=== PATIENT | female | born 1985 | race Caucasian/White ===

== ENCOUNTER 2020-09-09 17:45 | Outpatient (REF) | payer OTHER, SELFPAY ==
[2020-09-09 18:23] LABS: COVID-19 Test Negative (Negative)
== END 2020-09-09 17:46 | disposition home or self-care (01) ==
LOC: HO.LAB 17:45
PROVIDERS: Visit Provider Internal Medicine
DX: Z20.828 Contact with and (suspected) exposure to other viral communicable diseases (principal)
CPT/HCPCS: 87635

== ENCOUNTER 2020-09-12 07:20 | Outpatient (REF) | payer OTHER, SELFPAY ==
[2020-09-12 08:05] LABS: COVID-19 Test Negative (Negative)
== END 2020-09-12 07:21 | disposition home or self-care (01) ==
LOC: HO.LAB 07:20
PROVIDERS: Visit Provider Internal Medicine
DX: Z20.828 Contact with and (suspected) exposure to other viral communicable diseases (principal)
CPT/HCPCS: 87635

== ENCOUNTER 2020-09-16 06:20 | Outpatient (REF) | payer OTHER, SELFPAY ==
[2020-09-16 06:48] LABS: COVID-19 Test Negative (Negative)
== END 2020-09-16 06:21 | disposition home or self-care (01) ==
LOC: HO.LAB 06:20
PROVIDERS: Visit Provider Internal Medicine
DX: Z20.828 Contact with and (suspected) exposure to other viral communicable diseases (principal)
CPT/HCPCS: 87635

== ENCOUNTER 2020-10-13 16:55 | Outpatient (REF) | payer OTHER, SELFPAY ==
[2020-10-13 18:01] LABS: COVID-19 Test Negative (Negative); IDNOW Serial# 55D5AD1C
== END 2020-10-13 16:56 | disposition home or self-care (01) ==
LOC: HO.EMPCOV 16:55
PROVIDERS: Visit Provider Internal Medicine
DX: Z20.828 Contact with and (suspected) exposure to other viral communicable diseases (principal)
CPT/HCPCS: 87635; C9803

== ENCOUNTER 2021-01-08 07:38 | Outpatient (REF) | payer OTHER, MEDICAID, SELFPAY ==
[2021-01-10 03:56] LABS: C. trachomatis RNA TMA NOT DETECTED (NOT DETECTED); N. gonorrhoeae RNA TMA NOT DETECTED (NOT DETECTED)
== END 2021-01-08 07:39 | disposition home or self-care (01) ==
LOC: HO.LAB 07:38
PROVIDERS: Visit Provider Advanced Practice Midwife
DX: Z01.419 Encounter for gynecological examination (general) (routine) without abnormal findings (principal); E66.9 Obesity, unspecified; J30.2 Other seasonal allergic rhinitis; Z11.3 Encounter for screening for infections with a predominantly sexual mode of transmission; Z11.8 Encounter for screening for other infectious and parasitic diseases
CPT/HCPCS: 36415; 87491; 87591

== ENCOUNTER 2021-01-28 10:57 | Outpatient (REF) | payer OTHER, MEDICAID, SELFPAY ==
[2021-01-28 11:45] LABS: MANUAL DIFF FLAG NO
[2021-01-28 11:53] LABS: Basophils Percent Auto 0.4 % (0-2); Hematocrit 40.3 % (37-47); Hemoglobin 12.9 g/dl (12.0-16.0); Imm Gran Abs Auto 0.01 X10*3/uL (0.00-0.03); Imm Gran Pct Auto 0.2 % (0.0-0.4); Lymphocytes Absolute Auto 0.9 X10*3/uL (1.2-4.9); Lymphocytes Percent Auto 20.4 % (20-40); Mean Corpuscular Hemoglobin 27.3 pg (27.0-33.0); Mean Corpuscular Volume 85.2 fL (80-98); Mean Platelet Volume 10.9 fL (9.4-12.3); Monocytes Absolute Auto 0.3 X10*3/uL (0.1-1.2); Monocytes Percent Auto 6.9 % (2-11); Neutrophils Absolute Auto 3.3 X10*3/uL (2.0-8.3); Neutrophils Percent Auto 72.1 % (45-73); Platelet Count 201 X10*3/uL (160-400); Red Blood Count 4.73 X10*6/uL (4.20-5.50); Red Cell Distribution Width 13.6 % (11.0-16.0); White Blood Count 4.6 X10*3/uL (4.8-10.8)
[2021-01-28 12:25] LABS: Thyroid Stimulating Hormone 0.98 uIU/mL (0.32-4.0)
[2021-01-28 12:27] LABS: Anion Gap 11 (12-20); Blood Urea Nitrogen 10 mg/dL (9-16); Calcium 8.4 mg/dL (8.4-10.2); Carbon Dioxide 27 mmol/L (22-29); Chloride 104 mmol/L (96-108); Estimated Glomerular Filt Rate > 60; Glucose Random 90 mg/dL (60-115); Potassium 3.7 mmol/L (3.3-5.1); Sodium 138 mmol/L (135-145)
== END 2021-01-28 10:58 | disposition home or self-care (01) ==
LOC: HO.LAB 10:57
PROVIDERS: PCP Physician Assistant; Visit Provider Internal Medicine
DX: Z00.00 Encounter for general adult medical examination without abnormal findings (principal); E03.9 Hypothyroidism, unspecified; R51.9 Headache, unspecified; R09.89 Other specified symptoms and signs involving the circulatory and respiratory systems
CPT/HCPCS: 36415; 80048; 84443; 85025

== ENCOUNTER 2021-01-28 11:24 | Outpatient (REF) | payer OTHER, MEDICAID, SELFPAY | END 2021-01-28 11:25 | disposition home or self-care (01) | LOC: HO.LAB 11:24 | PROVIDERS: PCP Internal Medicine; Visit Provider Internal Medicine | DX: Z20.822 Contact with and (suspected) exposure to COVID-19 (principal) | CPT/HCPCS: 36415; C9803; U0003; U0005 ==

== ENCOUNTER 2021-02-09 09:32 | Outpatient (REF) | payer OTHER, MEDICAID, SELFPAY ==
[2021-02-11 21:21] LABS: Follicle Stimulating Hormone 7.7 mIU/mL; Prolactin 6.9 ng/mL
[2021-02-14 18:27] LABS: Estrogen 388.4 pg/mL
[2021-02-17 22:18] LABS: Estradiol Free 2.79 pg/mL; Estradiol, Ultrasensitive 153 pg/mL
== END 2021-02-09 09:33 | disposition home or self-care (01) ==
LOC: HO.LAB 09:32
PROVIDERS: PCP Physician Assistant; Visit Provider Physician Assistant
DX: R23.2 Flushing (principal)
CPT/HCPCS: 36415; 82670; 82672; 82681; 83001; 84146

== ENCOUNTER 2021-04-18 06:53 | Emergency (ER) | payer OTHER, MEDICAID, SELFPAY ==
--- NOTE | 2021-04-18 | ECG_ITS ---
Test Reason : ABDOMNIAL PAIN Blood Pressure : / mmHG Vent. Rate : 069 BPM Atrial Rate : 069 BPM P-R Int : 152 ms QRS Dur : 076 ms QT Int : 406 ms P-R-T Axes : -13 017 021 degrees QTc Int : 435 ms Normal sinus rhythm Normal ECG No previous ECGs available Referred By: Stuart Randolph Electronically Signed By:Rubio Carlos
--- NOTE | ~2021-04-18 | XR_ITS ---
EXAMINATION: XR CHEST CLINICAL INFORMATION: Right upper abdominal pain. COMPARISON: None TECHNIQUE: Frontal view of the chest was obtained. FINDINGS: No significant abnormality is noted involving the heart, lungs, mediastinum, bony thorax or soft tissues. XR/XR chest 1V IMPRESSION: Unremarkable chest examination.
--- NOTE | ~2021-04-18 | US_ITS ---
EXAMINATION: US ABDOMEN LIMITED CLINICAL INFORMATION: Right upper quadrant pain. COMPARISON: CT abdomen and pelvis 04/18/2021 TECHNIQUE: Real-time imaging of the right upper quadrant abdominal viscera. FINDINGS: PANCREAS: The pancreas completely obscured by overlying gas. LIVER: The liver is normal in size. The liver contour is normal. Parenchymal echogenicity is increased. No focal hepatic lesion. There is no intrahepatic biliary duct dilatation seen. GALLBLADDER: There is mild tenderness in the gallbladder area The gallbladder is physiologically distended without evidence of stones, sludge, polyps, wall thickening or pericholecystic fluid. COMMON BILE DUCT: Normal in caliber measuring 0.2 cm in diameter. RIGHT KIDNEY: Normal. No hydronephrosis. No renal calculi or focal parenchymal lesions. The kidney measures 10.3 cm in maximum dimension. FREE FLUID: None. US/US abdomen limited IMPRESSION: Mild hepatic steatosis with no focal lesion seen. There is mild tenderness in the right upper quadrant but no gallstone or wall thickening.
--- NOTE | ~2021-04-18 | CT_ITS ---
EXAMINATION: CTA CHEST. CT ABDOMEN AND PELVIS WITH CONTRAST. CLINICAL INFORMATION: Right-sided abdominal pain. Chest pain question PE. COMPARISON: None TECHNIQUE: 5 mm thin axial and reformatted 3mm and 8 mm thin sagittal and axial images of chest were obtained following rapid IV 85 mL Omnipaque 350. Subsequently 3 mm thin axial and reformatted 3 mm thin sagittal and coronal images of abdomen and pelvis were obtained. DLP 1029 FINDINGS: Chest: There is good opacification of pulmonary artery and its branches without any intraluminal filling defect or narrowing. The thoracic aorta is of normal caliber without aneurysm or dissection. The central trachea and bronchi are widely patent. No abnormal size mediastinal mass or lymphadenopathy seen. No pericardial effusion. There is a small hiatal hernia. Both lungs are well-expanded with mild haziness in the superior and basal segments both lower lobes likely dependent compressive atelectasis or consolidation seen. There is no pleural effusion, thickening or calcification. The axilla and chest wall appears unremarkable. Abdomen and pelvis: The liver is homogeneous in density, normal size and contour. No focal lesion or intrahepatic ductal dilatation seen. The gallbladder is unremarkable. Visualized spleen is normal size and density. The pancreas is homogeneous in density without any focal lesions or enlargement. Bilateral adrenal glands are symmetrical and normal. Both kidneys are normal size, shape and position. No radiopaque renal calculi or hydronephrosis seen. The abdominal aorta is normal caliber. No retrograde lymph nodes or mass seen. There is scattered stool and gas seen throughout the colon without any significant distention. The small bowel loops are normal caliber. Appendix is normal caliber. The stomach is nondilated. A small hiatal hernia seen. A small umbilical hernia containing fat is noted. The abdominal aorta is normal caliber. No retroperitoneal lymph nodes or mass seen. Imaging through the pelvis reveals enlarged urinary bladder with a bulky retroverted uterus. There are Essure devices in the right and left adnexa. Likely small right ovarian cyst are noted. There is no free fluid. Bone windows reveal no lytic or sclerotic process. CT/CT angio chest PE protocol IMPRESSION: No evidence of PE. No evidence aortic dissection or aneurysm. Small hiatal hernia. Lungs are clear. Retroverted uterus with bilateral essure devices in the right and left adnexa. Small right ovarian cyst. Small umbilical hernia containing fat. No acute intra-abdominal process seen.
[2021-04-18 07:31] VITALS: BP 127/86; PULSE 74; RESP 18; TEMP 37.1; O2SAT 98; BMI 35.0
--- NOTE | 2021-04-18 08:16 | ED.ABDPAIN ---
HPI - Abdominal Pain General Chief Complaint: Abdominal Pain Stated Complaint: r side pain Time Seen by Provider: 04/18/21 08:11 Source: patient Mode of arrival: ambulatory Limitations: no limitations History of Present Illness HPI narrative: Patient presents to the ED right upper quadrant abdominal pain for 2 weeks. Patient states pain started as right upper quadrant now running up to right posterior ribs. PATIENT DESCRIBES PAIN SHARP/STABBING. Patient denies any fever, chills, dysuria, hematuria, flank pain, fever, or chills. Patient denies any chest pain on inspiration. Patient denies any history of blood clots,or ABDOMINAL OR any abdominal surgery. PATIENT DENIES ANY SWELLING OF LOWER EXTREMITY OR CALF PAIN. PATIENT DENIES ANY LOWER ABDOMINAL PAIN Related Data Previous Rx's Medication Instructions Recorded omeprazole 20 mg capsule,delayed 20 mg PO DAILY #30 cap 12/28/20 release amoxicillin 1,000 mg PO TID 5 Days #30 cap 04/18/21 azithromycin See Rx Instructions .ROUTE 04/18/21 .COMPLEX #6 tab naproxen 500 mg PO BID PRN #20 tab 04/18/21 Allergies Allergy/AdvReac Type Severity Reaction Status Date / Time Seasonal IC Allergy Unknown Unknown Uncoded 02/09/21 08:47 Review of Systems Review of Systems Yes all other systems are reviewed and are negative Constitutional: Reports as per HPI and Reports no additional constitutional complaints Eyes: Reports as per HPI and Reports no additional eye complaints Reports system reviewed and no additional complaints, except as documented and Reports as per HPI Cardiovascular: Reports as per HPI and Reports no additional cardiovascular complaints Respiratory: Reports as per HPI and Reports no additional respiratory complaints Gastrointestinal: Reports as per HPI, Reports no additional gastrointestinal complaints and Reports abdominal pain (Right upper quadrant) Genitourinary: Reports no additional female genitourinary complaints and Reports as per HPI Musculoskeletal: Reports no additional musculoskeletal complaints and Reports as per HPI Reports system reviewed and no additional complaints, except as documented and Reports as per HPI Psychiatric: Reports no additional psychiatric complaints and Reports as per HPI Physical Exam Vital Signs: Vital Signs: Last Vital Signs Temp 98.9 F 04/18/21 14:14 Pulse 56 04/18/21 14:14 Resp 16 04/18/21 14:14 BP 92/60 04/18/21 14:14 Pulse Ox 96 04/18/21 14:14 Body Mass Index 35.0 Const: General: cooperative, healthy appearing, comfortable, no acute distress, well developed, alert, awake and Physically active Orientation/consciousness: oriented to time and patient oriented x3 HENMT: Head: Yes normal to inspection, Yes No palpable skull fracture present, Yes normocephalic, Yes atraumatic and No abrasion Eyes: General: appearance normal, both eyes and all related structures Neck: Neck: Yes normal visual inspection, Yes full ROM, Yes no lymphadenopathy, Yes no meningeal signs, Yes trachea midline, Yes supple and No tender Chest: Chest palpation & inspection: normal inspection of the chest and normal palpation of entire chest wall Resp: Effort & Inspection: normal respiratory effort and able to speak in complete sentences Auscultation: clear to auscultation bilaterally Cardio: Jugular venous distension: no JVD Heart sounds: S1 normal heart sound present and S2 normal heart sound present GI: Inspection: Yes normal to inspection and No abdominal wall ecchymosis Palpation (GI): Soft to palpation, not firm, Tenderness to palpation present (GI) in the RUQ; not in the epigastrum, not in the LLQ, not in the RLQ, not in the LUQ, not at McBurney's point, not periumbilically, not suprapubicly, Rivera's sign negative, obturator sign negative, psoas sign negative, with no rebound tenderness and Rovsing's sign negative, no guarding and not rigid : General: No CVA tenderness and Yes no CVA tenderness Back/Spine/Pelvis: Back: no CVA tenderness, No CVA tenderness and No back tenderness Skin: General skin exam: no rashes or lesions noted and elasticity normal Neuro: General: oriented to time, patient oriented x3, no meningeal signs and CN's II-XI intact bilaterally Cranial nerves: Yes CN's II-XII intact bilaterally Extrem: General: Yes normal to inspection and Yes full ROM Psych: Appearance: grossly normal, well kempt and not disheveled Course Course Course Narrative: Patient will have lab work drawn, EKG, and PPI given. Reevaluation(s) Reevaluation #1: EKG negative for STEMI. Troponin negative. D-dimer negative. Patient states pain is right upper quadrant going into rib area. Will send patient for abdominal CT and chest CT to rule out any typical pneumonia, PE, or gallstones/lipase. Patient not having any lower abdominal pain. Patient given morphine for pain relief. Reevaluation #2: UA negative for UTI. Abdomen CT came back normal. Chest CT negative for PE, but shows possible pneumonia. Most sent for ultrasound to make sure there is no gallstones due to patient's complaint. Negative Rivera. Reevaluation #3: Ultrasound negative for gallstones. Patient is safe for discharge. Will treat as atypical pneumonia and discharged with pain meds also. COVID SWAB NEGATIVE MDM - Abdominal Pain MDM Narrative Medical decision making narrative: Atypical pneumonia. Abdominal pain Lab Data Result diagrams: 04/18/21 08:33 04/18/21 08:33 Labs: Lab Results 04/18/21 04/18/21 04/18/21 Range/Units 08:33 08:33 08:33 WBC 8.8 (4.8-10.8) X10*3/uL RBC 4.42 (4.20-5.50) X10*6/uL Hgb 12.2 (12.0-16.0) g/dl Hct 38.0 (37-47) % MCV 86.0 (80-98) fL MCH 27.6 (27.0-33.0) pg MCHC 32.1 (31.0-35.0) g/dl RDW 14.2 (11.0-16.0) % Plt Count 277 D (160-400) X10*3/uL MPV 10.7 (9.4-12.3) fL Immature Gran % (Auto) 0.3 (0.0-0.4) % Neut % (Auto) 67.3 (45-73) % Lymph % (Auto) 23.9 (20-40) % [place] % (Auto) 5.8 (2-11) % Eos % (Auto) 2.4 (0-4) % Baso % (Auto) 0.3 (0-2) % Lymph # (Auto) 2.1 (1.2-4.9) X10*3/uL [place] # (Auto) 0.5 (0.1-1.2) X10*3/uL Eos # (Auto) 0.2 (0.0-0.4) X10*3/uL Baso # (Auto) 0.0 (0.0-0.2) X10*3/uL Abs Immat Gran (auto) 0.03 (0.00-0.03) X10*3/uL Absolute Neuts (auto) 5.9 (2.0-8.3) X10*3/uL Absolute Nucleated RBC 0.000 (0.0-0.012) X10*3/uL Nucleated RBC % (auto) 0.0 (0.0-0.2) /100WBC PT 12.0 (10.8-13.0) SEC INR 1.0 (0.9-1.1) APTT 34.6 (24.1-38.0) SEC D-Dimer < 200 NG/ML Sodium 140 (135-145) mmol/L Potassium 3.9 (3.3-5.1) mmol/L Chloride 107 (96-108) mmol/L Carbon Dioxide 25 (22-29) mmol/L Anion Gap 12 (12-20) BUN 10 (9-16) mg/dL Creatinine 0.71 (0.5-1.4) mg/dL Estim Creat Clear Calc 119.9 Estimated GFR > 60 Random Glucose 98 (60-115) mg/dL Calcium 8.8 (8.4-10.2) mg/dL Total Bilirubin 0.3 (0.0-1.0) mg/dL Direct Bilirubin < 0.2 (0.0-0.5) mg/dL AST 12 (5-31) U/L ALT 9 (0-31) U/L Alkaline Phosphatase 99 (39-117) U/L Troponin I High Sens (<3.5-17.0) ng/L Total Protein 6.5 (6.5-8.0) g/dL Albumin 3.8 (3.5-5.0) g/dL Lipase 28 (8-78) U/L Beta HCG, Quant < 2 mIU/mL Urine Color Urine Appearance Urine pH (5.0-8.0) Ur Specific [place] (1.005-1.025) Urine Protein (NEG-TRACE) MG/DL Urine Glucose (UA) (NEG) MG/DL Urine Ketones (NEG) MG/DL Urine Blood (NEG) Urine Nitrite (NEG) Ur Leukocyte Esterase (NEG) Urine Test (NEGATIVE) COVID-19 ([facility]ADIE) (Negative) COVID-19 Clin Com 04/18/21 04/18/21 04/18/21 Range/Units 08:33 11:18 11:18 WBC (4.8-10.8) X10*3/uL RBC (4.20-5.50) X10*6/uL Hgb (12.0-16.0) g/dl Hct (37-47) % MCV (80-98) fL MCH (27.0-33.0) pg MCHC (31.0-35.0) g/dl RDW (11.0-16.0) % Plt Count (160-400) X10*3/uL MPV (9.4-12.3) fL Immature Gran % (Auto) (0.0-0.4) % Neut % (Auto) (45-73) % Lymph % (Auto) (20-40) % [place] % (Auto) (2-11) % Eos % (Auto) (0-4) % Baso % (Auto) (0-2) % Lymph # (Auto) (1.2-4.9) X10*3/uL [place] # (Auto) (0.1-1.2) X10*3/uL Eos # (Auto) (0.0-0.4) X10*3/uL Baso # (Auto) (0.0-0.2) X10*3/uL Abs Immat Gran (auto) (0.00-0.03) X10*3/uL Absolute Neuts (auto) (2.0-8.3) X10*3/uL Absolute Nucleated RBC (0.0-0.012) X10*3/uL Nucleated RBC % (auto) (0.0-0.2) /100WBC PT (10.8-13.0) SEC INR (0.9-1.1) APTT (24.1-38.0) SEC D-Dimer NG/ML Sodium (135-145) mmol/L Potassium (3.3-5.1) mmol/L Chloride (96-108) mmol/L Carbon Dioxide (22-29) mmol/L Anion Gap (12-20) BUN (9-16) mg/dL Creatinine (0.5-1.4) mg/dL Estim Creat Clear Calc Estimated GFR Random Glucose (60-115) mg/dL Calcium (8.4-10.2) mg/dL Total Bilirubin (0.0-1.0) mg/dL Direct Bilirubin (0.0-0.5) mg/dL AST (5-31) U/L ALT (0-31) U/L Alkaline Phosphatase (39-117) U/L Troponin I High Sens < 3.5 (<3.5-17.0) ng/L Total Protein (6.5-8.0) g/dL Albumin (3.5-5.0) g/dL Lipase (8-78) U/L Beta HCG, Quant mIU/mL Urine Color YELLOW Urine Appearance CLEAR Urine pH 6.0 (5.0-8.0) Ur Specific [place] 1.010 (1.005-1.025) Urine Protein NEG (NEG-TRACE) MG/DL Urine Glucose (UA) NEG (NEG) MG/DL Urine Ketones NEG (NEG) MG/DL Urine Blood NEG (NEG) Urine Nitrite NEG (NEG) Ur Leukocyte Esterase NEG (NEG) Urine Test NEGATIVE (NEGATIVE) COVID-19 ([facility]) (Negative) COVID-19 Clin Com 04/18/21 Range/Units 14:22 WBC (4.8-10.8) X10*3/uL RBC (4.20-5.50) X10*6/uL Hgb (12.0-16.0) g/dl Hct (37-47) % MCV (80-98) fL MCH (27.0-33.0) pg MCHC (31.0-35.0) g/dl RDW (11.0-16.0) % Plt Count (160-400) X10*3/uL MPV (9.4-12.3) fL Immature Gran % (Auto) (0.0-0.4) % Neut % (Auto) (45-73) % Lymph % (Auto) (20-40) % [place] % (Auto) (2-11) % Eos % (Auto) (0-4) % Baso % (Auto) (0-2) % Lymph # (Auto) (1.2-4.9) X10*3/uL [place] # (Auto) (0.1-1.2) X10*3/uL Eos # (Auto) (0.0-0.4) X10*3/uL Baso # (Auto) (0.0-0.2) X10*3/uL Abs Immat Gran (auto) (0.00-0.03) X10*3/uL Absolute Neuts (auto) (2.0-8.3) X10*3/uL Absolute Nucleated RBC (0.0-0.012) X10*3/uL Nucleated RBC % (auto) (0.0-0.2) /100WBC PT (10.8-13.0) SEC INR (0.9-1.1) APTT (24.1-38.0) SEC D-Dimer NG/ML Sodium (135-145) mmol/L Potassium (3.3-5.1) mmol/L Chloride (96-108) mmol/L Carbon Dioxide (22-29) mmol/L Anion Gap (12-20) BUN (9-16) mg/dL Creatinine (0.5-1.4) mg/dL Estim Creat Clear Calc Estimated GFR Random Glucose (60-115) mg/dL Calcium (8.4-10.2) mg/dL Total Bilirubin (0.0-1.0) mg/dL Direct Bilirubin (0.0-0.5) mg/dL AST (5-31) U/L ALT (0-31) U/L Alkaline Phosphatase (39-117) U/L Troponin I High Sens (<3.5-17.0) ng/L Total Protein (6.5-8.0) g/dL Albumin (3.5-5.0) g/dL Lipase (8-78) U/L Beta HCG, Quant mIU/mL Urine Color Urine Appearance Urine pH (5.0-8.0) Ur Specific [place] (1.005-1.025) Urine Protein (NEG-TRACE) MG/DL Urine Glucose (UA) (NEG) MG/DL Urine Ketones (NEG) MG/DL Urine Blood (NEG) Urine Nitrite (NEG) Ur Leukocyte Esterase (NEG) Urine Test (NEGATIVE) COVID-19 ([facility]IE) Negative (Negative) COVID-19 Clin Com See Note ECG Data Interpretation: Normal sinus rhythm. Ventricular rate 69. Pr interval 152. QRS duration 76. QTC 435. Negative STEMI Discharge Plan Discharge Clinical Impression: Pneumonia, Abdominal pain Patient Disposition: Home, Self-Care Instructions: Abdominal Pain (ED), Pneumonia (ED) Additional Instructions: Return to the ED for any chest pain, shortness of breath, abdominal pain, inability to tolerate solid food/liquid, nausea, vomiting, fever, chills, flank pain, blood in stool, diarrhea, dysuria, hematuria, or any other concerning symptoms. Prescriptions: New azithromycin 500 mg tablet See Rx Instructions .ROUTE .COMPLEX Qty: 6 RF: 0 amoxicillin 500 mg capsule 1,000 mg PO TID 5 Days Qty: 30 RF: 0 naproxen 500 mg tablet 500 mg PO BID PRN (Reason: pain) Qty: 20 RF: 0 No Action omeprazole 20 mg capsule,delayed release(DR/EC) 20 mg PO DAILY Qty: 30 RF: 0 Referrals: Shantanu Costello PA-C [Primary Care Provider] - 2 days ( atypical Pneumonia as per chest CT. Chest CT negative for PE. Abdominal CT negative for acute any intra abdominal processes.) Stand Alone Forms: Work/School Release Interventions: ED Discharge Assessment Last Done: 04/18/21 14:38 Discharge Date/Time: 04/18/21 14:39 Print Language: Dutch [facility] Past Medical History Medical History History of abnormal cervical Pap smear Obesity (BMI 30-39.9) Surgical History History of surgery Family History Family History Father Diabetes Mother Hypertension Sister Cervical cancer Paternal Grandmother Uterine cancer Daughter Lymphatic malformation Social History Social History Alcohol intake: never Advance Directives: No Advance Directives Information Provided: No Patient : No Gender identity: female
[2021-04-18 08:39] LABS: MANUAL DIFF FLAG NO
[2021-04-18 08:41] LABS: Basophils Percent Auto 0.3 % (0-2); Eosinophils Absolute Auto 0.2 X10*3/uL (0.0-0.4); Eosinophils Percent Auto 2.4 % (0-4); Hemoglobin 12.2 g/dl (12.0-16.0); Imm Gran Abs Auto 0.03 X10*3/uL (0.00-0.03); Imm Gran Pct Auto 0.3 % (0.0-0.4); Lymphocytes Absolute Auto 2.1 X10*3/uL (1.2-4.9); Lymphocytes Percent Auto 23.9 % (20-40); Mean Corpuscular HGB Conc 32.1 g/dl (31.0-35.0); Mean Corpuscular Hemoglobin 27.6 pg (27.0-33.0); Mean Platelet Volume 10.7 fL (9.4-12.3); Monocytes Absolute Auto 0.5 X10*3/uL (0.1-1.2); Monocytes Percent Auto 5.8 % (2-11); Neutrophils Absolute Auto 5.9 X10*3/uL (2.0-8.3); Neutrophils Percent Auto 67.3 % (45-73); Platelet Count 277 X10*3/uL (160-400); Red Blood Count 4.42 X10*6/uL (4.20-5.50); Red Cell Distribution Width 14.2 % (11.0-16.0); White Blood Count 8.8 X10*3/uL (4.8-10.8)
[2021-04-18] MEDS: 0.9 % Sodium Chloride 1,000 ML 999 ML IV (08:42)
[2021-04-18] MEDS: Famotidine/PF 20 MG/2 ML VIAL IVPUSH (08:44)
[2021-04-18] MEDS: Magnesium Hydrox/Alum Hydrox 30 ML ORAL.SUSP PO (08:46)
[2021-04-18] MEDS: Lidocaine HCl Viscous 2 % 15 ML SOLUTION MUCOUS MEM (08:46)
[2021-04-18] MEDS: PHENobarb/Hyoscy/Atropine/Scop 10 ML ELIXIR PO (08:46)
[2021-04-18 09:07] LABS: Partial Thromboplastin Time 34.6 SEC (24.1-38.0)
[2021-04-18 09:09] LABS: D Dimer < 200 NG/ML
[2021-04-18] MEDS: Morphine Sulfate 4 MG/ML CARTRIDGE IVPUSH (09:16)
[2021-04-18 09:39] LABS: Alanine Aminotransferase 9 U/L (0-31); Albumin Level 3.8 g/dL (3.5-5.0); Alkaline Phosphatase 99 U/L (39-117); Bilirubin Direct < 0.2 mg/dL (0.0-0.5); Bilirubin Total 0.3 mg/dL (0.0-1.0); Blood Urea Nitrogen 10 mg/dL (9-16); Calcium 8.8 mg/dL (8.4-10.2); Carbon Dioxide 25 mmol/L (22-29); Chloride 107 mmol/L (96-108); Estimated Glomerular Filt Rate > 60; Lipase 28 U/L (8-78); Potassium 3.9 mmol/L (3.3-5.1)
[2021-04-18 09:46] LABS: Troponin-I High Sensitivity < 3.5 ng/L (<3.5-17.0)
[2021-04-18 09:47] LABS: HCG Quantitative < 2 mIU/mL
[2021-04-18 09:51] LABS: Anion Gap 12 (12-20); Aspartate Amino Transferase 12 U/L (5-31); Creatinine Clr Calc Pharmacy 119.9; Glucose Random 98 mg/dL (60-115); Sodium 140 mmol/L (135-145); Total Protein 6.5 g/dL (6.5-8.0)
[2021-04-18 11:01] VITALS: BP 117/72; PULSE 81; RESP 14; TEMP 37.1; O2SAT 100
[2021-04-18] MEDS: iohexoL 350 MG/ML 100 ML INFUS..BTL IV (11:12)
[2021-04-18 11:28] LABS: Glucose Urine UA NEG (NEG); Leukocyte Esterase Urine NEG (NEG); Nitrite Urine NEG (NEG); Urine Blood NEG (NEG); Urine Ketones NEG (NEG); Urine Protein NEG (NEG-TRACE)
[2021-04-18 11:31] LABS: Appearance Urine CLEAR; Color Urine YELLOW; UPreg QC Valid YES; Urine Pregnancy NEGATIVE (NEGATIVE)
[2021-04-18 14:14] VITALS: BP 92/60; PULSE 56; RESP 16; TEMP 37.2; O2SAT 96
[2021-04-18 14:42] LABS: COVID-19 Test Negative (Negative)
== END 2021-04-18 14:39 | disposition home or self-care (01) ==
PROVIDERS: Physician Assistant; Emergency Provider Emergency Medicine Emergency Medical Services; PCP Physician Assistant
DX: J18.9 Pneumonia, unspecified organism (principal); R10.11 Right upper quadrant pain; Z20.822 Contact with and (suspected) exposure to COVID-19
CPT/HCPCS: 36415; 71045; 71275; 74177; 76705; 80053; 80076; 81003; 81025; 82248; 83690; 84484; 84702; 85025; 85379; 85610; 85730; 87635; 93005; 96361; 96374; 96375; 99285; J2270; Q9967

== ENCOUNTER 2021-10-11 09:24 | Outpatient (REF) | payer OTHER, MEDICAID, SELFPAY ==
--- NOTE | ~2021-10-11 | XR_ITS ---
EXAMINATION: XR CHEST CLINICAL INFORMATION: SOB. History of Covid disease. COMPARISON: None TECHNIQUE: 2 views of the chest were obtained. FINDINGS: No significant abnormality is noted involving the heart, lungs, mediastinum, bony thorax or soft tissues. XR/XR chest 2V IMPRESSION: Unremarkable chest examination.
--- NOTE | 2021-10-11 09:32 | ECG_ITS ---
Test Reason : hx covid19 Blood Pressure : / mmHG Vent. Rate : 065 BPM Atrial Rate : 065 BPM P-R Int : 150 ms QRS Dur : 076 ms QT Int : 404 ms P-R-T Axes : 038 025 016 degrees QTc Int : 420 ms Normal sinus rhythm Normal ECG When compared with ECG of 18-APR-2021 08:25, No significant change was found Referred By: Armando Lomas Electronically Signed By:OSCAR KEYES MD
== END 2021-10-11 09:25 | disposition home or self-care (01) ==
LOC: HO.XRAY 09:24
PROVIDERS: PCP Physician Assistant; Visit Provider Nurse Practitioner Family
DX: R00.2 Palpitations (principal); Z86.16 Personal history of COVID-19
CPT/HCPCS: 71046; 93005

== ENCOUNTER → 2022-01-11 08:44 | Outpatient (BNVA) | payer OTHER, MEDICAID, SELFPAY | PROVIDERS: Visit Provider Obstetrics & Gynecology ==

== ENCOUNTER 2022-01-14 08:14 | Emergency (ER) | payer OTHER, SELFPAY ==
--- NOTE | ~2022-01-14 | XR_ITS ---
EXAMINATION: LEFT SHOULDER AND LEFT WRIST X-RAYS CLINICAL INFORMATION: Fall COMPARISON: None TECHNIQUE: 3 views of the left shoulder and 4 views of the left wrist FINDINGS: Left wrist: Bone alignment is normal. No fracture or dislocation is seen. Joint spaces are normal. Soft tissues are normal. Left shoulder: Bone alignment is normal. No fracture or dislocation is seen. Joint spaces are normal. Soft tissues are normal. XR/XR wrist LT 2V IMPRESSION: Unremarkable exam.
--- NOTE | ~2022-01-14 | XR_ITS ---
EXAMINATION: LEFT SHOULDER AND LEFT WRIST X-RAYS CLINICAL INFORMATION: Fall COMPARISON: None TECHNIQUE: 3 views of the left shoulder and 4 views of the left wrist FINDINGS: Left wrist: Bone alignment is normal. No fracture or dislocation is seen. Joint spaces are normal. Soft tissues are normal. Left shoulder: Bone alignment is normal. No fracture or dislocation is seen. Joint spaces are normal. Soft tissues are normal. XR/XR shoulder LT min 2V IMPRESSION: Unremarkable exam.
[2022-01-14 08:17] VITALS: BP 141/93; PULSE 93; RESP 18; TEMP 36.8; O2SAT 99; BMI 38.5
--- NOTE | 2022-01-14 08:45 | ED_ITS ---
HPI - Fall General Chief Complaint: Fall Stated Complaint: fell in parking lot l wrist inj Time Seen by Provider: 01/14/22 08:40 Source: patient Mode of arrival: ambulatory Limitations: no limitations History of Present Illness HPI Narrative: Patient is a 36-year-old female who had a mechanical slip and fall in the employ a parking lot. She reports landing on her buttock and bearing her weight on the left arm. She is right-hand dominant. Pain is currently localized to the left shoulder that is made worse with abduction and shoulder raising. Pain to the left wrist, made worse with movement. denies numbness or tingling of the arm or hand. Denies any head strike or loss of consciousness. Denies back pain, buttock pain, hip pain, knee pain, or generalized leg pain. MD complaint: fall Onset (ago): hour(s) Fall from: standing Fall witnessed: no Place fall occurred: work Loss of consciousness: none Prolonged down time: no Symptoms prior to fall: none Context: tripped/slipped Related Data Previous Rx's Medication Instructions Recorded omeprazole 20 mg capsule,delayed 20 mg PO DAILY #30 cap 12/28/20 release acetaminophen 325 mg tablet 650 mg PO Q6H #30 tab 10/11/21 ibuprofen 600 mg tablet 600 mg PO Q6H #30 tab 10/11/21 Allergies Allergy/AdvReac Type Severity Reaction Status Date / Time Seasonal IC Allergy Unknown Unknown Uncoded 01/11/22 08:53 Review of Systems Review of Systems: Constitutional : No Fever, No Chills, No Fatigue ENT/Mouth : No sore throat, No Rhinorrhea Eyes: No Eye Pain, No Swelling, No Redness Cardiovascular : No Chest Pain, No SOB, No Dyspnea on Exertion Respiratory : No Cough, No Sputum Gastrointestinal : No Nausea, No Vomiting, No Diarrhea, No abdominal pain Genitourinary : No Dysuria, No Urinary Frequency, No Hematuria, Musculoskeletal : + left shoulder and left wrist pain Skin : No Skin Lesions, No rash Neuro : No Weakness, No Numbness, No Dizziness, No Headache Psych : No Anxiety/Panic, No Depression Heme/Lymph: No Bruising, No Bleeding,No Lymphadenopathy Endocrine : No Polyuria, No Polydipsia ? All other systems reviewed and are negative [facility] Past Medical History Attestation statement: The following information was validated with the patient. Source: old records reviewed Medical History History of abnormal cervical Pap smear Obesity (BMI 30-39.9) Surgical History History of surgery Family History Family History Father Diabetes Mother Hypertension Sister Cervical cancer Paternal Grandmother Uterine cancer Daughter Lymphatic malformation Social History Social History Housing: Apartment Alcohol intake: current Alcohol intake frequency: holidays/special occasions only Patient Tobacco Use Status: Never used Tobacco e-Cigarette/Vaping Use: Never Used Second Hand Smoke Exposure: Yes Advance Directives: No Advance Directives Information Provided: No Patient : No service: No Current occupational status: employed 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 Blood pressure normal.? Heart rate normal.? Respiration rate normal. Temperature normal.? Oxygen saturation normal. Appearance: Alert.?Oriented to person, place and time. No acute distress.?Normal affect. Head: Normocephalic, atraumatic Eyes: Pupils equal, round and reactive to light.? ENT: Pharynx normal.?? Neck: Normal inspection.? Neck supple.?? CVS: Heart sounds normal. Normal heart rate and rhythm.? Pulses normal, 2+ radial pulse bilaterally..?? Respiratory: No respiratory distress.? Lung sounds clear to auscultation bilaterally?? Abdomen: Soft and non-tender. Skin: Skin warm and dry.? Normal skin color.? Normal skin turgor.?? Extremities: + left shoulder with decreased range of motion with abduction and overhead raise no obvious deformity. Left wrist with decreased flexion and extension no obvious deformity, swelling, redness. Palpable tenderness to the dorsal aspect of the left wrist. CMS intact. No lower extremity edema.? Neuro: Moves all extremities spontaneously. Sensation intact bilaterally. CN II- XII intact. No focal neuro deficits. Ambulates with normal steady gait. Course Course Course Narrative: Patient is a 36-year-old female being evaluated after mechanical slip and fall. Currently with pain to the left shoulder and left wrist, no obvious deformities or swelling. Will obtain x-rays to exclude fracture dislocation. Patient offered a sling for comfort of the left shoulder, and will provide ibuprofen 600 mg p.o. Disposition will be pending results. Reevaluation(s) Reevaluation #1: Left shoulder and left wrist x-ray without any fracture or dislocation. Symptoms most consistent with a sprain. Discussed these results with the patient. Discussed rest, ice, compression, and elevation. Patient offered kat bandage for compression to wrist but declined at this time. Discussed use of Tylenol and ibuprofen as needed for pain or discomfort. Patient to follow up with work connection as necessary, may return to work today. All questions were answered and patient is agreeable with the plan of care for discharge. Time: 09:40 MDM - Fall Medical Records Attestation: I reviewed the patient's medical records. Imaging Data Left shoulder/ Left wrist XR: Radiologist's impression: FINDINGS: Left wrist: Bone alignment is normal. No fracture or dislocation is seen. Joint spaces are normal. Soft tissues are normal. Left shoulder: Bone alignment is normal. No fracture or dislocation is seen. Joint spaces are normal. Soft tissues are normal.? XR/XR shoulder LT min 2V IMPRESSION: Unremarkable exam.? Discharge Plan Discharge Clinical Impression: Left wrist sprain, Sprain of left shoulder Patient Disposition: Home, Self-Care Instructions: Wrist Injury (ED), Wrist Sprain (ED) Additional Instructions: The x-ray of your left shoulder and left wrist did not reveal any fracture dislocation. This most likely a sprain of the shoulder and wrist. Please be sure to rest, apply ice for 10-15 minutes every 3-4 hours, and elevate the arm when possible. As discussed to apply compression to the left wrist for comfort and continue to use the left sling to alleviate discomfort ear shoulder. Can use Tylenol 650mg every 6 hours as needed, not to exceed 3 g daily, and ibuprofen 400-600 mg every 8 hours as needed. Please return to the emergency department with any new or worsening symptoms or concerns. You may follow up with work connection. Prescriptions: No Action omeprazole 20 mg capsule,delayed release(DR/EC) 20 mg PO DAILY Qty: 30 0RF acetaminophen 325 mg tablet 650 mg PO Q6H Qty: 30 0RF ibuprofen 600 mg tablet 600 mg PO Q6H Qty: 30 0RF Stand Alone Forms: Work/School Release Interventions: ED Discharge Assessment Last Done: 01/14/22 09:42 Discharge Date/Time: 01/14/22 09:42
[2022-01-14] MEDS: Ibuprofen 600 MG TABLET PO (09:09)
[2022-01-14 09:41] VITALS: RESP 17
== END 2022-01-14 09:42 | disposition home or self-care (01) ==
PROVIDERS: Emergency Provider Emergency Medicine; PCP Physician Assistant
DX: S63.502A Unspecified sprain of left wrist, initial encounter (principal); S43.402A Unspecified sprain of left shoulder joint, initial encounter; M79.602 Pain in left arm; W01.0XXA Fall on same level from slipping, tripping and stumbling without subsequent striking against object, initial encounter; Y93.9 Activity, unspecified; Y92.481 Parking lot as the place of occurrence of the external cause; Y99.9 Unspecified external cause status; Z79.899 Other long term (current) drug therapy
CPT/HCPCS: 73030; 73100; 99283

== ENCOUNTER → 2022-01-18 08:03 | Outpatient (BNVA) | payer OTHER, SELFPAY | PROVIDERS: PCP Physician Assistant; Visit Provider Physician Assistant Medical | DX: Z13.89 Encounter for screening for other disorder (principal) | CPT/HCPCS: 99203 ==

== ENCOUNTER → 2022-01-21 07:56 | Outpatient (BNVA) | payer OTHER, SELFPAY | PROVIDERS: PCP Physician Assistant; Visit Provider Physician Assistant Medical | DX: Z13.89 Encounter for screening for other disorder (principal) | CPT/HCPCS: 99213 ==

== ENCOUNTER → 2022-01-25 08:05 | Outpatient (BNVA) | payer OTHER, SELFPAY | PROVIDERS: PCP Physician Assistant; Visit Provider Physician Assistant Medical | DX: Z13.89 Encounter for screening for other disorder (principal) | CPT/HCPCS: 72050; 73030; 99214 ==

== ENCOUNTER → 2022-02-01 08:01 | Outpatient (BNVA) | payer OTHER, SELFPAY | PROVIDERS: PCP Physician Assistant; Visit Provider Physician Assistant Medical | DX: Z13.89 Encounter for screening for other disorder (principal) | CPT/HCPCS: 99213 ==

== ENCOUNTER → 2022-02-07 08:39 | Outpatient (BNVA) | payer OTHER, SELFPAY | PROVIDERS: PCP Physician Assistant; Visit Provider Physician Assistant Medical | DX: Z13.89 Encounter for screening for other disorder (principal) | CPT/HCPCS: 99213 ==

== ENCOUNTER 2022-02-17 07:00 | Outpatient (RCR) | payer OTHER, SELFPAY ==
--- NOTE | 2022-02-01 13:15 | MHC.PT.EP ---
[facility] [place] Office [place] Office [place] Office [address] Becca Kumar [address] [phone] F: [phone] F: [phone] F: [phone] F: [phone] Physical Therapy Plan of Care Date of Evaluation: Date of Surgery: Diagnosis: SHOULDER PAIN Assessment: 36 YO FEMALE REF TO PT AFTER FALLING 01/14/22 OUTDOORS ONTO LEFT SIDE/ LEFT SH. 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 SHE IS RIGHT HAND DOMINANT- OBJECTIVELY, Pt HAS LIMITED AROM CERV AND MILDLY IN Lt SH ; DECR STRENGTH IN PARASCAP/ POST RC MM, (+) SOFT TISSUE IRRIT W TrPS Lt UT/ PARSCAP/ POST RC, INTERMITTENT RADICULAR SXS Lt UE AND PAIN IN HER CERVICAL AND Lt SH. FUNCTIONAL LIMITATIONS INCLUDE DIFFIC SLEEPING, LIMITED REACH/ CARRY/ LIFTING- SHE CURRENTLY HAS LIGHT DUTY RESTRICTIONS AT WORK, AND NOTES SHE CAN PERFORM ADLs AT A SLOWER/ MODIFIED PACE. Pt WOULD BENEFIT FROM PT TO ADDRESS THE ABOVE FINDINGS, EASE SOFT TISSUE TENSION, PAIN MGMT, DEV SELF- SX MGMT STRATEGIES, AND ASSIST Pt IN GRADUAL RETURN TO REGULAR ACTIVITY TOLERANCE. Frequency and Duration: The patient will be seen 2 x WK x 4 WKS Short Term Goals: *PT'S LEFT CERV/SH PAIN DECR TO 2-3/10 AND Lt UE RADIC SXS DECR BY 75% IN 2 WKS *Pt DEMON INDEP SELF CORRECT POSTURE IN 1 WK *Pt DEMON WFL AROM CERV AND END ROM LEFT SH IN 2 WKS Shelter Goals: *Pt INDEP HEP PROGR AND SELF-SX MGMT STRATEGIES FOR Lt SH/ CERV INJURY IN 4 WKS Pt RESUME REG ADLs TO JEANNINE EVIDENT IN IMPROVED SPADI BY 8-10 POINTS ( AT EVAL 53 /130 ) IN 4 WKS *Pt SIMUL 3:3 ADLs / WORK TASKS W PROPER MECHANICS (DECR SH AND CERV STRAIN) IN 4 WKS *Pt DEMON IMPROVED STRENGTH IN Lt SH/ SCAP BY 1/2-1 GRADE IN 4 WKS Treatment Plan: Modalities to reduce pain, spasms and effusion. Manual therapy to restore motion and function. Therapeutic exercise to improve strength and flexibility. Neuromuscular re-education for posture and balance. Therapeutic activities to return to functional activities of daily living. Electronically signed by: Ilene Muller PT Please sign and return to therapist. Thank you for your referral.
--- NOTE | 2022-03-01 08:36 | MHC.PT.DC ---
[facility] [place] Office [place] Office [place] Office [address] Becca Kumar 140 [facility] [phone] F: [phone] F: [phone] F: [phone] F: [phone] Physical Therapy Discharge Report Diagnosis: SHOULDER PAIN Date of Surgery: 01/14/22 Date of Evaluation: 02/01/22 Date of Discharge: 03/01/22 Treatments to Date: 5 Cancellations to Date: No Shows to Date: 3 Discharge Status: Improved Function Patient Elected to Stop Visit Non-compliance Discharge Summary: Pt HAS A HEP, SHE DEMON IMPROVED POSTURAL AWARENESS AND SELF CORRECT CARRYOVER- HER SHOULDER SXS WERE RESOLVING STRENGTH / MUSCULAR EFFICIENCY AND TISSUE TENSION WAS DECREASING. Pt D/C'D THIS DATE, SHE DID NOT MEET ALL OF HER PT GOALS AT THIS TIME. Electronically signed by: Ilene Muller,PT Please sign and return to therapist. Thank you for your referral.
== END 2022-03-01 08:37 | disposition home or self-care (01) ==
LOC: HO.PT 07:00
PROVIDERS: Visit Provider Physician Assistant Medical
DX: M25.551 Pain in right hip (principal); M54.12 Radiculopathy, cervical region
CPT/HCPCS: 97110; 97140; 97162

== ENCOUNTER → 2022-03-01 08:05 | Outpatient (BNVA) | payer OTHER, SELFPAY | PROVIDERS: PCP Physician Assistant; Visit Provider Physician Assistant Medical | DX: Z13.89 Encounter for screening for other disorder (principal) | CPT/HCPCS: 99213 ==

== ENCOUNTER → 2022-03-22 08:00 | Outpatient (BNVA) | payer OTHER, SELFPAY | PROVIDERS: PCP Physician Assistant; Visit Provider Physician Assistant Medical | DX: Z13.89 Encounter for screening for other disorder (principal) | CPT/HCPCS: 99213 ==

== ENCOUNTER 2022-03-22 13:59 | Outpatient (REF) | payer OTHER, MEDICAID, SELFPAY ==
[2022-03-22 14:58] LABS: Hematocrit 37.4 % (37.0-47.0); Hemoglobin 11.8 g/dl (12.0-16.0); Mean Corpuscular HGB Conc 31.6 g/dl (31.0-35.0); Mean Corpuscular Hemoglobin 26.6 pg (27.0-33.0); Mean Corpuscular Volume 84.4 fL (80.0-98.0); Mean Platelet Volume 10.7 fL (9.4-12.3); Platelet Count 293 X10*3/uL (160-400); Red Blood Count 4.43 X10*6/uL (4.20-5.50); Red Cell Distribution Width 14.9 % (11.0-16.0); White Blood Count 8.2 X10*3/uL (4.8-10.8)
[2022-03-22 15:15] LABS: Anion Gap 11 (12-20); Blood Urea Nitrogen 14 mg/dL (9-16); Calcium 8.9 mg/dL (8.4-10.2); Carbon Dioxide 25 mmol/L (22-29); Chloride 109 mmol/L (96-108); Cholesterol 156 mg/dL; Estimated Glomerular Filt Rate > 60; Glucose Random 83 mg/dL (60-115); HDL Cholesterol 57 mg/dL; LDL Cholesterol Calculated 84 mg/dl; Potassium 4.6 mmol/L (3.3-5.1); Sodium 140 mmol/L (135-145); Triglycerides 77 mg/dL
[2022-03-22 15:37] LABS: TSH reflex Free T4 1.36 uIU/mL (0.32-4.0)
[2022-03-27 13:06] LABS: Vitamin D 25-OH, D2 <4 ng/mL; Vitamin D 25-OH, D3 15 ng/mL; Vitamin D 25-OH, Total 15 ng/mL (30-100)
== END 2022-03-22 14:00 | disposition home or self-care (01) ==
LOC: HO.LAB 13:59
PROVIDERS: PCP Physician Assistant; Visit Provider Nurse Practitioner Family
DX: E78.00 Pure hypercholesterolemia, unspecified (principal); F32.A Depression, unspecified; F41.9 Anxiety disorder, unspecified
CPT/HCPCS: 36415; 80048; 80061; 82306; 84443; 85027

== ENCOUNTER 2022-03-25 15:58 | Emergency (ER) | payer OTHER, MEDICAID, SELFPAY ==
--- NOTE | ~2022-03-25 | XR_ITS ---
EXAMINATION: XR CHEST CLINICAL INFORMATION: Right posterior chest pain. COMPARISON: Chest done on 10/11/2021. TECHNIQUE: Frontal view of the chest was obtained. FINDINGS: Both lungs are symmetrically expanded and are clear. The cardiac mediastinal silhouette is within normal limit. No evidence of any pleural effusion or pneumothorax. No significant change. XR/XR chest 1V IMPRESSION: Unremarkable examination.
[2022-03-25 16:13] VITALS: BP 152/94; PULSE 68; RESP 18; TEMP 36.6; O2SAT 98; BMI 38.5
--- NOTE | 2022-03-25 16:21 | ED_ITS ---
HPI - Back Pain/Injury General Chief Complaint: Back Pain/Injury Stated Complaint: Upper right back pain Time Seen by Provider: 03/25/22 16:14 Source: patient Mode of arrival: ambulatory Limitations: no limitations History of Present Illness HPI Narrative: Patient comes to the emergency room complaining of upper back pain for approximately 1 week. Patient denies any injury. Patient states she has been taking Tylenol, last dose at 10:00 today. Patient has been coughing, states it is likely secondary to GERD. Patient is here chills, no UTI symptoms. Related Data Previous Rx's Medication Instructions Recorded acetaminophen 325 mg tablet 650 mg PO Q6H #30 tab 10/11/21 ibuprofen 600 mg tablet 600 mg PO Q6H #30 tab 10/11/21 omeprazole 20 mg capsule,delayed 20 mg PO DAILY #30 cap 01/29/22 release hydroxyzine HCl 25 mg tablet 25 mg PO Q6-8H PRN #30 tab 03/22/22 sertraline 50 mg tablet 50 mg PO DAILY #30 tab 03/22/22 cyclobenzaprine 10 mg tablet 10 mg PO TID PRN #10 tab 03/25/22 ketorolac 10 mg tablet 10 mg PO TID PRN #10 tab 03/25/22 ondansetron 4 mg disintegrating 4 mg PO Q6H PRN #10 tab 03/25/22 tablet Allergies Allergy/AdvReac Type Severity Reaction Status Date / Time Seasonal IC Allergy Unknown Unknown Uncoded 03/22/22 13:13 Review of Systems Review of Systems: Constitutional : No Weight loss, No Fever, No Chills, No Night Sweats, No Fatigue, No Malaise ENT/Mouth : No Hearing loss, No Ear Pain, No Nasal Congestion, No Sinus Pain, No Hoarseness, No sore throat, No Rhinorrhea, No Swallowing Difficulty Eyes: No Eye Pain, No Swelling, No Redness, No Foreign Body, No Discharge, No Vision Changes Cardiovascular : No Chest Pain, No SOB, No Dyspnea on Exertion, No Orthopnea, No Edema, No Palpitations Respiratory : No Cough, No Sputum, No Wheezing, No Smoke Exposure, No Dyspnea Gastrointestinal : No Nausea, No Vomiting, No Diarrhea, No Constipation, No abdominal Pain, No Hematochezia, No Melena Genitourinary : no irregular bleeding, No Dysuria, No Urinary Frequency, No Hematuria, No Urinary Incontinence, No Urgency, No Flank Pain, No Urinary Flow Changes, No Hesitancy Musculoskeletal : Complaining upper /middle back pain right-sided Skin : No Skin Lesions, No rash Neuro : No Weakness, No Numbness, No Paresthesias, No Loss of Consciousness, No Dizziness, No Headache Psych : No Anxiety/Panic, No Depression, No SI/HI/AH/VH, No Social Issues, Heme/Lymph: No Bruising, No Bleeding,No Lymphadenopathy Endocrine : No Polyuria, No Polydipsia, No Temperature Intolerance [facility] Past Medical History Medical History History of abnormal cervical Pap smear Obesity (BMI 30-39.9) Surgical History History of surgery Family History Family History Father Diabetes Mother Hypertension Sister Cervical cancer Paternal Grandmother Uterine cancer Daughter Lymphatic malformation Social History Social History Housing: Apartment Alcohol intake: current Alcohol intake frequency: holidays/special occasions only Patient Tobacco Use Status: Never used Tobacco e-Cigarette/Vaping Use: Never Used Second Hand Smoke Exposure: Yes Advance Directives: No Advance Directives Information Provided: No Patient : No service: No Current occupational status: employed 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 Oriented X3. No acute distress. Eyes: Pupils equal, round and reactive to light. ENT: Pharynx normal. Neck: Normal inspection. Neck supple. No lymph nodes noted. No crepitus CVS: Normal heart rate and rhythm. Pulses normal. Normal S1 and S2 Respiratory: No respiratory distress. Breath sounds normal. No Wheezing. No rales Abdomen: Soft and nontender. No rigidity. No distention. Back: Pain to palpation in the back right side, no thoracic spine tenderness Skin: Skin warm and dry. Normal skin color. Normal skin turgor. Extremities: No lower extremity edema. No Lacerations. No Rash Neuro: Oriented X 3. No motor deficit. No sensory deficit. Moving all extremities. No slurred speech. CN 2 through 12 grossly intact Psych: calm, cooperative, normal affect Course Course Course Narrative: Patient had pain on palpation, likely musculoskeletal. Chest x-ray and urinalysis pending. Urinalysis negative for UTI, chest x-ray shows no acute pathology. Patient will be given IM Toradol and p.o. Zofran in the ED MDM - Back Pain/Injury Lab Data Labs: Lab Results 03/25/22 Range/Units 16:38 Urine Color YELLOW Urine Appearance HAZY Urine pH 6.5 (5.0-8.0) Ur Specific [place] 1.025 (1.005-1.025) Urine Protein NEG (NEG-TRACE) MG/DL Urine Glucose (UA) NEG (NEG) MG/DL Urine Ketones NEG (NEG) MG/DL Urine Blood NEG (NEG) Urine Nitrite NEG (NEG) Ur Leukocyte Esterase NEG (NEG) Discharge Plan Discharge Clinical Impression: Back pain Patient Disposition: Home, Self-Care Instructions: Back Pain (ED) Additional Instructions: Please follow-up with your primary care physician tomorrow. If you have any worsening or new symptoms, please return to the emergency room or call 911 Prescriptions: New ketorolac 10 mg tablet 10 mg PO TID PRN (Reason: pain) Qty: 10 0RF ondansetron 4 mg tablet,disintegrating 4 mg PO Q6H PRN (Reason: nausea and vomiting) Qty: 10 0RF cyclobenzaprine 10 mg tablet 10 mg PO TID PRN (Reason: muscle spasm) Qty: 10 0RF No Action omeprazole 20 mg capsule,delayed release(DR/EC) 20 mg PO DAILY Qty: 30 3RF hydroxyzine HCl 25 mg tablet 25 mg PO Q6-8H PRN (Reason: itching) Qty: 30 0RF sertraline 50 mg tablet 50 mg PO DAILY Qty: 30 0RF acetaminophen 325 mg tablet 650 mg PO Q6H Qty: 30 0RF ibuprofen 600 mg tablet 600 mg PO Q6H Qty: 30 0RF
[2022-03-25 16:47] LABS: Appearance Urine HAZY; Color Urine YELLOW; Glucose Urine UA NEG (NEG); Leukocyte Esterase Urine NEG (NEG); Nitrite Urine NEG (NEG); PH 6.5 (5.0-8.0); Specific Gravity - Urine 1.025 (1.005-1.025); Urine Blood NEG (NEG); Urine Ketones NEG (NEG); Urine Protein NEG (NEG-TRACE)
[2022-03-25 17:30] LABS: UPreg QC Valid YES; Urine Pregnancy NEGATIVE (NEGATIVE)
[2022-03-25] MEDS: Ondansetron ODT 4 MG TAB.RAPDIS TRANSLINGU (17:43)
[2022-03-25] MEDS: Ketorolac Tromethamine 60 MG/2 ML VIAL IM (17:44)
== END 2022-03-25 17:58 | disposition home or self-care (01) ==
PROVIDERS: Emergency Provider Emergency Medicine; PCP Physician Assistant
DX: M54.6 Pain in thoracic spine (principal)
CPT/HCPCS: 71045; 81003; 81025; 96372; 99284; J1885

== ENCOUNTER 2022-03-31 08:23 | Outpatient (REF) | payer OTHER, MEDICAID, SELFPAY ==
--- NOTE | ~2022-03-31 | US_ITS ---
EXAMINATION: US ABDOMEN COMPLETE CLINICAL INFORMATION: Upper abdominal pain. ?gallstones. COMPARISON: Ultrasound abdomen limited and CT abdomen and pelvis 04/18/2021. TECHNIQUE: Real-time imaging of the abdominal viscera. Technically limited study secondary to bowel gas. FINDINGS: PANCREAS: Most of the pancreas is obscured by overlying gas. ABDOMINAL AORTA: The proximal, mid, and distal segments are normal in caliber. INFERIOR VENA CAVA: Visualized portions are normal. LIVER: Normal. The liver is normal in size. The liver contour is normal. Parenchymal echogenicity is normal. No focal hepatic lesion. There is no intrahepatic biliary duct dilatation seen. GALLBLADDER: The gallbladder wall thickness is 0.23 cm. The gallbladder is physiologically distended without evidence of stones, sludge, polyps, wall thickening or pericholecystic fluid. COMMON BILE DUCT: Normal in caliber measuring 0.26 cm in diameter. RIGHT KIDNEY: Normal. No hydronephrosis. No renal calculi or focal parenchymal lesions. The kidney measures 11.0 cm in maximum dimension. LEFT KIDNEY: Normal. No hydronephrosis. No renal calculi or focal parenchymal lesions. The kidney measures 11.1 cm in maximum dimension. SPLEEN: Normal. The spleen measures 11.8 cm in maximum dimension. FREE FLUID: None. US/US abdomen complete IMPRESSION: Unremarkable complete abdomen ultrasound.
== END 2022-03-31 08:24 | disposition home or self-care (01) ==
LOC: HO.US 08:23
PROVIDERS: Visit Provider Physician Assistant Medical
DX: R10.10 Upper abdominal pain, unspecified (principal)
CPT/HCPCS: 76700

== ENCOUNTER → 2022-05-10 07:29 | Outpatient (REF) | payer OTHER, MEDICAID, SELFPAY ==
--- NOTE | 2022-05-10 07:32 | HM_ITS ---
Conclusion: 1. Patient was monitored for total period of 5 days and 23 hours 2. Baseline was normal sinus rhythm with average heart rate of 83 beats per minute 3. No significant pauses or bradycardia noted 4. Very rare PVCs noted 5. Patient reported 1 event that correlated with sinus rhythm MTDD
== END ==
LOC: HO.CARD 07:29
PROVIDERS: Visit Provider Nurse Practitioner Family
DX: R00.2 Palpitations (principal)
CPT/HCPCS: 93242

== ENCOUNTER → 2022-11-16 08:18 | Outpatient (BNVA) | payer OTHER, MEDICAID, SELFPAY | PROVIDERS: PCP Physician Assistant; Visit Provider Internal Medicine | DX: R10.9 Unspecified abdominal pain (principal) ==

== ENCOUNTER 2022-11-23 08:01 | Outpatient (REF) | payer OTHER, MEDICAID, SELFPAY ==
[2022-11-23 09:08] LABS: Alanine Aminotransferase 11 U/L (0-31); Albumin Level 3.8 g/dL (3.5-5.0); Alkaline Phosphatase 103 U/L (39-117); Anion Gap 11 (12-20); Aspartate Amino Transferase 12 U/L (5-31); Bilirubin Total 0.3 mg/dL (0.0-1.0); Blood Urea Nitrogen 12 mg/dL (9-16); C Reactive Protein 1.86 mg/dL (< or = 0.50); Calcium 8.7 mg/dL (8.4-10.2); Carbon Dioxide 24 mmol/L (22-29); Chloride 109 mmol/L (96-108); Estimated Glomerular Filt Rate > 60; Glucose Random 131 mg/dL (60-115); Iron 56 mcg/dL (30-160); Percent Iron Saturation 16 % (15-50); Potassium 3.8 mmol/L (3.3-5.1); Sodium 140 mmol/L (135-145); Total Iron Binding Capacity 347 mcg/dL (228-428); Total Protein 6.6 g/dL (6.5-8.0); Unsaturated Iron Binding 291 ug/dL
[2022-11-23 09:19] LABS: Ferritin 20 ng/mL (10-122); TSH reflex Free T4 0.88 uIU/mL (0.32-4.0); Vitamin D 25-OH Total 16.9 ng/mL (>30)
[2022-11-23 09:32] LABS: Folate 5.6 ng/mL (> or = 4.0); Vitamin B12 575 pg/mL (200-900)
[2022-11-24 11:43] LABS: Immunoglobulin A 374 mg/dL (47-310)
[2022-11-28 13:19] LABS: Transglutaminase IgA <1.0 U/mL
== END 2022-11-23 08:02 | disposition home or self-care (01) ==
LOC: HO.LAB 08:01
PROVIDERS: PCP Physician Assistant; Visit Provider Internal Medicine
DX: R19.7 Diarrhea, unspecified (principal); R19.8 Other specified symptoms and signs involving the digestive system and abdomen
CPT/HCPCS: 36415; 80053; 82306; 82607; 82728; 82746; 82784; 83540; 84443; 86140; 86364

== ENCOUNTER 2022-11-24 08:07 | Outpatient (REF) | payer OTHER, MEDICAID, SELFPAY ==
[2022-11-28 18:48] LABS: Calprotectin, Fecal 257 mcg/g
== END 2022-11-24 08:08 | disposition home or self-care (01) ==
LOC: HO.LNP 08:07
PROVIDERS: Visit Provider Internal Medicine
DX: R19.8 Other specified symptoms and signs involving the digestive system and abdomen (principal)
CPT/HCPCS: 83993

== ENCOUNTER 2023-01-02 08:24 | Day surgery (SDC) | payer OTHER, MEDICAID, SELFPAY ==
[2022-12-27 14:37] VITALS: BMI 38.3
[2023-01-02] MEDS: Lactated Ringers 1,000 ML 50 ML IVCONT (08:48)
[2023-01-02 09:16] VITALS: BP 120/81; PULSE 85; RESP 18; TEMP 36.6; O2SAT 97
--- NOTE | 2023-01-02 09:25 | MHC.SHP ---
Pre-Procedural Eval Section A Date of Service: 01/02/23 Section B Chief Complaint: Abd pain, changes in bowel habits Details of Present Illness: 37y.o F with PMH of anxiety and depression, who is here for EGD/colonoscopy for persistent abd pain and alternating diarrhea and constip. Fecal calpro elevated as well. Relevant Family History (Specify if Yes): No Present Medications: see Short Stay Collaborative assessment Medical History: Significant History (as above ) History of Previous Operations: No relevant previous surgery Allergies: Allergies Allergy/AdvReac Type Severity Reaction Status Date / Time Seasonal Allergies Allergy Intermediate Itchy Eyes Verified 12/27/22 14:37 Review of Systems Review of Systems Comment: 10 point ROS negative except as above Exam Exam Comment: Gen appear: No acute distress, well nourished HEENT: no icterus Chest: No overt resp distress Abd: soft, nontender, nondistended Psych: Stable affect, answering questions appropriately Neuro: A/Ox3 noted to move all extremities spontaneously Ext: no peripheral edema Plan Diagnosis/Plan: Unchanged I have reviewed the history and physical and performed a pertinent physical examination on my patient. No changes have occurred unless specified. Time Spent With Patient Time: Total time managing care of this patient today ____ minutes.
--- NOTE | 2023-01-02 09:27 | P.OP_ITS ---
Operative Note Operative Note Date of Service: 01/02/23 Narrative: Procedure:?Esophagogastroduodenoscopy and Colonoscopy Indication:?Abd pain, diarrhea Endoscopist:?Doretha Jackson MD Anesthesia Provider:?Dr Suzan Villaseñor Anesthesia type:?MAC Instrument:?Olympus GIF-H190, PCF-H190L EGD Procedure:?? The procedure, indications, preparation and potential complications were reviewed with the patient, who indicated understanding and gave written informed consent to proceed. A physical exam was performed. The endoscope was introduced through the mouth, and advanced to the second portion of the duodenum. The mucosa was carefully examined on slow withdrawal of the endoscope. The patient tolerated the procedure well. There were no immediate complications.? ? EGD Findings:? * Esophagus: Ulcer with clean base but contact oozing was noted at the GEJ at 27 cm. The Z line was at 26 cm. A l;arge hiatal hernia was noted with diaphragmatic pinch at 32 cm. * Stomach:?Normal mucosa was noted in the stomach. Random gastric biopsies were taken to rule out H Pylori infection. Retroflexion in the fundus confirmed the size and morphology of the hernia. * Duodenum: Normal mucosa was noted to the extent visualised. Random cold forceps biopsies were obtained to rule out Celiac sprue. Colonoscopy Procedure:? The patient was then turned for the colonoscopy. A digital rectal exam was performed which was normal. A distal attachment cap was affixed to the tip of the scope and the colonoscope was then inserted through the anus and advanced through the colon to the cecum at 85 cm. The appendiceal orifice and ileocecal valve was identified.? Mucosa was carefully examined under high definition white light as the instrument was slowly withdrawn in a retrograde panoramic fashion. Retroflexion was performed in rectum. The procedure was not difficult. There were no immediate obvious complications. The quality of the prep was BBPS: 3+2+2 = adequate Withdrawal time 12 minutes. Limitations: No limitations. Colonoscopy Findings: Mucosa: Normal mucosa in whole colon. Cold forceps biospies were taken from right and left side of the colon to rule out microscopic colitis. Protruding lesions: * Medium internal hemorrhoids without stigmata of recent bleeding Impression:? * Esophagitis with GEJ ulcer * Normal stomach (biopsy) * Normal duodenum (biopsy) * Normal colon mucosa (biopsy) * Internal hemorrhoids Recommendations:?? * Follow path results. * Increase PPI therapy to BID x 8 weeks. * A barium esophagogram is being ordered to further evaluate the hiatal hernia * Repeat EGD to be set up in 8 weeks. If cont to have severe esophagitis despite high dose PPI will consider surgical referral for hiatal hernia. * Resume CRC screening at 47y.o Above has been reviewed with the patient.
--- NOTE | 2023-01-02 09:52 | P.CONAN_ITS ---
HPI - Anesthesia Eval Consult details Narrative: egd colon for valuation of diahrea PMFSH Active Problems Active Problems: All Active Problems (Updated 12/27/22 @ 14:22 by Cleo Castillo RN) Headache (Acute) Hot flashes (Acute) Corneal abrasion of right eye due to contact lens (Acute) History of COVID-19 (Acute) Palpitations (Acute) Fatigue (Acute) Dry cough (Acute) Well woman exam (Acute) Anxiety and depression (Acute) Alternating constipation and diarrhea (Acute) Obesity (BMI 30-39.9) (Acute) Past Medical History Medical History (Updated 12/27/22 @ 14:22 by Cleo Castillo RN) Anxiety and depression GERD (gastroesophageal reflux disease) History of abnormal cervical Pap smear History of COVID-19 Obesity (BMI 30-39.9) Family History Family History Father Diabetes Mother Hypertension Sister Cervical cancer Paternal Grandmother Uterine cancer Daughter Lymphatic malformation Family history of problems with anesthesia: No Surgical History Surgical History History of surgery History of Problems with Anesthesia: No Social History Social History Housing: Apartment Are you a primary career center director to a significant other at home: Yes Do you presently have visiting nurse or other home services: No Alcohol intake: current Alcohol intake frequency: holidays/special occasions only Patient Tobacco Use Status: Never used Tobacco e-Cigarette/Vaping Use: Never Used Second Hand Smoke Exposure: Yes Use of substances other than those prescribed or required for medical reasons: No Have you been hit, kicked, punched, or otherwise hurt by someone within the past year? 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: No Gender identity: Female Cognitive needs: No Hearing needs: No Vision needs: Yes (Glasses) Meds Allergies Allergy/AdvReac Type Severity Reaction Status Date / Time Seasonal Allergies Allergy Intermediate Itchy Eyes Verified 12/27/22 14:37 Active Medications: Current Medications Lactated Ringer's (Lr) 1,000 mls @ 50 mls/hr IVCONT .Q20H PARK Last Admin: 01/02/23 08:48 Dose: 50 mls/hr Exam Exam Date and Time: January 02, 2023 0952 Height,Weight and Vital Signs: Height 5 ft 2.5 in Weight 96.615 kg Last Vital Signs Temp 97.8 F 01/02/23 09:16 Pulse 85 01/02/23 09:16 Resp 18 01/02/23 09:16 BP 120/81 01/02/23 09:16 Pulse Ox 97 01/02/23 09:16 O2 Del Method 01/02/23 09:16 Airway Mallampati Class: II TM Dist: >3cm Neck ROM: Full Heart: rr Lungs: cta Assessment and Plan Final Anesthetic Review Family History of Problems with Anesthesia: No History of Problems with Anesthesia: No NPO: Yes ASA Class: II Final Preanesthetic Review: No Changes in Pt Med Stat, Meds/Allgs Chart Reviewed, Consent Obtained/Reviewed and Anes Risks/Benef Reviewed Patient Risk: Low Procedure Risk: Low Anesthetic Plan Anesthetic Plan: MAC: Disposition: Standard PACU
[2023-01-02 10:08] VITALS: BP 107/73; PULSE 76; RESP 18; TEMP 36.3; O2SAT 97
[2023-01-02 10:23] VITALS: BP 116/71; PULSE 74; RESP 18; TEMP 36.3; O2SAT 100
== END 2023-01-02 10:35 | disposition home or self-care (01) ==
PROVIDERS: PCP Physician Assistant; Visit Provider Internal Medicine
PROC: (CPT 45380; principal; 2023-01-02 09:30)
DX: R19.4 Change in bowel habit (principal); K64.8 Other hemorrhoids; R10.9 Unspecified abdominal pain; K29.40 Chronic atrophic gastritis without bleeding; B96.81 Helicobacter pylori [H. pylori] as the cause of diseases classified elsewhere; K20.80 Other esophagitis without bleeding; K44.9 Diaphragmatic hernia without obstruction or gangrene; K21.9 Gastro-esophageal reflux disease without esophagitis; E66.9 Obesity, unspecified; Z68.38 Body mass index [BMI] 38.0-38.9, adult; J30.2 Other seasonal allergic rhinitis; F41.8 Other specified anxiety disorders; Z79.899 Other long term (current) drug therapy
CPT/HCPCS: 45380; 43239; 88305; 88342

== ENCOUNTER → 2023-01-17 11:13 | Outpatient (BNVA) | payer OTHER, MEDICAID, SELFPAY | PROVIDERS: PCP Physician Assistant; Visit Provider Internal Medicine | DX: Z13.89 Encounter for screening for other disorder (principal) ==

== ENCOUNTER 2023-02-02 10:19 | Outpatient (REF) | payer OTHER, MEDICAID, SELFPAY ==
--- NOTE | ~2023-02-02 | FL_ITS ---
EXAMINATION: FL BARIUM SWALLOW CLINICAL INFORMATION: Diaphragmatic hernia without obstruction. COMPARISON: None available. TECHNIQUE: Barium swallow examination was performed using fluoroscopic evaluation in addition to multiple fluoroscopic spot views. The patient was imaged both upright and prone and using both thick and thin sulfate along with effervescent granules. Fluoroscopy Time: 1.5 minutes DAP: 14.694 Gycm2 Images: 50 FINDINGS: Following oral administration of thick barium and barium-coated turkey in the upright view, there is normal propagation of the bolus from the oral cavity through the pharynx, esophagus and into the stomach without any evidence of obstruction, narrowing or stricture. No laryngeal penetration or aspiration was seen. On oral administration of thin barium in the prone lying position, there is good distention of esophagus without any narrowing. There is a moderate-sized sliding hiatal hernia with mild reflux. The mucosal pattern of the esophagus appears unremarkable. FL/FL barium swallow IMPRESSION: Moderate-sized sliding hiatal hernia with mild gastroesophageal reflux in the lying position.
== END 2023-02-02 10:20 | disposition home or self-care (01) ==
LOC: HO.XRAY 10:19
PROVIDERS: PCP Physician Assistant; Visit Provider Internal Medicine
DX: K44.9 Diaphragmatic hernia without obstruction or gangrene (principal)
CPT/HCPCS: 74220

== ENCOUNTER 2023-02-07 13:54 | Outpatient (REF) | payer OTHER, MEDICAID, SELFPAY ==
[2023-02-07 14:38] LABS: Influenza A PCR NEGATIVE (Negative); Influenza B PCR NEGATIVE (Negative); Resp Syncy Virus RNA Qual PCR NEGATIVE (Negative); SARS COV2 PCR INHOUSE NEGATIVE (Negative)
== END 2023-02-07 13:55 | disposition home or self-care (01) ==
LOC: HO.LNP 13:54
PROVIDERS: Visit Provider Physician Assistant
DX: Z20.822 Contact with and (suspected) exposure to COVID-19 (principal)
CPT/HCPCS: 0241U

== ENCOUNTER → 2023-02-21 13:15 | Outpatient (BNVA) | payer OTHER, MEDICAID, SELFPAY | PROVIDERS: PCP Physician Assistant; Visit Provider Surgery | DX: K20.90 Esophagitis, unspecified without bleeding (principal); K21.9 Gastro-esophageal reflux disease without esophagitis ==

== ENCOUNTER 2023-03-01 15:38 | Outpatient (REF) | payer OTHER, MEDICAID, SELFPAY ==
[2023-03-01 16:00] LABS: MANUAL DIFF FLAG NO
[2023-03-01 16:58] LABS: Basophils Percent Auto 0.3 % (0-2); Eosinophils Absolute Auto 0.2 X10*3/uL (0.0-0.4); Eosinophils Percent Auto 1.9 % (0-4); Hematocrit 35.9 % (37.0-47.0); Hemoglobin 11.1 g/dl (12.0-16.0); Imm Gran Abs Auto 0.03 X10*3/uL (0.00-0.03); Imm Gran Pct Auto 0.3 % (0.0-0.4); Lymphocytes Absolute Auto 2.2 X10*3/uL (1.2-4.9); Lymphocytes Percent Auto 23.1 % (20-40); Mean Corpuscular HGB Conc 30.9 g/dl (31.0-35.0); Mean Corpuscular Hemoglobin 25.1 pg (27.0-33.0); Monocytes Absolute Auto 0.6 X10*3/uL (0.1-1.2); Monocytes Percent Auto 5.7 % (2-11); Neutrophils Absolute Auto 6.7 x10*3/uL (2.0-8.3); Neutrophils Percent Auto 68.7 % (45-73); Platelet Count 353 X10*3/uL (160-400); Red Blood Count 4.43 X10*6/uL (4.20-5.50); Red Cell Distribution Width 15.8 % (11.0-16.0); White Blood Count 9.7 X10*3/uL (4.8-10.8)
[2023-03-01 17:10] LABS: Estimated Average Glucose 114 mg/dL; Hemoglobin A1c % 5.6 %
[2023-03-01 17:31] LABS: Alanine Aminotransferase 11 U/L (0-31); Albumin Level 3.8 g/dL (3.5-5.0); Alkaline Phosphatase 116 U/L (39-117); Anion Gap 13 (12-20); Aspartate Amino Transferase 12 U/L (5-31); Bilirubin Direct < 0.2 mg/dL (0.0-0.5); Bilirubin Total 0.2 mg/dL (0.0-1.0); Blood Urea Nitrogen 17 mg/dL (9-16); Calcium 8.8 mg/dL (8.4-10.2); Carbon Dioxide 24 mmol/L (22-29); Chloride 107 mmol/L (96-108); Estimated Glomerular Filt Rate > 60; Glucose Random 82 mg/dL (60-115); Potassium 4.8 mmol/L (3.3-5.1); Sodium 139 mmol/L (135-145); Total Protein 6.8 g/dL (6.5-8.0)
== END 2023-03-01 15:39 | disposition home or self-care (01) ==
LOC: HO.LAB 15:38
PROVIDERS: PCP Physician Assistant; Visit Provider Surgery
DX: R10.13 Epigastric pain (principal); K21.9 Gastro-esophageal reflux disease without esophagitis; K29.70 Gastritis, unspecified, without bleeding; B96.81 Helicobacter pylori [H. pylori] as the cause of diseases classified elsewhere; K20.90 Esophagitis, unspecified without bleeding; K44.9 Diaphragmatic hernia without obstruction or gangrene; R10.9 Unspecified abdominal pain; Z83.3 Family history of diabetes mellitus; Z83.49 Family history of other endocrine, nutritional and metabolic diseases
CPT/HCPCS: 36415; 80053; 82248; 83036; 85025

== ENCOUNTER 2023-03-08 08:20 | Outpatient (REF) | payer OTHER, MEDICAID, SELFPAY ==
--- NOTE | ~2023-03-08 | US_ITS ---
EXAMINATION: US ABDOMEN LIMITED CLINICAL INFORMATION: Right upper quadrant pain. COMPARISON: Ultrasound abdomen complete 03/31/2022. Limited abdominal ultrasound 04/18/2021. CT abdomen and pelvis 04/18/2021. TECHNIQUE: Real-time imaging of the right upper quadrant abdominal viscera. FINDINGS: PANCREAS: Partially visualized body of the pancreas is homogeneous in echotexture. The head and the tail pancreas not seen. Gas LIVER: The liver is normal in size. The liver contour is normal. There is mild increased hepatic echogenicity. No focal hepatic lesion. There is no intrahepatic biliary duct dilatation seen. GALLBLADDER: Gallbladder wall thickness measures 0.16 cm The gallbladder is physiologically distended without evidence of stones, sludge, polyps, wall thickening or pericholecystic fluid. COMMON BILE DUCT: Normal in caliber measuring 0.3 cm in diameter. RIGHT KIDNEY: Normal. No hydronephrosis. No renal calculi or focal parenchymal lesions. The kidney measures 12.3 cm in maximum dimension. FREE FLUID: None. US/US abdomen limited IMPRESSION: 1. Mild increased hepatic echogenicity. No focal lesion seen. 2. Visualized pancreas, gallbladder, CBD and right kidney is unremarkable.
== END 2023-03-08 08:21 | disposition home or self-care (01) ==
LOC: HO.HMGCX 08:20
PROVIDERS: PCP Physician Assistant; Visit Provider Surgery
DX: R10.11 Right upper quadrant pain (principal); R10.13 Epigastric pain; K21.9 Gastro-esophageal reflux disease without esophagitis; K29.70 Gastritis, unspecified, without bleeding; K20.90 Esophagitis, unspecified without bleeding; K44.9 Diaphragmatic hernia without obstruction or gangrene; B96.81 Helicobacter pylori [H. pylori] as the cause of diseases classified elsewhere
CPT/HCPCS: 76705

== ENCOUNTER 2023-03-08 16:25 | Emergency (ER) | payer OTHER, SELFPAY ==
--- NOTE | ~2023-03-08 | XR_ITS ---
EXAMINATION: XR SHOULDER, LEFT CLINICAL INFORMATION: Pain. No injury. COMPARISON: 01/25/2022 TECHNIQUE: Four views of the left shoulder. FINDINGS: No fracture or dislocation. The glenohumeral joint is well aligned. The joint space is maintained. The acromioclavicular joint is intact. Os acromiale. The visualized lung is clear. The visualized ribs are intact. XR/XR shoulder LT min 2V IMPRESSION: Os acromiale. Otherwise unremarkable appearance of the left shoulder.
[2023-03-08 16:36] VITALS: BP 149/89; PULSE 82; RESP 18; TEMP 36.7; O2SAT 95; BMI 38.5
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
== END 2023-03-08 18:20 | disposition home or self-care (01) ==
PROVIDERS: Emergency Provider Internal Medicine; PCP Physician Assistant
DX: S46.912A Strain of unspecified muscle, fascia and tendon at shoulder and upper arm level, left arm, initial encounter (principal); S13.4XXA Sprain of ligaments of cervical spine, initial encounter; M54.50 Low back pain, unspecified; V43.52XA Car driver injured in collision with other type car in traffic accident, initial encounter; Y93.9 Activity, unspecified; Y92.410 Unspecified street and highway as the place of occurrence of the external cause; Y99.9 Unspecified external cause status
CPT/HCPCS: 73030; 99283

== ENCOUNTER 2023-03-17 | Outpatient (REF) | payer OTHER, MEDICAID, SELFPAY ==
[2023-03-21 15:28] LABS: H Pylori Breath Test Negative (Negative)
== END 2023-03-17 00:01 | disposition home or self-care (01) ==
LOC: HO.LNP
PROVIDERS: Visit Provider Internal Medicine
DX: K21.9 Gastro-esophageal reflux disease without esophagitis (principal); K29.70 Gastritis, unspecified, without bleeding; B96.81 Helicobacter pylori [H. pylori] as the cause of diseases classified elsewhere
CPT/HCPCS: 83013

== ENCOUNTER → 2023-03-17 14:41 | Outpatient (BNVA) | payer OTHER, MEDICAID, SELFPAY | PROVIDERS: PCP Physician Assistant; Visit Provider Internal Medicine | DX: Z13.89 Encounter for screening for other disorder (principal) ==

== ENCOUNTER → 2023-03-27 08:00 | Outpatient (REF) | payer OTHER, MEDICAID, SELFPAY ==
--- NOTE | ~2023-03-27 | NM_ITS ---
EXAMINATION: BILIARY TRACT IMAGING STUDY WITH CCK CLINICAL INFORMATION: Epigastric pain. COMPARISON: Right upper quadrant abdominal ultrasound done on 03/08/2023. TECHNIQUE: Serial gamma scintillation camera images were obtained over the abdomen for a total observation period of 60 minutes following the intravenous administration of 5.0 mCi Tc-99m mebrofenin. The radiotracer was injected through right hand superficial vein without complications. FINDINGS: There is good concentration of activity in the liver by 5 minutes post injection. Biliary activity is visualized by 10 minutes. The gallbladder is well visualized by 30 minutes. Small bowel is well visualized by 20 minutes. At 60 minutes post radiopharmaceutical injection, a 30-minute infusion of 2.0 micrograms Sincalide was then begun and an additional 40 minutes of images were obtained. The patient did not experience any pain immediately following CCK injection. There is good emptying of the gallbladder. By the end of the study there is good clearance of activity from the liver and visualization of diffuse small bowel activity. The calculated gallbladder ejection fraction is 75% (normal gallbladder ejection fraction is greater than 35%). NM/NM hepatobiliary w pharm IMPRESSION: Visualization of the gallbladder is evidence of a patent cystic duct and strong evidence against the diagnosis of acute cholecystitis. The common bile duct is patent. Gallbladder emptying and ejection fraction are normal. Liver function appears normal. The patient did not experience any pain immediately following CCK injection.
== END ==
LOC: HO.NUCMED 08:00
PROVIDERS: PCP Physician Assistant; Visit Provider Surgery
DX: R10.13 Epigastric pain (principal); K21.9 Gastro-esophageal reflux disease without esophagitis; K29.70 Gastritis, unspecified, without bleeding; K20.90 Esophagitis, unspecified without bleeding; K44.9 Diaphragmatic hernia without obstruction or gangrene; B96.81 Helicobacter pylori [H. pylori] as the cause of diseases classified elsewhere
CPT/HCPCS: 78227; A9537; J2805

== ENCOUNTER 2023-04-03 13:06 | Emergency (ER) | payer OTHER, MEDICAID, SELFPAY ==
[2023-04-03 13:40] VITALS: BP 166/88; PULSE 77; RESP 18; TEMP 36.3; O2SAT 98; BMI 38.7
--- NOTE | 2023-04-03 13:42 | ED_ITS ---
HPI - Abdominal Pain General Chief Complaint: General Medical <Marine Lau NP - Last Filed: 04/03/23 13:43> Stated Complaint: UTI? Eye issues <Marine Lau NP - Last Filed: 04/03/23 13:43> Time Seen by Provider: 04/03/23 13:55 <Marine Lau NP - Last Filed: 04/03/23 13:43> Source: patient <ELVIA Nguyen - Last Filed: 04/03/23 16:25> Mode of arrival: ambulatory <ELVIA Nguyen - Last Filed: 04/03/23 16:25> Limitations: no limitations <ELVIA Nguyen - Last Filed: 04/03/23 16:25> History of Present Illness HPI narrative: Patient is a 37 year old assigned female at with a history of MDD and GERD presenting to the emergency department today with pain with urination and left eye redness. Patient states that she recently noticed pain with urination and increased urinary frequency. Patient states that she also noticed her left eye is more red than usual. Patient denies any dizziness, lightheadedness, abdominal pain, nausea, vomiting, fever, chills, blurry vision, double vision, loss of vision, chest pain, difficulty breathing, shortness of breath, back pain, night sweats, increased urinary urgency, blood in her stool, syncope or a near syncopal episode, recent trauma or falls, bowel incontinence, bladder incontinence, bowel retention, bladder retention, or any other complaints at this time. <ELVIA Nguyen - Last Filed: 04/03/23 16:25> Related Data Home Medications: Previous Rx's Medication Instructions Recorded hydroxyzine HCl 25 mg tablet 25 mg PO Q6-8H PRN for itch #30 09/05/22 tabs esomeprazole magnesium 20 mg 20 mg PO BID 90 days #180 caps 01/25/23 capsule,delayed release sertraline 50 mg tablet (Zoloft) 50 mg PO DAILY 90 days #90 tabs 03/22/23 cephalexin 500 mg capsule 500 mg PO Q6H 7 days #28 caps 04/03/23 erythromycin 5 mg/gram (0.5 %) eye 0.5 inch ophthalmic (eye) Q4H #3.5 04/03/23 ointment grams <Marine Lau WEEKEND ANCHOR - Last Filed: 04/03/23 13:43> Allergies/Adverse Reactions: Allergies Allergy/AdvReac Type Severity Reaction Status Date / Time Seasonal Allergies Allergy Intermediate Itchy Eyes Verified 04/03/23 13:39 <Marine Lau WEEKEND ANCHOR - Last Filed: 04/03/23 13:43> Review of Systems Constitutional: Reports no additional constitutional complaints, Denies chills, Denies fever(s) and Denies night sweats <ELVIA Nguyen - Last Filed: 04/03/23 16:25> Eyes: Reports no additional eye complaints, Denies blurry vision, Denies change in vision, Denies diplopia, Denies eye discharge, Denies loss of vision and Denies eye pain <ELVIA Nguyen - Last Filed: 04/03/23 16:25> Comments: left eye redness <ELVIA Nguyen - Last Filed: 04/03/23 16:25> Denies dizziness <ELVIA Nguyen - Last Filed: 04/03/23 16:25> Cardiovascular: Reports no additional cardiovascular complaints, Denies chest pain, Denies lightheadedness, Denies Loss of Consciousness and Denies dyspnea <ELVIA Nguyen - Last Filed: 04/03/23 16:25> Respiratory: Reports no additional respiratory complaints and Denies dyspnea <ELVIA Nguyen - Last Filed: 04/03/23 16:25> Gastrointestinal: Reports no additional gastrointestinal complaints, Denies abdominal pain, Denies melena, Denies hematochezia, Denies change in bowel habits and Denies change in stool character <ELVIA Nguyen - Last Filed: 04/03/23 16:25> Genitourinary: Denies hematuria, Denies urinary frequency, Reports dysuria, Denies urinary incontinence, Denies urinary hesitancy and Denies urinary urgency <ELVIA Nguyen - Last Filed: 04/03/23 16:25> Comments: increased urinary frequency <ELVIA Nguyen - Last Filed: 04/03/23 16:25> Musculoskeletal: Reports no additional musculoskeletal complaints, Denies numbness and Denies tingling <ELVIA Nguyen - Last Filed: 04/03/23 16:25> Denies dizziness, Denies loss of vision, Denies numbness and Denies tingling <ELVIA Nguyen - Last Filed: 04/03/23 16:25> Psychiatric: Reports no additional psychiatric complaints <ELVIA Nguyen - Last Filed: 04/03/23 16:25> Endocrine: Reports no additional endocrine complaints <ELVIA Nguyen - Last Filed: 04/03/23 16:25> Hematologic/Lymphatic: Reports no additional hematologic/lymphatic complaints <ELVIA Nguyen - Last Filed: 04/03/23 16:25> Allergic/Immunologic: Reports no additional allergic/immunologic complaints <ELVIA Nguyen - Last Filed: 04/03/23 16:25> PMFSH Past Medical History Attestation statement: The following information was validated with the patient. <ELVIA Nguyen - Last Filed: 04/03/23 16:25> Source: old records reviewed and nursing notes reviewed <ELVIA Nguyen - Last Filed: 04/03/23 16:25> Medical History: Medical History Anxiety and depression GERD (gastroesophageal reflux disease) History of abnormal cervical Pap smear History of COVID-19 Obesity (BMI 30-39.9) <Marine Lau NP - Last Filed: 04/03/23 13:43> Surgical History: Surgical History History of esophagogastroduodenoscopy (EGD) History of surgery Hx of colonoscopy <Marine Lau NP - Last Filed: 04/03/23 13:43> Family History Family History: Family History Father Diabetes Mother Hypertension Sister Cervical cancer Paternal Grandmother Uterine cancer Daughter Lymphatic malformation <Marine Lau NP - Last Filed: 04/03/23 13:43> Social History Social History: Social History Housing: Apartment Are you a primary laboratory animal care veterinarian to a significant other at home: Yes Do you presently have visiting nurse or other home services: No Alcohol intake: current Alcohol intake frequency: holidays/special occasions only Patient Tobacco Use Status: Never used Tobacco e-Cigarette/Vaping Use: Never Used Second Hand Smoke Exposure: Yes Advance Directives: No Advance Directives Information Provided: Yes service: No Current occupational status: employed 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: No Gender identity: Female Cognitive needs: No Hearing needs: No Vision needs: Yes (Glasses) <Marine Lau NP - Last Filed: 04/03/23 13:43> Physical Exam ED Vital Signs: Vital Signs - 24 hr 04/03/23 13:40 Temperature 97.3 F Pulse Rate 77 Respiratory Rate 18 Blood Pressure 166/88 H Pulse Oximetry 98 Oxygen Delivery Method Room Air BMI result Body Mass Index 38.7 <Marine Lau NP - Last Filed: 04/03/23 13:43> Vital Signs - 24 hr 04/03/23 13:40 Temperature 97.3 F Pulse Rate 77 Respiratory Rate 18 Blood Pressure 166/88 H Pulse Oximetry 98 Oxygen Delivery Method Room Air BMI result Body Mass Index 38.7 <ELVIA Nguyen - Last Filed: 04/03/23 16:25> Const General: cooperative, no acute distress, alert and awake <ELVIA Nguyen - Last Filed: 04/03/23 16:25> Nutritional Appearance: well nourished <ELVIA Nguyen - Last Filed: 04/03/23 16:25> Orientation/consciousness: patient oriented x3 <ELVIA Nguyen - Last Filed: 04/03/23 16:25> Limitations: no limitations <ELVIA Nguyen - Last Filed: 04/03/23 16:25> HENMT Head: Yes normal to inspection and Yes atraumatic <ELVIA Nguyen Last Filed: 04/03/23 16:25> Ears: hearing grossly normal bilaterally and external ears normal <ELVIA Nguyen - Last Filed: 04/03/23 16:25> General nose exam: Normal external nose present, no nasal discharge noted and no epistaxis <ELVIA Nguyen Last Filed: 04/03/23 16:25> Face and sinus: Yes normal facial exam, No abrasion and No laceration <Pilar Arangonichelle NE - Last Filed: 04/03/23 16:25> Mouth: Normal oral and palatal mucosa present, no drooling and no muffled voice <Pilar Arangonichelle [facility] Last Filed: 04/03/23 16:25> Eyes Periorbital: periorbital findings normal <Pilar Arangonichelle NE - Last Filed: 04/03/23 16:25> Eyelids: Yes eyelids normal <Pilar Arangonichelle NE - Last Filed: 04/03/23 16:25> Conjunctivae: other (left eye irritation) <Pilar Arangonichelle NE - Last Filed: 04/03/23 16:25> Pupils: Equal, round and reactive pupils present <Pilar Arangonichelle NE - Last Filed: 04/03/23 16:25> EOM: EOMs intact bilaterally <Pilar Arangonichelle NE - Last Filed: 04/03/23 16:25> Neck Neck: Yes normal visual inspection, Yes full ROM and Yes no lymphadenopathy <Pilar Arangonichelle NE - Last Filed: 04/03/23 16:25> Chest Chest palpation & inspection: normal inspection of the chest <Pilarjason Arangonichelle NE - Last Filed: 04/03/23 16:25> Resp Effort & Inspection: normal respiratory effort and able to speak in complete sentences <Pilar Arangonichelle NE - Last Filed: 04/03/23 16:25> Auscultation: clear to auscultation bilaterally <Pilarjason Arangonichelle NE - Last Filed: 04/03/23 16:25> Cardio Rate: regular rate <Pilar Arangonichelle NE - Last Filed: 04/03/23 16:25> Rhythm: regular rhythm <Pilar Arangonichelle [facility] Last Filed: 04/03/23 16:25> GI Inspection: Yes normal to inspection <Pilar ELVIA Arambula - Last Filed: 04/03/23 16:25> Palpation (GI): Soft to palpation, not firm, nontender and no guarding <Pilar ArangoELVIA steward - Last Filed: 04/03/23 16:25> Neuro General: patient oriented x3 and moves all extremities <ELVIA Nguyen - Last Filed: 04/03/23 16:25> Cranial nerves: Yes Equal, round and reactive pupils present <ELVIA Nguyen - Last Filed: 04/03/23 16:25> Cognition (Neuro): normal cognition <ELVIA Nguyen - Last Filed: 04/03/23 16:25> Motor exam (neuro): 5/5 motor strength present throughout <ELVIA Nguyen - Last Filed: 04/03/23 16:25> Sensory Exam: Normal double simultaneous stimulation for sensation <ELVIA Nguyen - Last Filed: 04/03/23 16:25> Coordination: [id number] test normal <ELVIA Nguyen - Last Filed: 04/03/23 16:25> Extrem General: Yes normal to inspection, Yes full ROM and Yes capillary refill normal <ELVIA Nguyen - Last Filed: 04/03/23 16:25> Psych Appearance: grossly normal <ELVIA Nguyen - Last Filed: 04/03/23 16:25> Mental Status: mental status grossly normal <ELVIA Nguyen - Last Filed: 04/03/23 16:25> Affect: normal affect <ELVIA Nguyen - Last Filed: 04/03/23 16:25> Attitude: cooperative <ELVIA Nguyen - Last Filed: 04/03/23 16:25> Thought process: Normal thought process present <ELVIA Nguyen - Last Filed: 04/03/23 16:25> Thought content: Normal thought content present <ELVIA Nguyen - Last Filed: 04/03/23 16:25> Insight: Good insight present (Psych) <ELVIA Nguyen - Last Filed: 04/03/23 16:25> Course Course Course Narrative: This is rapid medical exam. Deferred additional HPI, ROS, PE to primary provider here with complaints of urinary frequency, dysuria, suprapubic pressure, ?vag bleeding or hematuria (patient unsure), left eye redness/irritation. Will check UA, ur preg, CT NG, BV panel. VSS <Marine Lau NP - Last Filed: 04/03/23 13:43> Medical Decision Making Medical Decision Making MDM Narrative: Patient is a 37 year old assigned female at with a history of GERD and MDD presenting to the emergency department today with left eye irritation and painful urination. Patient's physical exam showed minimal left eye redness but was otherwise unremarkable. Patient's urine showed evidence of a UTI. I explained my physical exam findings as well as all test results to the patient. I answered all questions asked by the patient. I stressed the importance of the patient taking her medication as prescribed. I stressed the importance of the p atient following up with her primary care provider. I stressed the importance of the patient returning to the emergency department immediately if her symptoms were to worsen or if she were to develop any dizziness, shortness of breath, difficulty breathing, chest pain, blurry vision, loss of vision, nausea, vomiting, abdominal pain, fever, chills, back pain, or any other complaints. Patient verbalized agreement and understanding with this treatment plan and discharge <ELVIA Nguyen - Last Filed: 04/03/23 16:25> Differential Diagnosis Differential Diagnoses: The differential diagnosis associated with the presentation includes <ELVIA Nguyen - Last Filed: 04/03/23 16:25> UTI, conjunctivitis <ELVIA Nguyen - Last Filed: 04/03/23 16:25> Lab Data MDM Lab Attestation statement: I reviewed the patient's lab results. <ELVIA Nguyen - Last Filed: 04/03/23 16:25> Labs: Lab Results 04/03/23 04/03/23 04/03/23 Range/Units 14:01 14:01 14:01 Urine Color Yellow Urine Appearance Cloudy Urine pH 5.5 (5.0-9.0) Ur Specific [place] >= 1.030 H (1.005-1.025) Urine Protein 30 (1+) H (Neg-Trace) mg/dL Urine Glucose (UA) Negative (Negative) mg/dL Urine Ketones Trace (Negative) mg/dL Urine Blood Moderate (2+) H (Negative) Urine Nitrite Negative (Negative) Ur Leukocyte Esterase Moderate (2+) H (Negative) Urine RBC >20 H (0-2) /HPF Urine WBC >50 H (0-5) /HPF Ur Squamous Epith Cells 0-2 (0-2) /HPF Urine Bacteria Trace (None Seen) Hyaline Casts 0-2 (0-2) /LPF Urine Test NEGATIVE (NEGATIVE) Chlam trachomat DNA PCR NOT DETECTED (Not Detect.) N.gonorrhoeae DNA (PCR) NOT DETECTED (Not Detect.) <Marine Lau NP - Last Filed: 04/03/23 13:43> Lab Results 04/03/23 04/03/23 04/03/23 Range/Units 14:01 14:01 14:01 Urine Color Yellow Urine Appearance Cloudy Urine pH 5.5 (5.0-9.0) Ur Specific [place] >= 1.030 H (1.005-1.025) Urine Protein 30 (1+) H (Neg-Trace) mg/dL Urine Glucose (UA) Negative (Negative) mg/dL Urine Ketones Trace (Negative) mg/dL Urine Blood Moderate (2+) H (Negative) Urine Nitrite Negative (Negative) Ur Leukocyte Esterase Moderate (2+) H (Negative) Urine RBC >20 H (0-2) /HPF Urine WBC >50 H (0-5) /HPF Ur Squamous Epith Cells 0-2 (0-2) /HPF Urine Bacteria Trace (None Seen) Hyaline Casts 0-2 (0-2) /LPF Urine Test NEGATIVE (NEGATIVE) Chlam trachomat DNA PCR NOT DETECTED (Not Detect.) N.gonorrhoeae DNA (PCR) NOT DETECTED (Not Detect.) <ELVIA Nguyen - Last Filed: 04/03/23 16:25> Discharge Plan Discharge Clinical Impression: UTI (urinary tract infection), Conjunctivitis <Marine Lau NP - Last Filed: 04/03/23 13:43> Patient Disposition: Home, Self-Care <Marine Lau NP - Last Filed: 04/03/23 13:43> Instructions: Urinary Tract Infection in Women (DC), Conjunctivitis (ED) <Marine Lau NP - Last Filed: 04/03/23 13:43> Additional Instructions: Follow up with your primary care provider. Return to the emergency department immediately if your symptoms worsen or if you develop any dizziness, shortness of breath, difficulty breathing, chest pain, blurry vision, loss of vision, nausea, vomiting, abdominal pain, fever, chills, back pain, or any other complaints. <Marine Lau NP - Last Filed: 04/03/23 13:43> Prescriptions: New cephalexin 500 mg capsule 500 mg PO Q6H 7 Days Qty: 28 0RF erythromycin 5 mg/gram (0.5 %) ointment 0.5 inch ophthalmic (eye) Q4H Qty: 3.5 0RF No Action hydroxyzine HCl 25 mg tablet 25 mg PO Q6-8H PRN (Reason: for itch) Qty: 30 3RF esomeprazole magnesium 20 mg capsule,delayed release(DR/EC) 20 mg PO BID 90 Days Qty: 180 2RF sertraline [Zoloft] 50 mg tablet 50 mg PO DAILY 90 Days Qty: 90 1RF <Marine Lau NP - Last Filed: 04/03/23 13:43> Referrals: Shantanu Costello PA-C [Primary Care Provider] - <Marine Lau NP - Last Filed: 04/03/23 13:43> Stand Alone Forms: Work/School Release <Marine Lau NP - Last Filed: 04/03/23 13:43> Interventions: ED Discharge Assessment Last Done: 04/03/23 15:15 <Marine Lau NP - Last Filed: 04/03/23 13:43> Discharge Date/Time: 04/03/23 15:16 <Marine Lau NP - Last Filed: 04/03/23 13:43> Print Language: Nepali <Marine Lau NP - Last Filed: 04/03/23 13:43>
[2023-04-03 14:22] LABS: Appearance Urine Cloudy; Color Urine Yellow; Glucose Urine UA Negative (Negative); Leukocyte Esterase Urine Moderate (2+) (Negative); Nitrite Urine Negative (Negative); PH 5.5 (5.0-9.0); Specific Gravity - Urine >= 1.030 (1.005-1.025); UMIC TRIGGER UACC YES; Urine Blood Moderate (2+) (Negative); Urine Ketones Trace mg/dL (Negative); Urine Protein 30 (1+) mg/dL (Neg-Trace)
[2023-04-03 14:24] LABS: Bacteria Urine Trace (None Seen); Hyaline Casts Urine 0-2 /LPF (0-2); RBC Urine >20 /HPF (0-2); Squamous Epithelial Cell Urine 0-2 /HPF (0-2); UACC Culture Trigger YES; WBC Urine >50 /HPF (0-5)
[2023-04-03 14:25] LABS: UPreg QC Valid YES; Urine Pregnancy NEGATIVE (NEGATIVE)
[2023-04-03 15:44] LABS: CT PCR NOT DETECTED (Not Detect.); NG PCR NOT DETECTED (Not Detect.)
[2023-04-04 10:44] LABS: BV Int Neg Control Negative (Negative); BV Int Pos Control Positive (Positive)
== END 2023-04-03 15:16 | disposition home or self-care (01) ==
PROVIDERS: Nurse Practitioner Family; Emergency Provider Student in an Organized Health Care Education/Training Program; PCP Physician Assistant
DX: N39.0 Urinary tract infection, site not specified (principal); H10.32 Unspecified acute conjunctivitis, left eye; Z79.899 Other long term (current) drug therapy
CPT/HCPCS: 0353U; 81001; 81025; 87086; 87480; 87510; 87660; 99282; 99283

== ENCOUNTER 2023-04-13 09:26 | Day surgery (SDC) | payer OTHER, MEDICAID, SELFPAY ==
--- NOTE | 2023-04-12 10:58 | HO.ANESPROP2 ---
HPI - Anesthesia Eval Consult details Narrative: 37yo F for Upper Endoscopy s/p EGD, [place] 12/2022 with MAC PMFSH Active Problems Active Problems: All Active Problems (Updated 04/11/23 @ 14:13 by Hoda Castro RN) Headache (Acute) Hot flashes (Acute) Corneal abrasion of right eye due to contact lens (Acute) History of COVID-19 (Acute) Palpitations (Acute) Fatigue (Acute) Dry cough (Acute) Well woman exam (Acute) Anxiety and depression (Acute) Alternating constipation and diarrhea (Acute) Hiatal hernia (Acute) Esophagitis determined by endoscopy (Acute) Helicobacter pylori gastritis (Acute) Epigastric abdominal pain (Acute) Melasma (Acute) DANIELA (generalized anxiety disorder) (Acute) Obese (Acute) MDD (major depressive disorder), recurrent episode, moderate (Acute) GERD (gastroesophageal reflux disease) (Acute) Obesity (BMI 30-39.9) (Acute) Past Medical History Medical History Anxiety and depression GERD (gastroesophageal reflux disease) Hiatal hernia History of abnormal cervical Pap smear History of COVID-19 Obesity (BMI 30-39.9) Family History Family History Father Diabetes Mother Hypertension Sister Cervical cancer Paternal Grandmother Uterine cancer Daughter Lymphatic malformation Family history of problems with anesthesia: No Surgical History Surgical History H/O endoscopy History of esophagogastroduodenoscopy (EGD) History of surgery Hx of colonoscopy History of Problems with Anesthesia: No Social History Social History Housing: Apartment Are you a primary health care attorney to a significant other at home: Yes Do you presently have visiting nurse or other home services: No Alcohol intake: current Alcohol intake frequency: holidays/special occasions only Patient Tobacco Use Status: Never used Tobacco e-Cigarette/Vaping Use: Never Used Second Hand Smoke Exposure: Yes service: No Current occupational status: employed 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: No Gender identity: Female Cognitive needs: No Hearing needs: No Vision needs: Yes (Glasses) Meds Allergies Allergy/AdvReac Type Severity Reaction Status Date / Time Seasonal Allergies Allergy Intermediate Itchy Eyes Verified 04/19/23 12:57 Exam Exam Date and Time: April 12, 2023 1058 Pertinent Lab Results Pertinent Lab Results: Laboratory Tests 03/01/23 03/01/23 15:59 15:59 WBC 9.7 Hgb 11.1 L Hct 35.9 L Plt Count 353 Sodium 139 Potassium 4.8 D Chloride 107 Carbon Dioxide 24 BUN 17 H Creatinine 0.79 Assessment and Plan Assessment Anesthesia Assessment: Chart Reviewed Final Anesthetic Review Family History of Problems with Anesthesia: No History of Problems with Anesthesia: No
[2023-04-13 09:41] VITALS: BMI 37.1
--- NOTE | 2023-04-13 09:47 | MHC.SHP ---
Pre-Procedural Eval Section A Date of Service: 04/13/23 Section B Chief Complaint: Esophagitis, unspecified without bleeding Details of Present Illness: PMH: Anxiety and depression GERD (gastroesophageal reflux disease) History of abnormal cervical Pap smear History of COVID-19 Obesity (BMI 30-39.9) Surgical History History of esophagogastroduodenoscopy (EGD) History of surgery Hx of colonoscopy Family History Father Diabetes Mother Hypertension Sister Cervical cancer Paternal Grandmother Uterine cancer Daughter Lymphatic malformation Present Medications: see Short Stay Collaborative assessment Allergies: Allergies Allergy/AdvReac Type Severity Reaction Status Date / Time Seasonal Allergies Allergy Intermediate Itchy Eyes Verified 04/03/23 13:39 Review of Systems Review of Systems Comment: Ten point ROS negative Exam Exam Comment: Gen appear: No acute distress HEENT: no icterus Chest: No overt resp distress Abd: soft, nontender, nondistended Psych: Stable affect, answering questions appropriately Neuro: A/Ox3 noted to move all extremities spontaneously Ext: no peripheral edema Plan Diagnosis/Plan: Unchanged I have reviewed the history and physical and performed a pertinent physical examination on my patient. No changes have occurred unless specified. Time Spent With Patient Time: Total time managing care of this patient today ____ minutes.
[2023-04-13 09:50] VITALS: BP 123/81; PULSE 79; RESP 15; TEMP 36.4; O2SAT 97
[2023-04-13 09:57] LABS: UPreg QC Valid YES
[2023-04-13 09:58] LABS: Urine Pregnancy NEGATIVE (NEGATIVE)
[2023-04-13] MEDS: Lactated Ringers 1,000 ML 100 ML IVCONT (10:05)
--- NOTE | 2023-04-13 10:56 | P.OP_ITS ---
Operative Note Operative Note Date of Service: 04/13/23 Narrative: Procedure: Esophagogastroduodenoscopy Endoscopist: Doretha Jackson MD Indication: Anesthesia Provider: Anesthesia Type: MAC ?? EGD Procedure:?? The procedure, indications, preparation and potential complications were reviewed with the patient, who indicated understanding and gave written informed consent to proceed. A physical exam was performed. []The patient was electively intubated for airway protection the anesthesiologist. The endoscope was introduced through the mouth, and advanced to the second part of duodenum. The mucosa was carefully examined on slow withdrawal of the endoscope. The patient tolerated the procedure well. There were no immediate complications.? ? EGD Findings:? * Esophagus:? GEJ ulceration with friability and contact bleeding. The Z line was at 29 cm. A large hiatal hernia was again seen. * Stomach:? Normal mucosa was noted in the stomach. Retroflexion confirmed the size and morphology of the hiatal hernia as Hill Grade IV. * Duodenum:? Normal mucosa was noted in the whole of the examined duodenum. ? EGD Impressions:? * Esophagitis with GEJ ulcer * Large hiatal hernia * Normal stomach mucosa * Normal duodenum ?? Recommendations:?? * Persistent reflux esophagitis in the setting of large hiatal hernia despite esomeprazole 20 BID * Patient is already established with surgery colleagues for evaluation and consideration of hernia repair * Add famotidine 20mg at night to help optimize antisecretory therapy Above has been reviewed with the patient. ?
[2023-04-13 11:02] VITALS: BP 113/77; PULSE 110; RESP 16; TEMP 36.8; O2SAT 96
--- NOTE | 2023-04-13 11:03 | P.CONAN_ITS ---
[facility]LY [facility] Active Problems Active Problems: All Active Problems (Updated 04/11/23 @ 14:13 by Hoda Castro RN) Headache (Acute) Hot flashes (Acute) Corneal abrasion of right eye due to contact lens (Acute) History of COVID-19 (Acute) Palpitations (Acute) Fatigue (Acute) Dry cough (Acute) Well woman exam (Acute) Anxiety and depression (Acute) Alternating constipation and diarrhea (Acute) Hiatal hernia (Acute) Esophagitis determined by endoscopy (Acute) Helicobacter pylori gastritis (Acute) Epigastric abdominal pain (Acute) Melasma (Acute) DANIELA (generalized anxiety disorder) (Acute) Obese (Acute) MDD (major depressive disorder), recurrent episode, moderate (Acute) GERD (gastroesophageal reflux disease) (Acute) Obesity (BMI 30-39.9) (Acute) Past Medical History Medical History Anxiety and depression GERD (gastroesophageal reflux disease) Hiatal hernia History of abnormal cervical Pap smear History of COVID-19 Obesity (BMI 30-39.9) Family History Family History Father Diabetes Mother Hypertension Sister Cervical cancer Paternal Grandmother Uterine cancer Daughter Lymphatic malformation Family history of problems with anesthesia: No Surgical History Surgical History History of esophagogastroduodenoscopy (EGD) History of surgery Hx of colonoscopy History of Problems with Anesthesia: No Social History Social History Housing: Apartment Are you a primary medical care administrator to a significant other at home: Yes Do you presently have visiting nurse or other home services: No Alcohol intake: current Alcohol intake frequency: holidays/special occasions only Patient Tobacco Use Status: Never used Tobacco e-Cigarette/Vaping Use: Never Used Second Hand Smoke Exposure: Yes Use of substances other than those prescribed or required for medical reasons: No Are you DNR?: No Advance Directives: No Advance Directives Information Provided: Yes service: No Current occupational status: employed 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: No Gender identity: Female Cognitive needs: No Hearing needs: No Vision needs: Yes (Glasses) Meds Allergies Allergy/AdvReac Type Severity Reaction Status Date / Time Seasonal Allergies Allergy Intermediate Itchy Eyes Verified 04/03/23 13:39 Active Medications: Current Medications Lactated Ringer's (Lr) 1,000 mls @ 100 mls/hr IVCONT .Q10H PARK Last Admin: 04/13/23 10:05 Dose: 100 mls/hr Exam Exam Date and Time: April 13, 2023 1103 Height,Weight and Vital Signs: Height 5 ft 2.5 in Weight 93.44 kg Last Vital Signs Temp 97.5 F 04/13/23 09:50 Pulse 79 04/13/23 09:50 Resp 15 04/13/23 09:50 BP 123/81 04/13/23 09:50 Pulse Ox 97 04/13/23 09:50 O2 Del Method Room Air 04/13/23 09:50 Pertinent Lab Results Pertinent Lab Results: Laboratory Tests 04/13/23 09:35 Urine Test NEGATIVE Airway Mallampati Class: III TM Dist: >3cm Neck ROM: Full Heart: RRR Lungs: CTA Assessment and Plan Final Anesthetic Review Family History of Problems with Anesthesia: No History of Problems with Anesthesia: No ASA Class: II Final Preanesthetic Review: Meds/Allgs Chart Reviewed, Consent Obtained/Reviewed and Anes Risks/Benef Reviewed Patient Risk: Intermediate Procedure Risk: Low Anesthetic Plan Anesthetic Plan: MAC: Disposition: Standard PACU
--- NOTE | 2023-04-13 11:05 | HO.POSTANES ---
Post Anesthesia Evaluation Post Anesthesia Evaluation Date of Service: 04/13/23 Vital Signs: Vital Signs Temp Pulse Resp BP Pulse Ox O2 Del Method 04/13/23 09:50 97.5 F 79 15 123/81 97 Room Air Anesthesia: Monitored Mental Status: Awake Pain Control: Satisfactory Nausea/Vomiting: None Hydration: Adequate Anesthesia-Related Issues: No Anes. Related Issues
[2023-04-13 11:17] VITALS: BP 115/85; PULSE 78; RESP 18; TEMP 36.7; O2SAT 98
== END 2023-04-13 11:38 | disposition home or self-care (01) ==
PROVIDERS: Nurse Practitioner; PCP Physician Assistant; Visit Provider Internal Medicine
PROC: 0DJ08ZZ Inspection of Upper Intestinal Tract, Via Natural or Artificial Opening Endoscopic (ICD-10-PCS; CPT 43235; principal; 2023-04-13 12:00)
DX: K21.00 Gastro-esophageal reflux disease with esophagitis, without bleeding (principal); K22.11 Ulcer of esophagus with bleeding; K44.9 Diaphragmatic hernia without obstruction or gangrene; F41.8 Other specified anxiety disorders; J30.2 Other seasonal allergic rhinitis; E66.9 Obesity, unspecified; Z68.38 Body mass index [BMI] 38.0-38.9, adult; Z79.899 Other long term (current) drug therapy; Z86.16 Personal history of COVID-19
CPT/HCPCS: 43235; 81025

== ENCOUNTER 2023-04-18 14:48 | Outpatient (REF) | payer OTHER, MEDICAID, SELFPAY ==
[2023-04-18 18:49] LABS: CT PCR NOT DETECTED (Not Detect.); NG PCR NOT DETECTED (Not Detect.)
[2023-04-19 12:39] LABS: BV Int Neg Control Negative (Negative); BV Int Pos Control Positive (Positive)
[2023-04-20 22:54] LABS: HPV mRNA E6/E7 rflx Not Detected (Not Detected)
== END 2023-04-18 14:49 | disposition home or self-care (01) ==
LOC: HO.LNP 14:48
PROVIDERS: PCP Physician Assistant; Visit Provider Advanced Practice Midwife
DX: Z01.419 Encounter for gynecological examination (general) (routine) without abnormal findings (principal); Z11.51 Encounter for screening for human papillomavirus (HPV); Z20.2 Contact with and (suspected) exposure to infections with a predominantly sexual mode of transmission; Z87.42 Personal history of other diseases of the female genital tract
CPT/HCPCS: 0353U; 87480; 87510; 87624; 87660; 88142

== ENCOUNTER → 2023-04-19 12:54 | Outpatient (BNVA) | payer OTHER, MEDICAID, SELFPAY | PROVIDERS: PCP Physician Assistant; Visit Provider Surgery ==

== ENCOUNTER → 2023-05-16 14:07 | Outpatient (REF) | payer OTHER, MEDICAID, SELFPAY | LOC: HO.SL 14:07 | PROVIDERS: PCP Physician Assistant; Visit Provider Surgery | DX: G47.8 Other sleep disorders (principal); R10.13 Epigastric pain; E66.9 Obesity, unspecified; K21.9 Gastro-esophageal reflux disease without esophagitis; K20.90 Esophagitis, unspecified without bleeding; K44.9 Diaphragmatic hernia without obstruction or gangrene; R06.83 Snoring; R40.0 Somnolence; R09.02 Hypoxemia | CPT/HCPCS: 95806 ==

== ENCOUNTER 2023-07-18 08:27 | Outpatient (AMB) | payer OTHER, MEDICAID, SELFPAY ==
--- NOTE | 2023-07-18 08:38 | A.OFFVIS_ITS ---
Intake Vital Signs 07/18/23 08:39 Height 5 ft 2.5 in Weight 205 lb BMI 36.9 Pulse 78 Pulse Source Pulse Oximeter Pulse Oximetry (%) 98 Oxygen Delivery Method Room Air Intake Visit Reasons: S/p sleep study Block Cuber Required: No Allergies Seasonal Allergies Allergy (Intermediate, Verified 07/18/23 08:40) Itchy Eyes HPI HPI Comments History of Present Illness Details The patient is here for pulmonary evaluation. The patient is a 38-year-old woman with the known history of daytime drowsiness. She also has documented snoring and also apneic episodes. Sometimes she does wake up with shortness of breath and coughing episodes. The patient has an elevated [place] score of 11/24. She did undergo home sleep study. She had a hard time tolerating the study. However it appeared that she had significant hypoxia which she desaturated down to 88% or below for more than 20.9 minutes. In addition to that the patient did have increased heart rate up to 109 beats per minute suggesting some physiological stress. She did not have any significant apneic episodes noted on the study although a very limited study. The patient continues to be symptomatic so therefore at this point she will need an in-lab study to better address her symptoms and address the question of sleep apnea. The patient does have a hiatal hernia. She does have reflux issues. The patient does have episodes of coughing at nighttime. She does try to follow reflux diet. We talked about using risers for the head of the bed to minimize on the pharyngeal laryngeal penetration. She did have a CT scan of the chest that we personally reviewed demonstrating some atelectasis at the bases. Also a mild to moderate size hiatal hernia. [facility] Medical History (Updated 07/18/23 @ 09:00 by Antonio Herr MD) Anxiety and depression GERD (gastroesophageal reflux disease) Hiatal hernia History of abnormal cervical Pap smear History of COVID-19 Nocturnal hypoxia Obesity (BMI 30-39.9) Surgical History H/O endoscopy History of esophagogastroduodenoscopy (EGD) History of surgery Hx of colonoscopy Family History Father Diabetes Mother Hypertension Sister Cervical cancer Paternal Grandmother Uterine cancer Daughter Lymphatic malformation Social History Housing: Apartment Are you a primary client care specialist to a significant other at home: Yes Do you presently have visiting nurse or other home services: No Alcohol intake: current Alcohol intake frequency: holidays/special occasions only Patient Tobacco Use Status: Never used Tobacco e-Cigarette/Vaping Use: Never Used Second Hand Smoke Exposure: Yes service: No Current occupational status: employed 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: No Gender identity: Female Cognitive needs: No Hearing needs: No Vision needs: Yes (Glasses) Female Reproductive History Menstrual Age of Menarche: 11 Review of Systems Const Denies body aches, Denies chills, Reports daytime sleepiness, Denies excessive sweating, Reports fatigue, Denies fever(s), Reports headache(s) and Reports snoring Eyes Denies blurry vision ENT Denies dysphagia, Denies vertigo, Denies dizziness, Reports headache(s), Denies hearing loss and Denies tinnitus Card Denies chest pain, Denies chest pain with activity, Denies syncope, Denies irregular heart rhythm and Denies dyspnea Resp Denies chest congestion, Reports cough, Denies hemoptysis, Denies dyspnea, Reports snoring and Denies wheezing GI Denies melena, Denies coffee ground emesis, Denies dysphagia, Reports dyspepsia, Reports heartburn, Denies diarrhea, Denies nausea and Denies vomiting Denies urinary frequency, Denies dysuria, Denies urinary hesitancy and Denies urinary urgency Musc Denies arthralgias, Denies limited range of motion, Denies muscle cramps and Denies muscle weakness Skin/Breast Denies rash and Denies skin ulcer Neuro Denies Abnormal speech present, Denies vertigo, Denies dizziness, Denies syncope, Reports headache(s) and Denies seizure-like activity Endo Denies excessive sweating, Reports fatigue, Denies flushing, Denies polydipsia and Denies polyuria Leandro/Lymph Denies easy bruising Aller/Immun Denies wheezing Physical Exam Const General: comfortable HEENT Head: Yes normocephalic Neck Neck: Yes supple Chest Chest palpation & inspection: normal inspection of the chest Resp Effort & Inspection: normal respiratory effort Auscultation: clear to auscultation bilaterally Cardio Rate: regular rate Rhythm: regular rhythm Heart sounds: S1 normal heart sound present and S2 normal heart sound present GI Palpation (GI): Soft to palpation Skin General skin exam: no rashes or lesions noted Neuro Speech: No Abnormal speech present Extrem General: No clubbing, No cyanosis and Yes edema Assessment & Plan Assessment & Plan (1) Nocturnal hypoxia: Code(s): G47.34 - Idiopathic sleep related nonobstructive alveolar hypoventilation (2) Hiatal hernia: Code(s): K44.9 - Diaphragmatic hernia without obstruction or gangrene (3) Fatigue: Code(s): R53.83 - Other fatigue (4) ALISE (obstructive sleep apnea): Code(s): G47.33 - Obstructive sleep apnea (adult) (pediatric) Plan Requesting in lab sleep study to better address her symptoms and nocturnal hypoxia reflux diet HOB elevated with wedge or bed risers F/U 6 weeks Orders: Orders RT PSG in-lab sleep study Today G47.33 - Obstructive sleep apnea (adult) (pediatric), G47.34 - Idiopathic sleep related nonobstructive alveolar hypoventilation, R53.83 - Other fatigue Coding Level of Care Code New Pt Level 4 (89503) Diagnoses Nocturnal hypoxia G47.34 Hiatal hernia K44.9 Fatigue R53.83 ALISE (obstructive sleep apnea) G47.33 Time Spent (min) 35
[2023-07-18 08:39] VITALS: PULSE 78; O2SAT 98; BMI 36.9
== END 2023-07-18 08:59 | disposition home or self-care (01) ==
PROVIDERS: PCP Physician Assistant; Referring Provider Surgery; Visit Provider Hospitalist
DX: G47.34 Idiopathic sleep related nonobstructive alveolar hypoventilation (principal); K44.9 Diaphragmatic hernia without obstruction or gangrene; R53.83 Other fatigue; G47.33 Obstructive sleep apnea (adult) (pediatric)
CPT/HCPCS: 99204

== ENCOUNTER → 2023-07-18 08:27 | Outpatient (BNVA) | payer OTHER, MEDICAID, SELFPAY | PROVIDERS: PCP Physician Assistant; Visit Provider Hospitalist ==

== ENCOUNTER → 2023-07-28 19:30 | Outpatient (BNV) | payer OTHER, MEDICAID, SELFPAY | PROVIDERS: PCP Physician Assistant; Visit Provider Internal Medicine | DX: G47.33 Obstructive sleep apnea (adult) (pediatric) (principal) | CPT/HCPCS: 95810 ==

== ENCOUNTER → 2023-07-28 19:30 | Outpatient (REF) | payer OTHER, MEDICAID, SELFPAY | LOC: HO.SL 19:30 | PROVIDERS: PCP Physician Assistant; Visit Provider Hospitalist | DX: G47.33 Obstructive sleep apnea (adult) (pediatric) (principal); R53.83 Other fatigue; G47.34 Idiopathic sleep related nonobstructive alveolar hypoventilation | CPT/HCPCS: 95810 ==

== ENCOUNTER 2023-09-05 09:00 | Outpatient (AMB) | payer OTHER, MEDICAID, SELFPAY ==
[2023-09-05 09:00] VITALS: BMI 18.0
--- NOTE | 2023-09-05 09:00 | MHC.OFFVIS ---
Intake Vital Signs 09/05/23 09:00 Height 5 ft 2.5 in Weight 100 lb BMI 18.0 Intake Visit Reasons: 6 week f/u Allergies Seasonal Allergies Allergy (Intermediate, Verified 09/05/23 09:01) Itchy Eyes HPI HPI Comments History of Present Illness Details The patient is a 38-year-old woman with the known history of daytime drowsiness. She also has documented snoring and also apneic episodes. Sometimes she does wake up with shortness of breath and coughing episodes. The patient has an elevated [place] score of 11/24. She did undergo home sleep study. She had a hard time tolerating the stud based on the patient's y. However it appeared that she had significant hypoxia which she desaturated down to 88% or below for more than 20.9 minutes. In addition to that the patient did have increased heart rate up to 109 beats per minute suggesting some physiological stress. She did not have any significant apneic episodes noted on the study although a very limited study. The patient continues to be symptomatic so therefore at this point she will need an in-lab study to better address her symptoms and address the question of sleep apnea. The patient does have a hiatal hernia. She does have reflux issues. The patient does have episodes of coughing at nighttime. She does try to follow reflux diet. We talked about using risers for the head of the bed to minimize on the pharyngeal laryngeal penetration. She did have a CT scan of the chest that we personally reviewed demonstrating some atelectasis at the bases. Also a mild to moderate size hiatal hernia. 09/05/2023 the patient has a telehealth visit today. She continues to have significant daytime drowsiness. Her [place] score continues to be elevated 11/24. She falls asleep during the daytime and family and friends tell her she goes right to sleep. The patient did have a name lab sleep study which we did review. The patient's hipnogram demonstrated that she had significant deep sleep. She actually went into REM sleep during the early parts of sleep which is unusual. She also had 6 episodes of REM sleep throughout the night which is also unusual. Even with a good quality deep sleep the patient still does wake up tired, unrefreshed. Explained to the patient that this suggests a component of hypersomnia. She denies symptoms that go along with cataplexy, sleep paralysis, nor hypnogogic hallucinations. Based on the patient's symptoms I did recommend she undergo a multi latency sleep study. However, the patient did have a hard time sleeping in the laboratory would like to hold off. Therefore, will be reasonable for her to be referred to Neurology for further evaluation for idiopathic hypersomnia. [facility] Medical History (Updated 09/05/23 @ 12:28 by Antonio Herr MD) Hypersomnia Nocturnal hypoxia Hiatal hernia GERD (gastroesophageal reflux disease) History of COVID-19 Anxiety and depression History of abnormal cervical Pap smear Obesity (BMI 30-39.9) Surgical History H/O endoscopy Hx of colonoscopy History of esophagogastroduodenoscopy (EGD) History of surgery Family History Father Diabetes Mother Hypertension Sister Cervical cancer Paternal Grandmother Uterine cancer Daughter Lymphatic malformation Social History Housing: Apartment Are you a primary acute care nurse practitioner to a significant other at home: Yes Do you presently have visiting nurse or other home services: No Alcohol intake: current Alcohol intake frequency: holidays/special occasions only Patient Tobacco Use Status: Never used Tobacco e-Cigarette/Vaping Use: Never Used Second Hand Smoke Exposure: Yes service: No Current occupational status: employed 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: No Gender identity: Female Cognitive needs: No Hearing needs: No Vision needs: Yes (Glasses) Female Reproductive History Menstrual Age of Menarche: 11 Review of Systems Const Denies body aches, Denies chills, Reports daytime sleepiness, Denies excessive sweating, Reports fatigue, Denies fever(s), Reports headache(s) and Reports snoring Eyes Denies blurry vision ENT Denies dysphagia, Denies vertigo, Denies dizziness, Reports headache(s), Denies hearing loss and Denies tinnitus Card Denies chest pain, Denies chest pain with activity, Denies syncope, Denies irregular heart rhythm and Denies dyspnea Resp Denies chest congestion, Reports cough, Denies hemoptysis, Denies dyspnea, Reports snoring and Denies wheezing GI Denies melena, Denies coffee ground emesis, Denies dysphagia, Reports dyspepsia, Reports heartburn, Denies diarrhea, Denies nausea and Denies vomiting Denies urinary frequency, Denies dysuria, Denies urinary hesitancy and Denies urinary urgency Musc Denies arthralgias, Denies limited range of motion, Denies muscle cramps and Denies muscle weakness Skin/Breast Denies rash and Denies skin ulcer Neuro Denies Abnormal speech present, Denies vertigo, Denies dizziness, Denies syncope, Reports headache(s) and Denies seizure-like activity Endo Denies excessive sweating, Reports fatigue, Denies flushing, Denies polydipsia and Denies polyuria Leandro/Lymph Denies easy bruising Aller/Immun Denies wheezing Physical Exam Vital Signs: BMI result Body Mass Index 18.0 Const General: comfortable Orientation/consciousness: patient oriented x3 Resp Effort & Inspection: normal respiratory effort and able to speak in complete sentences Neuro General: patient oriented x3 Speech: No Abnormal speech present Assessment & Plan Assessment & Plan (1) Hypersomnia: Code(s): G47.10 - Hypersomnia, unspecified (2) Hiatal hernia: Code(s): K44.9 - Diaphragmatic hernia without obstruction or gangrene (3) Fatigue: Code(s): R53.83 - Other fatigue Qualifiers: Fatigue type: chronic, unspecified Qualified Code(s): R53.82 - Chronic fatigue, unspecified Plan referral to neurology/sleep center consider MSLT reflux diet HOB elevated with wedge or bed risers F/U as needed Orders: Referrals Neurology Referral G47.10 - Hypersomnia, unspecified Telehealth Telehealth Location of provider rendering services: practice address Location of patient: address on file Patient Identification confirmed using: Name, : Yes Telehealth method: voice only Patient verbally consented to treatment: Yes Patient verbally consented to billing insurance company: Yes Patient informed of any privacy concerns related to visit: Yes Coding Level of Care Code Tele Est Pt Level 4 (34266) Diagnoses Hypersomnia G47.10 Hiatal hernia K44.9 Chronic fatigue R53.82 Fatigue type: chronic, unspecified Time Spent (min) 14
== END 2023-09-05 09:27 | disposition home or self-care (01) ==
LOC: HO.HPS 09:00
PROVIDERS: PCP Physician Assistant; Referring Provider Surgery; Visit Provider Hospitalist
DX: G47.10 Hypersomnia, unspecified (principal); K44.9 Diaphragmatic hernia without obstruction or gangrene; R53.82 Chronic fatigue, unspecified
CPT/HCPCS: 99214

== ENCOUNTER → 2023-09-05 09:00 | Outpatient (BNVA) | payer OTHER, MEDICAID, SELFPAY | PROVIDERS: PCP Physician Assistant; Visit Provider Hospitalist ==

== ENCOUNTER 2023-09-19 08:01 | Outpatient (AMB) | payer OTHER, MEDICAID, SELFPAY ==
--- NOTE | 2023-09-19 08:05 | A.OFFVIS_ITS ---
Intake Vital Signs 09/19/23 08:08 Height 5 ft 2.5 in Weight 210 lb 2 oz BMI 37.8 BP 140/82 H Blood Pressure Location Lt brachial Position Sitting Pulse 68 Pulse Source Pulse Oximeter Pulse Oximetry (%) 98 Oxygen Delivery Method Room Air Intake Visit Reasons: I-LEAF BLENDER: Hypersomnia, unspecified - Confirmed Intake Note: NPV for Hypersomnia Finisher Cold Rolling Required: No Allergies Seasonal Allergies Allergy (Intermediate, Verified 09/19/23 08:05) Itchy Eyes HPI HPI Comments History of Present Illness Details 38 y/o female patient presents for new i n-person visit for sleep consultation. Pt reports hypersomnia, she can fall asleep easily and sleep all day Pt had a home sleep study done, and the result was negative for sleep apnea. Total AHI was 0.7/hr with mild nocturnal hypoxemia. The average O2 sat 95% with lowest O2 sat 85%, and O2 sat below 88% for 21 min. Pt underwent to PSG sleep study to assess hypoxemia. The PSG sleep test result was normal sleep, no evidence of sleep apnea, minimal snoring and also sleep architecture is normal. She can fall asleep easily, wakes up always tired. Pt reports snoring, gasping arousals, non refreshing sleep with daytime sleepiness. She had sleep study but it was normal. Sleep questionnaire: Have you ever been diagnosed with a sleep disorder? No. Have you ever had a sleep study in the past? Yes. Have you ever been treated for a sleep disorder? No. Do you take medications for a sleep disorder? No. Do you snore? Yes. Do you wake up gasping at night? Yes. Do you have episodes of apneas? Yes. If yes, are they witnessed? Yes. Do you have episodes of nocturnal chest pain or dyspnea? Yes, sometimes. Do you have difficulty initiating sleep? No. Do you have difficulty maintaining sleep? No. Do you wake up tired? Yes. Do you have headaches upon awakening? Yes, sometimes. Do you wake up with dry mouth or throat? Yes. Do you have GERD? Yes. Do you have nocturia? No. Do you have nocturnal leg cramps? Yes, sometimes. Do you have symptoms of restless legs? No. Do you act out your dreams? No. Sleep hygiene questionnaire: What is your usual sleep routine? Usual bedtime is at 9:30 ; Usual wake up time is at 6 :30 am. Do you take naps? Yes, sometimes. Is your sleep environment cool, dark, and quiet? Yes Do you exercise? Yes, treadmill, three times a week. Do you take caffeine or other stimulants? Coffee in the morning. Do you use electronics in bed? No. What is your work schedule? 8 to 4:30 pm Hypersomnolence questionnaire: Do you have daytime tiredness or fatigue? Yes Do you easily fall asleep when inactive? Yes. Have you ever had episodes of sudden weakness? No. Have you ever had episodes of sudden weakness associated with strong emotions? No. PFSH Medical History (Updated 09/19/23 @ 08:54 by Tammi Croft CNP) Hypersomnia Nocturnal hypoxia Hiatal hernia GERD (gastroesophageal reflux disease) History of COVID-19 Anxiety and depression History of abnormal cervical Pap smear Obesity (BMI 30-39.9) Surgical History (Reviewed 04/19/23 @ 12:59 by Mainor Camarena MD, FACS, [facility]) H/O endoscopy Hx of colonoscopy History of esophagogastroduodenoscopy (EGD) History of surgery Family History Father Diabetes Mother Hypertension Sister Cervical cancer Paternal Grandmother Uterine cancer Daughter Lymphatic malformation Social History (Updated 09/19/23 @ 08:08 by Adilia Mata [facility]) Housing: Apartment Are you a primary health care consultant to a significant other at home: Yes Do you presently have visiting nurse or other home services: No Alcohol intake: current Alcohol intake frequency: holidays/special occasions only Patient Tobacco Use Status: Never used Tobacco e-Cigarette/Vaping Use: Never Used Second Hand Smoke Exposure: Yes service: No Current occupational status: employed 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: No Gender identity: Female Cognitive needs: No Hearing needs: No Vision needs: Yes (Glasses) Female Reproductive History Menstrual Age of Menarche: 11 Questionnaire [place] Sleepiness Scale Questions Sitting and reading: slight chance of dozing Watching TV: moderate chance of dozing Sitting inactive in a theater, movie etc.: slight chance of dozing As a passenger in a car for an hour without break: slight chance of dozing Lying down in the afternoon when circumstances permit: moderate chance of dozing Sitting and talking to someone: would never doze Sitting quietly after lunch without alcohol: slight chance of dozing In a car, while stopped for a few minutes in the traffic: would never doze ESS < 10: normal, ESS > 12: pathologic: 8 Physical Exam Vital Signs: Last Vital Signs Pulse 68 09/19/23 08:08 BP 140/82 H 09/19/23 08:08 Pulse Ox 98 09/19/23 08:08 Oxygen Delivery Method Room Air 09/19/23 08:08 BMI result Body Mass Index 37.8 Assessment & Plan Assessment & Plan (1) Hypersomnia: Code(s): G47.10 - Hypersomnia, unspecified Plan Will check labs to see reversible causes for hypersomnia. Will consider to do MSLT. Advised patient to continue to do daily exercise, and takes zoloft to manage depression and anxiety. Orders: Orders Vitamin B12 and Folate Today E55.9 - Vitamin D deficiency, unspecified, G47.10 - Hypersomnia, unspecified, K58.9 - Irritable bowel syndrome without diarrhea, R53.83 - Other fatigue Vitamin D 25-OH (D2 and D3) Today E55.9 - Vitamin D deficiency, unspecified, G47.10 - Hypersomnia, unspecified, K58.9 - Irritable bowel syndrome without diarrhea, R53.83 - Other fatigue TSH reflex Free T4 Today E55.9 - Vitamin D deficiency, unspecified, G47.10 - Hypersomnia, unspecified, K58.9 - Irritable bowel syndrome without diarrhea, R53.83 - Other fatigue Coding Level of Care Code New Pt Level 3 (92106) Diagnoses Hypersomnia G47.10
[2023-09-19 08:08] VITALS: BP 140/82; PULSE 68; O2SAT 98; BMI 37.8
== END 2023-09-19 08:55 | disposition home or self-care (01) ==
PROVIDERS: PCP Physician Assistant; Visit Provider Nurse Practitioner Family
DX: G47.10 Hypersomnia, unspecified (principal)
CPT/HCPCS: 99203

== ENCOUNTER → 2023-09-19 08:01 | Outpatient (BNVA) | payer OTHER, MEDICAID, SELFPAY | PROVIDERS: PCP Physician Assistant; Visit Provider Nurse Practitioner Family ==

== ENCOUNTER 2023-09-25 08:38 | Outpatient (AMB) | payer OTHER, MEDICAID, SELFPAY ==
--- NOTE | 2023-09-25 08:42 | MHC.PC.OV ---
Vital Signs 09/25/23 08:43 Height 5 ft 2.5 in Weight 208 lb 8 oz BMI 37.5 BP 130/62 Blood Pressure Location Lt brachial Position Sitting Pulse 78 Pulse Source Pulse Oximeter Pulse Oximetry (%) 96 Oxygen Delivery Method Room Air Intake Visit Reasons: 6mth f/u Intake Note: Patient is here to follow up on IBS, DANIELA. Radio Engineer Required: No Fireworks Inspector: Not Required per policy Accompanied by: Self / Same As Patient Allergies Seasonal Allergies Allergy (Intermediate, Verified 09/25/23 09:13) Itchy Eyes Medication List - Last Reconciled 09/25/23 by Shantanu Costello PA-C esomeprazole magnesium 20 mg PO BID sertraline (Zoloft) 50 mg PO DAILY 90 days Tobacco use date assessed: 09/25/23 Dental Screening Dental Screen Date: 09/25/23 Did you have a dental visit in the last 12 months?: Yes Did you have a dental problem in the last 6 months where you did not have access to dental care?: No Was dental information given to patient?: Patient has dentist HPI 6mth f/u HPI Details Patient is a 38-year-old female here today for a follow-up visit.. Patient has a past medical history significant for obesity, GERD, generalized anxiety disorder. .. GERD: Has a large hiatal hernia gastric ulcers. Been placed on PPI therapy due to her gastric reflux and esophagitis. .. Hypersomnia: Has seen a courtroom clerk and was evaluated. Sleep study was negative. There were concerns here for hypersomnia was refer to Neurology was seen recently and getting workup with blood levels. .. Generalized anxiety disorder: was on Sertraline 50 mg though has not been able to get refills from pharmacy.. Does use hydroxyzine on a p.r.n. basis for anxiety which she reports works well. . [facility] Medical History (Updated 09/26/23 @ 08:03 by Shantanu Costello PA-C) Hypersomnia Nocturnal hypoxia Hiatal hernia GERD (gastroesophageal reflux disease) History of COVID-19 Anxiety and depression History of abnormal cervical Pap smear Obesity (BMI 30-39.9) Surgical History H/O endoscopy Hx of colonoscopy History of esophagogastroduodenoscopy (EGD) History of surgery Family History Father Diabetes Mother Hypertension Sister Cervical cancer Paternal Grandmother Uterine cancer Daughter Lymphatic malformation Social History Housing: Apartment Are you a primary child care nurse to a significant other at home: Yes Do you presently have visiting nurse or other home services: No Alcohol intake: current Alcohol intake frequency: holidays/special occasions only Patient Tobacco Use Status: Never used Tobacco e-Cigarette/Vaping Use: Never Used Second Hand Smoke Exposure: Yes service: No Current occupational status: employed 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 1. Little interest or pleasure in doing things: several days 2. Feeling down, depressed, or hopeless: several days 3. Trouble falling or staying asleep, or sleeping too much: several days 4. Feeling tired or having little energy: nearly every day 5. Poor appetite or overeating: several days 6. Feeling bad about yourself - or that you are a failure or have let yourself or your family down: not at all 7. Trouble concentrating on things, such as reading the newspaper or watching television: nearly every day 8. Moving or speaking so slowly that other people could have noticed. Or the opposite - being so fidgety or restless that you have been moving around a lot more than usual: not at all 9. Thoughts that you would be better off or of hurting yourself in some way: not at all Total score: 10 Depression Screening Interpretation: Positive Depression Screening Follow-up: Existing condition and In treatment Depression Screening Done: Yes 96906 - PHQ-9 Billing: Yes Source: Developed by Drs. Murtaza Krueger, Ana Cameron, Matthew Rivas and colleagues, with an educational vaishali from [employer]. Thrive Questionnaire Date Thrive assessed: 03/22/23 DANIELA-7 AMB Questionnaire DANIELA-7 Date DANIELA - 7 assessed: 11/06/23 Feeling nervous, anxious, or on edge: 1 = Several days Not being able to stop or control worryin = Several days Worrying too much about different things: 1 = Several days Trouble relaxin = Several days Being so restless that it is hard to sit still: 1 = Several days Becoming easily annoyed or irritable: 1 = Several days Feeling afraid as if something awful might happen: 0 = Not at all Total DANIELA-7 score (0-4 normal; 5-9 mild; 10-14 moderate; 15-21 severe): 6 Source: Developed by Drs. Murtaza Krueger, Ana Cameron, Matthew Rivas and colleagues, with an educational vaishali from [employer]. DANIELA-7 Assessment Billing DANIELA-7 Assessment Tool: DANIELA-7 Assessment 80811 Review of Systems Const Denies headache(s) Eyes Denies loss of vision ENT Denies vertigo, Denies dizziness, Denies headache(s) and Denies sore throat Card Denies chest pain, Denies leg edema and Denies lightheadedness Resp Denies cough, Denies hemoptysis and Denies wheezing GI Denies abdominal pain, Denies melena, Denies constipation, Denies diarrhea and Denies vomiting Denies urinary frequency, Denies dysuria and Denies urinary urgency Musc Denies arthralgias, Denies joint swelling, Denies numbness and Denies tingling Neuro Denies Abnormal speech present, Denies behavioral changes, Denies vertigo, Denies dizziness, Denies headache(s), Denies loss of vision, Denies memory loss, Denies numbness and Denies tingling Psych Denies anxiety, Denies behavioral changes, Denies depression, Denies memory loss and Denies panic attacks Leandro/Lymph Denies easy bleeding and Denies easy bruising Aller/Immun Denies wheezing Physical exam (Primary Care) Vital Signs: Last Vital Signs Pulse 78 09/25/23 08:43 BP 130/62 09/25/23 08:43 Pulse Ox 96 09/25/23 08:43 Oxygen Delivery Method Room Air 09/25/23 08:43 BMI result Body Mass Index 37.5 Tobacco/Smoking Status: Tobacco use Status Tobacco use date assessed 09/25/23 09/25/23 08:49 Patient Tobacco Use Status Never used Tobacco 09/25/23 08:49 e-Cigarette/Vaping Use Never Used 09/25/23 08:49 PHQ-9: PHQ-9 Score PHQ-9: Total score 10 09/25/23 09:19 Depression Screening Interpretation: Positive Depression Screening Follow-up: Existing condition and In treatment Thrive Assessment: Date of Thrive Assessment Date Thrive assessed 03/22/23 09/25/23 08:49 Const General: healthy appearing, no acute distress, alert and awake Nutritional Appearance: well nourished Orientation/consciousness: oriented to person, oriented to place and oriented to time HENMT Ears: TM's normal bilaterally General nose exam: Normal nasal mucous membranes and turbinates present Eyes Conjunctivae: conjunctivae normal Sclerae: sclerae normal Pupils: Equal, round and reactive pupils present Neck Neck: Yes no lymphadenopathy and Yes no JVD Thyroid: Thyroid normal Carotids: no bruits Resp Effort & Inspection: normal respiratory effort and not tachypneic Auscultation: no crackles, no rales, no rhonchi and no wheezes Cardio Rate: regular rate Rhythm: regular rhythm Heart sounds: no murmurs and normal S1 and S2 GI Palpation (GI): Soft to palpation, nontender, no hepatomegaly and no splenomegaly Auscultation: normal bowel sounds Skin General skin exam: no rashes or lesions noted and dry skin Neuro General: oriented to person, oriented to place and oriented to time Cranial nerves: Yes Equal, round and reactive pupils present Speech: No Abnormal speech present Gait exam (Neuro): Normal gait present Motor exam (neuro): no tremor noted Extrem Right upper extremity: full ROM Left upper extremity: full ROM Right lower extremity: full ROM; no edema Left lower extremity: full ROM; no edema Psych Mental Status: mental status grossly normal Speech and movement: Normal speech and movement present Affect: normal affect Attitude: cooperative Thought process: Normal thought process present Office Procedures Flu Questionnaire Does the patient have a severe egg allergy?: No Does the patient have severe life threatening allergies?: No Does the patient have a fever or illness today?: No Has the patient ever had Guillain-[place] Syndrome?: No Has the patient ever had any past reaction to a flu shot?: No Immunizations flu vacc [id number] 6mos up(PF) 60 mcg(15 mcgx4)/0.5 mL IM syringe Performing Provider: Shantanu Costello PA-C Performing Location: [facility] Administered by: JAZ Mitchell on 09/25/23 08:54 Dose Route Admin Location Dispensed Lot Number Expiration Date [employer] [facility] 0.5 mL IM Left Deltoid 0.5 mL [id number] 05/19/24 [id number] [employer] VIS Given Date VIS Provided VIS Publication Date 09/25/23 Single Vaccine 21 Eligibility Eligibility Date Funding Source Not [facility] Eligible 09/25/23 Private Assessment and Plan Assessment & Plan (1) DANIELA (generalized anxiety disorder): Code(s): F41.1 - Generalized anxiety disorder Plan: Patient reports her anxiety and depression was better controlled when she was on Zoloft 50 mg though has not been able to get refills from pharmacy and has been now for the last several months. (2) GERD (gastroesophageal reflux disease): Code(s): K21.9 - Gastro-esophageal reflux disease without esophagitis Qualifiers: Esophagitis bleeding: without hemorrhage Esophagitis presence: with esophagitis Qualified Code(s): K21.00 - Gastro-esophageal reflux disease with esophagitis, without bleeding Plan: Patient's most recent endoscopy showing gastric ulcers and a large hiatal hernia. Was positive for H pylori and has been started on ease omeprazole 20 mg b.i.d.. Feeling better. Will be following up with GI in near future. (3) Hiatal hernia: Code(s): K44.9 - Diaphragmatic hernia without obstruction or gangrene Plan: Continues to speak with a surgeon about possibly having her hiatal hernia repaired. (4) Obese: Code(s): E66.9 - Obesity, unspecified Qualifiers: Body mass index: BMI 38.0-38.9 Obesity classification: adult class 2 (BMI 35 - 39.9) Obesity type: due to excess calories Serious obesity comorbidity presence: without serious comorbidity Qualified Code(s): E66.09 - Other obesity due to excess calories; Z68.38 - Body mass index [BMI] 38.0-38.9, adult Plan: Patient does understand BMI is over 30 will work on being more physically active and adapting to better eating habits to reduce her weight (5) MDD (major depressive disorder), recurrent episode, moderate: Code(s): F33.1 - Major depressive disorder, recurrent, moderate Plan: Patient's PHQ-9 score positive for moderate to severe depression. She continues on SSRI therapy which is helpful for her. (6) Screening for diabetes mellitus (DM): Code(s): Z13.1 - Encounter for screening for diabetes mellitus (7) Hypersomnia: Code(s): G47.10 - Hypersomnia, unspecified Plan: She is now seeing a neural sleep specialist for possible diagnosis of hypersomnia. Is due for labs as part of workup. They are considering starting medication for ? narcolepsy. Orders: Orders Influenza [id number] Immunization 09/25/23 Z23 - Encounter for immunization Comprehensive [place]. Panel Fast 6 Months Z13.1 - Encounter for screening for diabetes mellitus Complete Blood Count no Diff 6 Months G47.33 - Obstructive sleep apnea (adult) (pediatric) Medications: New hydroxyzine HCl 25 mg PO BEDTIME 15 days 15 tabs 3RF F41.1 - Generalized anxiety disorder Coding Level of Care Code Est Pt Level 4 (41519) Diagnoses DANIELA (generalized anxiety disorder) F41.1 Gastroesophageal reflux disease with esophagitis without hemorrhage K21.00 Esophagitis bleeding: without hemorrhage Esophagitis presence: with esophagitis Hiatal hernia K44.9 Class 2 obesity due to excess calories without serious comorbidity with body mass index (BMI) of 38.0 to 38.9 in adult E66.09; Z68.38 Body mass index: BMI 38.0-38.9 Obesity classification: adult class 2 (BMI 35 - 39.9) Obesity type: due to excess calories Serious obesity comorbidity presence: without serious comorbidity MDD (major depressive disorder), recurrent episode, moderate F33.1 Screening for diabetes mellitus (DM) Z13.1 Hypersomnia G47.10 Additional Codes DANIELA-7 Assessment Billing - DANIELA-7 Assessment Tool: DANIELA-7 Assessment [id number] ([id number])
[2023-09-25 08:43] VITALS: BP 130/62; PULSE 78; O2SAT 96; BMI 37.5
== END 2023-09-25 09:26 | disposition home or self-care (01) ==
PROVIDERS: Visit Provider Physician Assistant
DX: Z23 Encounter for immunization (principal)
CPT/HCPCS: 90471; 90686; 96127; 99214

== ENCOUNTER 2023-10-17 08:40 | Outpatient (REF) | payer OTHER, MEDICAID, SELFPAY ==
[2023-10-17 10:25] LABS: TSH reflex Free T4 0.58 uIU/mL (0.32-4.0)
[2023-10-17 10:50] LABS: Folate 6.5 ng/mL (> or = 4.0); Vitamin B12 629 pg/mL (200-900)
[2023-10-21 13:33] LABS: Vitamin D 25-OH, D2 <4 ng/mL; Vitamin D 25-OH, D3 16 ng/mL; Vitamin D 25-OH, Total 16 ng/mL (30-100)
== END 2023-10-17 08:41 | disposition home or self-care (01) ==
LOC: HO.LAB 08:40
PROVIDERS: PCP Physician Assistant; Referring Provider Psychiatry & Neurology Neurology; Visit Provider Nurse Practitioner Family
DX: G47.10 Hypersomnia, unspecified (principal); K58.9 Irritable bowel syndrome, unspecified; R53.83 Other fatigue; E55.9 Vitamin D deficiency, unspecified
CPT/HCPCS: 36415; 82306; 82607; 82746; 84443

== ENCOUNTER 2023-10-27 04:35 | Emergency (ER) | payer OTHER, MEDICAID, SELFPAY ==
[2023-10-27 04:45] VITALS: BP 145/90; PULSE 80; RESP 18; TEMP 36.6; O2SAT 97; BMI 37.4
[2023-10-27 05:07] LABS: IDNOW Serial# 6674DD1D; Strep A Nucleic Acid Negative (Negative)
--- NOTE | 2023-10-27 05:16 | ED.URI ---
HPI - URI/Sore Throat General Chief Complaint: Upper Respiratory Symptoms Stated Complaint: sore throat Time Seen by Provider: 10/27/23 05:09 Source: patient Mode of arrival: ambulatory Limitations: no limitations History of Present Illness HPI Narrative: Patient comes to the emergency room complaining of sore throat and chills for the last 2 days. Patient states she has pain with swallowing. No difficulty breathing. Some cough. No fever. No vomiting or diarrhea. Related Data Previous Rx's Medication Instructions Recorded sertraline 50 mg tablet (Zoloft) 50 mg PO DAILY 90 days #90 tabs 03/22/23 esomeprazole magnesium 20 mg 20 mg PO BID #180 caps 06/28/23 capsule,delayed release hydroxyzine HCl 25 mg tablet 25 mg PO BEDTIME 15 days #15 tabs 09/25/23 cholecalciferol (vitamin D3) 25 25 mcg PO DAILY 30 days #30 caps 10/23/23 mcg (1,000 unit) capsule benzonatate 100 mg capsule 100 mg PO TID PRN cough #15 caps 10/27/23 Allergies Allergy/AdvReac Type Severity Reaction Status Date / Time Seasonal Allergies Allergy Intermediate Itchy Eyes Verified 10/27/23 04:45 Review of Systems Review of Systems: Constitutional : No Weight loss, No Fever, No Chills, No Night Sweats, No Fatigue, No Malaise ENT/Mouth : No Hearing loss, mild bilateral Ear Pain, complaining of Nasal Congestion, No Sinus Pain, No Hoarseness, complaining of sore throat, No Rhinorrhea, No Swallowing Difficulty Eyes: No Eye Pain, No Swelling, No Redness, No Foreign Body, No Discharge, No Vision Changes Cardiovascular : No Chest Pain, No SOB, No Dyspnea on Exertion, No Orthopnea, No Edema, No Palpitations Respiratory : No Cough, No Sputum, No Wheezing, No Smoke Exposure, No Dyspnea Gastrointestinal : No Nausea, No Vomiting, No Diarrhea, No Constipation, No abdominal Pain, No Hematochezia, No Melena Genitourinary : no irregular bleeding, No Dysuria, No Urinary Frequency, No Hematuria, No Urinary Incontinence, No Urgency, No Flank Pain, No Urinary Flow Changes, No Hesitancy Musculoskeletal : No joint pain, No Myalgias, No Joint Swelling Skin : No Skin Lesions, No rash Neuro : No Weakness, No Numbness, No Paresthesias, No Loss of Consciousness, No Dizziness, No Headache Psych : No Anxiety/Panic, No Depression, No SI/HI/AH/VH, No Social Issues, Heme/Lymph: No Bruising, No Bleeding,No Lymphadenopathy Endocrine : No Polyuria, No Polydipsia, No Temperature Intolerance [facility] Past Medical History Medical History Hypersomnia Nocturnal hypoxia Hiatal hernia GERD (gastroesophageal reflux disease) History of COVID-19 Anxiety and depression History of abnormal cervical Pap smear Obesity (BMI 30-39.9) Surgical History H/O endoscopy Hx of colonoscopy History of esophagogastroduodenoscopy (EGD) History of surgery Family History Family History Father Diabetes Mother Hypertension Sister Cervical cancer Paternal Grandmother Uterine cancer Daughter Lymphatic malformation Social History Social History Housing: Apartment Are you a primary patient care coordinator to a significant other at home: Yes Do you presently have visiting nurse or other home services: No Alcohol intake: current Alcohol intake frequency: holidays/special occasions only Patient Tobacco Use Status: Never used Tobacco e-Cigarette/Vaping Use: Never Used Second Hand Smoke Exposure: Yes Advance Directives: No Advance Directives Information Provided: No service: No Current occupational status: employed 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 Oriented X3. No acute distress. Eyes: Pupils equal, round and reactive to light. ENT: Erythematous oropharynx, no exudates, no vesicles, patient has obvious nasal congestion, bilateral tympanic membranes within normal limits Neck: Normal inspection. Neck supple. No lymph nodes noted. No crepitus CVS: Normal heart rate and rhythm. Pulses normal. Normal S1 and S2 Respiratory: No respiratory distress. Breath sounds normal. No Wheezing. No rales Abdomen: Soft and nontender. No rigidity. No distention. Skin: Skin warm and dry. Normal skin color. Normal skin turgor. Extremities: No lower extremity edema. No Lacerations. No Rash Neuro: Oriented X 3. No motor deficit. No sensory deficit. Moving all extremities. No slurred speech. CN 2 through 12 grossly intact Psych: calm, cooperative, normal affect Medications Administered Discontinued Medications Generic Name Dose Route Start Last Admin Trade Name Freq PRN Reason Stop Dose Admin Dexamethasone Sodium Phosphate 6 mg 10/27/23 05:18 10/27/23 05:25 Dexamethasone Sod Phosphate 4 Mg/Ml Vial IVPUSH 10/27/23 05:19 6 mg ONCE ONE Administration Lidocaine HCl 15 ml 10/27/23 05:18 10/27/23 05:25 Lidocaine Hcl Viscous 2 % 15 Ml Solution MUCOUS MEM 10/27/23 05:19 15 ml ONCE ONE Administration Medical Decision Making Medical Decision Making [facility] Narrative: -patient is negative for strep. Discussed with the patient that the simple gets sent to the lab and if positive in couple of days, she will receive a phone call and antibiotics will be sent to her pharmacy. -patient tested positive for RSV -discussed the results with the patient -patient was given for symptomatic relief p.o. viscous lidocaine and Decadron Differential Diagnosis Differential Diagnoses: The differential diagnosis associated with the presentation includes (RSV, influenza, COVID, viral URI) Lab Data [facility] Lab Attestation statement: I reviewed the patient's lab results. Labs: Lab Results 10/27/23 Range/Units 04:51 Influenza Type A (PCR) NEGATIVE (Negative) Influenza Type B (PCR) NEGATIVE (Negative) RSV RNA Qual (PCR) POSITIVE A (Negative) SARS-CoV-2 RNA (RT-PCR) NEGATIVE (Negative) S. pyogenes GrpA EMILEE Negative (Negative) Discharge Plan Discharge Clinical Impression: RSV bronchitis Patient Disposition: Home, Self-Care Instructions: Respiratory Syncytial Virus (ED) Additional Instructions: Please follow-up with your primary care physician tomorrow. If you have any worsening or new symptoms, please return to the emergency room or call 911 Prescriptions: New benzonatate 100 mg capsule 100 mg PO TID PRN (Reason: cough) Qty: 15 0RF No Action esomeprazole magnesium 20 mg capsule,delayed release(DR/EC) 20 mg PO BID Qty: 180 3RF cholecalciferol (vitamin D3) 25 mcg (1,000 unit) capsule 25 mcg PO DAILY 30 Days Qty: 30 6RF hydroxyzine HCl 25 mg tablet 25 mg PO BEDTIME 15 Days Qty: 15 3RF sertraline [Zoloft] 50 mg tablet 50 mg PO DAILY 90 Days Qty: 90 1RF
[2023-10-27] MEDS: Lidocaine HCl Viscous 2 % 15 ML SOLUTION MUCOUS MEM (05:25)
[2023-10-27] MEDS: dexAMETHasone sod phosphate 4 MG/ML VIAL 6 MG IVPUSH (05:25)
[2023-10-27 05:34] LABS: Influenza A PCR NEGATIVE (Negative); Influenza B PCR NEGATIVE (Negative); Resp Syncy Virus RNA Qual PCR POSITIVE (Negative); SARS COV2 PCR INHOUSE NEGATIVE (Negative)
== END 2023-10-27 05:57 | disposition home or self-care (01) ==
PROVIDERS: Emergency Provider Emergency Medicine
DX: J20.5 Acute bronchitis due to respiratory syncytial virus (principal); J02.9 Acute pharyngitis, unspecified; Z79.899 Other long term (current) drug therapy; Z20.822 Contact with and (suspected) exposure to COVID-19; Z20.828 Contact with and (suspected) exposure to other viral communicable diseases
CPT/HCPCS: 0241U; 87651; 99282; 99283; J1100

== ENCOUNTER 2024-01-17 07:59 | Outpatient (AMB) | payer OTHER, MEDICAID, SELFPAY ==
--- NOTE | 2024-01-17 08:03 | A.OFFVIS_ITS ---
Intake Vital Signs 01/17/24 08:09 Height 5 ft 2.5 in Weight 207 lb 8 oz BMI 37.3 BP 142/80 H Blood Pressure Location Lt brachial Position Sitting Pulse 84 Pulse Source Pulse Oximeter Pulse Oximetry (%) 97 Oxygen Delivery Method Room Air Intake Visit Reasons: 4 mnts f/u for Hypersomnia-CONF Intake Note: Patient presents for 4 months f/u. Allergies Seasonal Allergies Allergy (Intermediate, Verified 01/17/24 08:07) Itchy Eyes HPI HPI Comments History of Present Illness Details 38 y/o female patient presents for follo w up of for hypersomnia. Pt reports she can fall asleep easily, wakes up always tired. Pt's sleep schedule is 9 pm to 6 am. She wakes up several times at night, having non refreshing sleep. Pt had a home sleep study done, and the result was negative for sleep apnea. Total AHI was 0.7/hr with mild nocturnal hypoxemia. The average O2 sat 95% with lowest O2 sat 85%, and O2 sat below 88% for 21 min. Pt underwent to PSG sleep study to assess hypoxemia. The PSG sleep test result was normal sleep, no evidence of sleep apnea, minimal snoring and also sleep architecture is normal. Pt's vitamin D level was 16 and is on Vitamin D3 supplement. Pt reports anxiety but it is manageable with setraline 50 mg daily and hydroxyzine PRN. She does not take sertraline daily. Denies cataplexy, sleep paralysis or hypnogogic, hypnopompic hallucination. Sleep hygiene questionnaire: What is your usual sleep routine? Usual bedtime is at 9:30 ; Usual wake up time is at 6 :30 am. Do you take naps? Yes, sometimes. Is your sleep environment cool, dark, and quiet? Yes Do you exercise? Yes, treadmill, three times a week. Do you take caffeine or other stimulants? Coffee in the morning. Do you use electronics in bed? No. What is your work schedule? 8 to 4:30 pm Hypersomnolence questionnaire: Do you have daytime tiredness or fatigue? Yes Do you easily fall asleep when inactive? Yes. Have you ever had episodes of sudden weakness? No. Have you ever had episodes of sudden weakness associated with strong emotions? No. PFSH Medical History Hypersomnia Nocturnal hypoxia Hiatal hernia GERD (gastroesophageal reflux disease) History of COVID-19 Anxiety and depression History of abnormal cervical Pap smear Obesity (BMI 30-39.9) Surgical History H/O endoscopy Hx of colonoscopy History of esophagogastroduodenoscopy (EGD) History of surgery Family History Father Diabetes Mother Hypertension Sister Cervical cancer Paternal Grandmother Uterine cancer Daughter Lymphatic malformation Social History Housing: Apartment Are you a primary health care coordinator to a significant other at home: Yes Do you presently have visiting nurse or other home services: No Alcohol intake: current Alcohol intake frequency: holidays/special occasions only Patient Tobacco Use Status: Never used Tobacco e-Cigarette/Vaping Use: Never Used Second Hand Smoke Exposure: Yes service: No Current occupational status: employed 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: No Gender identity: Female Cognitive needs: No Hearing needs: No Vision needs: Yes (Glasses) Female Reproductive History Menstrual Age of Menarche: 11 Review of Systems Const All systems reviewed & are unremarkable except as noted in HPI and below Physical Exam Vital Signs: Last Vital Signs Pulse 84 01/17/24 08:09 BP 142/80 H 01/17/24 08:09 Pulse Ox 97 01/17/24 08:09 Oxygen Delivery Method Room Air 01/17/24 08:09 BMI result Body Mass Index 37.3 Const General: cooperative and tired appearing Nutritional Appearance: obese Orientation/consciousness: patient oriented x3 Neck Neck: Yes full ROM and Yes supple Resp Effort & Inspection: normal respiratory effort and able to speak in complete sentences Neuro General: patient oriented x3, gait normal and moves all extremities Cranial nerves: Yes CN's II-XII intact bilaterally Cognition (Neuro): normal cognition Gait exam (Neuro): Normal gait present Motor exam (neuro): 5/5 motor strength present throughout Psych Appearance: grossly normal Mental Status: mental status grossly normal Speech and movement: Normal speech and movement present Affect: normal affect Attitude: cooperative Assessment & Plan Assessment & Plan (1) Hypersomnia: Code(s): G47.10 - Hypersomnia, unspecified Plan Advised patient to undergo MSLT to assess hypersomnia and narcolepsy. Advised patient to hold setraline and hydroxyzine 3 weeks before the MSLT test. Continue to practice good sleep hygiene. Continue to take vitamin D supplement. Coding Level of Care Code Est Pt Level 3 (87199) Diagnoses Hypersomnia G47.10
[2024-01-17 08:09] VITALS: BP 142/80; PULSE 84; O2SAT 97; BMI 37.3
== END 2024-01-17 08:25 | disposition home or self-care (01) ==
PROVIDERS: PCP Physician Assistant; Visit Provider Nurse Practitioner Family
DX: G47.10 Hypersomnia, unspecified (principal)
CPT/HCPCS: 99213

== ENCOUNTER → 2024-01-17 07:59 | Outpatient (BNVA) | payer OTHER, MEDICAID, SELFPAY | PROVIDERS: PCP Physician Assistant; Visit Provider Nurse Practitioner Family ==

== ENCOUNTER 2024-01-18 13:59 | Outpatient (AMB) | payer OTHER, MEDICAID, SELFPAY ==
--- NOTE | 2024-01-18 14:20 | MHC.PC.OV ---
Vital Signs 01/18/24 14:33 Height 5 ft 2.5 in Weight 208 lb BMI 37.4 BP 126/76 Blood Pressure Location Lt brachial Position Sitting Respiration 17 Pulse 92 Pulse Source Pulse Oximeter Pulse Oximetry (%) 100 Oxygen Delivery Method Room Air Intake Visit Reasons: Elevated BP's for the past few weeks. Intake Note: Pt is here for elevated blood pressure for the past few weeks. [employer] Technician Required: No Accompanied by: Self / Same As Patient Allergies Seasonal Allergies Allergy (Intermediate, Verified 01/18/24 14:50) Itchy Eyes Medication List - Last Reconciled 01/18/24 by Shantanu Costello PA-C cholecalciferol (vitamin D3) 25 mcg PO DAILY 30 days esomeprazole magnesium 20 mg PO BID hydroxyzine HCl 25 mg PO BEDTIME 15 days sertraline (Zoloft) 50 mg PO DAILY 90 days Tobacco use date assessed: 01/18/24 Dental Screening Dental Screen Date: 01/18/24 Did you have a dental visit in the last 12 months?: Yes Did you have a dental problem in the last 6 months where you did not have access to dental care?: No Was dental information given to patient?: Patient has dentist HPI Elevated BP's for the past few weeks. HPI Details Patient is a 38-year-old female here today for a follow-up visit.. Patient has a past medical history significant for obesity, GERD, generalized anxiety disorder. Patient reports over the last 2 weeks noting elevated blood pressure readings. She does report feeling hot flushed, dizzy and taking her blood pressure at these times and noting 160s systolic blood pressures. She denies any changes in her diet or any new medication recently. REPLACED BY [facility] Medical History Hypersomnia Nocturnal hypoxia Hiatal hernia GERD (gastroesophageal reflux disease) History of COVID-19 Anxiety and depression History of abnormal cervical Pap smear Obesity (BMI 30-39.9) Surgical History H/O endoscopy Hx of colonoscopy History of esophagogastroduodenoscopy (EGD) History of surgery Family History Father Diabetes Mother Hypertension Sister Cervical cancer Paternal Grandmother Uterine cancer Daughter Lymphatic malformation Social History Housing: Apartment Are you a primary hearing care professional to a significant other at home: Yes Do you presently have visiting nurse or other home services: No Alcohol intake: current Alcohol intake frequency: holidays/special occasions only Patient Tobacco Use Status: Never used Tobacco e-Cigarette/Vaping Use: Never Used Second Hand Smoke Exposure: Yes service: No Current occupational status: employed 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 1. Little interest or pleasure in doing things: not at all 2. Feeling down, depressed, or hopeless: not at all 3. Trouble falling or staying asleep, or sleeping too much: not at all 4. Feeling tired or having little energy: not at all 5. Poor appetite or overeating: not at all 6. Feeling bad about yourself - or that you are a failure or have let yourself or your family down: not at all 7. Trouble concentrating on things, such as reading the newspaper or watching television: not at all 8. Moving or speaking so slowly that other people could have noticed. Or the opposite - being so fidgety or restless that you have been moving around a lot more than usual: not at all 9. Thoughts that you would be better off or of hurting yourself in some way: not at all Total score: 0 Depression Screening Interpretation: Negative Depression Screening Done: Yes 09683 - PHQ-9 Billing: Yes Source: Developed by Drs. Murtaza Krueger, Ana Cameron, Matthew Rivas and colleagues, with an educational vaishali from [email or web address] Thrive Questionnaire Date Thrive assessed: 01/18/24 I am a: Patient What is your living situation today?: I have a steady place to live Within the past 12 months, did the food you bought not last and you didn't have the money to get more?: Never true Within the past 12 months, did you worry whether your food would run out before you got money to buy more?: Never true Do you have trouble paying for medicines?: No Do you have trouble getting transportation to medical appointments?: No Do you have trouble paying your heating and electricity bill?: No Do you have trouble taking care of your child, family member or friend?: No Do you have trouble with day-to-day activities such as bathing, preparing meals, shopping, managing finances, etc.?: No Are you currently unemployed and looking for a job?: No Are you interested in more education?: No Please select the resources that you would like help with: None Currently or been in a relationship where the following occur: no concerns reported THRIVE Score: 0 AUDIT C Alcohol Use Questionnaire (AUDIT-C) 1. How often do you have a drink containing alcohol?: Monthly or less 2. How many drinks containing alcohol do you have on a typical day when you are drinking?: 1 or 2 3. How often do you have six or more drinks on one occasion?: Never Total Score: 1 DANIELA-7 AMB Questionnaire DANIELA-7 Date DANIELA - 7 assessed: 01/18/24 Feeling nervous, anxious, or on edge: 0 = Not at all Not being able to stop or control worryin = Not at all Worrying too much about different things: 0 = Not at all Trouble relaxin = Not at all Being so restless that it is hard to sit still: 0 = Not at all Becoming easily annoyed or irritable: 0 = Not at all Feeling afraid as if something awful might happen: 0 = Not at all Total DANIELA-7 score (0-4 normal; 5-9 mild; 10-14 moderate; 15-21 severe): 0 Source: Developed by Drs. Murtaza Krueger, Ana Cameron, Matthew Rivas and colleagues, with an educational vaishali from [email or web address] DANIELA-7 Assessment Billing DANIELA-7 Assessment Tool: DANIELA-7 Assessment 55911 Review of Systems Const Denies headache(s) Eyes Denies loss of vision ENT Denies vertigo, Denies dizziness, Denies headache(s) and Denies sore throat Card Denies chest pain, Denies leg edema and Denies lightheadedness Resp Denies cough, Denies hemoptysis and Denies wheezing GI Denies abdominal pain, Denies melena, Denies constipation, Denies diarrhea and Denies vomiting Denies urinary frequency, Denies dysuria and Denies urinary urgency Musc Denies arthralgias, Denies joint swelling, Denies numbness and Denies tingling Neuro Denies Abnormal speech present, Denies behavioral changes, Denies vertigo, Denies dizziness, Denies headache(s), Denies loss of vision, Denies memory loss, Denies numbness and Denies tingling Psych Denies anxiety, Denies behavioral changes, Denies depression, Denies memory loss and Denies panic attacks Leandro/Lymph Denies easy bleeding and Denies easy bruising Aller/Immun Denies wheezing Physical exam (Primary Care) Vital Signs: Last Vital Signs Pulse 92 01/18/24 14:33 Resp 17 01/18/24 14:33 BP 126/76 01/18/24 14:33 Pulse Ox 100 01/18/24 14:33 Oxygen Delivery Method Room Air 01/18/24 14:33 BMI result Body Mass Index 37.4 Tobacco/Smoking Status: Tobacco use Status Tobacco use date assessed 01/18/24 01/18/24 14:47 Patient Tobacco Use Status Never used Tobacco 01/18/24 14:21 e-Cigarette/Vaping Use Never Used 01/18/24 14:21 PHQ-9: PHQ-9 Score PHQ-9: Total score 0 01/18/24 14:54 Depression Screening Interpretation: Negative Thrive Assessment: Date of Thrive Assessment Date Thrive assessed 01/18/24 01/18/24 14:38 Currently or been in a relationship where the following occur: no concerns reported Const General: healthy appearing, no acute distress, alert and awake Nutritional Appearance: well nourished Orientation/consciousness: oriented to person, oriented to place and oriented to time [facility] Ears: TM's normal bilaterally General nose exam: Normal nasal mucous membranes and turbinates present Eyes Conjunctivae: conjunctivae normal Sclerae: sclerae normal Pupils: Equal, round and reactive pupils present Neck Neck: Yes no lymphadenopathy and Yes no JVD Thyroid: Thyroid normal Carotids: no bruits Resp Effort & Inspection: normal respiratory effort and not tachypneic Auscultation: no crackles, no rales, no rhonchi and no wheezes Cardio Rate: regular rate Rhythm: regular rhythm Heart sounds: no murmurs and normal S1 and S2 GI Palpation (GI): Soft to palpation, nontender, no hepatomegaly and no splenomegaly Auscultation: normal bowel sounds Skin General skin exam: no rashes or lesions noted and dry skin Neuro General: oriented to person, oriented to place and oriented to time Cranial nerves: Yes Equal, round and reactive pupils present Speech: No Abnormal speech present Gait exam (Neuro): Normal gait present Motor exam (neuro): no tremor noted Extrem Right upper extremity: full ROM Left upper extremity: full ROM Right lower extremity: full ROM; no edema Left lower extremity: full ROM; no edema Psych Mental Status: mental status grossly normal Speech and movement: Normal speech and movement present Affect: normal affect Attitude: cooperative Thought process: Normal thought process present Assessment and Plan Assessment & Plan (1) HTN (hypertension): Code(s): I10 - Essential (primary) hypertension Qualifiers: Hypertension type: primary hypertension Qualified Code(s): I10 - Essential (primary) hypertension Plan: Patient noted to have normal blood pressure today in office. At home and not other MD visits noted to have slightly elevated blood pressures. Over the last 2 weeks she has had episodes of dizziness, flushing and disorientation in association with her high blood pressures. Will start hydrochlorothiazide on a daily basis to try to stabilize blood pressure. Concerns for a secondary cause of hypertension due to acute onset. Will send for renal ultrasound evaluate for a adrenal mass. (2) Labile blood pressure: Code(s): R09.89 - Other specified symptoms and signs involving the circulatory and respiratory systems Plan: As above Orders: Orders US renal BI 01/18/24 R09.89 - Other specified symptoms and signs involving the circulatory and respiratory systems Complete Blood Count no Diff 01/18/24 I10 - Essential (primary) hypertension Basic Metabolic Panel 01/18/24 I10 - Essential (primary) hypertension Liver Panel 01/18/24 I10 - Essential (primary) hypertension Catecholamines, Frac., Plasma 01/18/24 R09.89 - Other specified symptoms and signs involving the circulatory and respiratory systems Medications: New hydrochlorothiazide 12.5 mg PO DAILY 30 days 30 tabs 0RF I10 - Essential (primary) hypertension Coding Level of Care Code Est Pt Level 4 (19014) Diagnoses Primary hypertension I10 Hypertension type: primary hypertension Labile blood pressure R09.89 Additional Codes DANIELA-7 Assessment Billing - DANIELA-7 Assessment Tool: DANIELA-7 Assessment [id number] ([id number])
[2024-01-18 14:33] VITALS: BP 126/76; PULSE 92; RESP 17; O2SAT 100; BMI 37.4
== END 2024-01-18 14:59 | disposition home or self-care (01) ==
PROVIDERS: PCP Physician Assistant; Visit Provider Physician Assistant
DX: I10 Essential (primary) hypertension (principal); R09.89 Other specified symptoms and signs involving the circulatory and respiratory systems
CPT/HCPCS: 99214

== ENCOUNTER 2024-01-24 12:47 | Outpatient (REF) | payer OTHER, MEDICAID, SELFPAY ==
--- NOTE | ~2024-01-24 | US_ITS ---
EXAMINATION: US RETROPERITONEAL LIMITED (RENAL ONLY) CLINICAL INFORMATION: Labile blood pressure. Evaluate adrenal gland. COMPARISON: Limited abdominal ultrasound 03/08/2023. Ultrasound abdomen complete 03/31/2022. CT abdomen and pelvis 04/18/2021. TECHNIQUE: Real-time imaging of the kidneys. FINDINGS: RIGHT KIDNEY: 11.4 x 4.4 x 4.6 cm (SAG x AP x TRV). The kidney is normal in size, contour, and echogenicity. Renal cortical thickness is normal. No calculi or focal parenchymal lesions. No hydronephrosis. No adrenal mass is seen. LEFT KIDNEY: 12.1 x 4.7 x 4.4 cm (SAG x AP x TRV). The kidney is normal in size, contour, and echogenicity. Renal cortical thickness is normal. No calculi or focal parenchymal lesions. No hydronephrosis. No adrenal mass is seen. US/US renal BI IMPRESSION: Normal renal ultrasound. No adrenal mass is seen, however, ultrasound is not the optimal study to evaluate for this. CT scan should be considered for further evaluation.
== END 2024-01-24 12:48 | disposition home or self-care (01) ==
LOC: HO.US 12:47
PROVIDERS: PCP Physician Assistant; Visit Provider Physician Assistant
DX: R09.89 Other specified symptoms and signs involving the circulatory and respiratory systems (principal)
CPT/HCPCS: 76775

== ENCOUNTER → 2024-02-22 19:00 | Outpatient (BNV) | payer OTHER, MEDICAID, SELFPAY | PROVIDERS: PCP Physician Assistant; Visit Provider Psychiatry & Neurology Neurology | DX: G47.33 Obstructive sleep apnea (adult) (pediatric) (principal) | CPT/HCPCS: 95810 ==

== ENCOUNTER → 2024-02-22 20:30 | Outpatient (REF) | payer OTHER, MEDICAID, SELFPAY | LOC: HO.SL 20:30 | PROVIDERS: PCP Physician Assistant; Visit Provider Hospitalist | DX: G47.33 Obstructive sleep apnea (adult) (pediatric) (principal); G47.10 Hypersomnia, unspecified | CPT/HCPCS: 95810 ==

== ENCOUNTER 2024-03-21 10:49 | Outpatient (AMB) | payer OTHER, MEDICAID, SELFPAY ==
[2024-03-21 10:56] VITALS: BP 146/88; BMI 38.2
--- NOTE | 2024-03-21 10:56 | A.OFFVIS_ITS ---
Vital Signs 03/21/24 10:56 Height 5 ft 2.5 in Weight 212 lb 8 oz BMI 38.2 BP 146/88 H Blood Pressure Location Rt brachial Position Sitting Intake Visit Reasons: follow up Hypersomnia - LVM w/add Intake Note: Patient presents for follow up hypersomnia. patient still having same issues no changes since last visit. Allergies Seasonal Allergies Allergy (Intermediate, Verified 03/21/24 10:59) Itchy Eyes hydrochlorothiazide Adverse Reaction (Intermediate, Verified 03/21/24 10:59) Dizziness HPI Comments Details: 38-yr-old female presents for f/u visit. Pt denies any significant interval medical changes. Pt continues to have excessive daytime sleepiness. Pt underwent in-lab PSG, however baseline PSG showed mild sleep apnea, so MSLT portion was not completed. Pt's previous sleep studies did not show sleep apnea. She wonders if acid reflux and coughing may have contributed to her increased sleep apnea- as prior to the study, she had eaten a bit later than usual and the food was heavier than she would normally have eaten. She is hesitant to repeat MSLT as it was difficult being off her anti-depressant tx. [facility] Medical History Hypersomnia Nocturnal hypoxia Hiatal hernia GERD (gastroesophageal reflux disease) History of COVID-19 Anxiety and depression History of abnormal cervical Pap smear Obesity (BMI 30-39.9) Surgical History H/O endoscopy Hx of colonoscopy History of esophagogastroduodenoscopy (EGD) History of surgery Family History Father Diabetes Mother Hypertension Sister Cervical cancer Paternal Grandmother Uterine cancer Daughter Lymphatic malformation Social History Housing: Apartment Are you a primary before and after school daycare worker to a significant other at home: Yes Do you presently have visiting nurse or other home services: No Alcohol intake: current Alcohol intake frequency: holidays/special occasions only Patient Tobacco Use Status: Never used Tobacco e-Cigarette/Vaping Use: Never Used Second Hand Smoke Exposure: Yes service: No Current occupational status: employed 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: No Gender identity: Female Cognitive needs: No Hearing needs: No Vision needs: Yes (Glasses) Female Reproductive History Menstrual Age of Menarche: 11 Review of Systems Const All systems reviewed & are unremarkable except as noted in HPI and below Physical Exam Vital Signs: Last Vital Signs BP 146/88 H 03/21/24 10:56 BMI result Body Mass Index 38.2 Const General: cooperative and no acute distress Orientation/consciousness: patient oriented x3 HEENT Head: Yes normocephalic Resp Effort & Inspection: normal respiratory effort and able to speak in complete sentences Neuro General: patient oriented x3, gait normal and CN's II-XI intact bilaterally Cognition (Neuro): normal cognition Motor exam (neuro): 5/5 motor strength present throughout Psych Appearance: grossly normal Mental Status: mental status grossly normal Speech and movement: Normal speech and movement present Affect: normal affect Attitude: cooperative Assessment & Plan Assessment & Plan (1) Mild obstructive sleep apnea: Code(s): G47.33 - Obstructive sleep apnea (adult) (pediatric) Category: Medical (2) Hypersomnia: Code(s): G47.10 - Hypersomnia, unspecified Category: Medical Plan Reviewed in-lab PSG- showed mild sleep apnea- predominantly hypopneas. Start APAP 5-20 cmH2O nightly > 4 hrs. If pt continues to have excessive daytime sleepiness after using APAP x's several weeks, consider trial of wkae-promoting or stimulant medication tx. Will f/u w/ pt in 6 wks to assess status, f/u in clinic in 6 months or sooner prn. Coding Level of Care Code Est Pt Level 3 (28632) Diagnoses Mild obstructive sleep apnea G47.33 Hypersomnia G47.10
== END 2024-03-21 11:54 | disposition home or self-care (01) ==
PROVIDERS: PCP Physician Assistant; Visit Provider Nurse Practitioner Family
DX: G47.33 Obstructive sleep apnea (adult) (pediatric) (principal); G47.10 Hypersomnia, unspecified
CPT/HCPCS: 99213

== ENCOUNTER → 2024-03-21 10:49 | Outpatient (BNVA) | payer OTHER, MEDICAID, SELFPAY | PROVIDERS: PCP Physician Assistant; Visit Provider Nurse Practitioner Family ==

== ENCOUNTER 2024-03-27 08:19 | Outpatient (AMB) | payer OTHER, MEDICAID, SELFPAY ==
[2024-03-27 08:35] VITALS: BP 132/86; BMI 37.8
--- NOTE | 2024-03-27 08:35 | MHC.PC.OV ---
Vital Signs 03/27/24 08:35 Height 5 ft 2.5 in Weight 210 lb BMI 37.8 BP 132/86 Blood Pressure Location Lt brachial Position Sitting Intake Visit Reasons: Annual Exam Intake Note: Patient here for a physical exam Community Recreation Coordinator Required: No Accompanied by: Self / Same As Patient Allergies Seasonal Allergies Allergy (Intermediate, Verified 03/27/24 08:49) Itchy Eyes hydrochlorothiazide Adverse Reaction (Intermediate, Verified 03/27/24 08:49) Dizziness Medication List - Last Reconciled 03/27/24 by Shantanu Costello PA-C amlodipine 2.5 mg PO DAILY 30 days cholecalciferol (vitamin D3) 25 mcg PO DAILY 30 days esomeprazole magnesium 20 mg PO BID hydroxyzine HCl 25 mg PO BEDTIME 15 days sertraline (Zoloft) 50 mg PO DAILY 90 days Tobacco use date assessed: 01/18/24 Dental Screening Dental Screen Date: 01/18/24 HPI Annual Exam HPI Details Patient is a 38-year-old female here today for a routine annual physical Patient has a past medical history significant for obesity, GERD, generalized anxiety disorder. 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 .. GERD: Has a large hiatal hernia gastric ulcers. Continues on PPI therapy with decent affect on gastric reflux symptoms. .. :Hypertension: Patient's blood pressure acceptable today in office. Patient continues on amlodipine 2.5 mg with good effect on blood pressure. She does report she did have a couple of episodes of hypertension that came with headaches. Otherwise blood pressures have been pretty stable home. .. Hypersomnia: Has seen a finish rolls operator and was evaluated. Sleep study was negative. Has followed up with Neurology and underwent some testing.. .. Generalized anxiety disorder: was on Sertraline 50 mg though has not been able to get refills from pharmacy.. Does use hydroxyzine on a p.r.n. basis for anxiety which she reports works well. 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- Up to date PAP Vaccines: Up-to-date with COVID vaccine, tetanus vaccine [facility] Medical History Hypersomnia Nocturnal hypoxia Hiatal hernia GERD (gastroesophageal reflux disease) History of COVID-19 Anxiety and depression History of abnormal cervical Pap smear Obesity (BMI 30-39.9) Surgical History H/O endoscopy Hx of colonoscopy History of esophagogastroduodenoscopy (EGD) History of surgery Family History Father Diabetes Mother Hypertension Sister Cervical cancer Paternal Grandmother Uterine cancer Daughter Lymphatic malformation Social History Housing: Apartment Are you a primary senior care manager to a significant other at home: Yes Do you presently have visiting nurse or other home services: No Alcohol intake: current Alcohol intake frequency: holidays/special occasions only Patient Tobacco Use Status: Never used Tobacco e-Cigarette/Vaping Use: Never Used Second Hand Smoke Exposure: Yes service: No Current occupational status: employed 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 Murtaza Krueger, Ana Cameron, Matthew Rivas and colleagues, with an educational vaishali from [employer]. Review of Systems Const Denies body aches, Denies chills, Denies excessive sweating, Denies fatigue, Denies fever(s) and Denies headache(s) Eyes Denies blurry vision ENT Denies dysphagia, Denies vertigo, Denies dizziness, Denies headache(s), Denies hearing loss and Denies tinnitus Card Denies chest pain, Denies chest pain with activity, Denies syncope, Denies irregular heart rhythm and Denies dyspnea Resp Denies chest congestion, Denies cough, Denies hemoptysis, Denies dyspnea and Denies wheezing GI Denies abdominal pain, Denies melena, Denies hematochezia, Denies coffee ground emesis, Denies dysphagia, Denies diarrhea, Denies nausea and Denies vomiting Denies urinary frequency, Denies dysuria, Denies urinary hesitancy and Denies urinary urgency Musc Denies arthralgias, Denies limited range of motion, Denies muscle cramps and Denies muscle weakness Skin/Breast Denies rash and Denies skin ulcer Neuro Denies Abnormal speech present, Denies confusion, Denies vertigo, Denies dizziness, Denies syncope, Denies headache(s), Denies memory loss and Denies seizure-like activity Psych Denies anxiety, Denies confusion, Denies depression, Denies memory loss, Denies panic attacks and Denies paranoia Endo Denies excessive sweating, Denies fatigue, Denies flushing, Denies polydipsia and Denies polyuria Aller/Immun Denies wheezing Physical exam (Primary Care) Vital Signs: Last Vital Signs BP 132/86 03/27/24 08:35 BMI result Body Mass Index 37.8 Tobacco/Smoking Status: Tobacco use Status Tobacco use date assessed 01/18/24 03/27/24 08:40 Patient Tobacco Use Status Never used Tobacco 03/27/24 08:40 e-Cigarette/Vaping Use Never Used 03/27/24 08:40 Thrive Assessment: Date of Thrive Assessment Date Thrive assessed 01/18/24 03/27/24 08:40 Const General: cooperative, comfortable, no acute distress, alert and awake; No confusion Orientation/consciousness: oriented to person, oriented to place, patient oriented x3 and No confusion HENMT Head: Yes normocephalic Ears: external ears normal and TM's normal bilaterally Face and sinus: No sinus tenderness Mouth: Normal oral and palatal mucosa present and tongue normal Teeth and gingiva: dentition normal and gingiva normal Throat: Yes posterior oropharynx normal, Yes tonsils normal and Yes uvula midline Eyes Conjunctivae: conjunctivae normal Sclerae: sclerae normal Pupils: Equal, round and reactive pupils present EOM: EOMs intact bilaterally Direct Ophthalmoscopy: No no photophobia Neck Neck: Yes no lymphadenopathy, No tender and Yes no JVD Thyroid: Thyroid normal Carotids: no bruits Chest Chest palpation & inspection: no tenderness Resp Effort & Inspection: normal respiratory effort, no audible wheezes, not labored and no stridor Auscultation: no crackles, no rales, no rhonchi and no wheezes Cardio Jugular venous distension: no JVD Rate: regular rate, not bradycardic and not tachycardic Rhythm: regular rhythm Bruits: no carotid bruits Peripheral pulses: Peripheral pulses 2+ throughout GI Inspection: Yes normal to inspection, No abdominal wall ecchymosis and No visible herniation Palpation (GI): Soft to palpation, nontender, no guarding, not rigid and No hepatosplenomegaly present Auscultation: normoactive bowel sounds General: Yes no CVA tenderness Back/Spine/Pelvis Back: no CVA tenderness and No back tenderness Cervical Spine: cervical ROM normal Thoracic/Lumbar Spine: thoracic and lumbar spine normal to inspection, straight leg raise negative bilaterally, No thoraco-lumbar ROM limited and No lumbar spinal tenderness Skin Lesions: no lesions Rashes: no rashes Wounds: no wounds Neuro General: oriented to person, oriented to place, patient oriented x3, CN's II-XI intact bilaterally and No confusion Cranial nerves: Yes Equal, round and reactive pupils present and Yes Normal accommodation reflex present Cognition (Neuro): normal cognition Speech: No Abnormal speech present Gait exam (Neuro): Normal gait present Motor exam (neuro): 5/5 motor strength present throughout Extrem Right upper extremity: full ROM; no cyanosis Left upper extremity: full ROM; no cyanosis Right lower extremity: no edema Left lower extremity: no edema Psych Appearance: grossly normal Mental Status: mental status grossly normal Affect: normal affect Attitude: cooperative Thought process: Normal thought process present Assessment and Plan Assessment & Plan (1) Annual physical exam: Code(s): Z00.00 - Encounter for general adult medical examination without abnormal findings (2) HTN (hypertension): Code(s): I10 - Essential (primary) hypertension Qualifiers: Hypertension type: primary hypertension Qualified Code(s): I10 - Essential (primary) hypertension Plan: Blood pressure acceptable today in office. Will continue her on current dose of amlodipine, Goal blood pressure he was to remain below 140/90 (3) MDD (major depressive disorder), recurrent episode, moderate: Code(s): F33.1 - Major depressive disorder, recurrent, moderate Plan: Patient has a history of depression which has been well controlled with SSRI therapy. (4) DANIELA (generalized anxiety disorder): Code(s): F41.1 - Generalized anxiety disorder Plan: Patient has a history of anxiety which has been well controlled with SSRI therapy. Patient Instructions: Goal: Blood pressure to remain below 140/90 :Barriers: Adherence to physical activity and healthy eating habits Coding Level of Care Code Est Pt Prev Care 18-39y(08434) Diagnoses Annual physical exam Z00.00 Primary hypertension I10 Hypertension type: primary hypertension MDD (major depressive disorder), recurrent episode, moderate F33.1 DANIELA (generalized anxiety disorder) F41.1
== END 2024-03-27 09:08 | disposition home or self-care (01) ==
PROVIDERS: Visit Provider Physician Assistant
DX: Z00.00 Encounter for general adult medical examination without abnormal findings (principal); I10 Essential (primary) hypertension; F33.1 Major depressive disorder, recurrent, moderate; F41.1 Generalized anxiety disorder
CPT/HCPCS: 99395

== ENCOUNTER 2024-04-17 08:17 | Outpatient (REF) | payer OTHER, MEDICAID, SELFPAY ==
[2024-04-17 08:55] LABS: Hemoglobin 10.4 g/dl (12.0-16.0); Mean Corpuscular HGB Conc 31.5 g/dl (31.0-35.0); Mean Corpuscular Volume 76.2 fL (80.0-98.0); Mean Platelet Volume 10.9 fL (9.4-12.3); Platelet Count 291 X10*3/uL (160-400); Red Blood Count 4.33 X10*6/uL (4.20-5.50); Red Cell Distribution Width 16.2 % (11.0-16.0); White Blood Count 7.8 X10*3/uL (4.8-10.8)
[2024-04-17 09:47] LABS: Alanine Aminotransferase 10 U/L (0-31); Albumin Level 3.9 g/dL (3.5-5.0); Alkaline Phosphatase 107 U/L (39-117); Anion Gap 12 (12-20); Aspartate Amino Transferase 12 U/L (5-31); Bilirubin Total 0.4 mg/dL (0.0-1.0); Blood Urea Nitrogen 13 mg/dL (9-16); Calcium 8.7 mg/dL (8.4-10.2); Carbon Dioxide 21 mmol/L (22-29); Chloride 110 mmol/L (96-108); Estimated Glomerular Filt Rate > 60; Glucose Fasting 95 mg/dL (60-99); Potassium 3.6 mmol/L (3.3-5.1); Sodium 139 mmol/L (135-145); Total Protein 6.9 g/dL (6.5-8.0)
== END 2024-04-17 08:18 | disposition home or self-care (01) ==
LOC: HO.LAB 08:17
PROVIDERS: PCP Physician Assistant; Visit Provider Physician Assistant
DX: Z13.1 Encounter for screening for diabetes mellitus (principal); I10 Essential (primary) hypertension
CPT/HCPCS: 36415; 80053; 85027

== ENCOUNTER 2024-08-07 20:03 | Emergency (ER) | payer OTHER, MEDICAID, SELFPAY ==
[2024-08-07 20:31] VITALS: BP 145/108; PULSE 88; RESP 16; TEMP 36.8; O2SAT 98; BMI 37.1
--- NOTE | 2024-08-07 20:34 | ED.GENADULT ---
HPI - General Adult General Chief complaint: Allergic Reaction Stated complaint: rash all over Time Seen by Provider: 08/07/24 20:34 Source: patient Mode of arrival: ambulatory Limitations: no limitations History of Present Illness ED Provider: madina MOE narrative: Patient is a 39-year-old female with history of HTN presenting to the ED with complaint of pruritic rash to face, back since Monday. Denies any swelling to lips, tongue. Denies any difficulty breathing or shortness of breath. Has been using Benadryl. Symptoms began after eating a banana muffin which she has had in the past without issue. MD complaint: rash Onset (ago): day(s) Treatments prior to arrival: other Related Data Previous Rx's ?Medication ?Instructions ?Recorded cholecalciferol (vitamin D3) 25 25 mcg PO DAILY 30 days #30 caps 10/23/23 mcg (1,000 unit) capsule hydroxyzine HCl 25 mg tablet 25 mg PO BEDTIME 15 days #15 tabs 01/15/24 sertraline 50 mg tablet (Zoloft) 50 mg PO DAILY 90 days #90 tabs 03/18/24 docusate sodium 100 mg capsule 100 mg PO DAILY PRN constipation 04/17/24 (Colace) 30 days #30 caps esomeprazole magnesium 20 mg 20 mg PO BID #180 caps 05/20/24 capsule,delayed release amlodipine 2.5 mg tablet 2.5 mg PO DAILY 30 days #30 tabs 07/08/24 ferrous sulfate 325 mg (65 mg 325 mg PO BID 30 days #60 tabs 07/31/24 iron) tablet prednisone 10 mg tablet See Rx Instructions .Route 08/07/24 .COMPLEX #15 tabs Allergies Allergy/AdvReac Type Severity Reaction Status Date / Time Seasonal Allergies Allergy Intermediate Itchy Eyes Verified 08/07/24 20:36 hydrochlorothiazide AdvReac Intermediate Dizziness Verified 08/07/24 20:36 Review of Systems Review of Systems: As per HPI. Yes all other systems are reviewed and are negative Constitutional: Constitutional: Reports as per HPI [facility] Past Medical History Medical History Hypersomnia Nocturnal hypoxia Hiatal hernia GERD (gastroesophageal reflux disease) History of COVID-19 Anxiety and depression History of abnormal cervical Pap smear Obesity (BMI 30-39.9) Surgical History H/O endoscopy Hx of colonoscopy History of esophagogastroduodenoscopy (EGD) History of surgery Family History Family History Father Diabetes Mother Hypertension Sister Cervical cancer Paternal Grandmother Uterine cancer Daughter Lymphatic malformation Social History Social History Housing: Apartment Are you a primary career services officer to a significant other at home: Yes Do you presently have visiting nurse or other home services: No Alcohol intake: current Alcohol intake frequency: holidays/special occasions only Patient Tobacco Use Status: Never used Tobacco e-Cigarette/Vaping Use: Never Used Second Hand Smoke Exposure: Yes service: No Current occupational status: employed 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 Blood pressure elevated, did not take BP medication today. Heart rate normal. Respiratory rate normal. Temperature normal. Oxygen saturation normal. Const General: cooperative, healthy appearing and no acute distress Orientation/consciousness: oriented to person, oriented to place, oriented to time and patient oriented x3 Limitations: no limitations HENMT Head: Yes normocephalic and Yes atraumatic Ears: external ears normal General nose exam: Normal external nose present Face and sinus: Yes face symmetric Mouth: Normal oral and palatal mucosa present, lip normal, tongue normal, oropharynx normal and moist mucous membranes Throat: Yes uvula midline and No uvular edema Eyes Pupils: Equal, round and reactive pupils present Neck Neck: Yes normal visual inspection and Yes supple Resp Effort & Inspection: normal respiratory effort and able to speak in complete sentences Auscultation: clear to auscultation bilaterally Cardio Rate: regular rate Rhythm: regular rhythm Heart sounds: S1 normal heart sound present and S2 normal heart sound present GI Palpation (GI): Soft to palpation and nontender Auscultation: normoactive bowel sounds General: Yes no CVA tenderness Back/Spine/Pelvis Back: no CVA tenderness Skin General skin exam: elasticity normal and turgor normal Rashes: rashes noted (hives noted to left lower back, bilat upper eyelids, cheeks, chin) Neuro General: oriented to person, oriented to place, oriented to time, patient oriented x3, moves all extremities, no focal motor deficits and CN's II-XI intact bilaterally Cranial nerves: Yes Equal, round and reactive pupils present Cognition (Neuro): normal cognition Extrem General: Yes full ROM, Yes no pedal edema and Yes no calf tenderness Psych Mental Status: mental status grossly normal Affect: normal affect Thought process: Normal thought process present Medical Decision Making Medical Decision Making MDM Narrative: Patient is a 39-year-old female with history of HTN presenting to the ED with complaint of pruritic rash to face, back since Monday. On exam patient is awake, A+Ox3, BP elevated but did not take BP medication today, VS otherwise WNL, afebrile, normal neurological exam without focal deficits, physical exam findings as above. Given reported symptoms and physical exam findings, initial differential includes contact dermatitis, atopic dermatitis. Do not suspect TEN/SJS, DRESS, TTP/DIC, necrotizing fasciitis, meningococcemia, SSSS, TSS, anaphylaxis. Advised patient to switch from benadryl to a second generation antihistamine such as cetirizine or loratadine, as well as add famotidine. Will send taper course of prednisone. Follow up with PCP or dermatology. Return precautions discussed. Patient verbalized understanding of and agreement with plan. Differential Diagnosis Differential Diagnoses: The differential diagnosis associated with the presentation includes As per MDM. External Record Review External record reviewed: Inpatient record, Office record and Outpatient record Prescription Management I considered prescription management with: Other Discharge Plan Discharge Clinical Impression: Rash and nonspecific skin eruption Patient Disposition: Home, Self-Care Instructions: Contact Dermatitis (DC), Acute Rash (ED) Additional Instructions: You were evaluated in the emergency department today for a rash. Your evaluation did not reveal evidence of conditions requiring emergent medical treatment. You are being prescribed a tapering dose of a steroid called prednisone to decrease inflammation. We also recommend that you take a daily antihistamine such as loratadine (Claritin) or cetirizine (Zyrtec). You can also add over the counter famotidine (Pepcid) which is a different type of antihistamine. You can apply a thick unscented lotion to the affected areas such as Eucerine or Vanicream several times daily. Follow up with your primary care provider this week. If your symptoms do not improve, follow up with a cereal maker. Return to the emergency department if you develop difficulty breathing or shortness of breath, swelling to lips, tongue, fever, rash inside your mouth or to your palms/soles or any other concerning symptoms. Prescriptions: New prednisone 10 mg tablet See Rx Instructions .ROUTE .COMPLEX Qty: 15 0RF Rx Instructions: 50mg (5 tabs) x1 day, then 40mg (4 tabs) x 1 day, then 30mg (3 tabs) x 1 day, then 20mg (2 tabs) x 1 day, then 10mg (1 tab) x 1 day No Action cholecalciferol (vitamin D3) 25 mcg (1,000 unit) capsule 25 mcg PO DAILY 30 Days Qty: 30 6RF hydroxyzine HCl 25 mg tablet 25 mg PO BEDTIME 15 Days Qty: 15 3RF sertraline [Zoloft] 50 mg tablet 50 mg PO DAILY 90 Days Qty: 90 1RF docusate sodium [Colace] 100 mg capsule 100 mg PO DAILY PRN (Reason: constipation) 30 Days Qty: 30 0RF esomeprazole magnesium 20 mg capsule,delayed release(DR/EC) 20 mg PO BID Qty: 180 3RF amlodipine 2.5 mg tablet 2.5 mg PO DAILY 30 Days Qty: 30 1RF ferrous sulfate 325 mg (65 mg iron) tablet 325 mg PO BID 30 Days Qty: 60 3RF Referrals: [facility] [Provider Group] [facility] [Provider Group] [facility] [Provider Group] Print Language: Ukrainian
[2024-08-07 20:59] VITALS: BP 145/108; PULSE 88; RESP 16; TEMP 36.8; O2SAT 98
== END 2024-08-07 21:08 | disposition home or self-care (01) ==
PROVIDERS: Emergency Provider Emergency Medicine; PCP Physician Assistant
DX: L50.0 Allergic urticaria (principal)
CPT/HCPCS: 99282; 99283

== ENCOUNTER 2024-08-19 07:21 | Outpatient (AMB) | payer OTHER, MEDICAID, SELFPAY ==
--- NOTE | 2024-08-19 07:28 | A.OFFVIS_ITS ---
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 No complaints. Last Pap/HPV was negative in 04/11 [facility] Medical History Hypersomnia Nocturnal hypoxia Hiatal hernia GERD (gastroesophageal reflux disease) History of COVID-19 Anxiety and depression History of abnormal cervical Pap smear Obesity (BMI 30-39.9) Surgical History H/O endoscopy Hx of colonoscopy History of esophagogastroduodenoscopy (EGD) History of surgery Family History Father Diabetes Mother Hypertension Sister Cervical cancer Paternal Grandmother Uterine cancer Daughter Lymphatic malformation Social History Housing: Apartment Are you a primary care coordination manager to a significant other at home: Yes Do you presently have visiting nurse or other home services: No Alcohol intake: current Alcohol intake frequency: holidays/special occasions only Patient Tobacco Use Status: Never used Tobacco e-Cigarette/Vaping Use: Never Used Second Hand Smoke Exposure: Yes service: No Current occupational status: employed 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: No Gender identity: Female Cognitive needs: No Hearing needs: No Vision needs: Yes (Glasses) Female Reproductive History Menstrual Age of Menarche: 11 Date of last menstrual period: 07/19/24 Total pregnancies: 5 Full term: 4 Number of Living Children: 4 Date of last pap smear: 04/09/23 Review of Systems Const All systems reviewed & are unremarkable except as noted in HPI and below Card Reports as per HPI Resp Reports as per HPI GI Reports as per HPI and Reports no additional complaints Reports as per HPI Physical Exam Vital Signs: Last Vital Signs BP 114/72 08/19/24 07:34 BMI result Body Mass Index 37.1 Const General: cooperative, healthy appearing and comfortable Chest Chest palpation & inspection: normal inspection of the chest and normal palpation of entire chest wall Breast/axilla inspection: normal inspection of the breasts and normal inspection of the axillae Breast/axilla palpation: normal palpation of the breasts, normal palpation of the axillae and no axillary lymphadenopathy Resp Effort & Inspection: normal respiratory effort Auscultation: clear to auscultation bilaterally Percussion: percussion normal Cardio Palpation: normal PMI Rate: regular rate Rhythm: regular rhythm Heart sounds: no murmurs and no rubs Peripheral pulses: Peripheral pulses 2+ throughout GI Inspection: Yes normal to inspection Palpation (GI): Soft to palpation, nontender, no guarding, not rigid and No hepatosplenomegaly present Percussion: Yes normal to percussion Auscultation: normal bowel sounds Rectal Exam - Female: deferred General: Yes bladder normal to palpation External Female Exam: No lesion Speculum Exam - Vagina: normal appearance of the vagina, normal palpation, normal vaginal discharge and not erythematous Speculum Exam - Cervix: normal appearance of the cervix and normal palpation Bimanual exam- vagina & uterus: normal bimanual exam, normal palpation, uterine size normal, bladder normal to palpation, consistency normal and normal palpation Bimanual Exam- Adnexa, other: normal adnexae, no masses and no tenderness Assessment & Plan Assessment & Plan (1) Well woman exam: Code(s): Z01.419 - Encounter for gynecological examination (general) (routine) without abnormal findings Category: Medical Plan: Cotesting not indicated this year. Counseled the patient about the recommended dietary allowance of 1000 mg of Calcium & 600 IU of vitamin D. The patient was instructed to perform monthly self-breast exams and to schedule an annual exam in a year; All questions answered and the patient verbalized understanding. Instructed the patient to schedule annual exam in a year Coding Level of Care Code Est Pt Prev Care 18-39y(02071) Diagnoses Well woman exam Z01.419
[2024-08-19 07:34] VITALS: BP 114/72; BMI 37.1
== END 2024-08-19 08:14 | disposition home or self-care (01) ==
PROVIDERS: PCP Physician Assistant; Visit Provider Obstetrics & Gynecology
DX: Z01.419 Encounter for gynecological examination (general) (routine) without abnormal findings (principal)
CPT/HCPCS: 99395

== ENCOUNTER → 2024-08-19 07:21 | Outpatient (BNVA) | payer OTHER, MEDICAID, SELFPAY | PROVIDERS: PCP Physician Assistant; Visit Provider Obstetrics & Gynecology ==

== ENCOUNTER 2024-08-19 09:54 | Outpatient (AMB) | payer OTHER, MEDICAID, SELFPAY ==
[2024-08-19 10:01] VITALS: BP 138/86; PULSE 78; O2SAT 97; BMI 37.5
--- NOTE | 2024-08-19 10:01 | MHC.PC.OV ---
Vital Signs 08/19/24 10:01 Height 5 ft 2 in Weight 205 lb BMI 37.5 BP 138/86 Blood Pressure Location Lt brachial Position Sitting Pulse 78 Pulse Source Pulse Oximeter Pulse Oximetry (%) 97 Oxygen Delivery Method Room Air Intake Visit Reasons: Rash all over body Public Safety Telecommunicator Required: No Allergies Seasonal Allergies Allergy (Intermediate, Verified 08/19/24 10:10) Itchy Eyes hydrochlorothiazide Adverse Reaction (Intermediate, Verified 08/19/24 10:10) Dizziness Medication List - Last Reconciled 08/19/24 by Shantanu Costello PA-C amlodipine 2.5 mg PO DAILY 30 days cholecalciferol (vitamin D3) 25 mcg PO DAILY 30 days docusate sodium (Colace) 100 mg PO DAILY PRN 30 days esomeprazole magnesium 20 mg PO BID ferrous sulfate 325 mg PO BID 30 days hydroxyzine HCl 25 mg PO BEDTIME 15 days sertraline (Zoloft) 50 mg PO DAILY 90 days Tobacco use date assessed: 01/18/24 Dental Screening Dental Screen Date: 01/18/24 HPI Rash all over body HPI Details Patient is a 39-year-old female here today for ER follow-up visit. She presented to the ER last week for rash all over body after eating a banana muffin. She does admit to doing yard work prior to the presentation of her rash.. Patient was advised on trying Benadryl was prescribed a prednisone taper. She reports her rash did get better on prednisone though seems to have came back after prednisone dose ended. She reports her skin is very itchy which is causing her a lot of distress. She has been using loratadine, H2 noa and doing oatmeal baths and calamine lotion with only minimal relief. [facility] Medical History Hypersomnia Nocturnal hypoxia Hiatal hernia GERD (gastroesophageal reflux disease) History of COVID-19 Anxiety and depression History of abnormal cervical Pap smear Obesity (BMI 30-39.9) Surgical History H/O endoscopy Hx of colonoscopy History of esophagogastroduodenoscopy (EGD) History of surgery Family History Father Diabetes Mother Hypertension Sister Cervical cancer Paternal Grandmother Uterine cancer Daughter Lymphatic malformation Social History Housing: Apartment Are you a primary children's zoo caretaker to a significant other at home: Yes Do you presently have visiting nurse or other home services: No Alcohol intake: current Alcohol intake frequency: holidays/special occasions only Patient Tobacco Use Status: Never used Tobacco e-Cigarette/Vaping Use: Never Used Second Hand Smoke Exposure: Yes service: No Current occupational status: employed 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 How often do you have a drink containing alcohol?: Monthly or less 2. How many drinks containing alcohol do you have on a typical day when you are drinking?: 1 or 2 3. How often do you have six or more drinks on one occasion?: Never Total Score: 1 DANIELA-7 AMB Questionnaire DANIELA-7 Date DANIELA - 7 assessed: 01/18/24 Source: Developed by Drs. Murtaza Krueger, Ana Cameron, Matthew Rivas and colleagues, with an educational vaishali from [employer]. Review of Systems Const Denies headache(s) Eyes Denies loss of vision ENT Denies vertigo, Denies dizziness, Denies headache(s) and Denies sore throat Card Denies chest pain, Denies leg edema and Denies lightheadedness Resp Denies cough, Denies hemoptysis and Denies wheezing GI Denies abdominal pain, Denies melena, Denies constipation, Denies diarrhea and Denies vomiting Denies urinary frequency, Denies dysuria and Denies urinary urgency Musc Denies arthralgias, Denies joint swelling, Denies numbness and Denies tingling Skin/Breast Details: + RASH Neuro Denies Abnormal speech present, Denies behavioral changes, Denies vertigo, Denies dizziness, Denies headache(s), Denies loss of vision, Denies memory loss, Denies numbness and Denies tingling Psych Denies anxiety, Denies behavioral changes, Denies depression, Denies memory loss and Denies panic attacks Leandro/Lymph Denies easy bleeding and Denies easy bruising Aller/Immun Denies wheezing Physical exam (Primary Care) Vital Signs: Last Vital Signs Pulse 78 08/19/24 10:01 BP 138/86 08/19/24 10:01 Pulse Ox 97 08/19/24 10:01 Oxygen Delivery Method Room Air 08/19/24 10:01 BMI result Body Mass Index 37.5 Tobacco/Smoking Status: Tobacco use Status Tobacco use date assessed 01/18/24 08/19/24 10:05 Patient Tobacco Use Status Never used Tobacco 08/19/24 10:05 e-Cigarette/Vaping Use Never Used 08/19/24 10:05 Thrive Assessment: Date of Thrive Assessment Date Thrive assessed 01/18/24 08/19/24 10:05 Const General: healthy appearing, no acute distress, alert and awake Nutritional Appearance: well nourished Orientation/consciousness: oriented to person, oriented to place and oriented to time HENMT Ears: TM's normal bilaterally General nose exam: Normal nasal mucous membranes and turbinates present Eyes Conjunctivae: conjunctivae normal Sclerae: sclerae normal Pupils: Equal, round and reactive pupils present Neck Neck: Yes no lymphadenopathy and Yes no JVD Thyroid: Thyroid normal Carotids: no bruits Resp Effort & Inspection: normal respiratory effort and not tachypneic Auscultation: no crackles, no rales, no rhonchi and no wheezes Cardio Rate: regular rate Rhythm: regular rhythm Heart sounds: no murmurs and normal S1 and S2 GI Palpation (GI): Soft to palpation, nontender, no hepatomegaly and no splenomegaly Auscultation: normal bowel sounds Skin Other: + rash noted over inner aspect of arms, torso, neck and lower back. Neuro General: oriented to person, oriented to place and oriented to time Cranial nerves: Yes Equal, round and reactive pupils present Speech: No Abnormal speech present Gait exam (Neuro): Normal gait present Motor exam (neuro): no tremor noted Extrem Right upper extremity: full ROM Left upper extremity: full ROM Right lower extremity: full ROM; no edema Left lower extremity: full ROM; no edema Psych Mental Status: mental status grossly normal Speech and movement: Normal speech and movement present Affect: normal affect Attitude: cooperative Thought process: Normal thought process present Assessment and Plan Assessment & Plan (1) Acute allergic reaction: Code(s): T78.40XA - Allergy, unspecified, initial encounter Qualifiers: Encounter type: subsequent encounter Qualified Code(s): T78.40XD - Allergy, unspecified, subsequent encounter Plan: Patient signs and symptoms most consistent with allergic reaction. Unknown etiology at this time. She reports prednisone was helpful though once prednisone dose ended her rash seems to have spread. Will supply patient with a few more days of prednisone and supply patient with topical corticosteroid to place on most problematic skin areas. She will use Benadryl or hydroxyzine at night and continue on H2 noa as well. Will send patient for allergy testing Orders: Orders Resp Allergy Profile Region I Today R05.9 - Cough, unspecified, T78.40XD - Allergy, unspecified, subsequent encounter Medications: New triamcinolone acetonide 0.1% 1 appl topical DAILY 15 days 80 grams 0RF T78.40XD - Allergy, unspecified, subsequent encounter prednisone take 2 tabs x3 days, 1 tab times 4 days 20 mg PO DAILY 7 days 10 tabs 0RF T78.40XD - Allergy, unspecified, subsequent encounter Coding Level of Care Code Est Pt Level 3 (45384) Diagnoses Acute allergic reaction, subsequent encounter T78.40XD Encounter type: subsequent encounter
== END 2024-08-19 10:24 | disposition home or self-care (01) ==
PROVIDERS: PCP Physician Assistant; Visit Provider Physician Assistant
DX: T78.40XD Allergy, unspecified, subsequent encounter (principal)

== ENCOUNTER 2024-08-20 14:27 | Outpatient (REF) | payer OTHER, MEDICAID, SELFPAY ==
[2024-08-22 03:28] LABS: Class Alternaria alternata 0; Class Aspergillus fumigatus 0; Class Bermuda Grass 0; Class Birch 0; Class Cat Dander 0; Class Cladosporium herbarum 0; Class Cockroach 0; Class Common Ragweed 0; Class Cottonwood 0; Class Derm. pterony 0; Class Dermatophagoides farinae 0; Class Dog Dander 0; Class Elm 0; Class Maple Box Elder 0; Class Mountain Cedar 0; Class Mouse Urine Protein 0; Class Mugwort 0; Class Oak 0; Class Penicillium crysogenum 0; Class Rough Pigweed 0; Class Sheep Sorrel 0; Class Sycamore 0; Class Timothy Grass 0; Class Walnut Tree 0; Class White Ash 0; Class White Mulberry 0; D001 IgE D pteronyssinus <0.10 kU/L; D002 - IgE D farinae <0.10 kU/L; E001 - IgE Cat Dander <0.10 kU/L; E005 - IgE Dog Dander <0.10 kU/L; E072-IgE Mouse Urine <0.10 kU/L; G002 IgE Bermuda Grass <0.10 kU/L; G006 - IgE Timothy Grass <0.10 kU/L; I006-IgE Cockroach, German <0.10 kU/L; Immunoglobulin E 14 kU/L (<OR=114); M001 IgE Penicillium chrysogen <0.10 kU/L; M002 - IgE Cladosporium herbar <0.10 kU/L; M003 - IgE Aspergillus fumigat <0.10 kU/L; M006 - IgE Alternaria alternat <0.10 kU/L; T001 IgE Maple/Box Elder <0.10 kU/L; T003 IgE Common Silver Birch <0.10 kU/L; T006 - IgE Cedar, Mountain <0.10 kU/L; T007 - IgE Oak, White <0.10 kU/L; T008 IgE Elm, American <0.10 kU/L; T010 - IgE Walnut <0.10 kU/L; T011 - IgE Maple Leaf Sycamore <0.10 kU/L; T014 - IgE Cottonwood <0.10 kU/L; T015 - IgE Ash, White <0.10 kU/L; T070 - IgE White Mulberry <0.10 kU/L; W001 - IgE Ragweed, Short <0.10 kU/L; W006 - IgE Mugwort <0.10 kU/L; W014 IgE Pigweed, Common <0.10 kU/L; W018 IgE Sheep Sorrel <0.10 kU/L
== END 2024-08-20 14:28 | disposition home or self-care (01) ==
LOC: HO.LAB 14:27
PROVIDERS: PCP Physician Assistant; Visit Provider Physician Assistant
DX: R05.9 Cough, unspecified (principal); T78.40XD Allergy, unspecified, subsequent encounter
CPT/HCPCS: 36415; 82785; 86003

== ENCOUNTER 2024-09-30 08:26 | Outpatient (AMB) | payer OTHER, MEDICAID, SELFPAY ==
--- NOTE | 2024-09-30 08:36 | MHC.PC.OV ---
Vital Signs 09/30/24 08:37 Height 5 ft 2 in Weight 208 lb 2 oz BMI 38.1 BP 122/78 Blood Pressure Location Lt brachial Position Sitting Pulse 78 Pulse Source Pulse Oximeter Pulse Oximetry (%) 97 Oxygen Delivery Method Room Air Intake Visit Reasons: f/u HTN Intake Note: Patient is here to follow up on HTN. Cutter Brake Lining Required: No Jewelry Mold Maker: Not Required per policy Accompanied by: Self / Same As Patient Allergies Seasonal Allergies Allergy (Intermediate, Verified 09/30/24 08:41) Itchy Eyes hydrochlorothiazide Adverse Reaction (Intermediate, Verified 09/30/24 08:41) Dizziness Medication List - Last Reconciled 09/30/24 by Shantanu Costello PA-C amlodipine 2.5 mg PO DAILY 30 days cholecalciferol (vitamin D3) 25 mcg PO DAILY 30 days docusate sodium (Colace) 100 mg PO DAILY PRN 30 days esomeprazole magnesium 20 mg PO BID ferrous sulfate 325 mg PO BID 30 days hydroxyzine HCl 25 mg PO BEDTIME 15 days sertraline (Zoloft) 50 mg PO DAILY 90 days triamcinolone acetonide 0.1% 1 appl topical DAILY 15 days Tobacco use date assessed: 09/30/24 Dental Screening Dental Screen Date: 01/18/24 HPI f/u HTN HPI Details Patient is a 39-year-old female here today for follow-up visit Patient has a past medical history significant for obesity, GERD, generalized anxiety disorder. Concern--> Merocel reports she continues to all-over body pain every day. She does use ibuprofen that helps out a bit. She continues to be fatigued as well. She does admit that her sister and her mom both have significant pain and joint pain issues. PLAN: Will test for rheumatoid arthritis and lupus. Will supply patient with meloxicam to use on a daily basis to help reduce her muscle and joint pains. .. :Hypertension: Patient's blood pressure acceptable today in office. Patient continues on amlodipine 2.5 mg with good effect on blood pressure. She does report she did have a couple of episodes of hypertension that came with headaches. Otherwise blood pressures have been pretty stable home. [facility] Medical History Hypersomnia Nocturnal hypoxia Hiatal hernia GERD (gastroesophageal reflux disease) History of COVID-19 Anxiety and depression History of abnormal cervical Pap smear Obesity (BMI 30-39.9) Surgical History H/O endoscopy Hx of colonoscopy History of esophagogastroduodenoscopy (EGD) History of surgery Family History Father Diabetes Mother Hypertension Sister Cervical cancer Paternal Grandmother Uterine cancer Daughter Lymphatic malformation Social History Housing: Apartment Are you a primary career information specialist to a significant other at home: Yes Do you presently have visiting nurse or other home services: No Alcohol intake: current Alcohol intake frequency: holidays/special occasions only Patient Tobacco Use Status: Never used Tobacco e-Cigarette/Vaping Use: Never Used Second Hand Smoke Exposure: Yes service: No Current occupational status: employed 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 Murtaza Krueger, Ana Cameron, Matthew Rivas and colleagues, with an educational vaishali from [employer]. Review of Systems Const Denies headache(s) Eyes Denies loss of vision ENT Denies vertigo, Denies dizziness, Denies headache(s) and Denies sore throat Card Denies chest pain, Denies leg edema and Denies lightheadedness Resp Denies cough, Denies hemoptysis and Denies wheezing GI Denies abdominal pain, Denies melena, Denies constipation, Denies diarrhea and Denies vomiting Denies urinary frequency, Denies dysuria and Denies urinary urgency Musc Reports back pain, Denies arthralgias, Reports joint swelling, Reports limited range of motion, Reports muscle cramps, Denies numbness and Denies tingling Neuro Denies Abnormal speech present, Denies behavioral changes, Denies vertigo, Denies dizziness, Denies headache(s), Denies loss of vision, Denies memory loss, Denies numbness and Denies tingling Psych Denies anxiety, Denies behavioral changes, Denies depression, Denies memory loss and Denies panic attacks Leandro/Lymph Denies easy bleeding and Denies easy bruising Aller/Immun Denies wheezing Physical exam (Primary Care) Vital Signs: Last Vital Signs Pulse 78 09/30/24 08:37 BP 122/78 09/30/24 08:37 Pulse Ox 97 09/30/24 08:37 Oxygen Delivery Method Room Air 09/30/24 08:37 BMI result Body Mass Index 38.1 Tobacco/Smoking Status: Tobacco use Status Tobacco use date assessed 09/30/24 09/30/24 08:40 Patient Tobacco Use Status Never used Tobacco 09/30/24 08:40 e-Cigarette/Vaping Use Never Used 09/30/24 08:40 Thrive Assessment: Date of Thrive Assessment Date Thrive assessed 01/18/24 09/30/24 08:40 Const General: healthy appearing, no acute distress, alert and awake Nutritional Appearance: well nourished Orientation/consciousness: oriented to person, oriented to place and oriented to time HENMT Ears: TM's normal bilaterally General nose exam: Normal nasal mucous membranes and turbinates present Eyes Conjunctivae: conjunctivae normal Sclerae: sclerae normal Pupils: Equal, round and reactive pupils present Neck Neck: Yes no lymphadenopathy and Yes no JVD Thyroid: Thyroid normal Carotids: no bruits Resp Effort & Inspection: normal respiratory effort and not tachypneic Auscultation: no crackles, no rales, no rhonchi and no wheezes Cardio Rate: regular rate Rhythm: regular rhythm Heart sounds: no murmurs and normal S1 and S2 GI Palpation (GI): Soft to palpation, nontender, no hepatomegaly and no splenomegaly Auscultation: normal bowel sounds Skin General skin exam: no rashes or lesions noted and dry skin Neuro General: oriented to person, oriented to place and oriented to time Cranial nerves: Yes Equal, round and reactive pupils present Speech: No Abnormal speech present Gait exam (Neuro): Normal gait present Motor exam (neuro): no tremor noted Extrem Right upper extremity: full ROM Left upper extremity: full ROM Right lower extremity: full ROM; no edema Left lower extremity: full ROM; no edema Psych Mental Status: mental status grossly normal Speech and movement: Normal speech and movement present Affect: normal affect Attitude: cooperative Thought process: Normal thought process present Coding Level of Care Code Est Pt Level 4 (47262) Diagnoses Polyarthralgia M25.50 Primary hypertension I10 Hypertension type: primary hypertension Assessment & Plan Assessment & Plan (1) Polyarthralgia: Code(s): M25.50 - Pain in unspecified joint Category: Medical Plan: As per HPI patient continues to have a widespread type body pain. Will supply patient with meloxicam to use for muscle and joint pain. Will test for rheumatoid and lupus. (2) HTN (hypertension): Code(s): I10 - Essential (primary) hypertension Category: Medical Qualifiers: Hypertension type: primary hypertension Qualified Code(s): I10 - Essential (primary) hypertension Plan: Patient's blood pressure slightly elevated today. Will continue her current dose of amlodipine 2.5 mg at work extensively on lifestyle and dietary modifications to reduce her blood pressure. Goal blood pressures to be below 140/90 Orders: Orders Microalbumin, Random (w Creat) 3 Months I10 - Essential (primary) hypertension Cyclic Citrullinated Peptide Today M25.50 - Pain in unspecified joint BRETT Reflex Titer and Pattern Today M25.50 - Pain in unspecified joint Anti DNA DS Antibody Today M25.50 - Pain in unspecified joint Comprehensive [place]. Panel Fast 3 Months I10 - Essential (primary) hypertension Complete Blood Count no Diff 3 Months K21.00 - Gastro-esophageal reflux disease with esophagitis, without bleeding XR hand wrist RT Today M25.50 - Pain in unspecified joint XR hand wrist LT Today M25.50 - Pain in unspecified joint, M79.641 - Pain in right hand, M79.642 - Pain in left hand Medications: New meloxicam 15 mg PO DAILY 30 tabs 3RF 30 days M25.50 - Pain in unspecified joint
[2024-09-30 08:37] VITALS: BP 122/78; PULSE 78; O2SAT 97; BMI 38.1
== END 2024-09-30 08:56 | disposition home or self-care (01) ==
PROVIDERS: PCP Physician Assistant; Visit Provider Physician Assistant
DX: M25.50 Pain in unspecified joint (principal); I10 Essential (primary) hypertension

== ENCOUNTER → 2024-09-30 08:26 | Outpatient (BNVA) | payer OTHER, MEDICAID, SELFPAY | PROVIDERS: PCP Physician Assistant; Visit Provider Physician Assistant ==

== ENCOUNTER 2024-10-09 07:21 | Outpatient (REF) | payer OTHER, MEDICAID, SELFPAY ==
[2024-10-09 07:42] LABS: Hematocrit 38.2 % (37.0-47.0); Hemoglobin 12.3 g/dl (12.0-16.0); Mean Corpuscular HGB Conc 32.2 g/dl (31.0-35.0); Mean Corpuscular Hemoglobin 26.1 pg (27.0-33.0); Mean Corpuscular Volume 80.9 fL (80.0-98.0); Mean Platelet Volume 10.4 fL (9.4-12.3); Platelet Count 292 X10*3/uL (160-400); Red Blood Count 4.72 X10*6/uL (4.20-5.50); Red Cell Distribution Width 15.7 % (11.0-16.0); White Blood Count 6.9 X10*3/uL (4.8-10.8)
[2024-10-11 17:18] LABS: Anti DNA DS Antibody 1 IU/mL
[2024-10-12 00:12] LABS: Cyclic Citrullinated Peptide <16 UNITS
[2024-10-14 13:43] LABS: Anti Nuclear Antibody Screen NEGATIVE (NEGATIVE)
[2024-10-14 19:08] LABS: Catecholamine Frac, Total <289 pg/mL
== END 2024-10-09 07:22 | disposition home or self-care (01) ==
LOC: HO.LAB 07:21
PROVIDERS: PCP Physician Assistant; Visit Provider Physician Assistant
DX: R09.89 Other specified symptoms and signs involving the circulatory and respiratory systems (principal); M25.50 Pain in unspecified joint; G47.33 Obstructive sleep apnea (adult) (pediatric)
CPT/HCPCS: 36415; 82384; 85027; 86038; 86200; 86225

== ENCOUNTER 2024-11-08 15:12 | Outpatient (REF) | payer OTHER, MEDICAID, SELFPAY ==
--- NOTE | ~2024-11-08 | XR_ITS ---
EXAMINATION: XR HAND/WRIST, LEFT CLINICAL INFORMATION: M25.50 - Pain in unspecified joint COMPARISON: None available. TECHNIQUE: PA, lateral, and oblique views of the left hand and wrist. FINDINGS: The bones and soft tissues are normal. No fracture. Alignment is anatomic. Joint spaces are maintained. No erosions or soft tissue calcifications. XR/XR hand wrist LT IMPRESSION: Normal radiographs of the hand and wrist. Electronically signed by: Yonas Gonzalez MD 11/10/2024 11:14 AM DARA DORSEY
--- NOTE | ~2024-11-08 | XR_ITS ---
EXAMINATION: XR HAND/WRIST, RIGHT CLINICAL INFORMATION: M25.50 - Pain in unspecified joint COMPARISON: None available. TECHNIQUE: PA, lateral, and oblique views of the right hand and wrist. FINDINGS: The bones and soft tissues are normal. No fracture. Alignment is anatomic. Joint spaces are maintained. No erosions or soft tissue calcifications. XR/XR hand wrist RT IMPRESSION: Normal radiographs of the hand and wrist. Electronically signed by: Yonas Gonzalez MD 11/10/2024 11:15 AM DARA DORSEY
== END 2024-11-08 15:13 | disposition home or self-care (01) ==
LOC: HO.XRAY 15:12
PROVIDERS: PCP Physician Assistant; Visit Provider Physician Assistant
DX: M25.50 Pain in unspecified joint (principal); M79.641 Pain in right hand; M79.642 Pain in left hand
CPT/HCPCS: 73110; 73130

== ENCOUNTER 2024-12-03 10:44 | Outpatient (AMB) | payer OTHER, MEDICAID, SELFPAY ==
[2024-12-03 11:09] VITALS: BP 124/84; PULSE 78; O2SAT 95; BMI 40.5
--- NOTE | 2024-12-03 11:09 | A.OFFVIS_ITS ---
Vital Signs 12/03/24 11:09 Height 5 ft 2 in Weight 221 lb 6 oz BMI 40.5 BP 124/84 Blood Pressure Location Lt brachial Position Sitting Pulse 78 Pulse Source Pulse Oximeter Pulse Oximetry (%) 95 Intake Visit Reasons: 7 Month F/U Accompanied by: Self / Same As Patient Allergies Seasonal Allergies Allergy (Intermediate, Verified 09/30/24 08:41) Itchy Eyes hydrochlorothiazide Adverse Reaction (Intermediate, Verified 09/30/24 08:41) Dizziness HPI Comments Details: 38-yr-old female presents for f/u visit of sleep apnea. Pt denies any significant interval medical changes. 02/22/2024 in-lab PSG w/ MSLT, however baseline PSG showed mild sleep apnea, so MSLT portion was not completed. She has not started APAP tx- as she missed their call and had dififuclty getting back in touch w/ them. She would like us to resend order, but to [facility]. Pt continues to have excessive daytime sleepiness, nocturnal acid reflux. She treats her reflux s/s w/ PPI, prn OTC gaviscon (US version), and sleeping on 7 pillows . Note, she is hesitant to repeat MSLT as it was difficult being off her anti- depressant tx. [facility] Medical History Hypersomnia Nocturnal hypoxia Hiatal hernia GERD (gastroesophageal reflux disease) History of COVID-19 Anxiety and depression History of abnormal cervical Pap smear Obesity (BMI 30-39.9) Surgical History H/O endoscopy Hx of colonoscopy History of esophagogastroduodenoscopy (EGD) History of surgery Family History Father Diabetes Mother Hypertension Sister Cervical cancer Paternal Grandmother Uterine cancer Daughter Lymphatic malformation Social History Housing: Apartment Are you a primary patient care associate to a significant other at home: Yes Do you presently have visiting nurse or other home services: No Alcohol intake: current Alcohol intake frequency: holidays/special occasions only Patient Tobacco Use Status: Never used Tobacco e-Cigarette/Vaping Use: Never Used Second Hand Smoke Exposure: Yes service: No Current occupational status: employed 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: No Gender identity: Female Cognitive needs: No Hearing needs: No Vision needs: Yes (Glasses) Female Reproductive History Menstrual Age of Menarche: 11 Physical Exam Vital Signs: Last Vital Signs Pulse 78 12/03/24 11:09 BP 124/84 12/03/24 11:09 Pulse Ox 95 12/03/24 11:09 BMI result Body Mass Index 40.5 Const General: cooperative, healthy appearing and comfortable Orientation/consciousness: patient oriented x3 HEENT Head: Yes normocephalic Chest Chest palpation & inspection: normal inspection of the chest and normal palpation of entire chest wall Breast/axilla inspection: normal inspection of the breasts and normal inspection of the axillae Breast/axilla palpation: normal palpation of the breasts, normal palpation of the axillae and no axillary lymphadenopathy Resp Effort & Inspection: normal respiratory effort Auscultation: clear to auscultation bilaterally Percussion: percussion normal Cardio Palpation: normal PMI Rate: regular rate Rhythm: regular rhythm Heart sounds: no murmurs and no rubs Peripheral pulses: Peripheral pulses 2+ throughout GI Inspection: Yes normal to inspection Palpation (GI): Soft to palpation, nontender, no guarding, not rigid and No hepatosplenomegaly present Percussion: Yes normal to percussion Auscultation: normal bowel sounds Rectal Exam - Female: deferred General: Yes bladder normal to palpation External Female Exam: No lesion Speculum Exam - Vagina: normal appearance of the vagina, normal palpation, normal vaginal discharge and not erythematous Speculum Exam - Cervix: normal appearance of the cervix and normal palpation Bimanual exam- vagina & uterus: normal bimanual exam, normal palpation, uterine size normal, bladder normal to palpation, consistency normal and normal palpation Bimanual Exam- Adnexa, other: normal adnexae, no masses and no tenderness Neuro General: patient oriented x3, gait normal and CN's II-XI intact bilaterally Cognition (Neuro): normal cognition Motor exam (neuro): 5/5 motor strength present throughout Psych Appearance: grossly normal Mental Status: mental status grossly normal Speech and movement: Normal speech and movement present Affect: normal affect Attitude: cooperative Assessment & Plan Assessment & Plan (1) Mild obstructive sleep apnea: Code(s): G47.33 - Obstructive sleep apnea (adult) (pediatric) Category: Medical (2) Hypersomnia: Code(s): G47.10 - Hypersomnia, unspecified Category: Medical (3) GERD (gastroesophageal reflux disease): Code(s): K21.9 - Gastro-esophageal reflux disease without esophagitis Category: Medical Qualifiers: Esophagitis presence: with esophagitis Esophagitis bleeding: without hemorrhage Qualified Code(s): K21.00 - Gastro-esophageal reflux disease with esophagitis, without bleeding Plan Pt is again advised to start APAP 5-20 cmH2O nightly > 4 hrs- will send order to [facility] [place] per pt request. Reviewed it is important to: * Clean CPAP machine and supplies routinely. * Change CPAP supplies routinely. * Use distilled water in CPAP water reservoir. * Contact us or respiratory company with any questions or concerns r/t sleep and PAP tx usage. Continue GERD tx's- esomeprazole, prn Gaviscon, sleeping w/ head elevated. Pt may benefit from adding OTC reflux gourmet/calcium alginate tx after meals and QHS. If pt continues to have excessive daytime sleepiness after using APAP x's several weeks, consider trial of wake-promoting or stimulant medication tx. Pt to follow-up in 6 months or sooner prn. Coding Level of Care Code Est Pt Level 4 (06810) Diagnoses Mild obstructive sleep apnea G47.33 Hypersomnia G47.10 Gastroesophageal reflux disease with esophagitis without hemorrhage K21.00 Esophagitis presence: with esophagitis Esophagitis bleeding: without hemorrhage
== END 2024-12-03 12:05 | disposition home or self-care (01) ==
PROVIDERS: PCP Physician Assistant; Visit Provider Nurse Practitioner Family
DX: G47.33 Obstructive sleep apnea (adult) (pediatric) (principal); G47.10 Hypersomnia, unspecified; K21.00 Gastro-esophageal reflux disease with esophagitis, without bleeding
CPT/HCPCS: 99214

== ENCOUNTER → 2024-12-03 10:44 | Outpatient (BNVA) | payer OTHER, MEDICAID, SELFPAY | PROVIDERS: PCP Physician Assistant; Visit Provider Nurse Practitioner Family ==

== ENCOUNTER 2024-12-04 11:28 | Outpatient (AMB) | payer OTHER, MEDICAID, SELFPAY ==
[2024-12-04 11:26] VITALS: BP 128/66; PULSE 76; TEMP 37; BMI 39.0
--- NOTE | 2024-12-04 11:26 | MHC.OFFVISWM ---
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 Allergies Seasonal Allergies Allergy (Intermediate, Verified 12/04/24 12:06) Itchy Eyes hydrochlorothiazide Adverse Reaction (Intermediate, Verified 12/04/24 12:06) Dizziness Medication List - Last Reconciled 12/04/24 by Rogelio Fernandez MD amlodipine 2.5 mg PO DAILY 30 days cholecalciferol (vitamin D3) 25 mcg PO DAILY 30 days docusate sodium (Colace) 100 mg PO DAILY PRN 30 days esomeprazole magnesium 20 mg PO BID ferrous sulfate 325 mg PO BID 30 days hydroxyzine HCl 25 mg PO BEDTIME 15 days sertraline (Zoloft) 50 mg PO DAILY 90 days HPI Comments Details: Previous weight loss efforts: Keto diet, exercise Wakes up: 6am, Sleeps: 10pm Breakfast: 7.30am (Muffin) Lunch: 12pm (salad or soup) Dinner: 6-7pm (rice, beans and chicken) Snacks: 3-4pm occ (chips, cookies) Exercise: has home treadmill Fluids: Coffee (1 cup day with half creamer), tea: none, soda: Regular coke (1-2/day), juice: none, ETOH: none PFSH Medical History Hypersomnia Nocturnal hypoxia Hiatal hernia GERD (gastroesophageal reflux disease) History of COVID-19 Anxiety and depression History of abnormal cervical Pap smear Obesity (BMI 30-39.9) Surgical History H/O endoscopy Hx of colonoscopy History of esophagogastroduodenoscopy (EGD) History of surgery Family History Father Diabetes Mother Hypertension Sister Cervical cancer Paternal Grandmother Uterine cancer Daughter Lymphatic malformation Social History Housing: Apartment Are you a primary early breastfeeding care specialist to a significant other at home: Yes Do you presently have visiting nurse or other home services: No Alcohol intake: current Alcohol intake frequency: holidays/special occasions only Patient Tobacco Use Status: Never used Tobacco e-Cigarette/Vaping Use: Never Used Second Hand Smoke Exposure: Yes service: No Current occupational status: employed 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: No Gender identity: Female Cognitive needs: No Hearing needs: No Vision needs: Yes (Glasses) Female Reproductive History Menstrual Age of Menarche: 11 Physical Exam Vital Signs: Last Vital Signs Temp 98.6 F 12/04/24 11:26 Pulse 76 12/04/24 11:26 BP 128/66 12/04/24 11:26 BMI result Body Mass Index 39.0 GI Inspection: Yes normal to inspection and Yes obesity Palpation (GI): Soft to palpation Extrem Right lower extremity: normal to inspection Left lower extremity: normal to inspection Assessment & Plan Assessment & Plan (1) Obesity (BMI 30-39.9): Code(s): E66.9 - Obesity, unspecified Category: Medical Plan: 1.? Plan for lap sleeve gastrectomy. If diaphragmatic or ventral hernias are present at time of surgery, these will be repaired laparoscopically as well. I emphasized the importance of close follow-up, adherence to instructions and good communication. The surgery does not replace the need to change your lifestlyle which is the cause of the obesity problem. The surgery provides the motivation to try again to change your lifestyle, it reduces the appetite and make the transition to a better lifestyle easier and doubles the amount of weight you would lose compared to doing the lifestyle change without the surgery. You will need to be on a liquid diet with protein shakes for 2 weeks before surgery to maximize weight loss and boost your nutritional status to recover better from surgery and also for the first two weeks after surgery to let the stomach heal before we introduce other foods. After the first 2 weeks we will introduce protein bars and soft foods like scrambled eggs, cottage cheese and yogurt and after the 6th week will introduce meat, fish and cooked vegetables in small amounts. Over time you should be able to eat everything in small amounts. Side effects like nausea, vomiting, heartburn or abdominal pain are not common in the practice unless you are not following in the practice. This operation requires lifetime commitment to following in our practice and communication with me. You will much less weight and experience side effects if you don?t communicate or not following in the practice. Complications are rare and in our practice is about 1/10 of the national average. However, you can develop bleeding that may require transfusion (hasn?t happened for year in the practice), you may from complications (we did not have any deaths in the practice) and infections. Infections are usually a result of breakdown in communication or not understanding or following directions correctly. They are difficult to treat, they can happen during the first 6 weeks, they may require to be in the hospital for weeks or even months, not being able to eat by mouth and you may have drains and surgeries to try and correct the issue. Other risks and complications include possible conversion to an open procedure, leaks, small bowel obstruction, blood clots, cardiac, or pulmonary complications, as machine adjuster leader case trim complications such as ulcers, insufficient weight loss and vitamin deficiencies. 2. You will receive a link of our software nancy to generate an individualized nutritional and exercise plan specific for you. Please send me a screenshot of the plans you will generate Meal to include lean meat (beef, fish, pork, turkey, chicken), or sami yogurt, or egg whites, or beans with a salad with olive oil and fruits (berries, pears, apples, kiwi). Avoid salt, breads, potatoes, rice, pasta, desserts. ?3. If you choose shakes, each shake would be drunk slowly, like coffee in a period of 2 hours. ?4. If you choose bars, cut each bar in 4 pieces and eat each piece in 30min ?to make each bar last 2 hours. ?5. I emphasized the importance of measuring accurately the food portion and measure it when serving the food in plate ?6. The meal portions include a specific number of forks of meat and salad. You always eat the meat portion but you can replace up to half of salad/vegetables portion with rice, potatoes or pasta, or a fruit ?if you like. The less you do it the better weight loss will be. ?7. One full-size fork is what it can be scooped on the fork without falling aside and not what can be bit with the fork. Use regular forks like those you find in a typical restaurant. ?8.? Please buy the body composition scale we discussed and send me weight measurements as soon as possible and then once a week. Always include your diet and exercise plan. 9. The best choice would be to purchase a stationary bike, elliptical or treadmill at home that can track calories. Let me know if you do so I can give you an exercise plan. ?10.?It is important of avoiding and for at least 18 months postoperatively and has been discussed at the infosession. Despite the procedure you had it may still occur. ?11. Goal is to lose at least 1.5-2lbs per week ?12. Goal to lose 10% of your weight before surgery, which is about 22lbs. Ultimate weight goal: 196lbs before surgery 13. Please follow the diet plan exactly without any change. If you don't like something about the plan or you feel hungry you need to communicate with me so I can help you revise the plan. You should not change the plan yourself. 14. To be scheduled for EGD due to the history of sleeve gastrectomy and anemia. The possibility of biopsies was discussed. Patient needs to avoid use of NSAIDs and aspirin for 1 week prior to EGD. You must be on liquids only the day before your endoscopy. Risks of perforation and bleeding was discussed with the patient. This will be an outpatient procedure with IV sedation. Orders: Orders Insulin Today I10 - Essential (primary) hypertension, K21.00 - Gastro-esophageal reflux disease with esophagitis, without bleeding, K76.0 - Fatty (change of) liver, not elsewhere classified Complete Blood Count Auto Diff Today I10 - Essential (primary) hypertension, K21.00 - Gastro-esophageal reflux disease with esophagitis, without bleeding, K76.0 - Fatty (change of) liver, not elsewhere classified IRON PROFILE Today I10 - Essential (primary) hypertension, K21.00 - Gastro-esophageal reflux disease with esophagitis, without bleeding, K76.0 - Fatty (change of) liver, not elsewhere classified Comprehensive Met. Panel Today I10 - Essential (primary) hypertension, K21.00 - Gastro-esophageal reflux disease with esophagitis, without bleeding, K76.0 - Fatty (change of) liver, not elsewhere classified Zinc Today I10 - Essential (primary) hypertension, K21.00 - Gastro-esophageal reflux disease with esophagitis, without bleeding, K76.0 - Fatty (change of) liver, not elsewhere classified Vitamin B1 Today I10 - Essential (primary) hypertension, K21.00 - Gastro-esophageal reflux disease with esophagitis, without bleeding, K76.0 - Fatty (change of) liver, not elsewhere classified Vitamin A Today I10 - Essential (primary) hypertension, K21.00 - Gastro-esophageal reflux disease with esophagitis, without bleeding, K76.0 - Fatty (change of) liver, not elsewhere classified TSH reflex Free T4 Today I10 - Essential (primary) hypertension, K21.00 - Gastro-esophageal reflux disease with esophagitis, without bleeding, K76.0 - Fatty (change of) liver, not elsewhere classified Ferritin Today I10 - Essential (primary) hypertension, K21.00 - Gastro-esophageal reflux disease with esophagitis, without bleeding, K76.0 - Fatty (change of) liver, not elsewhere classified Vitamin D 25-OH Total Today I10 - Essential (primary) hypertension, K21.00 - Gastro-esophageal reflux disease with esophagitis, without bleeding, K76.0 - Fatty (change of) liver, not elsewhere classified XR chest 2V Today I10 - Essential (primary) hypertension, K21.00 - Gastro-esophageal reflux disease with esophagitis, without bleeding, K76.0 - Fatty (change of) liver, not elsewhere classified Hemoglobin A1c Today I10 - Essential (primary) hypertension, K21.00 - Gastro-esophageal reflux disease with esophagitis, without bleeding, K76.0 - Fatty (change of) liver, not elsewhere classified H Pylori Breath Test Today I10 - Essential (primary) hypertension, K21.00 - Gastro-esophageal reflux disease with esophagitis, without bleeding, K76.0 - Fatty (change of) liver, not elsewhere classified Lipid Panel Today I10 - Essential (primary) hypertension, K21.00 - Gastro-esophageal reflux disease with esophagitis, without bleeding, K76.0 - Fatty (change of) liver, not elsewhere classified Vitamin B12 and Folate Today I10 - Essential (primary) hypertension, K21.00 - Gastro-esophageal reflux disease with esophagitis, without bleeding, K76.0 - Fatty (change of) liver, not elsewhere classified C Reactive Protein Today I10 - Essential (primary) hypertension, K21.00 - Gastro-esophageal reflux disease with esophagitis, without bleeding, K76.0 - Fatty (change of) liver, not elsewhere classified US abdomen comp w elastography Today I10 - Essential (primary) hypertension, K21.00 - Gastro-esophageal reflux disease with esophagitis, without bleeding, K76.0 - Fatty (change of) liver, not elsewhere classified ECG 12 lead EKG Today I10 - Essential (primary) hypertension, K21.00 - Gastro-esophageal reflux disease with esophagitis, without bleeding, K76.0 - Fatty (change of) liver, not elsewhere classified FL upper GI w air Today I10 - Essential (primary) hypertension, K21.00 - Gastro-esophageal reflux disease with esophagitis, without bleeding, K76.0 - Fatty (change of) liver, not elsewhere classified Referrals Behavioral Health Referral I10 - Essential (primary) hypertension, K21.00 - Gastro-esophageal reflux disease with esophagitis, without bleeding, K76.0 - Fatty (change of) liver, not elsewhere classified Nutrition/Dietitian Referral I10 - Essential (primary) hypertension, K21.00 - Gastro-esophageal reflux disease with esophagitis, without bleeding, K76.0 - Fatty (change of) liver, not elsewhere classified
== END 2024-12-04 12:47 | disposition home or self-care (01) ==
LOC: HO.HBS 11:28
PROVIDERS: PCP Physician Assistant; Visit Provider Surgery
DX: E66.9 Obesity, unspecified (principal)
CPT/HCPCS: 99204

== ENCOUNTER 2024-12-10 07:34 | Outpatient (REF) | payer OTHER, MEDICAID, SELFPAY ==
--- NOTE | ~2024-12-10 | XR_ITS ---
EXAMINATION: XR CHEST 2 VIEWS HISTORY: K21.00 - Gastro-esophageal reflux disease with esophagitis, without bleed... COMPARISON: Comparison is made with the prior examination dated 03/25/2022. FINDINGS: PA and lateral views of the chest are submitted. The lungs are expanded and clear. There is no pleural effusion, pneumothorax, or pulmonary vascular congestion. The heart is normal in size. The bones are intact. XR/XR chest 2V IMPRESSION: No acute cardiopulmonary abnormality. Electronically signed by: Murtaza Ryan MD 12/10/2024 09:10 AM [facility] [place]
[2024-12-10 07:54] LABS: MANUAL DIFF FLAG NO
--- NOTE | 2024-12-10 07:54 | ECG_ITS ---
Test Reason : gerd Blood Pressure : */* mmHG Vent. Rate : 66 BPM Atrial Rate : 66 BPM P-R Int : 140 ms QRS Dur : 80 ms QT Int : 408 ms P-R-T Axes : 25 21 32 degrees QTcB Int : 427 ms Normal sinus rhythm Normal ECG When compared with ECG of 11-Oct-2021 09:36, No significant change was found Referred By: Rogelio Fernandez Electronically Signed By: PATRIA AKINS MD
[2024-12-10 08:33] LABS: Basophils Percent Auto 0.4 % (0-2); Eosinophils Absolute Auto 0.1 X10*3/uL (0.0-0.4); Eosinophils Percent Auto 1.8 % (0-4); Hemoglobin 11.7 g/dl (12.0-16.0); Imm Gran Abs Auto 0.02 X10*3/uL (0.00-0.03); Imm Gran Pct Auto 0.3 % (0.0-0.4); Lymphocytes Absolute Auto 1.7 X10*3/uL (1.2-4.9); Lymphocytes Percent Auto 25.3 % (20-40); Mean Corpuscular HGB Conc 32.5 g/dl (31.0-35.0); Mean Corpuscular Hemoglobin 26.3 pg (27.0-33.0); Mean Corpuscular Volume 80.9 fL (80.0-98.0); Mean Platelet Volume 10.5 fL (9.4-12.3); Monocytes Absolute Auto 0.5 X10*3/uL (0.1-1.2); Neutrophils Absolute Auto 4.4 x10*3/uL (2.0-8.3); Neutrophils Percent Auto 65.2 % (45-73); Platelet Count 357 X10*3/uL (160-400); Red Blood Count 4.45 X10*6/uL (4.20-5.50); Red Cell Distribution Width 15.7 % (11.0-16.0); White Blood Count 6.7 X10*3/uL (4.8-10.8)
[2024-12-10 08:46] LABS: Estimated Average Glucose 114 mg/dL; Hemoglobin A1C 109.2987 umol/L; Hemoglobin A1c % 5.6 % (<6.0); Total Hemoglobin (HGBA1C) 2918.0952 umol/L
[2024-12-10 09:16] LABS: Alanine Aminotransferase 11 U/L (0-31); Albumin Level 3.9 g/dL (3.5-5.0); Alkaline Phosphatase 90 U/L (39-117); Anion Gap 13 (12-20); Aspartate Amino Transferase 18 U/L (5-31); Bilirubin Total 0.3 mg/dL (0.0-1.0); Blood Urea Nitrogen 17 mg/dL (9-16); C Reactive Protein 2.03 mg/dL (< or = 0.50); Calcium 8.6 mg/dL (8.4-10.2); Carbon Dioxide 21 mmol/L (22-29); Chloride 109 mmol/L (96-108); Cholesterol 154 mg/dL (<200); Estimated Glomerular Filt Rate > 60; Glucose Random 93 mg/dL (60-115); HDL Cholesterol 55 mg/dL (>40); Iron 23 mcg/dL (30-160); LDL Cholesterol Calculated 88 mg/dL (<100); Percent Iron Saturation 6 % (15-50); Potassium 3.6 mmol/L (3.3-5.1); Sodium 139 mmol/L (135-145); Total Iron Binding Capacity 380 mcg/dL (228-428); Total Protein 7.4 g/dL (6.5-8.0); Triglycerides 55 mg/dL (<150); Unsaturated Iron Binding 357 ug/dL
[2024-12-10 09:28] LABS: Vitamin B12 811 pg/mL (200-900)
[2024-12-10 09:34] LABS: Ferritin 17 ng/mL (10-122); Insulin 13 uU/mL (2-29); TSH reflex Free T4 0.74 uIU/mL (0.32-4.0); Vitamin D 25-OH Total 27.7 ng/mL (>30)
[2024-12-10 09:59] LABS: Folate 14.6 ng/mL (> or = 4.0)
[2024-12-12 18:48] LABS: Zinc 72 mcg/dL (60-130)
[2024-12-13 01:48] LABS: Vitamin A 31 mcg/dL (38-98)
[2024-12-15 11:38] LABS: Vitamin B1 6 nmol/L (8-30)
== END 2024-12-10 07:35 | disposition home or self-care (01) ==
LOC: HO.XRAY 07:34
PROVIDERS: PCP Physician Assistant; Visit Provider Surgery
DX: K21.00 Gastro-esophageal reflux disease with esophagitis, without bleeding (principal); I10 Essential (primary) hypertension; K76.0 Fatty (change of) liver, not elsewhere classified; Z13.1 Encounter for screening for diabetes mellitus
CPT/HCPCS: 36415; 71046; 80053; 80061; 82306; 82607; 82728; 82746; 83036; 83525; 83540; 84425; 84443; 84590; 84630; 85025; 86140; 93005

== ENCOUNTER → 2024-12-10 07:54 | Outpatient (BNV) | payer OTHER, MEDICAID, SELFPAY | PROVIDERS: PCP Physician Assistant; Visit Provider Internal Medicine Cardiovascular Disease | DX: I10 Essential (primary) hypertension (principal); K21.00 Gastro-esophageal reflux disease with esophagitis, without bleeding; K76.0 Fatty (change of) liver, not elsewhere classified | CPT/HCPCS: 93010 ==

== ENCOUNTER → 2024-12-10 08:04 | Outpatient (BNV) | payer OTHER, MEDICAID, SELFPAY | PROVIDERS: PCP Physician Assistant; Visit Provider Radiology Diagnostic Radiology | DX: K21.00 Gastro-esophageal reflux disease with esophagitis, without bleeding (principal) | CPT/HCPCS: 71046 ==

== ENCOUNTER 2024-12-17 11:49 | Day surgery (SDC) | payer OTHER, MEDICAID, SELFPAY ==
--- NOTE | 2024-12-13 14:12 | HO.ANESPROP2 ---
Documented by User: Florencia Singh NP 12/13/24 14:12 HPI - Anesthesia Eval Consult details Narrative: 39yo F for Upper Endoscopy PMFSH Active Problems Active Problems: All Active Problems BMI 39.0-39.9,adult (Acute) Hand pain, left (Acute) Right hand pain (Acute) Polyarthralgia (Acute) Acute allergic reaction (Acute) Annual physical exam (Acute) Mild obstructive sleep apnea (Acute) Labile blood pressure (Acute) HTN (hypertension) (Acute) Screening for diabetes mellitus (DM) (Acute) Vitamin D deficiency (Acute) Hypersomnia (Acute) Nocturnal hypoxia (Acute) Irritable bowel syndrome (Acute) NAFLD (nonalcoholic fatty liver disease) (Acute) Non-restorative sleep (Acute) History of abnormal cervical Pap smear (Acute) History of surgery (Acute) Headache (Acute) Hot flashes (Acute) Corneal abrasion of right eye due to contact lens (Acute) History of COVID-19 (Acute) Palpitations (Acute) Fatigue (Acute) Dry cough (Acute) Well woman exam (Acute) Anxiety and depression (Acute) Alternating constipation and diarrhea (Acute) Hiatal hernia (Acute) Esophagitis determined by endoscopy (Acute) Helicobacter pylori gastritis (Acute) Epigastric abdominal pain (Acute) Melasma (Acute) DANIELA (generalized anxiety disorder) (Acute) Obese (Acute) MDD (major depressive disorder), recurrent episode, moderate (Acute) GERD (gastroesophageal reflux disease) (Acute) Obesity (BMI 30-39.9) (Acute) Past Medical History Medical History History of vitamin D deficiency NAFLD (nonalcoholic fatty liver disease) IBS (irritable bowel syndrome) Sleep apnea HTN (hypertension) Hypersomnia Nocturnal hypoxia Hiatal hernia GERD (gastroesophageal reflux disease) History of COVID-19 Anxiety and depression History of abnormal cervical Pap smear Obesity (BMI 30-39.9) Family History Family History Father Diabetes Mother Hypertension Sister Cervical cancer Paternal Grandmother Uterine cancer Daughter Lymphatic malformation Family history of problems with anesthesia: No Surgical History Surgical History H/O endoscopy Hx of colonoscopy History of esophagogastroduodenoscopy (EGD) History of surgery History of Problems with Anesthesia: No Social History Social History Housing: Apartment Are you a primary client care manager to a significant other at home: No Do you presently have visiting nurse or other home services: No Alcohol intake: current Alcohol intake frequency: does not drink Patient Tobacco Use Status: Never used Tobacco e-Cigarette/Vaping Use: Never Used Second Hand Smoke Exposure: Yes Use of substances other than those prescribed or required for medical reasons: No Have you been hit, kicked, punched, or otherwise hurt by someone within the past year? 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: No Gender identity: Female Cognitive needs: No Hearing needs: No Vision needs: Yes (Glasses) Meds Allergies Allergy/AdvReac Type Severity Reaction Status Date / Time Seasonal Allergies Allergy Intermediate Itchy Eyes Verified 12/17/24 12:50 hydrochlorothiazide AdvReac Intermediate Dizziness Verified 12/17/24 12:50 Assessment and Plan Assessment Anesthesia Assessment: Chart Reviewed Final Anesthetic Review Family History of Problems with Anesthesia: No History of Problems with Anesthesia: No Documented by User: Suzanne Arias MD 12/17/24 13:[facility] Problems Active Problems: Cox Active Problems BMI 39.0-39.9,adult (Acute) Hand pain, left (Acute) Right hand pain (Acute) Polyarthralgia (Acute) Acute allergic reaction (Acute) Annual physical exam (Acute) Mild obstructive sleep apnea (Acute) Labile blood pressure (Acute) HTN (hypertension) (Acute) Screening for diabetes mellitus (DM) (Acute) Vitamin D deficiency (Acute) Hypersomnia (Acute) Nocturnal hypoxia (Acute) Irritable bowel syndrome (Acute) NAFLD (nonalcoholic fatty liver disease) (Acute) Non-restorative sleep (Acute) History of abnormal cervical Pap smear (Acute) History of surgery (Acute) Headache (Acute) Hot flashes (Acute) Corneal abrasion of right eye due to contact lens (Acute) History of COVID-19 (Acute) Palpitations (Acute) Fatigue (Acute) Dry cough (Acute) Well woman exam (Acute) Anxiety and depression (Acute) Alternating constipation and diarrhea (Acute) Hiatal hernia (Acute) Esophagitis determined by endoscopy (Acute) Helicobacter pylori gastritis (Acute) Epigastric abdominal pain (Acute) Melasma (Acute) DANIELA (generalized anxiety disorder) (Acute) Obese (Acute) MDD (major depressive disorder), recurrent episode, moderate (Acute) GERD (gastroesophageal reflux disease) (Acute) Obesity (BMI 30-39.9) (Acute) Past Medical History Medical History History of vitamin D deficiency NAFLD (nonalcoholic fatty liver disease) IBS (irritable bowel syndrome) Sleep apnea HTN (hypertension) Hypersomnia Nocturnal hypoxia Hiatal hernia GERD (gastroesophageal reflux disease) History of COVID-19 Anxiety and depression History of abnormal cervical Pap smear Obesity (BMI 30-39.9) Family History Family History Father Diabetes Mother Hypertension Sister Cervical cancer Paternal Grandmother Uterine cancer Daughter Lymphatic malformation Surgical History Surgical History H/O endoscopy Hx of colonoscopy History of esophagogastroduodenoscopy (EGD) History of surgery Social History Social History Housing: Apartment Are you a primary client care manager to a significant other at home: No Do you presently have visiting nurse or other home services: No Alcohol intake: current Alcohol intake frequency: does not drink Patient Tobacco Use Status: Never used Tobacco e-Cigarette/Vaping Use: Never Used Second Hand Smoke Exposure: Yes Use of substances other than those prescribed or required for medical reasons: No Have you been hit, kicked, punched, or otherwise hurt by someone within the past year? 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: No Gender identity: Female Cognitive needs: No Hearing needs: No Vision needs: Yes (Glasses) Meds Allergies Allergy/AdvReac Type Severity Reaction Status Date / Time Seasonal Allergies Allergy Intermediate Itchy Eyes Verified 12/17/24 12:50 hydrochlorothiazide AdvReac Intermediate Dizziness Verified 12/17/24 12:50 Exam Airway Mallampati Class: II TM Dist: >3cm Neck ROM: Full Loose/Missing/Broken Teeth: No Heart: RRR Lungs: CTA Assessment and Plan Assessment Anesthesia Assessment: Anesthesia Plan Discussed Final Anesthetic Review NPO: Yes ASA Class: II Final Preanesthetic Review: Meds/Allgs Chart Reviewed, Consent Obtained/Reviewed and Anes Risks/Benef Reviewed Patient Risk: Low Procedure Risk: Intermediate Anesthetic Plan Anesthetic Plan: MAC: Disposition: Standard PACU
[2024-12-17 12:51] VITALS: BP 141/78; PULSE 65; RESP 14; TEMP 36.8; O2SAT 97; BMI 37.4
[2024-12-17] MEDS: Lactated Ringers 1,000 ML 80 ML IVCONT (12:55)
[2024-12-17 13:06] LABS: Urine Pregnancy NEGATIVE (NEGATIVE)
[2024-12-17 13:07] LABS: UPreg QC Valid YES
--- NOTE | 2024-12-17 13:41 | MHC.SHP ---
Pre-Procedural Eval Section A - 24 Hr Update-Section A only Date of Service: 12/17/24 The patient is an INPATIENT: No The patient has been examined within 24 hours of the surgical procedure. The History & Physical has been completed within 30 days and I have reviewed it.: Yes Section B - Complete if H&P > 30 days Chief Complaint: Morbid (severe) obesity due to excess calories Details of Present Illness: GERD Relevant Family History (Specify if Yes): No Relevant Social History: None Present Medications: None Medical History: No relevant PMH History of Previous Operations: No relevant previous surgery Allergies: Allergies Allergy/AdvReac Type Severity Reaction Status Date / Time Seasonal Allergies Allergy Intermediate Itchy Eyes Verified 12/17/24 12:50 hydrochlorothiazide AdvReac Intermediate Dizziness Verified 12/17/24 12:50 Review of Systems Sugical H&P ROS: Negative: Constitution, Cardiovascular, Respiratory, Neurological, Psychiatric, Hem-Onc, Allergic/Immunologic, Gastrointestinal, Genitourinary, Musculoskeletal, Integumentary, Endocrine and Eyes/Ears/Nose/Throat Exam Surgical H&P Exam: Normal: HEENT, Normal: Heart, Normal: Lungs, Normal: Extremities, Normal: Abdomen, Normal: Skin and Normal: Neurological Plan Diagnosis/Plan: Unchanged (EGD to assess etiology of GERD. Risks of bleeding and perforation were discussed with the patient and she is in agreement with the plan.) I have reviewed the history and physical and performed a pertinent physical examination on my patient. No changes have occurred unless specified. Time Spent With Patient Time: Total time managing care of this patient today ____ minutes.
--- NOTE | 2024-12-17 13:41 | PM.OP ---
Brief Operative Note Date of Service: 12/17/24 Pre-op diagnosis: GERD Post-op diagnosis: same (& moderate fixed diaphragmatic hernia) Procedure: PROCEDURE DATE: 12/17/24 PREOPERATIVE DIAGNOSIS: GERD POSTOPERATIVE DIAGNOSIS: ?Same as above. 1) moderate fixed hiatal hernia PROCEDURE: [id number] with biopsies Surgeon: ?Lito Fernandez M.D.. Ph.D. Dog Handler: None ? Anesthesia: IV sedation Estimated blood loss: ?Minimal FINDINGS AND PROCEDURE: ? OPERATIVE INDICATIONS: ?The patient is a 39 year old female known to me who is interested in bariatric surgery. The patient has severe GERD. Based on this information I recommended an upper endoscopy to evaluate the patient's symptoms. Risks and complications of the surgery were discussed with the patient in advance particularly the possibility of perforation or bleeding that may require surgical intervention. The patient understood the risks and was in agreement with the plan. ? PROCEDURE: After informed consent was obtained by the patient, the patient was ?transferred to the Operating Room and was placed in the supine position.? After successful induction of IV sedation, a mouth block was inserted and the patient was placed in the left lateral decubitus position. An upper endoscopy was performed next, the oropharynx and esophagus appeared within the normal limits. There was a 4-5cm fixed hiatal hernia. The z-line was smooth. Two biopsies were obtained from the distal esophagus 2-3 cm proximal to the GE junction and two additional biopsies from the GE junction. The stomach was entered and it appeared to be of normal size. There was no gastritis. There was no stricture or ulcer. A biopsy was obtained from the gastric fundus and antrum. No significant bleeding was noted from any of the biopsy sites. Retroflexion of the scope confirmed the presence of moderate size diaphragmatic hernia. The scope was then advanced into the duodenum which appeared to be normal as well. At that point the duodenum ?and the stomach were decompressed and the scope was withdrawn from the patient's mouth. The patient extubated and was transferred in stable condition to the Recovery Room for further care. I was present and performed all steps of the procedure. There were no residents to assist with this case. Lito Fernandez M.D., Ph.D. Surgeon: Rogelio Fernandez MD Anesthesia: MAC Was an Dog Handler used for this Procedure?: No Estimated blood loss (mL): 0 IV fluids (mL): 400 Urine output (mL): 0 (No Lozano to record output) Pathology: other (1) antrum x1, 2) fundus x1, 3) GE junction x2, 4) distal esophagus x2) Condition: stable Disposition: PACU
[2024-12-17 14:14] VITALS: BP 106/65; PULSE 87; RESP 16; TEMP 36.6; O2SAT 97
[2024-12-17 14:29] VITALS: BP 109/80; PULSE 100; RESP 20; TEMP 36.6; O2SAT 96
== END 2024-12-17 14:55 | disposition home or self-care (01) ==
PROVIDERS: Nurse Practitioner; PCP Physician Assistant; Visit Provider Surgery
PROC: 0DJ08ZZ Inspection of Upper Intestinal Tract, Via Natural or Artificial Opening Endoscopic (ICD-10-PCS; CPT 43235; principal; 2024-12-17 13:40)
DX: E66.01 Morbid (severe) obesity due to excess calories (principal); Z68.39 Body mass index [BMI] 39.0-39.9, adult; K29.50 Unspecified chronic gastritis without bleeding; B96.81 Helicobacter pylori [H. pylori] as the cause of diseases classified elsewhere; K44.9 Diaphragmatic hernia without obstruction or gangrene; K21.9 Gastro-esophageal reflux disease without esophagitis; K21.00 Gastro-esophageal reflux disease with esophagitis, without bleeding; K76.0 Fatty (change of) liver, not elsewhere classified; I10 Essential (primary) hypertension; G47.36 Sleep related hypoventilation in conditions classified elsewhere; G47.10 Hypersomnia, unspecified; J30.2 Other seasonal allergic rhinitis; F41.8 Other specified anxiety disorders; Z79.899 Other long term (current) drug therapy; Z88.8 Allergy status to other drugs, medicaments and biological substances; Z98.890 Other specified postprocedural states
CPT/HCPCS: 43239; 81025; 88305; 88312; 88313; 88342; J2003; J2250; J2704

== ENCOUNTER → 2024-12-17 11:49 | Outpatient (BNV) | payer OTHER, MEDICAID, SELFPAY | PROVIDERS: PCP Physician Assistant; Visit Provider Surgery | DX: K44.0 Diaphragmatic hernia with obstruction, without gangrene (principal) | CPT/HCPCS: 43239 ==

== ENCOUNTER 2025-01-01 07:59 | Outpatient (AMB) | payer OTHER, MEDICAID, SELFPAY ==
[2025-01-01 08:10] VITALS: BP 122/68; PULSE 76; O2SAT 97; BMI 37.3
--- NOTE | 2025-01-01 08:10 | MHC.PC.OV ---
Vital Signs 01/01/25 08:10 Height 5 ft 2.5 in Weight 207 lb BMI 37.3 BP 122/68 Blood Pressure Location Lt brachial Position Sitting Pulse 76 Pulse Source Pulse Oximeter Pulse Oximetry (%) 97 Oxygen Delivery Method Room Air Intake Visit Reasons: f/u HTN Allergies Seasonal Allergies Allergy (Intermediate, Verified 01/01/25 08:20) Itchy Eyes hydrochlorothiazide Adverse Reaction (Intermediate, Verified 01/01/25 08:20) Dizziness Medication List - Last Reconciled 01/01/25 by Shantanu Costello PA-C amlodipine 2.5 mg PO DAILY 30 days amoxicillin 500 mg PO Q12H cholecalciferol (vitamin D3) 25 mcg PO DAILY 30 days cholecalciferol (vitamin D3) 125 mcg PO DAILY clarithromycin 500 mg PO Q12H docusate sodium (Colace) 100 mg PO DAILY PRN 30 days esomeprazole magnesium 20 mg PO BID ferrous sulfate 325 mg PO BID 30 days hydroxyzine HCl 25 mg PO BEDTIME 15 days omeprazole 40 mg PO DAILY sertraline (Zoloft) 50 mg PO DAILY 90 days thiamine HCl (vitamin B1) 100 mg PO DAILY vitamin A palmitate 10,000 units PO DAILY Tobacco use date assessed: 01/01/25 Dental Screening Dental Screen Date: 01/01/25 Did you have a dental visit in the last 12 months?: Yes Did you have a dental problem in the last 6 months where you did not have access to dental care?: No Was dental information given to patient?: Patient has dentist HPI f/u HTN HPI Details Patient is a 39-year-old female here today for follow-up visit Patient has a past medical history significant for obesity, GERD, generalized anxiety disorder. Concern--> currently followed by the [place] [facility] and has undergone labs. She did have vitamin a, B1 and vitamin-D deficiency which has been replenished with supplementation. Underwent an EGD last month which did note a moderate hiatal hernia. She is due for upper GI series as well. She is anticipating bariatric surgery. She does report being more physically active and has been able to lose a little weight over the last few months. She has been experiencing constipation which she has been using some fiber supplement and stool softeners with only better relief. She is considering MiraLax with her bariatric surgeon .. Hypertension: Patient's blood pressure acceptable today in office. Patient continues on amlodipine 2.5 mg with good effect on blood pressure. She does report she did have a couple of episodes of hypertension that came with headaches. Otherwise blood pressures have been pretty stable home. [facility] Medical History History of vitamin D deficiency NAFLD (nonalcoholic fatty liver disease) IBS (irritable bowel syndrome) Sleep apnea HTN (hypertension) Hypersomnia Nocturnal hypoxia Hiatal hernia GERD (gastroesophageal reflux disease) History of COVID-19 Anxiety and depression History of abnormal cervical Pap smear Obesity (BMI 30-39.9) Surgical History H/O endoscopy Hx of colonoscopy History of esophagogastroduodenoscopy (EGD) History of surgery Family History Father Diabetes Mother Hypertension Sister Cervical cancer Paternal Grandmother Uterine cancer Daughter Lymphatic malformation Social History Housing: Apartment Are you a primary lead caregiver to a significant other at home: No Do you presently have visiting nurse or other home services: No Alcohol intake: current Alcohol intake frequency: does not drink Patient Tobacco Use Status: Never used Tobacco Tobacco use type: Cigarette e-Cigarette/Vaping Use: Never Used Second Hand Smoke Exposure: Yes service: No Current occupational status: employed 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 1. Little interest or pleasure in doing things: not at all 2. Feeling down, depressed, or hopeless: not at all 3. Trouble falling or staying asleep, or sleeping too much: not at all 4. Feeling tired or having little energy: not at all 5. Poor appetite or overeating: not at all 6. Feeling bad about yourself - or that you are a failure or have let yourself or your family down: not at all 7. Trouble concentrating on things, such as reading the newspaper or watching television: not at all 8. Moving or speaking so slowly that other people could have noticed. Or the opposite - being so fidgety or restless that you have been moving around a lot more than usual: not at all 9. Thoughts that you would be better off or of hurting yourself in some way: not at all Total score: 0 Depression Screening Interpretation: Negative Depression Screening Done: Yes 11458 - PHQ-9 Billing: Yes Source: Developed by Drs. Murtaza Krueger, Ana Cameron, Matthew Rivas and colleagues, with an educational vaishali from [employer]. Thrive Questionnaire Date Thrive assessed: 01/01/25 I am a: Patient What is your living situation today?: I have a steady place to live Within the past 12 months, did the food you bought not last and you didn't have the money to get more?: Never true Within the past 12 months, did you worry whether your food would run out before you got money to buy more?: Never true Do you have trouble paying for medicines?: No Do you have trouble getting transportation to medical appointments?: No Do you have trouble paying your heating and electricity bill?: No Do you have trouble taking care of your child, family member or friend?: No Do you have trouble with day-to-day activities such as bathing, preparing meals, shopping, managing finances, etc.?: No Are you currently unemployed and looking for a job?: Yes Are you interested in more education?: No Currently or been in a relationship where the following occur: No concerns reported THRIVE Score: 0 AUDIT C Alcohol Use Questionnaire (AUDIT-C) 1. How often do you have a drink containing alcohol?: Monthly or less 2. How many drinks containing alcohol do you have on a typical day when you are drinking?: 1 or 2 3. How often do you have six or more drinks on one occasion?: Never Total Score: 1 DANIELA-7 AMB Questionnaire DANIELA-7 Date DANIELA - 7 assessed: 01/01/25 Feeling nervous, anxious, or on edge: 0 = Not at all Not being able to stop or control worryin = Not at all Worrying too much about different things: 0 = Not at all Trouble relaxin = Not at all Being so restless that it is hard to sit still: 0 = Not at all Becoming easily annoyed or irritable: 0 = Not at all Feeling afraid as if something awful might happen: 0 = Not at all Total DANIELA-7 score (0-4 normal; 5-9 mild; 10-14 moderate; 15-21 severe): 0 Source: Developed by Drs. Murtaza Krueger, Ana Cameron, Matthew Rivas and colleagues, with an educational vaishali from [employer]. Review of Systems Const Denies headache(s) Eyes Denies loss of vision ENT Denies vertigo, Denies dizziness, Denies headache(s) and Denies sore throat Card Denies chest pain, Denies leg edema and Denies lightheadedness Resp Denies cough, Denies hemoptysis and Denies wheezing GI Denies abdominal pain, Denies melena, Denies constipation, Denies diarrhea and Denies vomiting Denies urinary frequency, Denies dysuria and Denies urinary urgency Musc Denies arthralgias, Denies joint swelling, Denies numbness and Denies tingling Neuro Denies Abnormal speech present, Denies behavioral changes, Denies vertigo, Denies dizziness, Denies headache(s), Denies loss of vision, Denies memory loss, Denies numbness and Denies tingling Psych Denies anxiety, Denies behavioral changes, Denies depression, Denies memory loss and Denies panic attacks Leandro/Lymph Denies easy bleeding and Denies easy bruising Aller/Immun Denies wheezing Physical exam (Primary Care) Vital Signs: Last Vital Signs Pulse 76 01/01/25 08:10 BP 122/68 01/01/25 08:10 Pulse Ox 97 01/01/25 08:10 Oxygen Delivery Method Room Air 01/01/25 08:10 BMI result Body Mass Index 37.3 BMI Assessment/Plan discussion: High BMI High, discussed plan: lifestyle, weight reduction, dietary and physical activity Tobacco/Smoking Status: Tobacco use Status Tobacco use date assessed 01/01/25 01/01/25 08:16 Patient Tobacco Use Status Never used Tobacco 01/01/25 08:16 Tobacco use type Cigarette 01/01/25 08:16 e-Cigarette/Vaping Use Never Used 01/01/25 08:16 PHQ-9: PHQ-9 Score PHQ-9: Total score 0 01/01/25 08:22 Depression Screening Interpretation: Negative Thrive Assessment: Date of Thrive Assessment Date Thrive assessed 01/01/25 01/01/25 08:16 Currently or been in a relationship where the following occur: No concerns reported Const General: healthy appearing, no acute distress, alert and awake Nutritional Appearance: well nourished Orientation/consciousness: oriented to person, oriented to place and oriented to time HENMT Ears: TM's normal bilaterally General nose exam: Normal nasal mucous membranes and turbinates present Eyes Conjunctivae: conjunctivae normal Sclerae: sclerae normal Pupils: Equal, round and reactive pupils present Neck Neck: Yes no lymphadenopathy and Yes no JVD Thyroid: Thyroid normal Carotids: no bruits Resp Effort & Inspection: normal respiratory effort and not tachypneic Auscultation: no crackles, no rales, no rhonchi and no wheezes Cardio Rate: regular rate Rhythm: regular rhythm Heart sounds: no murmurs and normal S1 and S2 GI Palpation (GI): Soft to palpation, nontender, no hepatomegaly and no splenomegaly Auscultation: normal bowel sounds Skin General skin exam: no rashes or lesions noted and dry skin Neuro General: oriented to person, oriented to place and oriented to time Cranial nerves: Yes Equal, round and reactive pupils present Speech: No Abnormal speech present Gait exam (Neuro): Normal gait present Motor exam (neuro): no tremor noted Extrem Right upper extremity: full ROM Left upper extremity: full ROM Right lower extremity: full ROM; no edema Left lower extremity: full ROM; no edema Psych Mental Status: mental status grossly normal Speech and movement: Normal speech and movement present Affect: normal affect Attitude: cooperative Thought process: Normal thought process present Coding Level of Care Code Est Pt Level 4 (95963) Diagnoses Primary hypertension I10 Hypertension type: primary hypertension Class 2 obesity E66.812 MDD (major depressive disorder), recurrent episode, moderate F33.1 Additional Codes PHQ-9 - 42986 - PHQ-9 Billing: Yes ([id number]) Assessment & Plan Assessment & Plan (1) HTN (hypertension): Code(s): I10 - Essential (primary) hypertension Category: Medical Qualifiers: Hypertension type: primary hypertension Qualified Code(s): I10 - Essential (primary) hypertension Plan: Patient's blood pressure acceptable today in office. Continues on amlodipine 2.5 mg with good effect. Goal blood pressures to remain below 140/90 (2) Class 2 obesity: Code(s): E66.812 - Obesity, class 2 Category: Medical Plan: Patient continues to follow [place] [facility] and continues under evaluation for upcoming bariatric surgery. She does have a moderate size hiatal hernia that may be dealt with during surgery. (3) MDD (major depressive disorder), recurrent episode, moderate: Code(s): F33.1 - Major depressive disorder, recurrent, moderate Category: Medical Plan: Patient's PHQ-9 score 0. She feels fairly stable for mental health point of view. She continues on sertraline 50 mg with decent affect. Patient Instructions: Goal: Blood pressure to remain below 140/90 Barriers: Adherence to physical activity and healthy eating habits
== END 2025-01-01 08:29 | disposition home or self-care (01) ==
PROVIDERS: PCP Physician Assistant; Visit Provider Physician Assistant
DX: I10 Essential (primary) hypertension (principal); E66.812 Obesity, class 2; F33.1 Major depressive disorder, recurrent, moderate; Z68.37 Body mass index [BMI] 37.0-37.9, adult

== ENCOUNTER → 2025-01-01 07:59 | Outpatient (BNVA) | payer OTHER, MEDICAID, SELFPAY | PROVIDERS: PCP Physician Assistant; Visit Provider Physician Assistant | DX: I10 Essential (primary) hypertension (principal); E66.812 Obesity, class 2; Z68.37 Body mass index [BMI] 37.0-37.9, adult; F33.1 Major depressive disorder, recurrent, moderate; Z79.899 Other long term (current) drug therapy | CPT/HCPCS: 96127 ==

== ENCOUNTER 2025-01-03 12:51 | Outpatient (AMB) | payer OTHER, MEDICAID, SELFPAY ==
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
== END 2025-01-03 14:21 | disposition home or self-care (01) ==
PROVIDERS: PCP Physician Assistant; Visit Provider Counselor Mental Health
DX: F33.9 Major depressive disorder, recurrent, unspecified (principal); F41.8 Other specified anxiety disorders
CPT/HCPCS: 90791

== ENCOUNTER → 2025-01-03 12:51 | Outpatient (BNVA) | payer OTHER, MEDICAID, SELFPAY | PROVIDERS: PCP Physician Assistant; Visit Provider Counselor Mental Health ==

== ENCOUNTER 2025-01-13 11:23 | Inpatient (IN) | payer OTHER, MEDICAID, SELFPAY ==
[2025-01-13] VITALS (22 sets, daily range): BP systolic 104–146; BP diastolic 61–83; PULSE 57–94; RESP 13–18; TEMP 36.2–37.3; O2SAT 96–100; BMI 36.9; BMI 35.8; BMI 38.1; BMI 37.5
--- NOTE | ~2025-01-13 | CT_ITS ---
EXAMINATION: CT ABDOMEN AND PELVIS WITHOUT CONTRAST CLINICAL INFORMATION: Left flank pain, rule out stone. COMPARISON: 04/18/2021. TECHNIQUE: Multidetector volumetric imaging was performed from the superior aspect of the liver through the pubic symphysis. Sagittal and coronal reformatted images were obtained on the technologist's workstation. This CT examination was performed using dose optimization techniques as appropriate, variously including the following: *Automated exposure control *Adjustment of mA and/or kV according to patient size (this includes techniques or standardized protocols for targeted exams where dose is matched to indication/reason for exam; i.e. extremities or head) *Use of iterative reconstruction technique FINDINGS: LUNG BASES: Clear bilaterally. Moderate paraesophageal hiatus hernia. Normal heart size. No effusions. LIVER, GALLBLADDER, AND BILIARY TREE: The unenhanced liver is normal in size, shape, and attenuation. No focal hepatic lesion or biliary ductal dilatation is present. The gallbladder is unremarkable with no evidence of radiopaque gallstones, gallbladder wall thickening, or obvious pericholecystic inflammatory changes. PANCREAS: Unremarkable. SPLEEN: Unremarkable. Small splenule in the hilum. ADRENAL GLANDS: Unremarkable. KIDNEYS AND URETERS: The kidneys are normal in size, shape, and attenuation. No hydronephrosis, hydroureter, or calculi seen. No perinephric stranding. BLADDER: Suboptimally distended but grossly normal. Distal ureters appear normal. GASTROINTESTINAL TRACT: The appendix is inflamed, enlarged, with diameter measuring up to 11 mm. Findings are consistent with acute appendicitis. There are small reactive lymph nodes in the appendiceal mesentery. Moderate type III hiatus hernia. No additional abnormal bowel findings. ABDOMINAL WALL: No significant hernia is appreciated. LYMPH NODES: None enlarged by size criteria. VASCULAR: Unremarkable. PELVIC VISCERA: The uterus and adnexa are unremarkable. There are Essure implants present bilaterally. OSSEOUS STRUCTURES: Unremarkable. CT/CT abdomen pelvis wo IV con IMPRESSION: 1. Acute appendicitis without complication. 2. No renal calculi or obstruction. 3. Moderate-sized type III hiatus hernia. Findings were relayed via secure text to Morelia Granger PA-C, of the [facility], at 2:56 PM, 01/13/2025. Electronically signed by: Rajseh Ibarra MD 01/13/2025 02:58 PM [facility]
--- NOTE | 2025-01-13 12:22 | ED.ABDPAIN ---
HPI - Abdominal Pain General Chief Complaint: Abdominal Pain Stated Complaint: abd pain Time Seen by Provider: 01/13/25 12:30 Source: patient and other (patient's boyfriend) Mode of arrival: ambulatory Limitations: no limitations History of Present Illness ED Provider: Pilar Arambula PA-C HPI narrative: Patient is a 39 year old assigned female at with a history of GERD, anxiety, depression, H.pylori, IBS, and HTN presenting to the emergency department today with left sided blank pain and nausea. Patient states that starting this morning she began to have left sided flank pain that radiates across her back and nausea. Patient denies any dizziness, lightheadedness, vomiting, fever, chills, blurry vision, double vision, loss of vision, chest pain, difficulty breathing, shortness of breath, night sweats, pain with urination, increased urinary frequency, increased urinary urgency, blood in her urine or stool, syncope or a near syncopal episode, recent trauma or falls, bowel incontinence, bladder incontinence, or any other complaints at this time. MD elicited complaint: flank pain Related Data Previous Rx's ?Medication ?Instructions ?Recorded hydroxyzine HCl 25 mg tablet 25 mg PO BEDTIME 15 days #15 tabs 01/15/24 esomeprazole magnesium 20 mg 20 mg PO BID #180 caps 05/20/24 capsule,delayed release amlodipine 2.5 mg tablet 2.5 mg PO DAILY 30 days #30 tabs 07/08/24 ferrous sulfate 325 mg (65 mg 325 mg PO BID 30 days #60 tabs 07/31/24 iron) tablet sertraline 50 mg tablet (Zoloft) 50 mg PO DAILY 90 days #90 tabs 08/19/24 docusate sodium 100 mg capsule 100 mg PO DAILY PRN constipation 10/06/24 (Colace) 30 days #30 caps cholecalciferol (vitamin D3) 125 125 mcg PO DAILY #90 caps 12/18/24 mcg (5,000 unit) capsule thiamine HCl (vitamin B1) 100 mg 100 mg PO DAILY #90 tabs 12/18/24 tablet vitamin A palmitate 3,000 mcg 10,000 unit PO DAILY #90 caps 12/18/24 (10,000 unit) capsule Allergies Allergy/AdvReac Type Severity Reaction Status Date / Time Seasonal Allergies Allergy Intermediate Itchy Eyes Verified 01/13/25 15:52 hydrochlorothiazide AdvReac Intermediate Dizziness Verified 01/13/25 15:52 Review of Systems Constitutional: Reports no additional constitutional complaints, Denies chills, Denies fever(s) and Denies night sweats Eyes: Reports no additional eye complaints, Denies blurry vision, Denies change in vision, Denies diplopia, Denies eye discharge, Denies loss of vision and Denies eye pain Denies dizziness Cardiovascular: Reports no additional cardiovascular complaints, Denies chest pain, Denies lightheadedness, Denies Loss of Consciousness and Denies dyspnea Respiratory: Reports no additional respiratory complaints and Denies dyspnea Gastrointestinal: Reports no additional gastrointestinal complaints, Denies abdominal pain, Denies melena, Denies hematochezia, Denies change in bowel habits, Denies change in stool character and Reports nausea Genitourinary: Denies hematuria, Denies urinary frequency, Denies dysuria, Reports flank pain, Denies urinary incontinence, Denies urinary hesitancy and Denies urinary urgency Musculoskeletal: Reports no additional musculoskeletal complaints, Reports back pain, Denies numbness and Denies tingling Denies dizziness, Denies loss of vision, Denies numbness and Denies tingling Psychiatric: Reports no additional psychiatric complaints Endocrine: Reports no additional endocrine complaints Hematologic/Lymphatic: Reports no additional hematologic/lymphatic complaints Allergic/Immunologic: Reports no additional allergic/immunologic complaints PMFSH Past Medical History Attestation statement: The following information was validated with the patient. Source: old records reviewed and nursing notes reviewed Medical History History of vitamin D deficiency NAFLD (nonalcoholic fatty liver disease) IBS (irritable bowel syndrome) Sleep apnea HTN (hypertension) Hypersomnia Nocturnal hypoxia Hiatal hernia GERD (gastroesophageal reflux disease) History of COVID-19 Anxiety and depression History of abnormal cervical Pap smear Obesity (BMI 30-39.9) Surgical History H/O endoscopy Hx of colonoscopy History of esophagogastroduodenoscopy (EGD) History of surgery Family History Family History Father Diabetes Mother Hypertension Sister Cervical cancer Paternal Grandmother Uterine cancer Daughter Lymphatic malformation Social History Social History (Reviewed 01/13/25 @ 14:39 by TAMMY Nguyen Housing: Apartment Are you a primary housekeeper child care to a significant other at home: No Do you presently have visiting nurse or other home services: No Alcohol intake: current Alcohol intake frequency: does not drink Patient Tobacco Use Status: Never used Tobacco Tobacco use type: Cigarette Smoked in Last 30 Days: No e-Cigarette/Vaping Use: Never Used Second Hand Smoke Exposure: Yes Use of substances other than those prescribed or required for medical reasons: No Have you been hit, kicked, punched, or otherwise hurt by someone within the past year? 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: No Gender identity: Female Cognitive needs: No Hearing needs: No Vision needs: Yes (Glasses) Physical Exam ED Vital Signs: Vital Signs - 24 hr 01/13/25 12:22 01/13/25 14:08 01/13/25 15:29 Temperature 98.2 F 98 F Pulse Rate 94 76 Respiratory Rate 16 16 18 Blood Pressure 136/83 112/77 Pulse Oximetry 100 100 Oxygen Delivery Method Room Air Room Air BMI result Body Mass Index 36.9 Const General: cooperative, no acute distress, alert and awake Nutritional Appearance: well nourished Orientation/consciousness: patient oriented x3 Limitations: no limitations [facility] Head: Yes normal to inspection and Yes atraumatic Ears: hearing grossly normal bilaterally and external ears normal General nose exam: Normal external nose present, no nasal discharge noted and no epistaxis Face and sinus: Yes normal facial exam, No abrasion and No laceration Mouth: Normal oral and palatal mucosa present, no drooling and no muffled voice Eyes General: appearance normal, both eyes and all related structures Periorbital: periorbital findings normal Eyelids: Yes eyelids normal Conjunctivae: conjunctivae normal Pupils: Equal, round and reactive pupils present EOM: EOMs intact bilaterally Neck Neck: Yes normal visual inspection, Yes full ROM and Yes no lymphadenopathy Chest Chest palpation & inspection: normal inspection of the chest Resp Effort & Inspection: normal respiratory effort and able to speak in complete sentences GI Inspection: Yes normal to inspection Palpation (GI): Soft to palpation, not firm, Tenderness to palpation present (GI) in the LLQ and in the RLQ; not in the LUQ and not in the RUQ, no guarding and not rigid Neuro General: patient oriented x3, moves all extremities and CN's II-XI intact bilaterally Cranial nerves: Yes Equal, round and reactive pupils present Cognition (Neuro): normal cognition Extrem General: Yes normal to inspection, Yes full ROM and Yes capillary refill normal Psych Appearance: grossly normal Mental Status: mental status grossly normal Affect: normal affect Attitude: cooperative Thought process: Normal thought process present Thought content: Normal thought content present Insight: Good insight present (Psych) Course Course Course Narrative: This is a Rapid Medical Examination (RME) performed by Brayan Granger PA-C in triage. Full HPI, ROS, assessment and treatment plan per primary provider in the Main ED. 39 yo female hx IBS here for eval of left flank pain w/ radiation to left groin area since this morning. +assoc nausea without vomiting. no fever/chills. called her GI doc who advised to come to ED. admits to constipation, small BM this morning. Plan: labs, UA, imaging deferred to primary provider Medical Decision Making Medical Decision Making MDM Narrative: Patient is a 39 year old assigned female at with a history of GERD, anxiety, depression, H.pylori, IBS, and HTN presenting to the emergency department today with left sided blank pain and nausea. Patient's physical exam was as noted in the physical exam portion of this note. Patient's blood work showed a WBC count of 11.4. Patient's CT abd/pelvis showed appendicitis. I spoke to Dr. Delarosa the general surgeon travel trailer components assembler, who stated he would be taking her to the OR for appendectomy. I explained my physical exam findings as well as all test results to the patient. I answered all questions asked by the patient. Patient received IV morphine and fluids which, upon re-evaluation, she stated it helped her symptoms minimally. Patient verbalized agreement and understanding with this treatment plan and admission to the operating room. Differential Diagnosis Differential Diagnoses: The differential diagnosis associated with the presentation includes Appendicitis Abdominal pain Kidney stone Admission/Observation Consideration of admission/observation: Escalation of care including admission/observation considered Patient admitted as noted in the MDM Rationale portion of this note. Consult Healthcare Provider Management of the patient was discussed with: Banana Expert (spoke to the surgical team as noted in the MDM Rationale portion of this note.) Lab Data [facility] Lab Attestation statement: I reviewed the patient's lab results. My interpretation of these results are in the MDM Rationale portion of this note. 01/13/25 13:05 01/13/25 13:05 Labs: Lab Results 01/13/25 Range/Units 13:05 WBC 11.4 H (4.8-10.8) X10*3/uL RBC 4.86 (4.20-5.50) X10*6/uL Hgb 12.2 (12.0-16.0) g/dl Hct 38.9 (37.0-47.0) % MCV 80.0 (80.0-98.0) fL MCH 25.1 L (27.0-33.0) pg MCHC 31.4 (31.0-35.0) g/dl RDW 16.3 H (11.0-16.0) % Plt Count 285 (160-400) X10*3/uL MPV 11.0 (9.4-12.3) fL Immature Gran % (Auto) 0.4 (0.0-0.4) % Neut % (Auto) 80.7 H (45-73) % Lymph % (Auto) 13.0 L (20-40) % [place] % (Auto) 5.1 (2-11) % Eos % (Auto) 0.4 (0-4) % Baso % (Auto) 0.4 (0-2) % Lymph # (Auto) 1.5 (1.2-4.9) X10*3/uL [place] # (Auto) 0.6 (0.1-1.2) X10*3/uL Eos # (Auto) 0.1 (0.0-0.4) X10*3/uL Baso # (Auto) 0.0 (0.0-0.2) X10*3/uL Abs Immat Gran (auto) 0.05 H (0.00-0.03) X10*3/uL Absolute Neuts (auto) 9.2 H (2.0-8.3) x10*3/uL Absolute Nucleated RBC 0.000 (0.0-0.012) X10*3/uL Nucleated RBC % (auto) 0.0 (0.0-0.2) /100WBC Sodium 142 (135-145) mmol/L Potassium 3.6 (3.3-5.1) mmol/L Chloride 110 H (96-108) mmol/L Carbon Dioxide 24 (22-29) mmol/L Anion Gap 12 (12-20) BUN 11 (9-16) mg/dL Creatinine 0.71 (0.5-1.4) mg/dL Estim Creat Clear Calc 115.3 Estimated GFR > 60 Random Glucose 84 (60-115) mg/dL Calcium 9.4 D (8.4-10.2) mg/dL Magnesium 2.1 (1.6-2.6) mg/dL Total Bilirubin 0.4 (0.0-1.0) mg/dL AST 15 (5-31) U/L ALT 8 (0-31) U/L Alkaline Phosphatase 103 (39-117) U/L Total Protein 7.9 (6.5-8.0) g/dL Albumin 4.2 (3.5-5.0) g/dL Lipase 12 (8-78) U/L Beta HCG, Quant < 2 mIU/mL Independent Interpretation I performed an independent interpretation of an: CT Scan Interpretation: My interpretation is in agreement with the radiologist's impression of this imaging study. Report Number: [id number]: Total DLP = 809.00 mGy-cm EXAMINATION: CT ABDOMEN AND PELVIS WITHOUT CONTRAST CLINICAL INFORMATION: Left flank pain, rule out stone. COMPARISON: 04/18/2021. TECHNIQUE: Multidetector volumetric imaging was performed from the superior aspect of the liver through the pubic symphysis. Sagittal and coronal reformatted images were obtained on the technologist's workstation. This CT examination was performed using dose optimization techniques as appropriate, variously including the following: *Automated exposure control *Adjustment of mA and/or kV according to patient size (this includes techniques or standardized protocols for targeted exams where dose is matched to indication/reason for exam; i.e. extremities or head) *Use of iterative reconstruction technique FINDINGS: LUNG BASES: Clear bilaterally. Moderate paraesophageal hiatus hernia. Normal heart size. No effusions. LIVER, GALLBLADDER, AND BILIARY TREE: The unenhanced liver is normal in size, shape, and attenuation. No focal hepatic lesion or biliary ductal dilatation is present. The gallbladder is unremarkable with no evidence of radiopaque gallstones, gallbladder wall thickening, or obvious pericholecystic inflammatory changes. PANCREAS: Unremarkable. SPLEEN: Unremarkable. Small splenule in the hilum. ADRENAL GLANDS: Unremarkable. KIDNEYS AND URETERS: The kidneys are normal in size, shape, and attenuation. No hydronephrosis, hydroureter, or calculi seen. No perinephric stranding. BLADDER: Suboptimally distended but grossly normal. Distal ureters appear normal. GASTROINTESTINAL TRACT: The appendix is inflamed, enlarged, with diameter measuring up to 11 mm. Findings are consistent with acute appendicitis. There are small reactive lymph nodes in the appendiceal mesentery. Moderate type III hiatus hernia. No additional abnormal bowel findings. ABDOMINAL WALL: No significant hernia is appreciated. LYMPH NODES: None enlarged by size criteria. VASCULAR: Unremarkable. PELVIC VISCERA: The uterus and adnexa are unremarkable. There are Essure implants present bilaterally. OSSEOUS STRUCTURES: Unremarkable. CT/CT abdomen pelvis wo IV con IMPRESSION: 1. Acute appendicitis without complication. 2. No renal calculi or obstruction. 3. Moderate-sized type III hiatus hernia. Findings were relayed via secure text to Morelia Granger PA-C, of the [facility], at 2:56 PM, 01/13/2025. Electronically signed by: Rajesh Ibarra MD 01/13/2025 02:58 PM [facility] [place] Dictated By: Rajesh Ibarra MD Signed By: Electronically signed by Rajesh Ibarra MD 01/13/25 [id number] Radiology Impression Discussion of test interpretation with radiology: I have reviewed the radiologist's reading. Independent Historian Clinical information obtained from an independent historian. History obtained from or confirmed by: Other (patient's boyfriend provided additional history and confirmed the history provided by the patient.) Medications Administered Generic Name Dose Route Start Last Admin Trade Name Freq PRN Reason Stop Dose Admin Fentanyl 50 mcg 01/13/25 16:12 01/13/25 17:54 Fentanyl Citrate/Pf 100 Mcg/2 Ml Vial IVPUSH 01/13/25 22:13 50 mcg Q5M PRN Administration Pain, Moderate to Severe (Pain Scale 4-10) Discontinued Medications Generic Name Dose Route Start Last Admin Trade Name Christianoq PRN Reason Stop Dose Admin Cefotetan Disodium 2 gm 01/13/25 15:32 01/13/25 16:15 Cefotetan Disodium 2 Gm Vial IVPUSH 01/13/25 15:33 2 gm PREOP ONE Administration Sodium Chloride 1,000 mls @ 999 mls/hr 01/13/25 13:45 01/13/25 14:07 Ns IV 01/13/25 14:45 999 mls/hr .Q1H1M PARK Administration Morphine Sulfate 4 mg 01/13/25 13:39 01/13/25 14:08 Morphine Sulfate 4 Mg/Ml Cartridge IVPUSH 01/13/25 13:40 4 mg ONCE ONE Administration Protocol Ondansetron HCl 4 mg 01/13/25 13:39 01/13/25 14:10 Ondansetron Hcl 4 Mg/2 Ml Vial IVPUSH 01/13/25 13:40 4 mg ONCE ONE Administration Critical Care Time Critical Care Time Critical Care Time: Yes Total Critical Care Time: 33 Attestation: I spent 33 minutes of Critical Care Time with this patient. This does not include time spent on separately reported billable procedures. Discharge Plan Discharge Clinical Impression: Acute appendicitis Patient Disposition: Admitted As Inpatient Discharge Date/Time: 01/13/25 15:56
[2025-01-13 13:10] LABS: MANUAL DIFF FLAG NO
[2025-01-13 13:11] LABS: Basophils Percent Auto 0.4 % (0-2); Eosinophils Absolute Auto 0.1 X10*3/uL (0.0-0.4); Eosinophils Percent Auto 0.4 % (0-4); Hematocrit 38.9 % (37.0-47.0); Hemoglobin 12.2 g/dl (12.0-16.0); Imm Gran Abs Auto 0.05 X10*3/uL (0.00-0.03); Imm Gran Pct Auto 0.4 % (0.0-0.4); Lymphocytes Absolute Auto 1.5 X10*3/uL (1.2-4.9); Mean Corpuscular HGB Conc 31.4 g/dl (31.0-35.0); Mean Corpuscular Hemoglobin 25.1 pg (27.0-33.0); Monocytes Absolute Auto 0.6 X10*3/uL (0.1-1.2); Monocytes Percent Auto 5.1 % (2-11); Neutrophils Absolute Auto 9.2 x10*3/uL (2.0-8.3); Neutrophils Percent Auto 80.7 % (45-73); Platelet Count 285 X10*3/uL (160-400); Red Blood Count 4.86 X10*6/uL (4.20-5.50); Red Cell Distribution Width 16.3 % (11.0-16.0); White Blood Count 11.4 X10*3/uL (4.8-10.8)
[2025-01-13 13:25] LABS: Alanine Aminotransferase 8 U/L (0-31); Albumin Level 4.2 g/dL (3.5-5.0); Alkaline Phosphatase 103 U/L (39-117); Anion Gap 12 (12-20); Aspartate Amino Transferase 15 U/L (5-31); Bilirubin Total 0.4 mg/dL (0.0-1.0); Blood Urea Nitrogen 11 mg/dL (9-16); Calcium 9.4 mg/dL (8.4-10.2); Carbon Dioxide 24 mmol/L (22-29); Chloride 110 mmol/L (96-108); Creatinine Clr Calc Pharmacy 115.3; Estimated Glomerular Filt Rate > 60; Glucose Random 84 mg/dL (60-115); Lipase 12 U/L (8-78); Magnesium 2.1 mg/dL (1.6-2.6); Potassium 3.6 mmol/L (3.3-5.1); Sodium 142 mmol/L (135-145); Total Protein 7.9 g/dL (6.5-8.0)
[2025-01-13] MEDS: 0.9 % Sodium Chloride 1,000 ML 999 ML IV (14:07)
[2025-01-13] MEDS: Morphine Sulfate 4 MG/ML CARTRIDGE IVPUSH (14:08)
[2025-01-13] MEDS: ondansetron HCL 4 MG/2 ML VIAL IVPUSH (14:10)
[2025-01-13 14:12] LABS: HCG Quantitative < 2 mIU/mL
--- NOTE | 2025-01-13 15:28 | PM.HPGS ---
History of Present Illness History of Present Illness Date of Service: 01/13/25 Chief complaint: Abdomen Pain Narrative: Fernanda Damon is a 39 year old female presenting with complaints of abdominal pain which began this morning. The pain was mainly in the left upper quadrant but then radiated into the back and then into the lower quadrant left greater than right. The pain was associated with nausea without vomiting. She denied fever or chills. She denies a previous history of similar symptoms. The pain is worse when sitting still but better when moving around. She went to work this morning but was having so much pain that she subsequently presented to the emergency department for further evaluation. Workup with laboratories revealed an elevated WBC of 11.4. CT abdomen and pelvis was significant for a dilated and inflamed appendix very suggestive of acute appendicitis. No fecalith is identified. Surgical consultation is requested for further management of acute appendicitis. Review of Systems Review of Systems: Yes all other systems are reviewed and are negative Gastrointestinal: Gastrointestinal: Reports as per [facility] Past Medical History Medical History History of vitamin D deficiency NAFLD (nonalcoholic fatty liver disease) IBS (irritable bowel syndrome) Sleep apnea HTN (hypertension) Hypersomnia Nocturnal hypoxia Hiatal hernia GERD (gastroesophageal reflux disease) History of COVID-19 Anxiety and depression History of abnormal cervical Pap smear Obesity (BMI 30-39.9) Family History Family History Father Diabetes Mother Hypertension Sister Cervical cancer Paternal Grandmother Uterine cancer Daughter Lymphatic malformation Surgical History Surgical History H/O endoscopy Hx of colonoscopy History of esophagogastroduodenoscopy (EGD) History of surgery Social History Social History Housing: Apartment Are you a primary rn medicare to a significant other at home: No Do you presently have visiting nurse or other home services: No Alcohol intake: current Alcohol intake frequency: does not drink Patient Tobacco Use Status: Never used Tobacco Tobacco use type: Cigarette Smoked in Last 30 Days: No e-Cigarette/Vaping Use: Never Used Second Hand Smoke Exposure: Yes Use of substances other than those prescribed or required for medical reasons: No Advance Directives: No Advance Directives Information Provided: No Patient : No service: No Current occupational status: employed 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: No Gender identity: Female Cognitive needs: No Hearing needs: No Vision needs: Yes (Glasses) Meds Allergies Allergy/AdvReac Type Severity Reaction Status Date / Time Seasonal Allergies Allergy Intermediate Itchy Eyes Verified 01/13/25 12:24 hydrochlorothiazide AdvReac Intermediate Dizziness Verified 01/13/25 12:24 Physical Exam Vital Signs: Vital Signs: Last Vital Signs Temp 98.2 F 01/13/25 12:22 Pulse 94 01/13/25 12:22 Resp 16 01/13/25 14:08 BP 136/83 01/13/25 12:22 Pulse Ox 100 01/13/25 12:22 O2 Del Method Room Air 01/13/25 12:22 BMI result Body Mass Index 36.9 Const: General: cooperative and no acute distress Nutritional Appearance: well nourished Orientation/consciousness: patient oriented x3 Limitations: no limitations HEENT: Head: Yes normocephalic and Yes atraumatic Ears: hearing grossly normal bilaterally Resp: Effort & Inspection: normal respiratory effort, no audible wheezes, no cough and no respiratory distress Cardio: Jugular venous distension: no JVD GI: Inspection: Yes normal to inspection Palpation (GI): Soft to palpation, Tenderness to palpation present (GI) in the LLQ, in the RLQ and at McBurney's point, no guarding and not rigid Percussion: Yes normal to percussion Auscultation: normal bowel sounds Rectal Exam - Female: deferred Skin: Other: Warm, dry, no rash Neuro: General: patient oriented x3 Extrem: General: Yes no clubbing, cyanosis or edema Results Results Labs: Short CBC 01/13/25 Range/Units 13:05 WBC 11.4 H (4.8-10.8) X10*3/uL Hgb 12.2 (12.0-16.0) g/dl Hct 38.9 (37.0-47.0) % Plt Count 285 (160-400) X10*3/uL BMP 01/13/25 13:05 Sodium 142 Potassium 3.6 Chloride 110 H Carbon Dioxide 24 BUN 11 Creatinine 0.71 Calcium 9.4 D Liver Function 01/13/25 Range/Units 13:05 Total Bilirubin 0.4 (0.0-1.0) mg/dL AST 15 (5-31) U/L ALT 8 (0-31) U/L Alkaline Phosphatase 103 (39-117) U/L Albumin 4.2 (3.5-5.0) g/dL Assessment and Plan (1) Acute appendicitis: Qualifiers: Acute appendicitis type: with localized peritonitis Appendicitis gangrene presence: without gangrene Appendicitis perforation presence: without perforation Appendicitis abscess presence: without abscess Qualified Code(s): K35.30 - Acute appendicitis with localized peritonitis, without perforation or gangrene Status: Acute Plan 39-year-old female patient presenting with complaints of abdominal pain in the lower abdomen found on workup to have tenderness in the lower abdomen. Workup revealed an elevated WBC of 11.[address] reveals evidence of acute appendicitis without perforation or abscess. We discussed non operative management with IV antibiotics verses laparoscopic appendectomy. After discussion of the procedure, risks, and alternatives, she consents to a laparoscopic or possible open appendectomy. She has been added onto the operative schedule for today. Quality Stroke Does the patient have a stroke diagnosis?: No VTE Prior VTE?: No VTE Risk Level:: Surgical - moderate VTE Device Contraindication: N/A - Device Ordered VTE Drug Contraindication: Treatment Not Indicated Procedures Date of Service Date of Service: 01/13/25
--- NOTE | 2025-01-13 15:37 | PC.NURSE ---
Last food intake last night around 6pm per patient, unable to tolerate anything today. LLQ ABD pain radiating to back since this morning with nausea, +constipation. No diarrhea, vomiting or known fevers. Alert and oriented, breathing even and unlabored, skin warm and dry.
--- NOTE | 2025-01-13 15:56 | PC.NURSE ---
Report given to OR SSS RN. Pt sent with staff.
--- NOTE | 2025-01-13 16:06 | HO.ANESPROP2 ---
[facility] Active Problems Active Problems: All Active Problems Acute appendicitis (Acute) Class 2 obesity (Acute) H. pylori infection (Acute) Vitamin B1 deficiency (Acute) Vitamin A deficiency (Acute) BMI 39.0-39.9,adult (Acute) Hand pain, left (Acute) Right hand pain (Acute) Polyarthralgia (Acute) Acute allergic reaction (Acute) Mild obstructive sleep apnea (Acute) Labile blood pressure (Acute) HTN (hypertension) (Acute) Screening for diabetes mellitus (DM) (Acute) Vitamin D deficiency (Acute) Irritable bowel syndrome (Acute) NAFLD (nonalcoholic fatty liver disease) (Acute) Non-restorative sleep (Acute) MDD (major depressive disorder), recurrent episode, moderate (Acute) Obese (Acute) DANIELA (generalized anxiety disorder) (Acute) Melasma (Acute) Epigastric abdominal pain (Acute) Helicobacter pylori gastritis (Acute) Esophagitis determined by endoscopy (Acute) Hiatal hernia (Acute) Alternating constipation and diarrhea (Acute) Anxiety and depression (Acute) Well woman exam (Acute) Dry cough (Acute) Fatigue (Acute) Palpitations (Acute) History of COVID-19 (Acute) Corneal abrasion of right eye due to contact lens (Acute) Hot flashes (Acute) Headache (Acute) Annual physical exam (Acute) Hypersomnia (Acute) Nocturnal hypoxia (Acute) History of abnormal cervical Pap smear (Acute) History of surgery (Acute) GERD (gastroesophageal reflux disease) (Acute) Obesity (BMI 30-39.9) (Acute) Past Medical History Medical History History of vitamin D deficiency NAFLD (nonalcoholic fatty liver disease) IBS (irritable bowel syndrome) Sleep apnea HTN (hypertension) Hypersomnia Nocturnal hypoxia Hiatal hernia GERD (gastroesophageal reflux disease) History of COVID-19 Anxiety and depression History of abnormal cervical Pap smear Obesity (BMI 30-39.9) Family History Family History Father Diabetes Mother Hypertension Sister Cervical cancer Paternal Grandmother Uterine cancer Daughter Lymphatic malformation Family history of problems with anesthesia: No Surgical History Surgical History H/O endoscopy Hx of colonoscopy History of esophagogastroduodenoscopy (EGD) History of surgery History of Problems with Anesthesia: No Social History Social History Housing: Apartment Are you a primary director of patient care to a significant other at home: No Do you presently have visiting nurse or other home services: No Alcohol intake: current Alcohol intake frequency: does not drink Patient Tobacco Use Status: Never used Tobacco Tobacco use type: Cigarette Smoked in Last 30 Days: No e-Cigarette/Vaping Use: Never Used Second Hand Smoke Exposure: Yes Use of substances other than those prescribed or required for medical reasons: No Have you been hit, kicked, punched, or otherwise hurt by someone within the past year? 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: No Gender identity: Female Cognitive needs: No Hearing needs: No Vision needs: Yes (Glasses) Meds Allergies Allergy/AdvReac Type Severity Reaction Status Date / Time Seasonal Allergies Allergy Intermediate Itchy Eyes Verified 01/13/25 15:52 hydrochlorothiazide AdvReac Intermediate Dizziness Verified 01/13/25 15:52 Active Medications: Current Medications Sodium Chloride (0.9 % Sodium Chloride Flush 3 Ml Syringe) 3 ml IVFLUSH QSHIFT [facility] Exam Height,Weight and Vital Signs: Height 5 ft 2.5 in Weight 90.265 kg Last Vital Signs Temp 98 F 01/13/25 15:29 Pulse 76 01/13/25 15:29 Resp 18 01/13/25 15:29 BP 112/77 01/13/25 15:29 Pulse Ox 100 01/13/25 15:29 O2 Del Method Room Air 01/13/25 15:29 Pertinent Lab Results Pertinent Lab Results: Laboratory Tests 01/13/25 13:05 WBC 11.4 H RBC 4.86 Hgb 12.2 Hct 38.9 MCV 80.0 MCH 25.1 L MCHC 31.4 RDW 16.3 H Plt Count 285 MPV 11.0 Immature Gran % (Auto) 0.4 Neut % (Auto) 80.7 H Lymph % (Auto) 13.0 L [place] % (Auto) 5.1 Eos % (Auto) 0.4 Baso % (Auto) 0.4 Lymph # (Auto) 1.5 [place] # (Auto) 0.6 Eos # (Auto) 0.1 Baso # (Auto) 0.0 Abs Immat Gran (auto) 0.05 H Absolute Neuts (auto) 9.2 H Absolute Nucleated RBC 0.000 Nucleated RBC % (auto) 0.0 Sodium 142 Potassium 3.6 Chloride 110 H Carbon Dioxide 24 Anion Gap 12 BUN 11 Creatinine 0.71 Estim Creat Clear Calc 115.3 Estimated GFR > 60 Random Glucose 84 Calcium 9.4 D Magnesium 2.1 Total Bilirubin 0.4 AST 15 ALT 8 Alkaline Phosphatase 103 Total Protein 7.9 Albumin 4.2 Lipase 12 Beta HCG, Quant < 2 Airway Mallampati Class: II TM Dist: >3cm Neck ROM: Full Other: contact lenses Assessment and Plan Assessment Anesthesia Assessment: Anesthesia Plan Discussed and Chart Reviewed Final Anesthetic Review Family History of Problems with Anesthesia: No History of Problems with Anesthesia: No NPO: Yes ASA Class: III Final Preanesthetic Review: No Changes in Pt Med Stat, Meds/Allgs Chart Reviewed, Consent Obtained/Reviewed and Anes Risks/Benef Reviewed Patient Risk: Intermediate Procedure Risk: Intermediate Anesthetic Plan Anesthetic Plan: GA Disposition: Standard PACU
[2025-01-13] MEDS: cefoTEtan disodium 2 GM VIAL IVPUSH (16:15)
--- NOTE | 2025-01-13 17:14 | W.PM.OPN ---
Operative Note Operative Note Date of Service: 01/13/25 Narrative: Preoperative diagnosis: Acute appendicitis Postoperative diagnosis: Same Procedure: Laparoscopic appendectomy Surgeon: Melvin Delarosa MD Leather Leveler: none Anesthesia: General endotracheal Indications for procedure: Operative findings: Acute appendicitis without perforation Specimen: Appendix Estimated blood loss: 2 mL Complications: None Procedure details: Patient was brought to the OR and placed in a supine position. After administering general anesthesia the patient's abdomen was prepped with ChloraPrep and draped in a sterile fashion. A surgical time-out was called and consent confirmed. Patient received preoperative antibiotics and Venodyne boots were in place. Local anesthesia consisting of 0.5% Sensorcaine with epinephrine was infiltrated in periumbilical region. A 5 mm incision was made below the umbilicus and carried down through subcutaneous tissue. A Veress needle was then inserted while elevating abdominal cavity with towel clips. After a positive drop test the abdomen was insufflated to a pressure of 15 mm of mercury. The Veress needle was removed and a 5 mm trocar inserted. The camera was then inserted in the abdomen explored. A 2nd 5 mm trocars placed in the lower midline. A 12 mm trocar was then placed in the left lower quadrant. The patient was then placed in a Trendelenburg position and rotated to the left. The appendix was identified in the right lower quadrant and brought up using blunt dissecting clamps. The mesentery of the appendix was then divided using the LigaSure. The appendiceal artery was cauterized and divided using the LigaSure. Dissection was continued down to the base of the cecum. An Endo-SALAZAR stapler with a purple reload was then used to divide the appendix at the base with the cecum. The appendix was then placed in Endo-Catch bag and brought out through the left lower quadrant incision. Wounds were checked for hemostasis. CO2 was then evacuated from the abdominal cavity and all trocars removed. Skin was closed at all incisions using a subcuticular 4-0 Polysorb suture. Steri-Strips, 2 x 2 gauze and Tegaderm dressings were then applied. The patient tolerated the procedure well. Sponge, instrument, needle counts reported as correct. The patient was transferred to PACU in stable condition.
[2025-01-13] MEDS: fentaNYL citrate/PF 100 MCG/2 ML VIAL 50 MCG IVPUSH ×3 (17:40→17:54)
--- NOTE | 2025-01-13 19:12 | PHA.MEDREC ---
Pharmacy Consult ? Medication Reconciliation RN has completed the medication reconciliation, pharmacy reviewed.
[2025-01-13] MEDS: Dextrose 5 % and Lactated Ring 1,000 ML 100 ML IVCONT (19:38)
[2025-01-13] MEDS: Omeprazole 20 MG CAPSULE.DR PO (19:38)
[2025-01-13] MEDS: hydrOXYzine HCL 25 MG TABLET PO (20:44)
[2025-01-13] MEDS: oxyCODONE HCl Immed Release 5 MG TABLET PO (20:49)
[2025-01-13] MEDS: Acetaminophen 1,000 MG/100 ML PIGGYBACK 400 MG IV (22:43)
[2025-01-14 03:52] VITALS: BP 127/71; PULSE 62; RESP 18; TEMP 36.1; O2SAT 99
[2025-01-14] MEDS: Omeprazole 20 MG CAPSULE.DR PO (05:17)
[2025-01-14] MEDS: Acetaminophen 1,000 MG/100 ML PIGGYBACK 400 MG IV ×2 (05:17→11:12)
[2025-01-14] MEDS: Dextrose 5 % and Lactated Ring 1,000 ML 100 ML IVCONT (05:18)
[2025-01-14 06:48] LABS: MANUAL DIFF FLAG NO
[2025-01-14 06:55] LABS: Basophils Percent Auto 0.1 % (0-2); Hematocrit 32.1 % (37.0-47.0); Hemoglobin 9.9 g/dl (12.0-16.0); Imm Gran Abs Auto 0.04 X10*3/uL (0.00-0.03); Imm Gran Pct Auto 0.4 % (0.0-0.4); Lymphocytes Absolute Auto 1.1 X10*3/uL (1.2-4.9); Lymphocytes Percent Auto 11.3 % (20-40); Mean Corpuscular HGB Conc 30.8 g/dl (31.0-35.0); Mean Corpuscular Volume 81.1 fL (80.0-98.0); Mean Platelet Volume 11.5 fL (9.4-12.3); Monocytes Absolute Auto 0.5 X10*3/uL (0.1-1.2); Neutrophils Absolute Auto 7.9 x10*3/uL (2.0-8.3); Neutrophils Percent Auto 83.2 % (45-73); Platelet Count 268 X10*3/uL (160-400); Red Blood Count 3.96 X10*6/uL (4.20-5.50); Red Cell Distribution Width 16.3 % (11.0-16.0); White Blood Count 9.6 X10*3/uL (4.8-10.8)
[2025-01-14 08:00] VITALS: BP 118/71; PULSE 63; RESP 16; TEMP 36.4; O2SAT 100
--- NOTE | 2025-01-14 08:17 | PM.PNGS ---
Subjective Subjective Date of Service: 01/14/25 Interval history: Has not eatten much yet; has some gas pain this morning Physical Exam Vital Signs: Vital Signs: Last Vital Signs Temp 97.5 F 01/14/25 08:00 Pulse 63 01/14/25 08:00 Resp 16 01/14/25 08:00 BP 118/71 01/14/25 08:00 Pulse Ox 100 01/14/25 08:00 O2 Del Method Nasal Cannula 01/14/25 08:00 O2 Flow Rate 2 01/14/25 08:00 BMI result Body Mass Index 37.5 Const: General: no acute distress Nutritional Appearance: well nourished Orientation/consciousness: patient oriented x3 Limitations: no limitations Resp: Effort & Inspection: normal respiratory effort GI: Other: soft, dressings clean and intact without redness or discharge. Skin: Other: warm, dry, no rash Neuro: General: patient oriented x3 Objective Data Active Medications Amlodipine Besylate (Amlodipine Besylate 2.5 Mg Tablet) 2.5 mg PO DAILY [facility]; Protocol Docusate Sodium (Docusate Sodium 100 Mg Capsule) 100 mg PO DAILY PRN PRN Reason: constipation Ferrous Sulfate (Ferrous Sulfate 324 Mg Tablet.Dr) 324 mg PO BID [facility] Last Admin: 01/13/25 20:46 Dose: Not Given Documented By: JEREMIAH Non-Admin Reason: Patient Refused Hydromorphone HCl (Hydromorphone Hcl 0.5 Mg/0.5 Ml Syringe) 0.5 mg IVPUSH Q3H PRN; Protocol PRN Reason: Pain, Severe (Pain Scale 7-10) Hydroxyzine HCl (Hydroxyzine Hcl 25 Mg Tablet) 25 mg PO BEDTIME [facility] Last Admin: 01/13/25 20:44 Dose: 25 mg Documented By: JEREMIAH Acetaminophen (Ofirmev) 1,000 mg in 100 mls @ 400 mls/hr IV Q6H [facility] Stop: 01/14/25 17:14 Last Infusion: 01/14/25 05:43 Dose: Infused Documented By: JEREMIAH Dextrose/Lactated Ringer's (D5lr) 1,000 mls @ 100 mls/hr IVCONT .Q10H [facility] Last Admin: 01/14/25 05:18 Dose: 100 mls/hr Documented By: JEREMIAH Naloxone HCl (Naloxone Hcl 0.4 Mg/Ml Vial) 0.04 mg IVPUSH Q5M PRN PRN Reason: Excessive sedation or RR < 8 Omeprazole (Omeprazole 20 Mg Capsule.Dr) 20 mg PO BID@0630,1630 [facility] Last Admin: 01/14/25 05:17 Dose: 20 mg Documented By: JEREMIAH Ondansetron HCl (Ondansetron Hcl 4 Mg/2 Ml Vial) 4 mg IVPUSH QID PRN PRN Reason: Nausea Oxycodone HCl (Oxycodone Hcl Immed Release 5 Mg Tablet) 5 mg PO Q6H PRN PRN Reason: Pain, Moderate(Pain Scale 4-6) Last Admin: 01/13/25 20:49 Dose: 5 mg Documented By: JEREIMAH Sertraline HCl (Sertraline Hcl 50 Mg Tablet) 50 mg PO DAILY [facility] Sodium Chloride (0.9 % Sodium Chloride Flush 3 Ml Syringe) 3 ml IVFLUSH QSHIFT [facility] Last Admin: 01/14/25 08:08 Dose: Not Given Documented By: MARY Non-Admin Reason: IV Running Thiamine HCl (Thiamine Hcl 100 Mg Tablet) 100 mg PO DAILY [facility] Vitamin D (Cholecalciferol (Vitamin D3) 25 Mcg Tablet) 125 mcg PO DAILY [facility] Zolpidem Tartrate (Zolpidem Tartrate 5 Mg Tablet) 5 mg PO BEDTIME PRN PRN Reason: Insomnia Labs 01/14/25 06:27 01/13/25 13:05 Labs: Laboratory Results - last 24 hr 01/13/25 01/14/25 13:05 06:27 MCV 80.0 81.1 MCH 25.1 L 25.0 L MCHC 31.4 30.8 L RDW 16.3 H 16.3 H Plt Count 285 268 MPV 11.0 11.5 Immature Gran % (Auto) 0.4 0.4 Neut % (Auto) 80.7 H 83.2 H Lymph % (Auto) 13.0 L 11.3 L [place] % (Auto) 5.1 5.0 Eos % (Auto) 0.4 0.0 Baso % (Auto) 0.4 0.1 Lymph # (Auto) 1.5 1.1 L [place] # (Auto) 0.6 0.5 Eos # (Auto) 0.1 0.0 Baso # (Auto) 0.0 0.0 Abs Immat Gran (auto) 0.05 H 0.04 H Absolute Neuts (auto) 9.2 H 7.9 Absolute Nucleated RBC 0.000 0.000 Nucleated RBC % (auto) 0.0 0.0 Anion Gap 12 Estim Creat Clear Calc 115.3 Estimated GFR > 60 Random Glucose 84 Calcium 9.4 D Magnesium 2.1 Total Bilirubin 0.4 AST 15 ALT 8 Alkaline Phosphatase 103 Total Protein 7.9 Albumin 4.2 Lipase 12 Beta HCG, Quant < 2 Procedures Date of Service Date of Service: 01/14/25 Progress Note: A&P Assessment and plan (1) Acute appendicitis: Status: Acute Plan POD #1 s/p lap appy, patient tolerated the procedure well. Patient to have regular diet this morning. If tolerated, plan discharge to home. Time Spent With Patient Time: Total time managing care of this patient today ____ minutes. Quality Stroke Does the patient have a stroke diagnosis?: No VTE Prior VTE?: No VTE Risk Level:: Surgical - moderate VTE Device Contraindication: N/A - Device Ordered VTE Drug Contraindication: Treatment Not Indicated
[2025-01-14] MEDS: Thiamine HCL 100 MG TABLET PO (08:28)
[2025-01-14] MEDS: amLODIPine Besylate 2.5 MG TABLET PO (08:28)
[2025-01-14] MEDS: Cholecalciferol (Vitamin D3) 25 MCG TABLET 125 MCG PO (08:28)
[2025-01-14] MEDS: Sertraline HCL 50 MG TABLET PO (08:28)
--- NOTE | 2025-01-14 09:15 | HO.POSTANES ---
Post Anesthesia Evaluation Post Anesthesia Evaluation Date of Service: 01/14/25 Vital Signs: Vital Signs Temp Pulse Resp BP Pulse Ox O2 Del Method O2 Flow Rate 01/14/25 08:00 97.5 F 63 16 118/71 100 Nasal Cannula 2 01/14/25 03:52 97.0 F 62 18 127/71 99 Room Air Anesthesia: General Mental Status: Awake Pain Control: Satisfactory Nausea/Vomiting: None Hydration: Adequate Anesthesia-Related Issues: No Anes. Related Issues
--- NOTE | 2025-01-14 12:19 | P.DS_ITS ---
DS: Providers Provider Date of Service: 01/14/25 Date of admission: 01/13/25 15:36 Date of discharge: 01/14/25 Primary care physician: Shantanu Costello PA-C Attending physician on admission: Melvin Delarosa Attending physician on discharge: Melvin Delarosa DS: Diagnosis Discharge Diagnosis (1) Acute appendicitis: Status: Acute DS: Summary Hospital Course Hospital Course: HPI AT ADMISSION: Fernanda Damon is a 39 year old female presenting with complaints of abdominal pain which began this morning. The pain was mainly in the left upper quadrant but then radiated into the back and then into the lower quadrant left greater than right. The pain was associated with nausea without vomiting. She denied fever or chills. She denies a previous history of similar symptoms. The pain is worse when sitting still but better when moving around. She went to work this morning but was having so much pain that she subsequently presented to the emergency department for further evaluation. Workup with laboratories revealed an elevated WBC of 11.4. CT abdomen and pelvis was significant for a dilated and inflamed appendix very suggestive of acute appendicitis. No fecalith is identified. Surgical consultation is requested for further management of acute appendicitis. HOSPITAL COURSE: The patient was admitted to the surgical service for further treatment of the acute appendicitis. She elected to proceed with laparoscopic appendectomy. She was added onto the OR schedule for that day. On 01/13/25, a laparoscopic appendectomy was performed by Dr. Delarosa without complication. The patient tolerated the procedure well. She had an uncomplicated recovery course. On POD #1, she felt well and was tolerating a solid diet without nausea or vomiting, had good pain control and was ambulating without difficulty. She was hemodynamically stable. Her abdomen was benign with appropriate post op tenderness and clean and intact dressings. She felt ready for discharge. She was discharged to home on 01/14/25 in stable condition. She is to follow up in the office in 1 week. Status at Discharge Functional status at discharge: independent ambulation Overall status at discharge: patient is progressing back to baseline Time Attestation Discharge Coordination Time (in mins): 30 Quality: Safe Use of Opioids Does Pt have an Active Cancer Diagnosis on the Problem List?: No Quality: Stroke Does the patient have a stroke diagnosis?: No Physical Exam Vital Signs: Vital Signs: Last Vital Signs Temp 97.1 F 01/14/25 12:54 Pulse 68 01/14/25 12:54 Resp 12 01/14/25 12:54 BP 128/78 01/14/25 12:54 Pulse Ox 99 01/14/25 12:54 O2 Del Method Room Air 01/14/25 12:54 O2 Flow Rate 2 01/14/25 08:00 BMI result Body Mass Index 37.5 Const: General: comfortable, no acute distress and alert Orientation/consciousness: patient oriented x3 Resp: Effort & Inspection: normal respiratory effort GI: Inspection: No distended and Yes incision (dressings clean and intact ) Palpation (GI): Soft to palpation, Tenderness to palpation present (GI) (mild incisional) and no guarding Skin: General skin exam: no rashes or lesions noted Neuro: General: patient oriented x3 DS: Data Data Completed and Pending Completed studies during hospitalization [Text1]: 01/13/25 16:47 Surgical [PTH] Routine Appendix, appendectomy: Acute appendicitis, extending to the proximal margin Discharge Plan Discharge Anticipated Discharge Date/Time: 01/14/25 09:47 Patient Disposition: Home, Self-Care Discharge Diagnosis: acute appendicitis, s/p laparoscopic appendectomy Referrals: Shantanu Costello PA-C [Primary Care Provider] - 1 Week Melvin Delarosa MD [Physician] - 1 Week Discharge Medications: New oxycodone 5 mg tablet 5 mg PO Q4H PRN (Reason: pain (scale score 7-10)) Qty: 26 0RF Rx Instructions: Partial Fill upon patient request. Continued hydroxyzine HCl 25 mg tablet 25 mg PO BEDTIME 15 Days Qty: 15 3RF esomeprazole magnesium 20 mg capsule,delayed release(DR/EC) 20 mg PO BID Qty: 180 3RF amlodipine 2.5 mg tablet 2.5 mg PO DAILY 30 Days Qty: 30 1RF ferrous sulfate 325 mg (65 mg iron) tablet 325 mg PO BID 30 Days Qty: 60 3RF sertraline [Zoloft] 50 mg tablet 50 mg PO DAILY 90 Days Qty: 90 1RF docusate sodium [Colace] 100 mg capsule 100 mg PO DAILY PRN (Reason: constipation) 30 Days Qty: 30 0RF cholecalciferol (vitamin D3) 125 mcg (5,000 unit) capsule 125 mcg PO DAILY Qty: 90 0RF vitamin A palmitate 3,000 mcg (10,000 unit) capsule 10,000 unit PO DAILY Qty: 90 0RF thiamine HCl (vitamin B1) 100 mg tablet 100 mg PO DAILY Qty: 90 0RF Discharge Orders: Discharge Order (Routine); Ordered 01/14/25 Ordered By: Karen Bruce Diet: Advance to usual diet Activity on Discharge: No heavy lifting Stand Alone Forms: Patient Portal Discharge page Print Language: [place] Islander Activity Restrictions/Additional Instructions: If the incision area is tender, you may apply an ice pack for short intervals (No more than 20 minutes on, followed by at least 20 minutes off). Do not apply heat. Do not use creams, lotions, or topical antibiotics. Ok to shower. Remove clear dressings 3 days following your procedure. You have steri strips (small white cloth strips) covering your incision- these will fall off ~1 week. No heavy lifting (>10lbs) or strenuous activity! Take Tylenol Extra-strength 1-2 tabs every 6 hours for the first day, then as needed. Oxycodone every 6-8 hours as needed for pain. Colace 100 mg every day as needed for constipation. Follow up in office with Dr. Delarosa in 1 week. ([phone]) Call Your Doctor If: -Your temperature exceeds 101.5? F -You experience excessive pain or swelling -You have an unexpected reaction to medication -You have excessive bleeding -You experience continued vomiting/nausea -Your incision begins to separate -Your incision shows signs of infection such as increased redness, swelling, excessive pain, drainage (light blood or clear fluid is normal) or heat Care Plan Goals: Return to baseline health and resume normal activities following recovery period. Health Concerns: Acute appendicitis HTN DANIELA, MDD Plan of Treatment: S/p laparoscopic appendectomy F/u in office in 1 week Assessment: Doing well post op. Discharge Date/Time: 01/14/25 12:58
[2025-01-14 12:54] VITALS: BP 128/78; PULSE 68; RESP 12; TEMP 36.2; O2SAT 99
--- NOTE | 2025-01-14 12:59 | MHC.CM.PN ---
Patient dc'd home self care via private transport prior to CM assessment.
== END 2025-01-14 12:58 | disposition home or self-care (01) | DRG 234 ==
LOC: HO.ED 15:25 → HO.SSS 15:35 → HO.EDOVER 17:12 → HO.S3 17:32
PROVIDERS: Physician Assistant Medical; Admitting Provider Surgery; Emergency Provider Emergency Medicine; PCP Physician Assistant; Visit Provider Surgery
PROC: 0DTJ4ZZ Resection of Appendix, Percutaneous Endoscopic Approach (ICD-10-PCS; CPT 44970; principal; 2025-01-13 15:30)
DX: K35.80 Unspecified acute appendicitis (principal); Z79.899 Other long term (current) drug therapy
CPT/HCPCS: 36415; 74176; 80053; 83690; 83735; 84702; 85025; 88304; 99284; J0131; J1100; J2003; J2250; J2270; J2405; J2704; J3010

== ENCOUNTER → 2025-01-13 12:25 | Outpatient (BNV) | payer OTHER, MEDICAID, SELFPAY | PROVIDERS: Emergency Provider Emergency Medicine; PCP Physician Assistant; Visit Provider Radiology Diagnostic Radiology | DX: K35.80 Unspecified acute appendicitis (principal); K44.9 Diaphragmatic hernia without obstruction or gangrene | CPT/HCPCS: 74176 ==

== ENCOUNTER → 2025-01-13 13:18 | Outpatient (BNV) | payer OTHER, MEDICAID, SELFPAY | PROVIDERS: Emergency Provider Emergency Medicine; PCP Physician Assistant; Visit Provider Surgery | DX: K35.30 Acute appendicitis with localized peritonitis, without perforation or gangrene (principal) | CPT/HCPCS: 44970; 99024; 99222 ==

== ENCOUNTER 2025-01-20 09:40 | Outpatient (REF) | payer OTHER, MEDICAID, SELFPAY ==
--- NOTE | ~2025-01-20 | FL_ITS ---
EXAMINATION: XR FLUOROSCOPY UPPER GI WITH AIR CLINICAL INFORMATION: Gastroesophageal reflux disease without esophagitis. COMPARISON: None available. TECHNIQUE: Routine upper GI air contrast study was performed in upright and lying position. FINDINGS: Following oral administration of thick barium and effervescent granules there is normal propagation bolus from the oral cavity through the pharynx, esophagus into stomach without any of obstruction, narrowing or stricture. The course, caliber and peristalsis of the stomach, duodenal bulb and sweep is normal. On placing patient supine and prone lying the course, caliber and peristalsis of the stomach is normal. There is a small sliding hiatal hernia with a large gastroesophageal reflux extending into the upper esophagus. The mucosal pattern of the stomach is unremarkable. There is moderate secretions seen in the stomach likely from increased opacity. The duodenal bulb and sweep is widely patent and unremarkable. FLUOROSCOPY TIME: 1.24 minutes DOSE AREA PRODUCT: 1434 uGy-m2 (microgray-meter squared) FL/FL upper GI w air IMPRESSION: Large gastroesophageal reflux with small hiatal hernia. Electronically signed by: Mathew Osman MD 01/20/2025 02:06 PM [facility]
== END 2025-01-20 09:41 | disposition home or self-care (01) ==
LOC: HO.XRAY 09:40
PROVIDERS: PCP Physician Assistant; Visit Provider Surgery
DX: K21.00 Gastro-esophageal reflux disease with esophagitis, without bleeding (principal); K76.0 Fatty (change of) liver, not elsewhere classified; I10 Essential (primary) hypertension
CPT/HCPCS: 74246

== ENCOUNTER → 2025-01-20 10:00 | Outpatient (BNV) | payer OTHER, MEDICAID, SELFPAY | PROVIDERS: PCP Physician Assistant; Visit Provider Radiology Diagnostic Radiology | DX: K21.9 Gastro-esophageal reflux disease without esophagitis (principal) | CPT/HCPCS: 74246 ==

== ENCOUNTER 2025-01-23 08:46 | Outpatient (REF) | payer OTHER, MEDICAID, SELFPAY ==
--- NOTE | ~2025-01-23 | US_ITS ---
EXAMINATION: US ABDOMEN COMPLETE WITH LIVER ELASTOGRAPHY HISTORY: K21.00 - Gastro-esophageal reflux disease with esophagitis, without bleeding TECHNIQUE: Real-time grayscale ultrasound imaging of the abdomen was performed and images were reviewed. COMPARISON: Comparison is made with the prior examination dated 03/08/2023. FINDINGS: Liver: The right lobe of the liver measures 15.2 cm in size. The left lobe of the liver measures 9.1 cm in size. The liver demonstrates normal homogeneous echotexture. No focal mass or intrahepatic biliary ductal dilatation is identified. There is normal hepatopedal flow in the portal vein. Ultrasound elastography of the liver was performed with 10 separate measurements of the liver parenchyma with the patient in the supine position. Measurements were obtained approximately 2 cm below Placido's capsule and perpendicular to the capsule. Images are of satisfactory quality. The median shear wave velocity is 1.17 m/s. The interquartile range/median (IQR/median) is 0.03. Gallbladder and biliary tree: The gallbladder is unremarkable, without evidence of calculi, wall thickening, or pericholecystic fluid. There is no sonographic Rivera sign. The common bile duct is normal in caliber measuring 3 mm. Kidneys: The right kidney measures 10.2 cm in length. The left kidney measures 11.2 cm in length. The kidneys are unremarkable, without evidence of masses, hydronephrosis, or calculi. Pancreas: The pancreatic head, neck, and body are unremarkable. The pancreatic tail is obscured by bowel gas. Spleen: The spleen is normal in size and contour, measuring 11.6 cm in length. Abdominal aorta and inferior vena cava: The visualized portions of the abdominal aorta and inferior vena cava are normal in caliber. There is no free fluid in the abdomen. US/US abdomen comp w elastography IMPRESSION: Unremarkable abdominal ultrasound. The median shear wave velocity in the liver is 1.17 m/s, corresponding to a median liver stiffness of 4.14 kPa. The IQR/median value is 0.03. This is indicative of a quality data set. Findings are indicative of a normal elastography value with a low likelihood of severe fibrosis or cirrhosis. REFERENCE: Society of Radiologists in Ultrasound Liver Stiffness Thresholds (2020): LIVER STIFFNESS THRESHOLDS: *Shear wave velocity less than 1.3 m/s (Liver Stiffness equal or less than 5 kPa): High probability of being normal. *Shear wave velocity less than 1.7 m/s (Liver Stiffness less than 9 kPa): In the absence of other known clinical signs, rules out compensated advanced chronic liver disease. *Shear wave velocity between 1.7-2.1 m/s (Liver Stiffness 9-13 kPa): Suggestive of compensated advanced chronic liver disease but need further test for confirmation. *Shear wave velocity between 2.1-2.4 m/s (Liver Stiffness 13-17 kPa): Rules in compensated advanced chronic liver disease. *Shear wave velocity greater than 2.4 m/s (Liver Stiffness over 17 kPa): Suggestive of clinically significant portal hypertension. QUALITY OF DATA SET: *IQR/Median value equal or less than 0.15 implies a quality data set. *IQR/Median value over 0.15 implies a poor quality data set. SIGNIFICANT CHANGE FROM PRIOR EXAM: Significant change if liver stiffness measurement is 10% or greater from prior exam. OTHER CONSIDERATIONS: The stage of liver fibrosis may be overestimated in the setting of acute hepatitis, liver inflammation, elevated liver function tests, hepatic vascular congestion, obstructive cholestasis, non-fasting state, and infiltrative diseases such as amyloidosis and lymphoma. In some patients with NAFLD, the liver stiffness thresholds for compensated advanced chronic liver disease may be lower. In causes other than viral hepatitis and NAFLD, liver stiffness thresholds are not well established. Electronically signed by: Murtaza Ryan MD 01/24/2025 08:22 AM [facility] [place]
== END 2025-01-23 08:47 | disposition home or self-care (01) ==
LOC: HO.US 08:46
PROVIDERS: PCP Physician Assistant; Visit Provider Surgery
DX: K21.00 Gastro-esophageal reflux disease with esophagitis, without bleeding (principal); K76.0 Fatty (change of) liver, not elsewhere classified; I10 Essential (primary) hypertension
CPT/HCPCS: 76700; 76981

== ENCOUNTER → 2025-01-23 08:49 | Outpatient (BNV) | payer OTHER, MEDICAID, SELFPAY | PROVIDERS: PCP Physician Assistant; Visit Provider Radiology Diagnostic Radiology | DX: K21.00 Gastro-esophageal reflux disease with esophagitis, without bleeding (principal) | CPT/HCPCS: 76700 ==

== ENCOUNTER 2025-01-23 10:29 | Outpatient (AMB) | payer OTHER, MEDICAID, SELFPAY ==
--- NOTE | 2025-01-23 10:32 | A.OFFVIS_ITS ---
Vital Signs 01/23/25 10:40 Height 5 ft 2.5 in Weight 207 lb 3.752 oz BMI 37.3 BP 130/82 Blood Pressure Location Lt brachial Position Sitting Intake Visit Reasons: post appendectomy Intake Note: Patient is seen in office for post op assessment post laparoscopic appendectomy. Pt c/o: denies any concerns surgery:01/13/25 [place] [employer] Operator Required: No Accompanied by: Self / Same As Patient Allergies Seasonal Allergies Allergy (Intermediate, Verified 01/23/25 10:40) Itchy Eyes hydrochlorothiazide Adverse Reaction (Intermediate, Verified 01/23/25 10:40) Dizziness HPI Comments Details: 39-year-old female returning 1 week following laparoscopic appendectomy for acute appendicitis performed on 01/13/2025. She denies any problems following discharge from the hospital. She was constipated for several days but has now having normal bowel movements. She denies nausea, vomiting, fever or chills. [facility] Medical History (Updated 01/22/25 @ 00:01 by Background Daemon) History of vitamin D deficiency NAFLD (nonalcoholic fatty liver disease) IBS (irritable bowel syndrome) Sleep apnea HTN (hypertension) Hypersomnia Nocturnal hypoxia Hiatal hernia GERD (gastroesophageal reflux disease) History of COVID-19 Anxiety and depression History of abnormal cervical Pap smear Obesity (BMI 30-39.9) Surgical History (Updated 01/22/25 @ 00:01 by Background Daemon) History of laparoscopic appendectomy (01/13/25) H/O endoscopy Hx of colonoscopy History of esophagogastroduodenoscopy (EGD) History of surgery Family History Father Diabetes Mother Hypertension Sister Cervical cancer Paternal Grandmother Uterine cancer Daughter Lymphatic malformation Social History Household Members: Family Housing: House Are you a primary career development specialist to a significant other at home: No Do you presently have visiting nurse or other home services: No Alcohol intake: current Alcohol intake frequency: does not drink Patient Tobacco Use Status: Never used Tobacco Tobacco use type: Cigarette e-Cigarette/Vaping Use: Never Used Second Hand Smoke Exposure: Yes service: No Current occupational status: employed 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 Neuro General: patient oriented x3 Assessment & Plan Assessment & Plan (1) Acute appendicitis: Code(s): K35.80 - Unspecified acute appendicitis Category: Medical Qualifiers: Acute appendicitis type: with localized peritonitis Appendicitis abscess presence: without abscess Appendicitis gangrene presence: without gangrene Appendicitis perforation presence: without perforation Qualified Code(s): K35.30 - Acute appendicitis with localized peritonitis, without perforation or gangrene Plan 39-year-old female returning 1 week following laparoscopic appendectomy for acute appendicitis. She tolerated the procedure well and her wounds are healing nicely. She should avoid lifting greater than 10 lb for another week after which she may return to normal activity. She should follow up as needed. Coding Level of Care Code Global (73437) Diagnoses Acute appendicitis with localized peritonitis, without perforation, abscess, or gangrene K35.30 Acute appendicitis type: with localized peritonitis Appendicitis abscess presence: without abscess Appendicitis gangrene presence: without gangrene Appendicitis perforation presence: without perforation
[2025-01-23 10:40] VITALS: BP 130/82; BMI 37.3
== END 2025-01-23 10:51 | disposition home or self-care (01) ==
PROVIDERS: PCP Physician Assistant; Visit Provider Surgery
DX: K35.30 Acute appendicitis with localized peritonitis, without perforation or gangrene (principal)
CPT/HCPCS: 99024

== ENCOUNTER 2025-01-24 08:04 | Outpatient (AMB) | payer OTHER, MEDICAID, SELFPAY ==
--- NOTE | 2025-01-24 09:45 | MHC.OFFVISWM ---
VS Expanded 01/24/25 09:52 Height 5 ft 2.5 in Weight 204 lb BMI 36.7 Intake Visit Reasons: TV Pre Op LSG 02/12/25 Allergies Seasonal Allergies Allergy (Intermediate, Verified 01/24/25 09:45) Itchy Eyes hydrochlorothiazide Adverse Reaction (Intermediate, Verified 01/24/25 09:45) Dizziness Medication List - Last Reconciled 01/24/25 by Rogelio Fernandez MD amlodipine 2.5 mg PO DAILY 30 days cholecalciferol (vitamin D3) 125 mcg PO DAILY docusate sodium (Colace) 100 mg PO DAILY PRN 30 days esomeprazole magnesium 20 mg PO BID ferrous sulfate 325 mg PO BID 30 days hydroxyzine HCl 25 mg PO BEDTIME 15 days ondansetron 4 mg PO Q12H oxycodone 5 mg PO Q4H PRN pantoprazole 40 mg PO DAILY polyethylene glycol 3350 (Miralax) 17 grams PO DAILY sertraline (Zoloft) 50 mg PO DAILY 90 days sucralfate 10 mL PO BID thiamine HCl (vitamin B1) 100 mg PO DAILY vitamin A palmitate 10,000 units PO DAILY HPI HPI TV Pre Op LSG 02/12/25: Details: Start time: 9.30am, End time: 10am ?I spent 25 minutes speaking with the patient on the phone plus an additional 5 minutes reviewing and updating records for a total of 30 minutes HPI Comments Details: Overall weight loss: 14lbs, or 6.42% TBWL Is doing 3 Premier protein shakes (1/2 scoop in almond milk), 2 eggs and one meal (8 forks of protein and 6 forks of salad) Exercise: bike for 300 calories daily [facility] Medical History History of vitamin D deficiency NAFLD (nonalcoholic fatty liver disease) IBS (irritable bowel syndrome) Sleep apnea HTN (hypertension) Hypersomnia Nocturnal hypoxia Hiatal hernia GERD (gastroesophageal reflux disease) History of COVID-19 Anxiety and depression History of abnormal cervical Pap smear Obesity (BMI 30-39.9) Surgical History History of laparoscopic appendectomy (01/13/25) H/O endoscopy Hx of colonoscopy History of esophagogastroduodenoscopy (EGD) History of surgery Family History Father Diabetes Mother Hypertension Sister Cervical cancer Paternal Grandmother Uterine cancer Daughter Lymphatic malformation Social History Household Members: Family Housing: House Are you a primary aged or disabled care worker to a significant other at home: No Do you presently have visiting nurse or other home services: No Alcohol intake: current Alcohol intake frequency: does not drink Patient Tobacco Use Status: Never used Tobacco Tobacco use type: Cigarette e-Cigarette/Vaping Use: Never Used Second Hand Smoke Exposure: Yes service: No Current occupational status: employed 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: No Gender identity: Female Cognitive needs: No Hearing needs: No Vision needs: Yes (Glasses) Female Reproductive History Menstrual Age of Menarche: 11 Telehealth Telehealth Telehealth Platform: Telephone Location of provider rendering services: practice address Location of patient: address on file Patient Identification confirmed using: Name, : Yes Telehealth method: voice only Patient verbally consented to treatment: Yes Patient verbally consented to billing insurance company: Yes Patient informed of any privacy concerns related to visit: Yes Minutes spent on Phone/Video with Pt.: 30 Assessment & Plan Assessment & Plan (1) Obesity (BMI 30-39.9): Code(s): E66.9 - Obesity, unspecified Category: Medical Plan: 1. Plan for lap sleeve gastrectomy including upper GI endoscopy. All tests has been completed and reviewed and the patient is cleared for the surgery. ?If diaphragmatic or ventral hernias are present at time of surgery, these will be repaired laparoscopically as well. Risks and complications were discussed in detail including possible conversion to an open procedure, anastomotic leak, bleeding requiring transfusion, small bowel obstruction, , DVT and pulmonary embolism, cardiac, or pulmonary complications, as vermin exterminator complications such as anastomotic ulcer, insufficient weight loss and vitamin deficiencies. I emphasized the importance of close follow-up, adherence to instructions and good communication. So far she has proven to be an excellent communicator and very compliant with all our directions accomplishing a great weight loss. I believe that she is an excellent candidate and she is ready. 2. Preop prescriptions were provided and explained the purpose of each one. Need to be purchased preop. Start Pantoprazole now as you get it from the pharmacy, 1 pill per day. Sucralfate and Zofran are for after surgery as needed. 3. Bowel prep: please do 7 packets ?of Miralax mixing each one with a an 8oz glass of water, crystal light, gatorade zero, or propel ?on 02/10/25 and the same amount on 02/11/25. The Miralax you begin with one packet at a time in 8oz water or crystal light, gatorade zero, or propel ?as early in the day as you can and you do them back to back until you finish them. Continue the protein shakes during ?the bowel prep. 4. Needs to purchase 1oz medicine cups . 5. Needs to purchase Children's liquid Tylenol for postop pain control. 6. Avoid aspirin, motrin, Advil, Aleve, Meloxicam, Excedrin, Ibuprofen, Naproxyn. Tylenol is OK. 7. She needs to purchase the Celebrate 4:1 protein shakes or the Celebrate multivitamins from the hospital's gift shop. 8. Will do basic preop blood work-up any day between Monday02/03/25 and Monday02/08/25 fasting for 12 hours and is scheduled to see the Anesthesiologist prior to the day of surgery. 9. Importance of adherence to postop folllow-up and recommendations was underscored and she understands that. 10. Stop food and bars as of tomorrow 11/26/2024 and create an aggressive meal plan with the [employer] nancy and send me a screenshot of the plan you will create 11. No soups, broths or V8 12. The patient's?medical?history has been reviewed and they are considered low risk for post op DVT and therefore DVT prophylaxis is not considered necessary. Travel after surgery was reviewed. The patient has not disclosed any travel plans during the first 30 days after surgery and they have been advised that within the first 30 days after surgery any bus, plane, train or car travel over 2 hours in duration is contraindicated due to the possibility of developing blood clots from immobility. Any travel, needs to include periods of ambulation of 10 minutes in duration every 2 hours.? Patient was instructed to discuss any plans for travel during this period with their bariatric surgeon.? 13. As of tomorrow, please check your blood pressure daily in the morning. If your blood pressure is: Below 120/70: do not take the Amlodipine 121/71 to 135/85: take HALF Amlodipine Over 136/86: take the whole Amlodipine 14. Please take at the day of surgery the following medications: Amlodipine, if the blood pressure that day is high enough to justify it based on the parameters at the previous bullet point. 15. Stop any control pills and don't use them for one month after surgery 16. Absolutely no smoking or vaping, or marijuana until the surgery and for at least the first 4 weeks. Only nicotine patches are allowed. 17. Send me weight measurements on Monday01/27/25 and 02/03/25 and then on Monday02/12/25, the day of surgery before you go to the hospital. 18. Avoid any steroids by mouth for any reason. Let me know if someone prescribes them to you 19. These instructions supersede anything else you read in the handbook, anything you watched in videos or classes or you were told by any other provider. If there is any conflict, you follow the above instructions and nothing else. Orders: Orders TSH reflex Free T4 Today E66.9 - Obesity, unspecified, I10 - Essential (primary) hypertension Prothrombin Time INR Today E66.9 - Obesity, unspecified, I10 - Essential (primary) hypertension Partial Thromboplastin Time Today E66.9 - Obesity, unspecified, I10 - Essential (primary) hypertension Hemoglobin A1c Today E66.9 - Obesity, unspecified, I10 - Essential (primary) hypertension Insulin Today E66.9 - Obesity, unspecified, I10 - Essential (primary) hypertension Lipid Panel Today E66.9 - Obesity, unspecified, I10 - Essential (primary) hypertension Comprehensive Met. Panel Today E66.9 - Obesity, unspecified, I10 - Essential (primary) hypertension C Reactive Protein Today E66.9 - Obesity, unspecified, I10 - Essential (primary) hypertension Complete Blood Count Auto Diff Today E66.9 - Obesity, unspecified, I10 - Essential (primary) hypertension Medications: New ondansetron Only take one every 12 hours as needed if you have nausea 4 mg PO Q12H 20 tabs 0RF nausea and vomiting R11.0 - Nausea polyethylene glycol 3350 (Miralax) Mix each measuring cup with 8oz of water, Crystal light, or Gatorade zero, or Propel and do 7 measuring cups on 02/10/25 and another 7 measuring cups on 02/11/25 17 grams PO DAILY 14 ea 0RF Z01.818 - Encounter for other preprocedural examination pantoprazole 40 mg PO DAILY 90 tabs 0RF K21.00 - Gastro-esophageal reflux disease with esophagitis, without bleeding sucralfate 10 mL PO BID 600 mL 2RF K21.00 - Gastro-esophageal reflux disease with esophagitis, without bleeding
[2025-01-24 09:52] VITALS: BMI 36.7
== END 2025-01-24 10:01 | disposition home or self-care (01) ==
LOC: HO.HBS 08:04
PROVIDERS: PCP Physician Assistant; Visit Provider Surgery
DX: E66.9 Obesity, unspecified (principal)
CPT/HCPCS: 99499

== ENCOUNTER → 2025-01-24 08:04 | Outpatient (BNVA) | payer OTHER, MEDICAID, SELFPAY | PROVIDERS: PCP Physician Assistant; Visit Provider Surgery ==

== ENCOUNTER 2025-02-05 07:40 | Outpatient (REF) | payer OTHER, MEDICAID, SELFPAY ==
[2025-02-05 07:53] LABS: MANUAL DIFF FLAG NO
[2025-02-05 08:13] LABS: Basophils Percent Auto 0.3 % (0-2); Eosinophils Absolute Auto 0.1 X10*3/uL (0.0-0.4); Eosinophils Percent Auto 1.5 % (0-4); Hematocrit 34.6 % (37.0-47.0); Hemoglobin 10.9 g/dl (12.0-16.0); Imm Gran Abs Auto 0.02 X10*3/uL (0.00-0.03); Imm Gran Pct Auto 0.3 % (0.0-0.4); Lymphocytes Absolute Auto 1.6 X10*3/uL (1.2-4.9); Lymphocytes Percent Auto 24.5 % (20-40); Mean Corpuscular HGB Conc 31.5 g/dl (31.0-35.0); Mean Corpuscular Hemoglobin 25.2 pg (27.0-33.0); Mean Corpuscular Volume 80.1 fL (80.0-98.0); Monocytes Absolute Auto 0.4 X10*3/uL (0.1-1.2); Monocytes Percent Auto 5.3 % (2-11); Neutrophils Absolute Auto 4.5 x10*3/uL (2.0-8.3); Neutrophils Percent Auto 68.1 % (45-73); Platelet Count 346 X10*3/uL (160-400); Red Blood Count 4.32 X10*6/uL (4.20-5.50); Red Cell Distribution Width 16.8 % (11.0-16.0); White Blood Count 6.6 X10*3/uL (4.8-10.8)
[2025-02-05 08:17] LABS: Prothrombin Time 11.4 SEC (10.9-12.4)
[2025-02-05 08:20] LABS: Partial Thromboplastin Time 32.4 SEC (26.0-36.8)
[2025-02-05 08:22] LABS: Estimated Average Glucose 114 mg/dL; Hemoglobin A1c % 5.6 % (<6.0)
[2025-02-05 09:06] LABS: Alanine Aminotransferase 9 U/L (0-31); Alkaline Phosphatase 100 U/L (39-117); Anion Gap 10 (12-20); Aspartate Amino Transferase 14 U/L (5-31); Bilirubin Total 0.3 mg/dL (0.0-1.0); Blood Urea Nitrogen 17 mg/dL (9-16); C Reactive Protein 1.86 mg/dL (< or = 0.50); Calcium 8.7 mg/dL (8.4-10.2); Carbon Dioxide 24 mmol/L (22-29); Chloride 110 mmol/L (96-108); Cholesterol 170 mg/dL (<200); Estimated Glomerular Filt Rate > 60; Glucose Fasting 93 mg/dL (60-99); Glucose Random 93 mg/dL (60-115); HDL Cholesterol 55 mg/dL (>40); LDL Cholesterol Calculated 103 mg/dL (<100); Potassium 3.9 mmol/L (3.3-5.1); Sodium 140 mmol/L (135-145); Total Protein 7.4 g/dL (6.5-8.0); Triglycerides 62 mg/dL (<150)
[2025-02-05 09:26] LABS: Insulin 7 uU/mL (2-29); TSH reflex Free T4 0.74 uIU/mL (0.32-4.0)
[2025-02-05 15:30] LABS: Creatinine Urine 214.92 mg/dL; Microalbum/Creatinine Ratio Ur 5.1 ug/mg cr (<30)
== END 2025-02-05 07:41 | disposition home or self-care (01) ==
LOC: HO.LAB 07:40
PROVIDERS: PCP Physician Assistant; Visit Provider Surgery
DX: I10 Essential (primary) hypertension (principal); E66.9 Obesity, unspecified; Z13.1 Encounter for screening for diabetes mellitus
CPT/HCPCS: 36415; 80053; 80061; 82043; 82570; 83036; 83525; 84443; 85025; 85027; 85610; 85730; 86140

== ENCOUNTER 2025-02-12 07:10 | Inpatient (IN) | payer OTHER, MEDICAID, SELFPAY ==
[2025-01-29 12:42] VITALS: BMI 36.7
[2025-02-12] VITALS (13 sets, daily range): BP systolic 113–145; BP diastolic 75–93; PULSE 70–89; RESP 14–18; TEMP 36.2–37; O2SAT 97–100; BMI 35.5
[2025-02-12 06:34] LABS: UPreg QC Valid YES; Urine Pregnancy NEGATIVE (NEGATIVE)
[2025-02-12] MEDS: Aprepitant 32 MG/4.4 ML VIAL IVPUSH (06:46)
[2025-02-12] MEDS: Lactated Ringers 1,000 ML 999 ML IV (06:48)
[2025-02-12] MEDS: Lactated Ringers 1,000 ML 80 ML IVCONT (06:51)
--- NOTE | 2025-02-12 06:55 | P.CONAN_ITS ---
[facility] Active Problems Active Problems: All Active Problems Pre-op evaluation (Acute) Class 2 obesity (Acute) H. pylori infection (Acute) Vitamin B1 deficiency (Acute) Vitamin A deficiency (Acute) BMI 39.0-39.9,adult (Acute) Hand pain, left (Acute) Right hand pain (Acute) Polyarthralgia (Acute) Acute allergic reaction (Acute) Mild obstructive sleep apnea (Acute) Labile blood pressure (Acute) HTN (hypertension) (Acute) Screening for diabetes mellitus (DM) (Acute) Vitamin D deficiency (Acute) Irritable bowel syndrome (Acute) NAFLD (nonalcoholic fatty liver disease) (Acute) Non-restorative sleep (Acute) MDD (major depressive disorder), recurrent episode, moderate (Acute) Obese (Acute) DANIELA (generalized anxiety disorder) (Acute) Melasma (Acute) Epigastric abdominal pain (Acute) Helicobacter pylori gastritis (Acute) Esophagitis determined by endoscopy (Acute) Hiatal hernia (Acute) Alternating constipation and diarrhea (Acute) Anxiety and depression (Acute) Well woman exam (Acute) Dry cough (Acute) Fatigue (Acute) Palpitations (Acute) History of COVID-19 (Acute) Corneal abrasion of right eye due to contact lens (Acute) Hot flashes (Acute) Headache (Acute) Annual physical exam (Acute) Hypersomnia (Acute) Nocturnal hypoxia (Acute) History of abnormal cervical Pap smear (Acute) History of surgery (Acute) GERD (gastroesophageal reflux disease) (Acute) Obesity (BMI 30-39.9) (Acute) Past Medical History Medical History (Updated 02/06/25 @ 09:03 by ELVIA Chandler) Anemia History of vitamin D deficiency NAFLD (nonalcoholic fatty liver disease) IBS (irritable bowel syndrome) Sleep apnea HTN (hypertension) Hypersomnia Nocturnal hypoxia Hiatal hernia GERD (gastroesophageal reflux disease) History of COVID-19 Anxiety and depression History of abnormal cervical Pap smear Obesity (BMI 30-39.9) Family History Family History Father Diabetes Mother Hypertension Sister Cervical cancer Paternal Grandmother Uterine cancer Daughter Lymphatic malformation Family history of problems with anesthesia: No Surgical History Surgical History History of laparoscopic appendectomy (01/13/25) H/O endoscopy Hx of colonoscopy History of esophagogastroduodenoscopy (EGD) History of surgery History of Problems with Anesthesia: No Social History Social History Household Members: Family Housing: House Are you a primary career developer to a significant other at home: No Do you presently have visiting nurse or other home services: No Alcohol intake: current Alcohol intake frequency: does not drink Patient Tobacco Use Status: Never used Tobacco Tobacco use type: Cigarette e-Cigarette/Vaping Use: Never Used Second Hand Smoke Exposure: Yes service: No Current occupational status: employed 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: No Gender identity: Female Cognitive needs: No Hearing needs: No Vision needs: Yes (Glasses) Meds Allergies Allergy/AdvReac Type Severity Reaction Status Date / Time Seasonal Allergies Allergy Intermediate Itchy Eyes Verified 02/12/25 06:09 hydrochlorothiazide AdvReac Intermediate Dizziness Verified 02/12/25 06:09 Active Medications: Current Medications Lactated Ringer's (Lr) 1,000 mls @ 999 mls/hr IV .Q1H1M [facility] Stop: 02/12/25 08:15 Last Admin: 02/12/25 06:48 Dose: 999 mls/hr Lactated Ringer's (Lr) 1,000 mls @ 80 mls/hr IVCONT .[id number] [facility] Last Admin: 02/12/25 06:51 Dose: 80 mls/hr Acetaminophen (Ofirmev) 1,000 mg in 100 mls @ 400 mls/hr IV PREOP ONE Stop: 02/12/25 07:07 Home Medications ?Medication ?Instructions ?Recorded ?Confirmed ?Last Taken ?Type ondansetron 4 mg disintegrating 4 mg PO Q12H PRN nausea and 02/12/25 02/12/25 Unknown History tablet vomiting Exam Height,Weight and Vital Signs: Height 5 ft 2.5 in Weight 89.6 kg Last Vital Signs Temp 97.2 F 02/12/25 06:36 Pulse 75 02/12/25 06:36 Resp 16 02/12/25 06:36 BP 134/84 02/12/25 06:36 Pulse Ox 97 02/12/25 06:36 O2 Del Method Room Air 02/12/25 06:36 Pertinent Lab Results Pertinent Lab Results: Laboratory Tests 02/06/25 02/12/25 16:15 06:14 Urine Test NEGATIVE Blood Type O Positive Antibody Screen NEGATIVE Airway Mallampati Class: II TM Dist: >3cm Neck ROM: Full Assessment and Plan Assessment Anesthesia Assessment: Anesthesia Plan Discussed and Chart Reviewed Final Anesthetic Review Family History of Problems with Anesthesia: No History of Problems with Anesthesia: No NPO: Yes ASA Class: III Final Preanesthetic Review: No Changes in Pt Med Stat, Meds/Allgs Chart Reviewed, Consent Obtained/Reviewed and Anes Risks/Benef Reviewed Patient Risk: Intermediate Procedure Risk: Intermediate Anesthetic Plan Anesthetic Plan: GA Disposition: Standard PACU
--- NOTE | 2025-02-12 07:22 | MHC.SHP ---
Pre-Procedural Eval Section A - 24 Hr Update-Section A only Date of Service: 02/12/25 The patient is an INPATIENT: Yes The patient has been examined within 24 hours of the surgical procedure. The History & Physical has been completed within 30 days and I have reviewed it.: Yes Section B - Complete if H&P > 30 days Chief Complaint: Obesity Relevant Family History (Specify if Yes): No Relevant Social History: None Present Medications: None Medical History: No relevant PMH History of Previous Operations: No relevant previous surgery Allergies: Allergies Allergy/AdvReac Type Severity Reaction Status Date / Time Seasonal Allergies Allergy Intermediate Itchy Eyes Verified 02/12/25 06:09 hydrochlorothiazide AdvReac Intermediate Dizziness Verified 02/12/25 06:09 Review of Systems Sugical H&P ROS: Negative: Constitution, Cardiovascular, Respiratory, Neurological, Psychiatric, Hem-Onc, Allergic/Immunologic, Gastrointestinal, Genitourinary, Musculoskeletal, Integumentary, Endocrine and Eyes/Ears/Nose/Throat Exam Surgical H&P Exam: Normal: HEENT, Normal: Heart, Normal: Lungs, Normal: Extremities, Normal: Abdomen, Normal: Skin and Normal: Neurological Plan Diagnosis/Plan: Unchanged I have reviewed the history and physical and performed a pertinent physical examination on my patient. No changes have occurred unless specified. Time Spent With Patient Time: Total time managing care of this patient today ____ minutes.
--- NOTE | 2025-02-12 07:23 | PM.OP ---
Brief Operative Note Date of Service: 02/12/25 Pre-op diagnosis: Severe obesity with comorbidities (see below) Post-op diagnosis: same (congenital abdominal adhesions and large diaphragmatic hernia) Procedure: INITIAL PATIENT BMI ON PRESENTATION AT OUR OFFICE: 39.2 kg/m2 LAST BMI BEFORE SURGERY: 35.7 kg/m2 COMORBIDITIES: diaphragmatic hernia, GERD, hypertension, depression, anxiety, DJD ?The patient presented to the Weight Management Program with significant obesity that was negatively impacting the patient's comorbidities as listed above.? The program is a phased program with a special focus on preoperative medical weight management to promote substantial weight loss and prepare the patients for the second phase of the program: bariatric surgery. The patient participated in an intensive weekly lifestyle ?intervention and exercise program during which the patient ?has lost between the initial office visit and the last preoperative visit 20lbs, or 9.17% of initial actual body weight. It was deemed appropriate for the patient to now have bariatric surgery. In light of the current Covid-19 pandemic and the well documented strong association of obesity and increased risk of worse outcomes if infected with Covid-19 (REFERENCES:https://pubmed.ncbi.nlm.nih.gov/95122043/,?https://pubmed.ncbi.nlm.nih.gov/77524230/), any delay in undergoing bariatric surgery may lead to the patient's worsening health condition and increased?risk of more severe Covid-19 disease if infected. In addition a recent?study from [facility] published in [facility] on 11/15/2021 ([email or web address]:/[id number]) found that, among patients with obesity, substantial weight loss achieved with surgery was associated with improved outcomes of COVID-19 infection. The findings suggest that obesity can be a modifiable risk factor for the severity of COVID-19 infection. In addition, the patient met the BMI-criteria for bariatric surgery based on the BMI on initial presentation. The patient should not be penalized for achieving such weight loss because ?it is not sustainable long-term without surgical intervention and it was achieved in preparation for bariatric surgery ?under my direction and based on my published research ([email or web address]).pdf and?[email or web address].soard.org/article/[email or web address])[email or web address]-X/pdf) ?that a 10% preoperative weight loss improves long-term weight loss after surgery and reduces perioperative complications.? Insurance carriers such as [facility] have endorsed my recommendations ?and have included in their policies criteria to include a 10% preoperative weight loss requirement. PROCEDURE: Esophago-gastroscopy, laparoscopic repair of incarcerated diaphragmatic hernia, laparoscopic lysis of adhesions, laparoscopic sleeve gastrectomy and laparoscopic gastropexy INDICATIONS: This is a 39 year-old female who was electively scheduled for laparoscopic, possibly open sleeve gastrectomy. The risks and complications of the procedure were discussed with the patient in advance, particularly the possibility of ; pulmonary embolism; staple line leak; bleeding; GERD; cardiac, pulmonary, or renal complications; as well as long-term problems such as insufficient weight loss, vitamin deficiency, strictures, or ulcers. The patient understood all the risks, and was in agreement to proceed with surgery. DESCRIPTION OF PROCEDURE: After informed consent was obtained from the patient, the patient was given preoperative antibiotics, and was transferred to the operating room. After successful induction of general anesthesia, pneumatic compression devices were placed on both lower extremities. An upper endoscopy was performed next. The oropharynx and esophagus appeared to be within normal limits. There was a large diaphragmatic hernia present of moderate size consistent with the findings of the preoperative upper GI and endoscopy. The stomach was entered. Then after all fluid and air were suctioned and the stomach was fully decompressed, the scope was withdrawn and secured in the mid esophagus. The patient was then prepped and draped in the usual sterile manner, and abdominal access was established at the right upper quadrant with the Fei technique. A 12 mm blunt port was inserted, and the abdomen was insufflated with CO2 to a pressure of 15 mmHg. Under direct visualization, additional ports were placed, specifically two 5 mm Versi-step ports to the left upper quadrant, and a 5 mm Versi-Step port to the right upper quadrant. 1% lidocaine plain was used to infiltrate all port sites as well as all fascia defects. Using the EndoClose suture passer device, I placed a #1 Polysorb tie across the falciform ligament in order to retract it up against the abdominal wall and prevent injury of the ligament with our instruments during the procedure. Following that, the patient was placed in a steep reverse Trendelenburg position. An additional 5 mm port was placed to the right flank for the Mediflex retractor that was used to retract the left lobe of the liver. The gastro-esophageal fat pad was opened with the ultrasonic device (Thunderbeat, Olympus) and the anterior esophagus and hiatus were exposed. The angle of His was opened with the ultrasonic device the fundus of the stomach from any diaphragmatic and splenic attachments. I then opened the gastrocolic ligament between the transverse colon and the greater curvature of the stomach with the ultrasonic device to enter the lesser sac and facilitate the ligation of the short gastric vessels. I started at a mid-point along the greater curvature and using the Thunderbeat, all short gastric vessels were divided all the way to the angle of His until the left graham was completely dissected at its entirety. I then divided the gastro-colic ligament distally to a distance of about 3-4 cm proximal to the pylorus. There were extensive congenital adhesions between the pancreas and posterior gastric wall. Those were lysed completely with the ultrasonic device. Adhesiolysis took approximately 45 min to complete. There was an obvious significant-sized hiatal hernia. I continued dissecting along the hiatus toward the left graham and the angle of His. I fully mobilized the fat pad that was incarcerated in the hernia. I then continued by dissecting even further into the posterior retro-esophageal space all the way to the angle of His. I continued to mobilize the esophagus into the mediastinum circumferentially. Both vagal nerves were seen and preserved. At that point, I was able to have at least 3 to 5 cm of esophagus into the abdomen.? After I completely mobilized the esophagus from both the left and right grhaam and I had a good mobilization of the esophagus circumferentially, I closed the hernia defect with four interrupted #0 Surgidac sutures using the Endo Stitch device, three of which was placed posterior and one of which anterior to the esophagus. ? The stomach was then divided transversely with two Endo SALAZAR-45 purple and four SALAZAR-60 articulating purple loads using the [employer] stapler and loads. Every effort was made that the gastric sleeve had a tubular shape and an even caliber throughout. Once the sleeve resection was completed, the staple line of the gastric sleeve was reinforced with Hemoclips. The resected stomach was retrieved without difficulty from the Fei port. A gastropexy was then performed in order to prevent postoperative GERD and partial gastric volvulus. Several interrupted 2.0 Surgidac sutures were placed between the sleeve's staple line and the previously divided greater omentum and gastro-colic ligament using the Endo-Stitch device. ?An upper endoscopy was performed. There was no narrowing at the GE junction. The scope was easily advanced all the way to the pylorus which was clearly visualized. There was no narrowing anywhere and the sleeve's caliber was even throughout. The sleeve's staple line was inspected and there was no evidence of ischemia, bleeding or dehiscence. At that point the gastroscope was withdrawn from the patient?s mouth while we were decompressing the bowel and the stomach from any remaining air. I looked into the lesser sac to see how the sleeve was situating and it was situating well. There was no bleeding from the staple line, spleen, or short gastric vessels. The Mediflex retractor was removed, and the undersurface of the liver was inspected and there was no bleeding. The patient was placed in supine position. I closed the fascial defect of the 12 mm port site with a figure of eight #1 Polysorb suture. Then 30cc Ropivacaine plain with 10 mg of Dexamethasone were used to infiltrate the fascial closure as well as all skin incisions. At this point, the abdomen was deflated, all ports were removed under direct vision, and no bleeding was noted from any of the port sites. The skin incisions were irrigated with saline and were closed with 4-0 absorbable monofilament sutures. Steri-Strips and OpSites were used to cover all incisions. The patient was extubated and was transferred in stable condition to the recovery room for further care. I was present and performed all felipe parts of the procedure. Mr. Lake was the assistant import manager. There were no residents to assist with this case. Lito Fernandez MD, PhD, FACS Surgeon: Rogelio Fernandez MD Anesthesia: GETA, local and other (TAP block) Was an Jde Developer used for this Procedure?: No Jde Developer: [place] Estimated blood loss (mL): 10 IV fluids (mL): 2,600 Urine output (mL): 0 (No Lozano to record output) Pathology: other (1) Stomach, 2) Gastro-esophageal fat pad) Condition: stable Disposition: PACU
[2025-02-12] MEDS: ceFAZolin Sodium/Dextrose,Iso 2 GM/50 ML PIGGYBACK IV ×2 (07:24→13:07)
--- NOTE | 2025-02-12 07:26 | P.PNGS_ITS ---
Subjective Subjective Date of Service: 02/13/25 Interval history: Feels well. Mild incisional pain. She is tolerating phase 1 bariatric diet Physical Exam 2 Vital Signs: Vital Signs: Last Vital Signs Temp 97.2 F 02/12/25 06:36 Pulse 75 02/12/25 06:36 Resp 16 02/12/25 06:36 BP 134/84 02/12/25 06:36 Pulse Ox 97 02/12/25 06:36 O2 Del Method Room Air 02/12/25 06:36 BMI result Body Mass Index 35.5 GI: Inspection: Yes normal to inspection, Yes incision (clean, dry and intact) and Yes obesity Palpation (GI): Soft to palpation Extrem: Right lower extremity: normal to inspection (no calf tenderness) L eft lower extremity: normal to inspection (no calf tenderness) Objective Data Active Medications Fentanyl (Fentanyl Citrate/Pf 100 Mcg/2 Ml Vial) 50 mcg IVPUSH Q5M PRN PRN Reason: Pain, Moderate to Severe (Pain Scale 4-10) Stop: 02/12/25 12:54 Lactated Ringer's (Lr) 1,000 mls @ 999 mls/hr IV .Q1H1M FOR[facility]LY [facility], 1928–1983 Stop: 02/12/25 08:15 Last Admin: 02/12/25 06:48 Dose: 999 mls/hr Documented By: ADRIAN Lactated Ringer's (Lr) 1,000 mls @ 80 mls/hr IVCONT .[id number] [facility]LY [facility], [facility]1983 Last Admin: 02/12/25 06:51 Dose: 80 mls/hr Documented By: ADRIAN Naloxone HCl (Naloxone Hcl 0.4 Mg/Ml Vial) 0.04 mg IVPUSH Q5M PRN PRN Reason: Excessive sedation or RR < 8 Ondansetron HCl (Ondansetron Hcl 4 Mg/2 Ml Vial) 4 mg IVPUSH ONCE PRN PRN Reason: Nausea and Vomiting Stop: 02/12/25 12:54 Labs 02/13/25 06:23 02/13/25 06:23 Labs: Laboratory Results - last 24 hr 02/12/25 06:14 Urine Test NEGATIVE Procedures Date of Service Date of Service: 02/13/25 Progress Note: A&P Assessment and plan (1) Obese: Status: Acute Assessment and Plan: s/p laparoscopic sleeve gastrectomy, lysis of adhesions, diaphragmatic hernia repair and gastropexy Doing well Will check am labs and if OK the patient will be discharged home (2) BMI 35.0-35.9,adult: Status: Acute (3) HTN (hypertension): Status: Acute (4) Anxiety and depression: Status: Acute (5) DJD (degenerative joint disease): Status: Acute (6) GERD (gastroesophageal reflux disease): Status: Acute (7) Hiatal hernia: Status: Acute (8) Sleep apnea: Status: Acute (9) S/P laparoscopic sleeve gastrectomy: Status: Acute (10) S/P repair of paraesophageal hernia: Status: Acute (11) Congenital intra-abdominal adhesions: Status: Acute Time Spent With Patient Time: Total time managing care of this patient today ____ minutes. Quality Stroke Does the patient have a stroke diagnosis?: No VTE Prior VTE?: No VTE Risk Level:: Surgical - moderate VTE Device Contraindication: N/A - Device Ordered VTE Drug Contraindication: N/A - Med Ordered
[2025-02-12] MEDS: Acetaminophen 1,000 MG/100 ML PIGGYBACK 400 MG IV (09:20)
--- NOTE | 2025-02-12 10:32 | PM.DS ---
DS: Providers Provider Date of Service: 02/13/25 Date of admission: 02/12/25 07:10 Date of discharge: 02/13/25 Primary care physician: Shantanu Costello PA-C DS: Diagnosis Discharge Diagnosis (1) Obese: Status: Acute (2) BMI 35.0-35.9,adult: Status: Acute (3) HTN (hypertension): Status: Acute (4) Anxiety and depression: Status: Acute (5) DJD (degenerative joint disease): Status: Acute (6) GERD (gastroesophageal reflux disease): Status: Acute (7) Hiatal hernia: Status: Acute (8) Sleep apnea: Status: Acute (9) S/P laparoscopic sleeve gastrectomy: Status: Acute (10) S/P repair of paraesophageal hernia: Status: Acute (11) Congenital intra-abdominal adhesions: Status: Acute DS: Summary Hospital Course Hospital Course: ADMITTING DIAGNOSIS: obesity, htn, gerd ? DISCHARGE DIAGNOSIS: same, s/p laparoscopic sleeve gastrectomy and repair diaphragmatic hernia ? PAST SURGICAL HISTORY: laparoscopic appendectomy ? PROCEDURE: upper endoscopy, laparoscopic sleeve gastrectomy and repair of diaphragmatic hernia ? DISCHARGE SUMMARY: ? History of Present Illness: ? The patient is a?39 year-old woman with a BMI of?39 kg/m2 and associated co-morbidities as described above. The patient had extensive work-up,lost?19.7 lbs preoperatively and was electively scheduled for laparoscopic, possible open sleeve gastrectomy and gastropexy. Risks and complications of the surgery were discussed with the patient in advance, particularly the possibility of , pulmonary embolism, anastomotic leak, bleeding, bowel injury, GERD, cardiac, renal or pulmonary complications. The patient understood all the risks and was in agreement with the surgical plan. ? Hospital Course: ? The patient underwent an uneventful laparoscopic sleeve gastrectomy with gastropexy and repair of diaphragmatic hernia on the day of admission. Postoperatively, the patient was transferred to the surgical floor. The patient received IV Acetaminophen and IV dilaudid for pain control. Patient was started on bariatric phase 1 diet POD #0. On postoperative day one, the patient was feeling well without nausea, vomiting, fevers, or tachycardia. The patient had some mild incisional pain and the abdomen was soft. ? On the morning of postoperative day one, the patient was continued on 1 ounce of water or ice every half hour. During the day, the patient did fairly well, having some incisional pain, but able to ambulate adequately and to tolerate liquids well. ? Since the patient is doing well, we decided that the patient was ready to be discharged. The patient was given instructions to follow-up with me next week and to call my office for any fever over 101, persistent abdominal pain, nausea, vomiting, GERD, symptoms of DVT such as calf tenderness, or leg swelling, or pulmonary embolism such as chest pain or shortness of breath. The patient was also instructed to drink 40-60 ounces of liquids per day using the 1-ounce cups. The patient had been given prescriptions for Tylenol for pain, Zofran prn for nausea, and pantoprazole and carafate previously. The patient was encouraged to ambulate and use the incentive spirometer. The patient was allowed to shower, but no baths, and encouraged to stay active at home. All of these instructions were given to the patient personally. All questions were answered and the patient understood all instructions, the instructions were also given to the patient in print. Time Attestation Total time managing care of this patient today: 25 mintues. Discharge Coordination Time (in mins): 25 Quality: Safe Use of Opioids Does Pt have an Active Cancer Diagnosis on the Problem List?: No Quality: Stroke Does the patient have a stroke diagnosis?: No Physical Exam Vital Signs: Vital Signs: Last Vital Signs Temp 98.2 F 02/12/25 10:24 Pulse 84 02/12/25 10:24 Resp 15 02/12/25 10:24 BP 145/90 H 02/12/25 10:24 Pulse Ox 99 02/12/25 10:24 O2 Del Method Nasal Cannula 02/12/25 10:24 O2 Flow Rate 3 02/12/25 10:24 BMI result Body Mass Index 35.5 DS: Data Data Completed and Pending Completed studies during hospitalization [Text1]: Procedures Resection of Appendix, Percutaneous Endoscopic Approach (01/13/25) Pending studies at discharge: Pending at discharge 02/12/25 09:37 Surgical [PTH] Routine Labs on day of discharge: Laboratory Results - last 24 hr 02/12/25 06:14 Urine Test NEGATIVE Discharge Plan Discharge Anticipated Discharge Date/Time: 02/13/25 10:00 Patient Disposition: Home, Self-Care Discharge Diagnosis: s/p laparoscopic sleeve gastrectomy and hiatal hernia repair Referrals: Shantanu Costello PA-C [Primary Care Provider] - 1 Week Discharge Medications: Continued ferrous sulfate 325 mg (65 mg iron) tablet 325 mg PO BID 30 Days Qty: 60 3RF sertraline [Zoloft] 50 mg tablet 50 mg PO DAILY 90 Days Qty: 90 1RF docusate sodium [Colace] 100 mg capsule 100 mg PO DAILY PRN (Reason: constipation) 30 Days Qty: 30 0RF cholecalciferol (vitamin D3) 125 mcg (5,000 unit) capsule 125 mcg PO DAILY Qty: 90 0RF Held amlodipine 2.5 mg tablet 2.5 mg PO DAILY 30 Days Qty: 30 1RF Hold Instructions: Resume on 02/14/25. Check your blood pressure every morning as soon as you wake up and send it to Dr. Fernandez. Do no take the blood pressure medication if the blood pressure is below 120/70. Wait every day to hear back from Dr. Fernandez before you take the medication. Discontinued vitamin A palmitate 3,000 mcg (10,000 unit) capsule 10,000 unit PO DAILY Qty: 90 0RF thiamine HCl (vitamin B1) 100 mg tablet 100 mg PO DAILY Qty: 90 0RF biotin 1,000 mcg Tablet,Chewable 1,000 mcg PO DAILY Discharge Orders: Discharge Order (Routine); Ordered 02/13/25 Ordered By: Rogelio Fernandez Activity on Discharge: No heavy lifting Stand Alone Forms: Patient Portal Discharge page Print Language: Lao Care Plan Goals: weight loss Health Concerns: obesity Plan of Treatment: No tub baths, sex or returning to work until discussed at first post op appointment. No exercise, alcohol, tobacco or illegal drug use. Continue to use incentive spirometer hourly while awake. Walk in home for 5- 10 minutes every 2 hours during the first week. Follow all instructions in the bariatric handbook and call with any questions.Discharge Instructions 1. Please call your doctor or come back to the emergency room should any new symptoms arise. 2. You will receive a courtesy call from [facility] 24-48 hours after discharge. 3. Activity: abstain from alcohol, practice limited stair climbing, no bending, no driving, no exercise, no illicit substances, no lifting, no sex, no tub bath, no work. 4. Diet: continue as discussed with Dr. Fernandez. 5. Dressing Change/Wound Care: Your incision is covered by clear bandages and guaze underneath. If the area is tender, you may apply an ice pack for short intervals (no more than 20 minutes on, followed by at least 20 minutes off). Do not apply heat. Do not use creams, lotions, or topical antibiotics unless instructed to do so by your surgeon. These can cause infection or allergic reaction. 6. Call your doctor if: - Your temperature exceeds 101.5 F - You experience excessive pain or swelling - You have an unexpected reaction to medication - You have excessive bleeding - You experience continued vomiting/nausea - Your incision begins to separate - Your incision shows signs of infection such as increased redness, swelling, excessive pain, heat, or drainage (light blood or clear fluid is normal) 7. General instructions: No lifting greater than 5 lbs for 1 week and not more than 20lbs the next 3?weeks. No driving until seen at the office in 5-7 days after surgery. If you do not move your bowels in the next 2 days, please tell?Dr. Fernandez. Please walk around your home every hour or two to prevent blood clots from forming in your legs. You do not need to wake from sleeping to walk. Please sleep in a bed or couch to prevent kinking at the hips and knees. Please take your incentive spirometer (your lung gas check pad maker) home with you and use it for the next few days to prevent pneumonia. You may shower, no hot tubs, baths or swimming pools.?Please follow the post op diet instructions you are?given by Dr Fernandez? and text me daily at 5-6pm for an update.?If you have any issues or concerns or questions please communicate this to him via text.? The Celebrate shakes have all of the bariatric vitamins you need if you consume these shakes. If you are drinking other protein shakes, you will need to purchase the Celebrate multivitamins and calcium that are available in the hospital gift shop on the first floor of the main hospital.??Do not take anything without first discussing with Dr Fernandez. Please make sure you are consuming at least 40 ounces of fluids per day starting the?day AFTER your discharge from the hospital. Always drink 1-2 ml per minute using the 5ml?syringe. If you drink faster you may experience?bloating,?gas pain, burping, nausea or heartburn. In that case please slow down your pace and use the syringe to?understand better the?proper?pace and volume of drinking. Do not hesitate to contact the office with any questions at . The patient's medical history has been reviewed and they are considered low risk for post op DVT and therefore DVT prophylaxis is not considered necessary. Travel after surgery was reviewed. The patient has not disclosed any travel plans during the first 30 days after surgery and they have been advised that within the first 30 days after surgery any bus, plane, train or car travel over 2 hours in duration is contraindicated due to the possibility of developing blood clots from immobility. Any travel, needs to include periods of ambulation of 10 minutes in duration every 2 hours.? The patient was instructed to discuss any plans for travel during this period with their bariatric surgeon. Assessment: stable s/p laparoscopic sleeve gastrectomy and hiatal hernia repair Discharge Date/Time: 02/13/25 09:00
[2025-02-12] MEDS: fentaNYL citrate/PF 100 MCG/2 ML VIAL 50 MCG IVPUSH (10:45)
[2025-02-12 11:57] LABS: Hematocrit 38.5 % (37.0-47.0); Hemoglobin 11.3 g/dl (12.0-16.0)
[2025-02-12 12:12] LABS: Anion Gap 16 (12-20); Blood Urea Nitrogen 10 mg/dL (9-16); Calcium 8.4 mg/dL (8.4-10.2); Carbon Dioxide 16 mmol/L (22-29); Chloride 110 mmol/L (96-108); Creatinine Clr Calc Pharmacy 119.6; Estimated Glomerular Filt Rate > 60; Glucose Random 118 mg/dL (60-115); Sodium 138 mmol/L (135-145)
[2025-02-12] MEDS: Lactated Ringers 1,000 ML 100 ML IVCONT ×2 (14:25→23:35)
[2025-02-12] MEDS: Acetaminophen 1,000 MG/100 ML PIGGYBACK 16.7 MG IV ×2 (14:40→20:13)
--- NOTE | 2025-02-12 15:35 | PHA.MEDREC ---
Addendum entered by Killian Mancini [facility] 02/12/25 15:45: med rec reviewed Original Note: Pharmacy Consult ? Medication Reconciliation Pharmacy has completed the medication reconciliation. Spoke with patient and she confirmed her medications. Patient confirmed she is still taking Amlodipine 2.5mg tabs once a day and states she fills them here at [facility] and takes them consistently, I called [facility] and they have not filled that medication again for that patient. She confirmed she received Ondansetron, Pantoprazole, and Sucralfate to start when she gets home from [facility] surgery. She confirmed she took her Amlodipine this morning, the iron tablet she took last 2 days ago and everything else was taken yesterday.
[2025-02-12] MEDS: hydrOXYzine HCL 25 MG TABLET PO (20:13)
[2025-02-12] MEDS: ondansetron HCL 4 MG/2 ML VIAL IVPUSH (20:48)
[2025-02-12] MEDS: HYDROmorphone HCl 0.5 MG/0.5 ML SYRINGE 0.25 MG IVPUSH (21:35)
[2025-02-12] MEDS: 0.9 % Sodium Chloride Flush 3 ML SYRINGE IVFLUSH (21:36)
[2025-02-13] MEDS: Acetaminophen 1,000 MG/100 ML PIGGYBACK 16.7 MG IV (02:12)
[2025-02-13 03:33] VITALS: BP 124/77; PULSE 68; RESP 18; TEMP 36.6; O2SAT 96
[2025-02-13] MEDS: Pantoprazole Sodium 40 MG/10 ML VIAL IVPUSH (05:45)
[2025-02-13 06:29] LABS: MANUAL DIFF FLAG NO
[2025-02-13 06:35] LABS: Basophils Percent Auto 0.1 % (0-2); Hematocrit 35.1 % (37.0-47.0); Imm Gran Abs Auto 0.05 X10*3/uL (0.00-0.03); Imm Gran Pct Auto 0.4 % (0.0-0.4); Lymphocytes Percent Auto 9.1 % (20-40); Mean Corpuscular HGB Conc 31.3 g/dl (31.0-35.0); Mean Corpuscular Hemoglobin 24.7 pg (27.0-33.0); Mean Corpuscular Volume 78.9 fL (80.0-98.0); Mean Platelet Volume 10.4 fL (9.4-12.3); Monocytes Absolute Auto 0.5 X10*3/uL (0.1-1.2); Monocytes Percent Auto 4.7 % (2-11); Neutrophils Absolute Auto 9.6 x10*3/uL (2.0-8.3); Neutrophils Percent Auto 85.7 % (45-73); Platelet Count 321 X10*3/uL (160-400); Red Blood Count 4.45 X10*6/uL (4.20-5.50); Red Cell Distribution Width 16.5 % (11.0-16.0); White Blood Count 11.2 X10*3/uL (4.8-10.8)
[2025-02-13 06:45] LABS: Anion Gap 16 (12-20); Blood Urea Nitrogen 7 mg/dL (9-16); Calcium 9.1 mg/dL (8.4-10.2); Carbon Dioxide 15 mmol/L (22-29); Chloride 110 mmol/L (96-108); Creatinine Clr Calc Pharmacy 109.7; Estimated Glomerular Filt Rate > 60; Glucose Random 102 mg/dL (60-115); Potassium 4.5 mmol/L (3.3-5.1); Sodium 136 mmol/L (135-145)
[2025-02-13 07:42] VITALS: BP 148/87; PULSE 78; RESP 16; TEMP 36.4; O2SAT 99
[2025-02-13] MEDS: amLODIPine Besylate 2.5 MG TABLET PO (07:58)
[2025-02-13] MEDS: Sertraline HCL 50 MG TABLET PO (07:58)
--- NOTE | 2025-02-13 08:02 | HO.POSTANES ---
Post Anesthesia Evaluation Post Anesthesia Evaluation Date of Service: 02/13/25 Vital Signs: Vital Signs Temp Pulse Resp BP Pulse Ox O2 Del Method 02/13/25 07:42 97.5 F 78 16 148/87 H 99 Room Air 02/13/25 03:33 97.9 F 68 18 124/77 96 Room Air 02/12/25 23:11 98.1 F 71 18 113/81 97 Room Air Anesthesia: General Endotracheal-GETA Mental Status: Awake Pain Control: Satisfactory Nausea/Vomiting: None Hydration: Adequate Anesthesia-Related Issues: No Anes. Related Issues
--- NOTE | 2025-02-13 09:04 | MHC.CM.PN ---
DP: PT READY TO DC HOME, FAMILY TO TRANSPORT.
== END 2025-02-13 09:00 | disposition home or self-care (01) | DRG 403 ==
LOC: HO.SSSA 10:38 → HO.S3 14:29
PROVIDERS: Anesthesiology; Physician Assistant Surgical; Admitting Provider Surgery; PCP Physician Assistant; Visit Provider Surgery
PROC: 0DB64Z3 Excision of Stomach, Percutaneous Endoscopic Approach, Vertical (ICD-10-PCS; CPT 43845; principal; 2025-02-12 07:30)
DX: E66.01 Morbid (severe) obesity due to excess calories (principal); K44.0 Diaphragmatic hernia with obstruction, without gangrene; F32.A Depression, unspecified; I10 Essential (primary) hypertension; K21.9 Gastro-esophageal reflux disease without esophagitis; F41.9 Anxiety disorder, unspecified; M19.90 Unspecified osteoarthritis, unspecified site; Z68.35 Body mass index [BMI] 35.0-35.9, adult; Z79.899 Other long term (current) drug therapy; Q43.3 Congenital malformations of intestinal fixation
CPT/HCPCS: 36415; 80048; 81025; 85014; 85018; 85025; 86850; 86900; 86901; 88304; 88305; 88307; 88342; A4649; C9145; J0131; J0690; J1100; J1171; J2003; J2250; J2405; J2470; J2704; J2795; J3010; J7120

== ENCOUNTER → 2025-02-12 07:10 | Outpatient (BNV) | payer OTHER, MEDICAID, SELFPAY | PROVIDERS: Admitting Provider Surgery; PCP Physician Assistant; Visit Provider Surgery | DX: E66.09 Other obesity due to excess calories (principal); Z68.38 Body mass index [BMI] 38.0-38.9, adult; Z68.35 Body mass index [BMI] 35.0-35.9, adult; I10 Essential (primary) hypertension; F41.9 Anxiety disorder, unspecified; F32.A Depression, unspecified; M19.90 Unspecified osteoarthritis, unspecified site; K21.00 Gastro-esophageal reflux disease with esophagitis, without bleeding; K44.9 Diaphragmatic hernia without obstruction or gangrene; G47.30 Sleep apnea, unspecified; Z98.84 Bariatric surgery status; Z98.890 Other specified postprocedural states; Z87.19 Personal history of other diseases of the digestive system; Q43.3 Congenital malformations of intestinal fixation | CPT/HCPCS: 43659; 43775; 99024; 99499 ==

== ENCOUNTER 2025-02-20 08:22 | Outpatient (AMB) | payer OTHER, MEDICAID, SELFPAY ==
[2025-02-20 08:27] VITALS: BP 153/89; PULSE 88; O2SAT 98; BMI 33.5
--- NOTE | 2025-02-20 08:27 | A.OFFVIS_ITS ---
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 She is 8 days post sleeve gastrectomy performed on 02/12/2025. She did have postop diarrhea. Once the sucralfate and pantoprazole were stopped, diarrhea resolved. She is tolerating 3 Premier protein ready to drink shakes, 4 oz mixed with 4 oz of almond milk. Tolerating a proximally 50 oz of fluids daily. No complaints of pain. [facility] Medical History Pre-op evaluation Class 2 obesity H. pylori infection BMI 39.0-39.9,adult Hand pain, left Right hand pain Polyarthralgia Acute allergic reaction Screening for diabetes mellitus (DM) Melasma Epigastric abdominal pain Esophagitis determined by endoscopy Well woman exam Dry cough Palpitations History of COVID-19 Corneal abrasion of right eye due to contact lens Hot flashes Headache Annual physical exam DJD (degenerative joint disease) Anemia History of vitamin D deficiency NAFLD (nonalcoholic fatty liver disease) IBS (irritable bowel syndrome) Sleep apnea HTN (hypertension) Hypersomnia Nocturnal hypoxia Hiatal hernia GERD (gastroesophageal reflux disease) History of COVID-19 Anxiety and depression History of abnormal cervical Pap smear Obesity (BMI 30-39.9) Surgical History History of laparoscopic appendectomy (01/13/25) H/O endoscopy Hx of colonoscopy History of esophagogastroduodenoscopy (EGD) History of surgery Family History Father Diabetes Mother Hypertension Sister Cervical cancer Paternal Grandmother Uterine cancer Daughter Lymphatic malformation Social History Household Members: Family Housing: House Are you a primary day care supervisor to a significant other at home: No Do you presently have visiting nurse or other home services: No Alcohol intake: current Alcohol intake frequency: does not drink Patient Tobacco Use Status: Never used Tobacco Tobacco use type: Cigarette e-Cigarette/Vaping Use: Never Used Second Hand Smoke Exposure: Yes service: No Current occupational status: employed 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: No Gender identity: Female Cognitive needs: No Hearing needs: No Vision needs: Yes (Glasses) Female Reproductive History Menstrual Age of Menarche: 11 Physical Exam Vital Signs: Last Vital Signs Pulse 88 02/20/25 08:27 BP 153/89 H 02/20/25 08:27 Pulse Ox 98 02/20/25 08:27 BMI result Body Mass Index 33.5 GI Inspection: Yes incision (Clean, dry, intact.) Assessment & Plan Assessment & Plan (1) S/P laparoscopic sleeve gastrectomy: Code(s): Z98.84 - Bariatric surgery status Category: Surgical Plan: POD 8 s/p LSG on 02/12/[address] Fernandez Weight loss prior to surgery was 19 pounds or 8.7 % TBWL. Original weight on 12/04/2024 was 216.8 pounds and op weight was 197.8 pounds. Be sure to text Dr Fernandez exactly 1 week after surgery your weight from your home scale so he can adjust your meal plan. Continue meal plan until f/u [place] Daily in 2 weeks May shower, no submersion in bath for another week Continue abdominal binder with activity and exercise for the next 2 weeks. Exercise prior to surgery was stationary bike and may resume No abdominal exercises for 6 weeks post operatively Will be emailed link to post op video for review Reminded of the pace of drinking, 2 mL per minute, 1 oz/15 min.
== END 2025-02-20 08:49 | disposition home or self-care (01) ==
LOC: HO.HBS 08:23
PROVIDERS: PCP Physician Assistant; Visit Provider Physician Assistant Surgical
DX: Z98.84 Bariatric surgery status (principal)
CPT/HCPCS: 99024

== ENCOUNTER → 2025-02-20 08:22 | Outpatient (BNVA) | payer OTHER, MEDICAID, SELFPAY | PROVIDERS: PCP Physician Assistant; Visit Provider Physician Assistant Surgical ==

== ENCOUNTER 2025-03-18 07:55 | Outpatient (AMB) | payer OTHER, MEDICAID, SELFPAY ==
[2025-03-18 07:56] VITALS: BP 124/68; PULSE 68; TEMP 36.6; O2SAT 98; BMI 31.4
--- NOTE | 2025-03-18 07:56 | MHC.OFFVISWM ---
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 Presents for 1 month post op visit. Weight today is 174.2 pounds, with a BMI of 31.4. There has been a 42.6 pound weight loss,(initial weight 216.8 pounds) since starting the program on 12/04/2024 reflecting a 19.6 % total body weight loss and a weight loss of 23.6 pounds since surgery (operative weight 197.8 pounds) reflecting a 11.9 % TBWL since surgery. No complaints of nausea, emesis, abdominal pain or reflux. Reports infrequent but normal bowel movements every 2-3 days and uses stool softeners regularly. Taking celebrate mvi w iron. Original weight on 12/04/2024 was 216.8 pounds and op weight was 197.8 pounds. Present meal plan includes: Celebrate rebuild 2 scoops x 2 at 7-9, 11-1 celebrate rebuild 1 scoop at 3-5 celebrate bar 6-9 drinking 20-30 oz water ? Exercise routine includes: stationary bike, 5 days per week, [address] walking outside, 7 days per week, 1.5-2 mi per day treadmill, 3 days per week, [address] PFS Medical History Pre-op evaluation Class 2 obesity H. pylori infection BMI 39.0-39.9,adult Hand pain, left Right hand pain Polyarthralgia Acute allergic reaction Screening for diabetes mellitus (DM) Melasma Epigastric abdominal pain Esophagitis determined by endoscopy Well woman exam Dry cough Palpitations History of COVID-19 Corneal abrasion of right eye due to contact lens Hot flashes Headache Annual physical exam DJD (degenerative joint disease) Anemia History of vitamin D deficiency NAFLD (nonalcoholic fatty liver disease) IBS (irritable bowel syndrome) Sleep apnea HTN (hypertension) Hypersomnia Nocturnal hypoxia Hiatal hernia GERD (gastroesophageal reflux disease) History of COVID-19 Anxiety and depression History of abnormal cervical Pap smear Obesity (BMI 30-39.9) Surgical History History of laparoscopic appendectomy (01/13/25) H/O endoscopy Hx of colonoscopy History of esophagogastroduodenoscopy (EGD) History of surgery Family History Father Diabetes Mother Hypertension Sister Cervical cancer Paternal Grandmother Uterine cancer Daughter Lymphatic malformation Social History Household Members: Family Housing: House Are you a primary healthcare management consultant to a significant other at home: No Do you presently have visiting nurse or other home services: No Alcohol intake: current Alcohol intake frequency: does not drink Patient Tobacco Use Status: Never used Tobacco Tobacco use type: Cigarette e-Cigarette/Vaping Use: Never Used Second Hand Smoke Exposure: Yes service: No Current occupational status: employed 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: No Gender identity: Female Cognitive needs: No Hearing needs: No Vision needs: Yes (Glasses) Female Reproductive History Menstrual Age of Menarche: 11 Physical Exam Vital Signs: Last Vital Signs Temp 97.8 F 03/18/25 07:56 Pulse 68 03/18/25 07:56 BP 124/68 03/18/25 07:56 Pulse Ox 98 03/18/25 07:56 Oxygen Delivery Method Room Air 03/18/25 07:56 BMI result Body Mass Index 31.4 Const General: healthy appearing and no acute distress Resp Effort & Inspection: normal respiratory effort Auscultation: clear to auscultation bilaterally Cardio Rate: regular rate Rhythm: regular rhythm GI Auscultation: normal bowel sounds Extrem General: Yes normal to inspection Assessment & Plan Assessment & Plan (1) S/P laparoscopic sleeve gastrectomy: Code(s): Z98.84 - Bariatric surgery status Category: Surgical Plan: Patient was advised to take calcium plus vitamin-D twice daily. She will discuss with Dr. Fernandez changing from celebrate rebuild to premier protein as she does not like the celebrate rebuild anymore. Encouraged to track calories while exercising to be more accurate in her assessment of exercise efficiency Return to clinic 1 month.
== END 2025-03-18 08:20 | disposition home or self-care (01) ==
PROVIDERS: PCP Physician Assistant; Visit Provider Physician Assistant Surgical
DX: Z98.84 Bariatric surgery status (principal)
CPT/HCPCS: 99024

== ENCOUNTER → 2025-03-18 07:55 | Outpatient (BNVA) | payer OTHER, MEDICAID, SELFPAY | PROVIDERS: PCP Physician Assistant; Visit Provider Physician Assistant Surgical ==

== ENCOUNTER 2025-04-02 08:28 | Outpatient (AMB) | payer OTHER, MEDICAID, SELFPAY ==
--- NOTE | 2025-04-02 08:33 | A.OFFPC_ITS ---
Vital Signs 04/02/25 08:34 Height 5 ft 2.5 in Weight 178 lb 2 oz BMI 32.1 BP 120/68 Blood Pressure Location Lt brachial Position Sitting Pulse 60 Pulse Source Pulse Oximeter Temp 97.1 F Temp Source Temporal Artery Scan Pulse Oximetry (%) 96 Oxygen Delivery Method Room Air Intake Visit Reasons: annual exam Intake Note: Patient is here today for a physical. 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: Not Required per policy Accompanied by: Self / Same As Patient Allergies Seasonal Allergies Allergy (Intermediate, Verified 04/02/25 08:59) Itchy Eyes hydrochlorothiazide Adverse Reaction (Intermediate, Verified 04/02/25 08:59) Dizziness Medication List - Last Reconciled 04/02/25 by Shantanu Costello PA-C cholecalciferol (vitamin D3) 125 mcg PO DAILY docusate sodium (Colace) 100 mg PO DAILY PRN 30 days ferrous sulfate 325 mg PO BID 30 days pantoprazole 40 mg PO DAILY sertraline (Zoloft) 50 mg PO DAILY 90 days Tobacco use date assessed: 04/02/25 Dental Screening Dental Screen Date: 01/01/25 HPI annual exam HPI Details Patient is a 39-year-old female here today for a routine annual physical Patient has a past medical history significant for obesity, GERD, generalized anxiety disorder. Status post gastric sleeve: Patient is status post gastric sleeve and has been able to lose significant panel weight. She is on a modified diet currently. She reports she feels well and continues to follow up with [facility] .. Hypertension: Patient's blood pressure acceptable today in office. She is now off of amlodipine since her bariatric surgery. Blood pressure remains stable.. She does report she did have a couple of episodes of hypertension that came with headaches. Otherwise blood pressures have been pretty stable home. .. Anxiety: Patient's DANIELA-7 score positive for anxiety which has been existing condition for her. She has been off of sertraline as she felt she was taking too many medication. She feels stable from a mental health point of view without medication. 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 pylori infection BMI 39.0-39.9,adult Hand pain, left Right hand pain Polyarthralgia Acute allergic reaction Screening for diabetes mellitus (DM) Melasma Epigastric abdominal pain Esophagitis determined by endoscopy Well woman exam Dry cough Palpitations History of COVID-19 Corneal abrasion of right eye due to contact lens Hot flashes Headache DJD (degenerative joint disease) Anemia History of vitamin D deficiency NAFLD (nonalcoholic fatty liver disease) IBS (irritable bowel syndrome) Sleep apnea HTN (hypertension) Hypersomnia Nocturnal hypoxia Hiatal hernia GERD (gastroesophageal reflux disease) History of COVID-19 Anxiety and depression History of abnormal cervical Pap smear Obesity (BMI 30-39.9) Surgical History History of gastric surgery History of hernia repair History of laparoscopic appendectomy (01/13/25) H/O endoscopy Hx of colonoscopy History of esophagogastroduodenoscopy (EGD) History of surgery Family History Father Diabetes Mother Hypertension Sister Cervical cancer Paternal Grandmother Uterine cancer Daughter Lymphatic malformation Social History Household Members: Family Housing: House Are you a primary health care sanitary technician to a significant other at home: No Do you presently have visiting nurse or other home services: No Alcohol intake: current Alcohol intake frequency: does not drink Patient Tobacco Use Status: Never used Tobacco Tobacco use type: Cigarette e-Cigarette/Vaping Use: Never Used Second Hand Smoke Exposure: Yes service: No Current occupational status: employed 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 1. Little interest or pleasure in doing things: not at all 2. Feeling down, depressed, or hopeless: not at all 3. Trouble falling or staying asleep, or sleeping too much: not at all 4. Feeling tired or having little energy: several days 5. Poor appetite or overeating: not at all 6. Feeling bad about yourself - or that you are a failure or have let yourself or your family down: not at all 7. Trouble concentrating on things, such as reading the newspaper or watching television: several days 8. Moving or speaking so slowly that other people could have noticed. Or the opposite - being so fidgety or restless that you have been moving around a lot more than usual: not at all 9. Thoughts that you would be better off or of hurting yourself in some way: not at all Total score: 2 Depression Screening Interpretation: Negative Depression Screening Done: Yes [id number] - PHQ-9 Billing: Yes Source: Developed by Drs. Murtaza Krueger, Ana Cameron, Matthew Rivas and colleagues, with an educational vaishali from [employer]. Thrive Questionnaire Date Thrive assessed: 02/13/25 I am a: Patient What is your living situation today?: I have a steady place to live Within the past 12 months, did the food you bought not last and you didn't have the money to get more?: Never true Within the past 12 months, did you worry whether your food would run out before you got money to buy more?: Sometimes True Do you have trouble paying for medicines?: No Do you have trouble getting transportation to medical appointments?: No Do you have trouble paying your heating and electricity bill?: No Do you have trouble taking care of your child, family member or friend?: No Do you have trouble with day-to-day activities such as bathing, preparing meals, shopping, managing finances, etc.?: No Are you currently unemployed and looking for a job?: No Are you interested in more education?: No Please select the resources that you would like help with: None Currently or been in a relationship where the following occur: No concerns reported THRIVE Score: 1 AUDIT C Alcohol Use Questionnaire (AUDIT-C) 1. How often do you have a drink containing alcohol?: Never Total Score: 0 DANIELA-7 AMB Questionnaire DANIELA-7 Date DANIELA - 7 assessed: 04/02/25 Feeling nervous, anxious, or on edge: 2 = More than half the days Not being able to stop or control worryin = Nearly every day Worrying too much about different things: 2 = More than half the days Trouble relaxin = More than half the days Being so restless that it is hard to sit still: 1 = Several days Becoming easily annoyed or irritable: 1 = Several days Feeling afraid as if something awful might happen: 1 = Several days Total DANIELA-7 score (0-4 normal; 5-9 mild; 10-14 moderate; 15-21 severe): 12 Source: Developed by Drs. Murtaza Krueger, Ana Cameron, Matthew Rivas and colleagues, with an educational vaishali from [employer]. DANIELA-7 Assessment Billing DANIELA-7 Assessment Tool: DANIELA-7 Assessment [id number] Review of Systems Const Denies body aches, Denies chills, Denies excessive sweating, Denies fatigue, Denies fever(s) and Denies headache(s) Eyes Denies blurry vision ENT Denies dysphagia, Denies vertigo, Denies dizziness, Denies headache(s), Denies hearing loss and Denies tinnitus Card Denies chest pain, Denies chest pain with activity, Denies syncope, Denies irregular heart rhythm and Denies dyspnea Resp Denies chest congestion, Denies cough, Denies hemoptysis, Denies dyspnea and Denies wheezing GI Denies abdominal pain, Denies melena, Denies hematochezia, Denies coffee ground emesis, Denies dysphagia, Denies diarrhea, Denies nausea and Denies vomiting Denies urinary frequency, Denies dysuria, Denies urinary hesitancy and Denies urinary urgency Musc Denies arthralgias, Denies limited range of motion, Denies muscle cramps and Denies muscle weakness Skin/Breast Denies rash and Denies skin ulcer Neuro Denies Abnormal speech present, Denies confusion, Denies vertigo, Denies dizziness, Denies syncope, Denies headache(s), Denies memory loss and Denies seizure-like activity Psych Denies anxiety, Denies confusion, Denies depression, Denies memory loss, Denies panic attacks and Denies paranoia Endo Denies excessive sweating, Denies fatigue, Denies flushing, Denies polydipsia and Denies polyuria Aller/Immun Denies wheezing Physical exam (Primary Care) Vital Signs: Last Vital Signs Temp 97.1 F 04/02/25 08:34 Pulse 60 04/02/25 08:34 BP 120/68 04/02/25 08:34 Pulse Ox 96 04/02/25 08:34 Oxygen Delivery Method Room Air 04/02/25 08:34 BMI result Body Mass Index 32.1 Tobacco/Smoking Status: Tobacco use Status Tobacco use date assessed 04/02/25 04/02/25 08:39 Patient Tobacco Use Status Never used Tobacco 04/02/25 08:39 Tobacco use type Cigarette 04/02/25 08:39 e-Cigarette/Vaping Use Never Used 04/02/25 08:39 PHQ-9: PHQ-9 Score PHQ-9: Total score 2 04/02/25 09:11 Depression Screening Interpretation: Negative Thrive Assessment: Date of Thrive Assessment Date Thrive assessed 02/13/25 04/02/25 08:39 Currently or been in a relationship where the following occur: No concerns reported Const General: cooperative, comfortable, no acute distress, alert and awake; No confusion Orientation/consciousness: oriented to person, oriented to place, patient or iented x3 and No confusion HENMT Head: Yes normocephalic Ears: external ears normal and TM's normal bilaterally Face and sinus: No sinus tenderness Mouth: Normal oral and palatal mucosa present and tongue normal Teeth and gingiva: dentition normal and gingiva normal Throat: Yes posterior oropharynx normal, Yes tonsils normal and Yes uvula midline Eyes Conjunctivae: conjunctivae normal Sclerae: sclerae normal Pupils: Equal, round and reactive pupils present EOM: EOMs intact bilaterally Direct Ophthalmoscopy: No no photophobia Neck Neck: Yes no lymphadenopathy, No tender and Yes no JVD Thyroid: Thyroid normal Carotids: no bruits Chest Chest palpation & inspection: no tenderness Resp Effort & Inspection: normal respiratory effort, no audible wheezes, not labored and no stridor Auscultation: no crackles, no rales, no rhonchi and no wheezes Cardio Jugular venous distension: no JVD Rate: regular rate, not bradycardic and not tachycardic Rhythm: regular rhythm Bruits: no carotid bruits Peripheral pulses: Peripheral pulses 2+ throughout GI Inspection: Yes normal to inspection, No abdominal wall ecchymosis and No visible herniation Palpation (GI): Soft to palpation, nontender, no guarding, not rigid and No hepatosplenomegaly present Auscultation: normoactive bowel sounds General: Yes no CVA tenderness Back/Spine/Pelvis Back: no CVA tenderness and No back tenderness Cervical Spine: cervical ROM normal Thoracic/Lumbar Spine: thoracic and lumbar spine normal to inspection, straight leg raise negative bilaterally, No thoraco-lumbar ROM limited and No lumbar spinal tenderness Skin Lesions: no lesions Rashes: no rashes Wounds: no wounds Neuro General: oriented to person, oriented to place, patient oriented x3, CN's II-XI intact bilaterally and No confusion Cranial nerves: Yes Equal, round and reactive pupils present and Yes Normal accommodation reflex present Cognition (Neuro): normal cognition Speech: No Abnormal speech present Gait exam (Neuro): Normal gait present Motor exam (neuro): 5/5 motor strength present throughout Extrem Right upper extremity: full ROM; no cyanosis Left upper extremity: full ROM; no cyanosis Right lower extremity: no edema Left lower extremity: no edema Psych Appearance: grossly normal Mental Status: mental status grossly normal Affect: normal affect Attitude: cooperative Thought process: Normal thought process present Coding Level of Care Code Est Pt Prev Care 18-39y(71476) Diagnoses Annual physical exam Z00.00 Primary hypertension I10 Hypertension type: primary hypertension S/P laparoscopic sleeve gastrectomy Z98.84 DANIELA (generalized anxiety disorder) F41.1 Additional Codes DANIELA-7 Assessment Billing - DANIELA-7 Assessment Tool: DANIELA-7 Assessment [id number] ([id number]) PHQ-9 - 34874 - PHQ-9 Billing: Yes ([id number]) Assessment & Plan Assessment & Plan (1) Annual physical exam: Code(s): Z00.00 - Encounter for general adult medical examination without abnormal findings Category: Medical Plan: As per HPI (2) HTN (hypertension): Code(s): I10 - Essential (primary) hypertension Category: Medical Qualifiers: Hypertension type: primary hypertension Qualified Code(s): I10 - Essential (primary) hypertension Plan: Blood pressure acceptable today in office. She is off of her antihypertensive medications since her bariatric sleep procedure. Goal blood pressures to remain below 140/90 maintaining lifestyle and dietary modifications. (3) S/P laparoscopic sleeve gastrectomy: Code(s): Z98.84 - Bariatric surgery status Category: Surgical Plan: As per HPI can followed by [facility]. Continues on a modified diet (4) DANIELA (generalized anxiety disorder): Code(s): F41.1 - Generalized anxiety disorder Category: Medical Plan: Patient's DANIELA-7 score positive for anxiety which has been existing condition for her.. Patient has stopped using SSRI therapy as she feels she is taking too many pills. She feels her mental health is fairly stable without medication. Medications: Discontinued sertraline (Zoloft) Discontinued Reason: Doctor's Order 50 mg PO DAILY 90 days 90 tabs 1RF F41.1 - Generalized anxiety disorder Patient Instructions: Goal: Blood pressure to remain below 140/90 without medication Barriers: Adherence to physical activity and healthy eating habits
[2025-04-02 08:34] VITALS: BP 120/68; PULSE 60; TEMP 36.2; O2SAT 96; BMI 32.1
== END 2025-04-02 09:11 | disposition home or self-care (01) ==
LOC: HO.HMCH 08:29
PROVIDERS: PCP Physician Assistant; Visit Provider Physician Assistant
DX: Z00.00 Encounter for general adult medical examination without abnormal findings (principal); I10 Essential (primary) hypertension; Z98.84 Bariatric surgery status; F41.1 Generalized anxiety disorder

== ENCOUNTER → 2025-04-02 08:28 | Outpatient (BNVA) | payer OTHER, MEDICAID, SELFPAY | PROVIDERS: PCP Physician Assistant; Visit Provider Physician Assistant | DX: Z00.00 Encounter for general adult medical examination without abnormal findings (principal); I10 Essential (primary) hypertension; F41.1 Generalized anxiety disorder; Z98.84 Bariatric surgery status | CPT/HCPCS: 96127 ==

== ENCOUNTER 2025-04-18 08:13 | Outpatient (AMB) | payer OTHER, MEDICAID, SELFPAY ==
[2025-04-18 07:52] VITALS: BP 126/75; PULSE 96; TEMP 37.2; O2SAT 98; BMI 29.3
--- NOTE | 2025-04-18 07:52 | MHC.OFFVISWM ---
VS Expanded 04/18/25 07:52 BP 126/75 Blood Pressure Location Rt brachial Blood Pressure Position Sitting Pulse 96 Pulse Source Pulse Oximeter Temp 98.9 F Temperature Source Temporal Artery Scan Pulse Oximetry 98 Oxygen Delivery Method Room Air Height 5 ft 2.5 in Weight 163 lb BMI 29.3 Body Fat % 36.9 Body Fat Mass 60.2 Fat Free Mass 102.8 Visceral Fat Rating 7.0 Body Water % 45.2 Body Water Mass 73.6 Muscle Mass/Score 97.4 Basal Metabolic Rate/Score 1,426 Intake Visit Reasons: (OV) PO LSG 02/12/25 Allergies Seasonal Allergies Allergy (Intermediate, Verified 04/18/25 07:54) Itchy Eyes hydrochlorothiazide Adverse Reaction (Intermediate, Verified 04/18/25 07:54) Dizziness Medication List - Last Reconciled 04/18/25 by ELVIA Chandler cholecalciferol (vitamin D3) 125 mcg PO DAILY clotrimazole 1% (Antifungal (clotrimazole)) 1 appl topical BID docusate sodium (Colace) 100 mg PO DAILY PRN 30 days ferrous sulfate 325 mg PO BID 30 days pantoprazole 40 mg PO DAILY HPI Comments Details: This?a?39?yo female who is s/p LSG with hiatal hernia repair on?02/12/2025. Presents for 2 month post op visit. Weight today is 163 pounds, with a BMI of 29.3. There has been a 53.8 pound weight loss,(initial weight 216.8 pounds) since starting the program on 12/04/2024 reflecting a 24.8 % total body weight loss and a weight loss of 34.8 pounds since surgery (operative weight 197.8 pounds) reflecting a 17.5 % TBWL since surgery. She states that she has had intermittent right upper quadrant abdominal pain that would occasionally radiate around to the right flank. This would happen sometimes after meals, such as [place] yogurt or very occasionally some chicken. It would be a proximally 30 minutes after her meal, associated with some mild nausea. This would resolve spontaneously. The longest episode lasted several hours. Reports infrequent but normal bowel movements every 2-3 days and uses stool softeners regularly. Taking celebrate mvi w iron. Present meal plan includes: Premier protein RTD 6 oz w 2 oz almond milk at 8-10 11 am 4 tbsp hebrew yogurt another shake 2-4 5 pm 3 forks chicken and 3 forks broccoli 7 pm celebrate bar drinking 20-30 oz water ? Exercise routine includes: stationary bike, 5 days per week, [address] walking outside, 7 days per week, 1.6-2 mi per day treadmill, 3 days per week, [address] PFSH Medical History Annual physical exam Pre-op evaluation Class 2 obesity H. pylori infection BMI 39.0-39.9,adult Hand pain, left Right hand pain Polyarthralgia Acute allergic reaction Screening for diabetes mellitus (DM) Melasma Epigastric abdominal pain Esophagitis determined by endoscopy Well woman exam Dry cough Palpitations History of COVID-19 Corneal abrasion of right eye due to contact lens Hot flashes Headache DJD (degenerative joint disease) Anemia History of vitamin D deficiency NAFLD (nonalcoholic fatty liver disease) IBS (irritable bowel syndrome) Sleep apnea HTN (hypertension) Hypersomnia Nocturnal hypoxia Hiatal hernia GERD (gastroesophageal reflux disease) History of COVID-19 Anxiety and depression History of abnormal cervical Pap smear Obesity (BMI 30-39.9) Surgical History History of gastric surgery History of hernia repair History of laparoscopic appendectomy (01/13/25) H/O endoscopy Hx of colonoscopy History of esophagogastroduodenoscopy (EGD) History of surgery Family History Father Diabetes Mother Hypertension Sister Cervical cancer Paternal Grandmother Uterine cancer Daughter Lymphatic malformation Social History Household Members: Family Housing: House Are you a primary acute care physical therapist to a significant other at home: No Do you presently have visiting nurse or other home services: No Alcohol intake: current Alcohol intake frequency: does not drink Patient Tobacco Use Status: Never used Tobacco Tobacco use type: Cigarette e-Cigarette/Vaping Use: Never Used Second Hand Smoke Exposure: Yes service: No Current occupational status: employed 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: No Gender identity: Female Cognitive needs: No Hearing needs: No Vision needs: Yes (Glasses) Female Reproductive History Menstrual Age of Menarche: 11 Physical Exam Vital Signs: Last Vital Signs Temp 98.9 F 04/18/25 07:52 Pulse 96 04/18/25 07:52 BP 126/75 04/18/25 07:52 Pulse Ox 98 04/18/25 07:52 Oxygen Delivery Method Room Air 04/18/25 07:52 BMI result Body Mass Index 29.3 Const General: healthy appearing and no acute distress Resp Effort & Inspection: normal respiratory effort Auscultation: clear to auscultation bilaterally Cardio Rate: regular rate Rhythm: regular rhythm GI Auscultation: normal bowel sounds Extrem General: Yes normal to inspection Assessment & Plan Assessment & Plan (1) S/P laparoscopic sleeve gastrectomy: Code(s): Z98.84 - Bariatric surgery status Category: Surgical Plan: Overall, patient is doing well. She continues to follow her meal plan and has improved her exercise plan. She has developed a slight excoriation underneath the abdominal pannus. There is no acute fungal dermatitis however this may develop. She was advised to apply scant Aquaphor twice daily for about a week. I have sent in a prescription for clotrimazole should she develop a fungal component. We will have her return to the clinic in approximately 1 month. (2) Abdominal pain, right upper quadrant: Code(s): R10.11 - Right upper quadrant pain Category: Medical Plan: Describes intermittent right upper quadrant abdominal pain, occurring after meals, seemingly consistent with biliary colic. We will check right upper quadrant abdominal ultrasound for possible cholelithiasis. Orders: Orders US abdomen limited Today R10.11 - Right upper quadrant pain, Z98.84 - Bariatric surgery status Medications: New clotrimazole 1% (Antifungal (clotrimazole)) 1 appl topical BID 45 grams 2RF
== END 2025-04-18 08:37 | disposition home or self-care (01) ==
LOC: HO.HBS 08:13
PROVIDERS: PCP Physician Assistant; Visit Provider Physician Assistant Surgical
DX: Z98.84 Bariatric surgery status (principal); R10.11 Right upper quadrant pain
CPT/HCPCS: 99024

== ENCOUNTER → 2025-04-18 08:13 | Outpatient (BNVA) | payer OTHER, MEDICAID, SELFPAY | PROVIDERS: PCP Physician Assistant; Visit Provider Physician Assistant Surgical | DX: Z98.84 Bariatric surgery status (principal) ==

== ENCOUNTER 2025-04-25 08:26 | Outpatient (REF) | payer OTHER, MEDICAID, SELFPAY ==
--- NOTE | ~2025-04-25 | US_ITS ---
CLINICAL HISTORY: R10.11 - Right upper quadrant pain US abdomen limited Comparison: None Findings: The pancreas is obscured by bowel gas. The liver is normal in size and echotexture. There is no intrahepatic bile duct dilatation. The common duct is 5.0 mm in diameter. The gallbladder is normal. There is no sonographic Rivera sign. The main portal vein is antegrade. The right kidney is 11.2 cm in length. No ascites. IMPRESSION: 1. Normal limited abdominal ultrasound. This document has been electronically signed by: Stanley Salomon MD on 04/25/2025 16:12:47
== END 2025-04-25 08:27 | disposition home or self-care (01) ==
LOC: HO.US 08:26
PROVIDERS: PCP Physician Assistant; Visit Provider Physician Assistant Surgical
DX: R10.11 Right upper quadrant pain (principal); Z98.84 Bariatric surgery status
CPT/HCPCS: 76705

== ENCOUNTER → 2025-04-25 08:28 | Outpatient (BNV) | payer OTHER, MEDICAID, SELFPAY | PROVIDERS: PCP Physician Assistant; Visit Provider Nuclear Medicine | DX: R10.11 Right upper quadrant pain (principal) | CPT/HCPCS: 76705 ==

== ENCOUNTER 2025-05-05 11:31 | Emergency (ER) | payer OTHER, MEDICAID, SELFPAY ==
[2025-05-05] VITALS (8 sets, daily range): BP systolic 127–145; BP diastolic 75–97; PULSE 56–92; RESP 12–18; TEMP 36.6–36.8; O2SAT 98–100; BMI 29.6
--- NOTE | ~2025-05-05 | XR_ITS ---
EXAMINATION: XR CHEST CLINICAL INFORMATION: near syncope COMPARISON: December 10, 2024 TECHNIQUE: 2 views of the chest were obtained. FINDINGS: Heart size is within normal limits. Mediastinal structures are unremarkable. Lungs are clear and well aerated. There is no pleural effusion. Surgical ayan are present in the medial left upper abdomen XR/XR chest 2V IMPRESSION: No acute disease Electronically signed by: Ld Harvey MD 05/05/2025 01:00 PM EDT
--- NOTE | 2025-05-05 11:39 | ED_ITS ---
HPI - General Adult General Chief complaint: General Medical Stated complaint: lightheaded nausea Time Seen by Provider: 05/05/25 13:01 Source: patient, RN notes reviewed and old records reviewed Mode of arrival: ambulatory History of Present Illness ED Provider: Lor Torres PA-C HPI narrative: 39-year-old female with past medical history anemia, NAFLD, IBS, sleep apnea, HTN, GERD, anxiety/depression, s/p LS G with hiatal hernia repair on 02/12/[address] 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 Denies syncope/LOC, headache, CP/SOB, abdominal pain, vomiting, diarrhea/constipation, dysuria/hematuria. Admits she has been following bariatric diet Related Data Home Medications ?Medication ?Instructions ?Recorded ?Confirmed pantoprazole 40 mg tablet,delayed 40 mg PO DAILY 03/18/25 04/18/25 release Previous Rx's ?Medication ?Instructions ?Recorded ferrous sulfate 325 mg (65 mg 325 mg PO BID 30 days #60 tabs 07/31/24 iron) tablet docusate sodium 100 mg capsule 100 mg PO DAILY PRN constipation 10/06/24 (Colace) 30 days #30 caps cholecalciferol (vitamin D3) 125 125 mcg PO DAILY #90 caps 03/17/25 mcg (5,000 unit) capsule clotrimazole 1 % topical cream 1 appl topical BID #45 grams 04/18/25 (Antifungal (clotrimazole)) Allergies Allergy/AdvReac Type Severity Reaction Status Date / Time Seasonal Allergies Allergy Intermediate Itchy Eyes Verified 05/05/25 11:41 hydrochlorothiazide AdvReac Intermediate Dizziness Verified 05/05/25 11:41 Review of Systems 2 Review of Systems: Yes all other systems are reviewed and are negative Constitutional: Constitutional: Reports as per HPI Neurologic: Denies Abnormal speech present [facility] Past Medical History Attestation statement: The following information was validated with the patient. Source: old records reviewed Medical History Annual physical exam Pre-op evaluation Class 2 obesity H. pylori infection BMI 39.0-39.9,adult Hand pain, left Right hand pain Polyarthralgia Acute allergic reaction Screening for diabetes mellitus (DM) Melasma Epigastric abdominal pain Esophagitis determined by endoscopy Well woman exam Dry cough Palpitations History of COVID-19 Corneal abrasion of right eye due to contact lens Hot flashes Headache DJD (degenerative joint disease) Anemia History of vitamin D deficiency NAFLD (nonalcoholic fatty liver disease) IBS (irritable bowel syndrome) Sleep apnea HTN (hypertension) Hypersomnia Nocturnal hypoxia Hiatal hernia GERD (gastroesophageal reflux disease) History of COVID-19 Anxiety and depression History of abnormal cervical Pap smear Obesity (BMI 30-39.9) Surgical History History of gastric surgery History of hernia repair History of laparoscopic appendectomy (01/13/25) H/O endoscopy Hx of colonoscopy History of esophagogastroduodenoscopy (EGD) History of surgery Family History Family History Father Diabetes Mother Hypertension Sister Cervical cancer Paternal Grandmother Uterine cancer Daughter Lymphatic malformation Social History Social History Household Members: Family Housing: House Are you a primary care navigator to a significant other at home: No Do you presently have visiting nurse or other home services: No Alcohol intake: current Alcohol intake frequency: does not drink Patient Tobacco Use Status: Never used Tobacco Tobacco use type: Cigarette Smoked in Last 30 Days: No e-Cigarette/Vaping Use: Never Used Second Hand Smoke Exposure: Yes Use of substances other than those prescribed or required for medical reasons: No Advance Directives: No Advance Directives Information Provided: Yes Do you have a plan to hurt others: No Plan service: No Current occupational status: employed 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: No Gender identity: Female Cognitive needs: No Hearing needs: No Vision needs: Yes (Glasses) Physical Exam ED Vital Signs: Vital Signs - 24 hr 05/05/25 11:40 05/05/25 12:56 05/05/25 13:28 Temperature 98.0 F Pulse Rate 92 71 56 Respiratory Rate 18 14 Blood Pressure 130/90 H 127/84 129/75 Pulse Oximetry 98 98 Oxygen Delivery Method Room Air Room Air 05/05/25 13:29 05/05/25 13:30 05/05/25 15:34 Temperature 98.2 F Pulse Rate 68 82 60 Respiratory Rate 12 Blood Pressure 145/88 H 145/97 H Pulse Oximetry 100 Oxygen Delivery Method Room Air 05/05/25 17:13 05/05/25 17:17 Temperature 97.8 F 97.8 F Pulse Rate 79 79 Respiratory Rate 18 18 Blood Pressure 129/75 129/75 Pulse Oximetry 100 100 Oxygen Delivery Method Room Air Room Air BMI result Body Mass Index 29.6 Const General: cooperative, healthy appearing and no acute distress Orientation/consciousness: patient oriented x3 Limitations: no limitations HENMT Head: Yes normal to inspection and Yes atraumatic Ears: hearing grossly normal bilaterally General nose exam: Normal external nose present Face and sinus: Yes normal facial exam Mouth: Normal oral and palatal mucosa present Throat: Yes posterior oropharynx normal, Yes uvula midline and No uvula laterally displaced Eyes General: appearance normal, both eyes and all related structures Pupils: Equal, round and reactive pupils present EOM: EOMs intact bilaterally Neck Neck: Yes normal visual inspection and Yes no meningeal signs Resp Effort & Inspection: normal respiratory effort and no respiratory distress Auscultation: clear to auscultation bilaterally, no crackles and no wheezes Cardio Rate: regular rate Heart sounds: S1 normal heart sound present and S2 normal heart sound present GI Other: Healing surgical scars appreciated Inspection: Yes normal to inspection Palpation (GI): Soft to palpation, nontender, no guarding and not rigid General: Yes no CVA tenderness Back/Spine/Pelvis Back: no CVA tenderness Skin Rashes: no rashes Wounds: no wounds Neuro General: patient oriented x3, tone normal, moves all extremities, no meningeal signs, no focal motor deficits and CN's II-XI intact bilaterally Cranial nerves: Yes CN's II-XII intact bilaterally, Yes Equal, round and reactive pupils present and Yes Bilaterally intact EOM present Cognition (Neuro): normal cognition Speech: No Abnormal speech present Gait exam (Neuro): Normal gait present Motor exam (neuro): 5/5 motor strength present throughout, Pronator motor function not present and no tremor noted Extrem General: Yes normal to inspection Course Course Course Narrative: RME performed by Pilar Arambula PA-C. Patient is a 39 year old assigned female at presenting to the emergency department with lightheadedness. Patient states 11 weeks ago she had a gastric sleeve performed here at [facility] and has been feeling lightheaded / unwell over the last few days. Detailed physical exam and review of systems are deferred to the radiopharmacist. EKG, labs, imaging, and swabs ordered. Patient placed back in the waiting room pending room availability and results. -1407--no leukocytosis. H/H stable. Potassium low at 2.9 > IV and p.o. repletion ordered -initial troponin negative, will obtain repeat -orthostatic vital signs negative XR chest 2V IMPRESSION: No acute disease -case discussed with patient's bariatric surgeon Dr. Fernandez. Patient will follow up in the office -1658--repeat potassium improved/normalized to 3.8 after repletion. Repeat troponin without significant rise, mi unlikely. On re-evaluation patient reports symptomatic improvement. Feels comfortable for discharge home at this time. Medications Administered Discontinued Medications Generic Name Dose Route Start Last Admin Trade Name Freq PRN Reason Stop Dose Admin Lactated Ringer's 1,000 mls @ 999 mls/hr 05/05/25 13:15 05/05/25 14:27 Lr IV 05/05/25 14:15 Infused .Q1H1M PARK Infusion Potassium Chloride 10 meq in 100 mls @ 100 mls/hr 05/05/25 13:15 05/05/25 17:05 Potassium Chloride/H20 IV 05/05/25 15:14 Infused Q1H PARK Infusion Lactated Ringer's 1,000 mls @ 999 mls/hr 05/05/25 14:15 05/05/25 17:05 Lr IV 05/05/25 15:15 Infused .Q1H1M PARK Infusion Ondansetron HCl 4 mg 05/05/25 13:08 05/05/25 13:15 Ondansetron Hcl 4 Mg/2 Ml Vial IVPUSH 05/05/25 13:09 4 mg ONCE ONE Administration Potassium Chloride 40 meq 05/05/25 13:06 05/05/25 14:42 Potassium Chloride Packet 20 Meq Packet PO 05/05/25 13:07 Not Given ONCE ONE Potassium Chloride 40 meq 05/05/25 14:36 05/05/25 14:45 Potassium Chloride Er 20 Meq Tab.Er.Prt PO 05/05/25 14:37 40 meq ONCE ONE Administration Medical Decision Making Medical Decision Making MDM Narrative: 39-year-old female with past medical history anemia, NAFLD, IBS, sleep apnea, HTN, GERD, anxiety/depression, s/p LS G with hiatal hernia repair on 02/12/[address] 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 On exam vital signs stable, NAD, nontoxic appearing, abdomen is soft and nontender, no focal neuro deficits. Concern for dehydration/metabolic abnormalities/decreased p.o. intake due to recent bariatric surgery. Lower suspicion for ACS, PE/DVT, intra- abdominal pathology or ICH Plan: EKG, labs, UA, orthostatics, IVF, re-evaluate Please refer to course for remaining clinical decision making, interpretation of labs/imaging results, and discussions with consultants and/or family members. Differential Diagnosis Differential Diagnoses: The differential diagnosis associated with the presentation includes As above Admission/Observation Consideration of admission/observation: Escalation of care including admission/observation considered Consult Healthcare Provider Management of the patient was discussed with: Energy Analyst Lab Data MDM Lab Attestation statement: I reviewed the patient's lab results. 05/05/25 11:53 05/05/25 15:23 Labs: Lab Results 05/05/25 05/05/25 Range/Units 11:53 15:23 WBC 8.7 (4.8-10.8) X10*3/uL RBC 4.63 (4.20-5.50) X10*6/uL Hgb 11.6 L (12.0-16.0) g/dl Hct 37.2 (37.0-47.0) % MCV 80.3 (80.0-98.0) fL MCH 25.1 L (27.0-33.0) pg MCHC 31.2 (31.0-35.0) g/dl RDW 17.9 H (11.0-16.0) % Plt Count 360 (160-400) X10*3/uL MPV 11.9 (9.4-12.3) fL Immature Gran % (Auto) 0.3 (0.0-0.4) % Neut % (Auto) 73.4 H (45-73) % Lymph % (Auto) 18.6 L (20-40) % [place] % (Auto) 6.4 (2-11) % Eos % (Auto) 1.0 (0-4) % Baso % (Auto) 0.3 (0-2) % Lymph # (Auto) 1.6 (1.2-4.9) X10*3/uL [place] # (Auto) 0.6 (0.1-1.2) X10*3/uL Eos # (Auto) 0.1 (0.0-0.4) X10*3/uL Baso # (Auto) 0.0 (0.0-0.2) X10*3/uL Abs Immat Gran (auto) 0.03 (0.00-0.03) X10*3/uL Absolute Neuts (auto) 6.4 (2.0-8.3) x10*3/uL Absolute Nucleated RBC 0.000 (0.0-0.012) X10*3/uL Nucleated RBC % (auto) 0.0 (0.0-0.2) /100WBC PT 12.7 H (10.9-12.4) SEC INR 1.1 (0.9-1.1) Sodium 142 142 (135-145) mmol/L Potassium 2.9 L* D 3.8 D (3.3-5.1) mmol/L Chloride 106 108 (96-108) mmol/L Carbon Dioxide 25 23 (22-29) mmol/L Anion Gap 14 15 (12-20) BUN 13 10 (9-16) mg/dL Creatinine 0.70 0.58 (0.5-1.4) mg/dL Estim Creat Clear Calc 103.3 124.6 Estimated GFR > 60 > 60 Random Glucose 97 78 (60-115) mg/dL Calcium 9.8 D 9.0 D (8.4-10.2) mg/dL Magnesium 1.8 (1.6-2.6) mg/dL Total Bilirubin 0.3 (0.0-1.0) mg/dL AST 16 (5-31) U/L ALT 11 (0-31) U/L Alkaline Phosphatase 91 (39-117) U/L Troponin I High Sens 2.9 4.2 (<3.5-17.0) ng/L Total Protein 7.6 (6.5-8.0) g/dL Albumin 4.5 (3.5-5.0) g/dL Lipase 14 (8-78) U/L Beta HCG, Quant < 2 mIU/mL Influenza Type A (PCR) NEGATIVE (Negative) Influenza Type B (PCR) NEGATIVE (Negative) RSV RNA Qual (PCR) NEGATIVE (Negative) SARS-CoV-2 RNA (RT-PCR) NEGATIVE (Negative) Radiology Impression Discussion of test interpretation with radiology: I have reviewed the radiologist's reading. External Record Review External record reviewed: Inpatient record, Office record, Outpatient record, Prior outpatient labs, Prior outpatient radiology, Primary care record and Outside ED record Tests considered The following testing was considered but not selected: As above Prescription Management I considered prescription management with: Other Chronic Conditions Patient?s care impacted by: Other (s/p LGS) Social Determinants Patient?s care significantly limited by Social Determinants of Health including: Other Social Determinant of Health Critical Care Time Critical Care Time Critical Care Time: Yes Total Critical Care Time: 35 Attestation: I have personally provided critical care time exclusive of time spent on separately billable procedures. Time includes review of lab data, radiology results, discussion with consultants, and monitoring for potential decompensation. Intervention performed as documented. Discharge Plan Discharge Clinical Impression: Pre-syncope Patient Disposition: Home, Self-Care Instructions: Near Syncope (ED) Additional Instructions: Your potassium was low today. Make sure you are following your proper bariatric diet Make sure you are staying hydrated You should have repeat labs to check your potassium/electrolytes in 1 week Please have close follow up with Dr. Fernandez If her symptoms persist, recur, worsen, you have chest pain/shortness of breath, abdominal pain, persistent nausea/vomiting or you are unable to eat or drink return to the ED Prescriptions: No Action ferrous sulfate 325 mg (65 mg iron) tablet 325 mg PO BID 30 Days Qty: 60 3RF docusate sodium [Colace] 100 mg capsule 100 mg PO DAILY PRN (Reason: constipation) 30 Days Qty: 30 0RF cholecalciferol (vitamin D3) 125 mcg (5,000 unit) capsule 125 mcg PO DAILY Qty: 90 0RF pantoprazole 40 mg tablet,delayed release (DR/EC) 40 mg PO DAILY clotrimazole [Antifungal (clotrimazole)] 1 % cream 1 appl topical BID Qty: 45 2RF Referrals: Rogelio Fernandez MD [Physician] - 5 days Stand Alone Forms: Work/School Release Interventions: ED Discharge Assessment Last Done: 05/05/25 17:17 Discharge Date/Time: 05/05/25 17:19 Print Language: Citizen [place]
--- NOTE | 2025-05-05 11:40 | ECG_ITS ---
Test Reason : near syncope Blood Pressure : */* mmHG Vent. Rate : 81 BPM Atrial Rate : 81 BPM P-R Int : 150 ms QRS Dur : 74 ms QT Int : 366 ms P-R-T Axes : 70 33 -14 degrees QTcB Int : 425 ms Sinus rhythm with marked sinus arrhythmia Nonspecific ST abnormality Abnormal ECG When compared with ECG of 10-Dec-2024 07:53, T wave amplitude has decreased in Anterior leads Referred By: Pilar Arambula Electronically Signed By: Rubio Carlos
[2025-05-05 12:19] LABS: MANUAL DIFF FLAG NO
[2025-05-05 12:21] LABS: Basophils Percent Auto 0.3 % (0-2); Eosinophils Absolute Auto 0.1 X10*3/uL (0.0-0.4); Hematocrit 37.2 % (37.0-47.0); Hemoglobin 11.6 g/dl (12.0-16.0); Imm Gran Abs Auto 0.03 X10*3/uL (0.00-0.03); Imm Gran Pct Auto 0.3 % (0.0-0.4); Lymphocytes Absolute Auto 1.6 X10*3/uL (1.2-4.9); Lymphocytes Percent Auto 18.6 % (20-40); Mean Corpuscular HGB Conc 31.2 g/dl (31.0-35.0); Mean Corpuscular Hemoglobin 25.1 pg (27.0-33.0); Mean Corpuscular Volume 80.3 fL (80.0-98.0); Mean Platelet Volume 11.9 fL (9.4-12.3); Monocytes Absolute Auto 0.6 X10*3/uL (0.1-1.2); Monocytes Percent Auto 6.4 % (2-11); Neutrophils Absolute Auto 6.4 x10*3/uL (2.0-8.3); Neutrophils Percent Auto 73.4 % (45-73); Platelet Count 360 X10*3/uL (160-400); Red Blood Count 4.63 X10*6/uL (4.20-5.50); Red Cell Distribution Width 17.9 % (11.0-16.0); White Blood Count 8.7 X10*3/uL (4.8-10.8)
[2025-05-05 12:27] LABS: INTERNATIONAL NORM RATIO 1.1 (0.9-1.1); Prothrombin Time 12.7 SEC (10.9-12.4)
[2025-05-05 12:45] LABS: Alanine Aminotransferase 11 U/L (0-31); Albumin Level 4.5 g/dL (3.5-5.0); Alkaline Phosphatase 91 U/L (39-117); Aspartate Amino Transferase 16 U/L (5-31); Bilirubin Total 0.3 mg/dL (0.0-1.0); Blood Urea Nitrogen 13 mg/dL (9-16); Calcium 9.8 mg/dL (8.4-10.2); Creatinine Clr Calc Pharmacy 103.3; Estimated Glomerular Filt Rate > 60; Glucose Random 97 mg/dL (60-115); HCG Quantitative < 2 mIU/mL; Magnesium 1.8 mg/dL (1.6-2.6); Total Protein 7.6 g/dL (6.5-8.0); Troponin-I High Sensitivity 2.9 ng/L (<3.5-17.0)
[2025-05-05 12:58] LABS: Influenza A PCR NEGATIVE (Negative); Influenza B PCR NEGATIVE (Negative); Resp Syncy Virus RNA Qual PCR NEGATIVE (Negative); SARS COV2 PCR INHOUSE NEGATIVE (Negative)
--- NOTE | 2025-05-05 12:59 | PC.NURSE ---
Pt STATES NAUSEA AND DIZZINESS WHILE AT WORK TODAY. STATES SHE HAS HAD THIS IN PAST AND ZOFRAN USUALLY HELPS, DID NOT TAKE TODAY HOWEVER. No other symptoms at this time- no dizziness has resolved. VSS a&o x4.
[2025-05-05 13:01] LABS: Anion Gap 14 (12-20); Carbon Dioxide 25 mmol/L (22-29); Chloride 106 mmol/L (96-108); Potassium 2.9 mmol/L (3.3-5.1); Sodium 142 mmol/L (135-145)
[2025-05-05] MEDS: Lactated Ringers 1,000 ML 999 ML IV ×2 (13:12→14:27)
[2025-05-05] MEDS: ondansetron HCL 4 MG/2 ML VIAL IVPUSH (13:15)
[2025-05-05] MEDS: Potassium Chloride/H20 10 MEQ/100 ML PIGGYBACK 100 MEQ IV ×2 (13:19→14:27)
[2025-05-05 14:12] LABS: Lipase 14 U/L (8-78)
[2025-05-05] MEDS: Potassium Chloride ER 20 MEQ TAB.ER.PRT 40 MEQ PO (14:45)
[2025-05-05 15:44] LABS: Anion Gap 15 (12-20); Blood Urea Nitrogen 10 mg/dL (9-16); Carbon Dioxide 23 mmol/L (22-29); Chloride 108 mmol/L (96-108); Creatinine Clr Calc Pharmacy 124.6; Estimated Glomerular Filt Rate > 60; Glucose Random 78 mg/dL (60-115); Potassium 3.8 mmol/L (3.3-5.1); Sodium 142 mmol/L (135-145)
[2025-05-05 16:21] LABS: Troponin-I High Sensitivity 4.2 ng/L (<3.5-17.0)
== END 2025-05-05 17:19 | disposition home or self-care (01) ==
PROVIDERS: Physician Assistant; Physician Assistant Medical; Emergency Provider Emergency Medicine Emergency Medical Services; PCP Physician Assistant
DX: R55 Syncope and collapse (principal); R42 Dizziness and giddiness; I10 Essential (primary) hypertension; R05.8 Other specified cough; Z98.84 Bariatric surgery status; Z03.818 Encounter for observation for suspected exposure to other biological agents ruled out
CPT/HCPCS: 0241U; 36415; 71046; 80048; 80053; 83690; 83735; 84484; 84702; 85025; 85610; 93005; 96365; 96366; 96375; 99285; J2405; J3480; J7120

== ENCOUNTER → 2025-05-05 11:40 | Outpatient (BNV) | payer OTHER, MEDICAID, SELFPAY | PROVIDERS: PCP Physician Assistant; Visit Provider Radiology Diagnostic Radiology | DX: R55 Syncope and collapse (principal) | CPT/HCPCS: 71046 ==

== ENCOUNTER → 2025-05-05 11:40 | Outpatient (BNV) | payer OTHER, MEDICAID, SELFPAY | PROVIDERS: Emergency Provider Emergency Medicine Emergency Medical Services; PCP Physician Assistant; Visit Provider Internal Medicine Cardiovascular Disease | DX: I49.9 Cardiac arrhythmia, unspecified (principal) | CPT/HCPCS: 93010 ==

== ENCOUNTER 2025-05-08 08:10 | Outpatient (REF) | payer OTHER, MEDICAID, SELFPAY ==
[2025-05-08 08:26] LABS: MANUAL DIFF FLAG NO
[2025-05-08 09:04] LABS: Basophils Percent Auto 0.3 % (0-2); Eosinophils Absolute Auto 0.1 X10*3/uL (0.0-0.4); Eosinophils Percent Auto 1.9 % (0-4); Hematocrit 34.3 % (37.0-47.0); Hemoglobin 10.8 g/dl (12.0-16.0); Imm Gran Abs Auto 0.02 X10*3/uL (0.00-0.03); Imm Gran Pct Auto 0.3 % (0.0-0.4); Lymphocytes Absolute Auto 1.6 X10*3/uL (1.2-4.9); Lymphocytes Percent Auto 25.2 % (20-40); Mean Corpuscular HGB Conc 31.5 g/dl (31.0-35.0); Mean Corpuscular Hemoglobin 25.2 pg (27.0-33.0); Monocytes Absolute Auto 0.4 X10*3/uL (0.1-1.2); Monocytes Percent Auto 6.8 % (2-11); Neutrophils Percent Auto 65.5 % (45-73); Platelet Count 275 X10*3/uL (160-400); Red Blood Count 4.29 X10*6/uL (4.20-5.50); Red Cell Distribution Width 18.1 % (11.0-16.0); White Blood Count 6.2 X10*3/uL (4.8-10.8)
[2025-05-08 09:10] LABS: Estimated Average Glucose 105 mg/dL; Hemoglobin A1C 102.1482 umol/L; Hemoglobin A1c % 5.3 % (<6.0)
[2025-05-08 09:56] LABS: Alanine Aminotransferase 6 U/L (0-31); Albumin Level 3.9 g/dL (3.5-5.0); Alkaline Phosphatase 73 U/L (39-117); Anion Gap 12 (12-20); Aspartate Amino Transferase 14 U/L (5-31); Bilirubin Total 0.3 mg/dL (0.0-1.0); Blood Urea Nitrogen 13 mg/dL (9-16); C Reactive Protein 1.37 mg/dL (< or = 0.50); Calcium 9.2 mg/dL (8.4-10.2); Carbon Dioxide 27 mmol/L (22-29); Chloride 108 mmol/L (96-108); Cholesterol 134 mg/dL (<200); Estimated Glomerular Filt Rate > 60; Glucose Random 90 mg/dL (60-115); HDL Cholesterol 39 mg/dL (>40); Iron 31 mcg/dL (30-160); LDL Cholesterol Calculated 79 mg/dL (<100); Magnesium 1.9 mg/dL (1.6-2.6); Percent Iron Saturation 11 % (15-50); Potassium 3.7 mmol/L (3.3-5.1); Sodium 143 mmol/L (135-145); Total Iron Binding Capacity 271 mcg/dL (228-428); Total Protein 6.6 g/dL (6.5-8.0); Triglycerides 84 mg/dL (<150); Unsaturated Iron Binding 240 ug/dL
[2025-05-08 10:26] LABS: Ferritin 14 ng/mL (10-122); Folate 6.6 ng/mL (> or = 4.0); TSH reflex Free T4 1.07 uIU/mL (0.32-4.0); Vitamin B12 987 pg/mL (200-900); Vitamin D 25-OH Total 35.2 ng/mL (>30)
[2025-05-08 10:44] LABS: Insulin 6 uU/mL (2-29)
[2025-05-12 19:54] LABS: Zinc 77 mcg/dL (60-130)
[2025-05-13 16:44] LABS: Vitamin B1 <6 nmol/L (8-30)
[2025-05-13 18:48] LABS: Vitamin A 21 mcg/dL (38-98)
== END 2025-05-08 08:11 | disposition home or self-care (01) ==
LOC: HO.LAB 08:10
PROVIDERS: PCP Physician Assistant; Visit Provider Physician Assistant Surgical
DX: Z98.84 Bariatric surgery status (principal)
CPT/HCPCS: 36415; 80053; 80061; 82306; 82607; 82728; 82746; 83036; 83525; 83540; 83735; 84425; 84443; 84590; 84630; 85025; 86140

== ENCOUNTER 2025-06-03 09:53 | Outpatient (AMB) | payer OTHER, MEDICAID, SELFPAY ==
--- NOTE | 2025-06-03 09:57 | A.OFFVIS_ITS ---
Vital Signs 06/03/25 09:58 Height 5 ft 2.5 in Weight 156 lb 4 oz BMI 28.1 BP 128/80 Blood Pressure Location Lt brachial Position Sitting Pulse 96 Pulse Source Pulse Oximeter Pulse Oximetry (%) 99 Oxygen Delivery Method Room Air Intake Visit Reasons: 6mo F/U Intake Note: Patient presents 6 month follow up for ALISE. Accompanied by: Self / Same As Patient Allergies Seasonal Allergies Allergy (Intermediate, Verified 06/03/25 10:00) Itchy Eyes hydrochlorothiazide Adverse Reaction (Intermediate, Verified 06/03/25 10:00) Dizziness Medication List - Last Reconciled 06/03/25 by RIMMA Cardona cholecalciferol (vitamin D3) 125 mcg PO DAILY clotrimazole 1% (Antifungal (clotrimazole)) 1 appl topical BID docusate sodium (Colace) 100 mg PO DAILY PRN 30 days ferrous sulfate 325 mg PO BID 30 days ondansetron 4 mg PO Q8H PRN pantoprazole 40 mg PO DAILY thiamine HCl (vitamin B1) 100 mg PO DAILY vitamin A palmitate 3,000 mcg PO DAILY HPI Comments Details: 39-yr-old female presents for f/u visit of sleep apnea. Patient underwent gastric sleeve surgery at [facility] in January of 2025. Since, she has lost approximately 65 lb. She continues to work with the weight management clinic. Since surgery, she has been experiencing more fatigue, lightheadedness, tingling in extremities. Labs have been notable for iron deficiency anemia and vitamin deficiency with hemoglobin and hematocrit 10.8 and 34.3, ferritin 14, vitamin a 21 vitamin B1 less than 6. With normal vitamin B12, vitamin-D, folate, TSH. She has been compliant with oral ferrous sulfate. Thus, weight management clinic has referred her for possible IV iron infusions through [facility] Hematology. 02/22/2024 in-lab PSG w/ MSLT, however baseline PSG showed mild sleep apnea, so MSLT portion was not completed. Since last visit, patient did start APAP therapy, however she repeatedly kept waking up with the mask in her hand. The she stopped using completely. She states that since her weight loss, her family tells her she has snoring much less, and sleeping quieter overall. She is still prone to hypersomnia and excessive daytime sleepiness. Note, she is hesitant to repeat MSLT as it was difficult being off her anti- depressant tx. PFSH Medical History Annual physical exam Pre-op evaluation Class 2 obesity H. pylori infection BMI 39.0-39.9,adult Hand pain, left Right hand pain Polyarthralgia Acute allergic reaction Screening for diabetes mellitus (DM) Melasma Epigastric abdominal pain Esophagitis determined by endoscopy Well woman exam Dry cough Palpitations History of COVID-19 Corneal abrasion of right eye due to contact lens Hot flashes Headache DJD (degenerative joint disease) Anemia History of vitamin D deficiency NAFLD (nonalcoholic fatty liver disease) IBS (irritable bowel syndrome) Sleep apnea HTN (hypertension) Hypersomnia Nocturnal hypoxia Hiatal hernia GERD (gastroesophageal reflux disease) History of COVID-19 Anxiety and depression History of abnormal cervical Pap smear Obesity (BMI 30-39.9) Surgical History History of gastric surgery History of hernia repair History of laparoscopic appendectomy (01/13/25) H/O endoscopy Hx of colonoscopy History of esophagogastroduodenoscopy (EGD) History of surgery Family History Father Diabetes Mother Hypertension Sister Cervical cancer Paternal Grandmother Uterine cancer Daughter Lymphatic malformation Social History Household Members: Family Housing: House Are you a primary account executive healthcare to a significant other at home: No Do you presently have visiting nurse or other home services: No Alcohol intake: current Alcohol intake frequency: does not drink Patient Tobacco Use Status: Never used Tobacco Tobacco use type: Cigarette e-Cigarette/Vaping Use: Never Used Second Hand Smoke Exposure: Yes service: No Current occupational status: employed 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: No Gender identity: Female Cognitive needs: No Hearing needs: No Vision needs: Yes (Glasses) Female Reproductive History Menstrual Age of Menarche: 11 Physical Exam Vital Signs: Last Vital Signs Pulse 96 06/03/25 09:58 BP 128/80 06/03/25 09:58 Pulse Ox 99 06/03/25 09:58 Oxygen Delivery Method Room Air 06/03/25 09:58 BMI result Body Mass Index 28.1 Const General: cooperative, healthy appearing and comfortable Orientation/consciousness: patient oriented x3 HEENT Head: Yes normocephalic Resp Effort & Inspection: normal respiratory effort Auscultation: clear to auscultation bilaterally Percussion: percussion normal GI Inspection: Yes normal to inspection Palpation (GI): Soft to palpation, nontender, no guarding, not rigid and No hepatosplenomegaly present Percussion: Yes normal to percussion Auscultation: normal bowel sounds Rectal Exam - Female: deferred General: Yes bladder normal to palpation External Female Exam: No lesion Speculum Exam - Vagina: normal appearance of the vagina, normal palpation, normal vaginal discharge and not erythematous Speculum Exam - Cervix: normal appearance of the cervix and normal palpation Bimanual exam- vagina & uterus: normal bimanual exam, normal palpation, uterine size normal, bladder normal to palpation, consistency normal and normal palpation Bimanual Exam- Adnexa, other: normal adnexae, no masses and no tenderness Neuro General: patient oriented x3, gait normal and CN's II-XI intact bilaterally Cognition (Neuro): normal cognition Psych Appearance: grossly normal Mental Status: mental status grossly normal Speech and movement: Normal speech and movement present Affect: normal affect Attitude: cooperative Assessment & Plan Assessment & Plan (1) Mild obstructive sleep apnea: Code(s): G47.33 - Obstructive sleep apnea (adult) (pediatric) Category: Medical (2) Hypersomnia: Code(s): G47.10 - Hypersomnia, unspecified Category: Medical Plan Hold APAP 5-20 cmH2O, as patient did not tolerate this. Concur with hematology consult for possible IV iron infusion. Check vitamin B6 level After anemia has resolved- * If fatigue and hypersomnia resolves, consider follow-up in-lab sleep study to assess status of sleep apnea due to weight loss of greater than 10% since last sleep study. * if fatigue and hypersomnia persists, we will reconsider in-lab sleep study with MSLT- to assess for hypersomnia disorders. Will follow-up upon review of above and patient to follow-up in clinic in 6 months or sooner prn. Orders: Orders Vitamin B6 Today D64.9 - Anemia, unspecified Coding Level of Care Code Est Pt Level 3 (98257) Diagnoses Mild obstructive sleep apnea G47.33 Hypersomnia G47.10
[2025-06-03 09:58] VITALS: BP 128/80; PULSE 96; O2SAT 99; BMI 28.1
== END 2025-06-03 10:50 | disposition home or self-care (01) ==
LOC: HO.HSMS 09:54
PROVIDERS: PCP Physician Assistant; Visit Provider Nurse Practitioner Family
DX: G47.33 Obstructive sleep apnea (adult) (pediatric) (principal); G47.10 Hypersomnia, unspecified
CPT/HCPCS: 99213

== ENCOUNTER → 2025-06-06 13:04 | Outpatient (BNV) | payer OTHER, MEDICAID, SELFPAY | PROVIDERS: PCP Physician Assistant; Referring Provider Physician Assistant Surgical; Visit Provider Internal Medicine | DX: D50.9 Iron deficiency anemia, unspecified (principal) | CPT/HCPCS: 99204 ==

== ENCOUNTER 2025-06-06 15:56 | Outpatient (REF) | payer OTHER, MEDICAID, SELFPAY ==
[2025-06-06 17:10] LABS: Hematocrit 32.2 % (37.0-47.0); Hemoglobin 10.4 g/dl (12.0-16.0); Mean Corpuscular HGB Conc 32.3 g/dl (31.0-35.0); Mean Corpuscular Hemoglobin 25.7 pg (27.0-33.0); Mean Corpuscular Volume 79.7 fL (80.0-98.0); NRBC Abs Auto 0.000 X10*3/uL (0.0-0.012); NRBC Pct Auto 0.0 /100WBC (0.0-0.2); Platelet Count 292 X10*3/uL (160-400); Red Blood Count 4.04 X10*6/uL (4.20-5.50); White Blood Count 8.8 X10*3/uL (4.8-10.8)
[2025-06-06 17:51] LABS: Ferritin 13 ng/mL (10-122)
== END 2025-06-06 15:57 | disposition home or self-care (01) ==
LOC: HO.LAB 15:56
PROVIDERS: Absent Provider Internal Medicine; PCP Physician Assistant; Visit Provider Nurse Practitioner Family
DX: D64.9 Anemia, unspecified (principal)
CPT/HCPCS: 36415; 82728; 84207; 85027

== ENCOUNTER → 2025-07-02 11:32 | Outpatient (REF) | payer OTHER, SELFPAY ==
--- NOTE | 2025-07-02 11:38 | ECG_ITS ---
Test Reason : chronic fatigue Blood Pressure : */* mmHG Vent. Rate : 57 BPM Atrial Rate : 57 BPM P-R Int : 136 ms QRS Dur : 84 ms QT Int : 444 ms P-R-T Axes : -4 40 32 degrees QTcB Int : 432 ms Sinus bradycardia with sinus arrhythmia Otherwise normal ECG When compared with ECG of 05-May-2025 12:01, No significant change was found Referred By: Deidra Ortiz Electronically Signed By: Rubio Carlos
== END ==
LOC: HO.CARD 11:32
PROVIDERS: PCP Physician Assistant; Visit Provider Physician Assistant Surgical
DX: R00.0 Tachycardia, unspecified (principal); R53.82 Chronic fatigue, unspecified
CPT/HCPCS: 93005

== ENCOUNTER → 2025-07-02 11:38 | Outpatient (BNV) | payer OTHER, SELFPAY | PROVIDERS: PCP Physician Assistant; Visit Provider Internal Medicine Cardiovascular Disease | DX: I49.9 Cardiac arrhythmia, unspecified (principal); R00.1 Bradycardia, unspecified | CPT/HCPCS: 93010 ==

== ENCOUNTER 2025-07-14 14:59 | Emergency (ER) | payer OTHER, SELFPAY ==
[2025-07-14] VITALS (9 sets, daily range): BP systolic 114–152; BP diastolic 72–92; PULSE 52–91; RESP 11–17; TEMP 36.7–36.9; O2SAT 97–100; BMI 26.3
--- NOTE | 2025-07-14 | ECG_ITS ---
Test Reason : ARRHYMIA Blood Pressure : */* mmHG Vent. Rate : 65 BPM Atrial Rate : 65 BPM P-R Int : 120 ms QRS Dur : 78 ms QT Int : 416 ms P-R-T Axes : -6 54 39 degrees QTcB Int : 432 ms Normal sinus rhythm with sinus arrhythmia Normal ECG When compared with ECG of 02-Jul-2025 11:46, No significant change was found Referred By: Generic ED Physician Electronically Signed By: LEAH RICHARDS
--- NOTE | ~2025-07-14 | XR_ITS ---
EXAMINATION: XR CHEST CLINICAL INFORMATION: palpitations COMPARISON: 05/05/2025. TECHNIQUE: 2 views of the chest were obtained. FINDINGS: The cardiac, hilar, and mediastinal contours are normal. The lungs are clear bilaterally. There is no pneumothorax or pleural effusion. There is no focal osseous or soft tissue abnormality. Surgical clips present in the epigastric region. XR/XR chest 2V IMPRESSION: Normal chest. Electronically signed by: Rajesh Ibarra MD 07/14/2025 03:52 PM EDT
--- NOTE | 2025-07-14 15:10 | ED.GENADULT ---
HPI - General Adult General Chief complaint: Arrhythmia/Palpitations Stated complaint: nausea, heart palpitation Time Seen by Provider: 07/14/25 16:11 Source: patient Mode of arrival: ambulatory Limitations: no limitations History of Present Illness ED Provider: Dr. Elke Andersen HPI narrative: Patient comes to the emergency room complaining of palpitations and nausea starting yesterday. Patient states that she has been continuously dry heaving but not vomiting, denies any diarrhea. Patient states that she took Zofran prior to arriving to the emergency room and now she is not nauseous at this time. Patient states that overall she does not quite feel well. Patient is known to have anemia secondary to heavy menstrual periods. Patient had her menstrual period last week. Patient denies any chest pain, complaining of mild shortness of breath and dizziness with ambulation. About 2 months ago, patient came to the emergency room with similar symptoms, patient had low potassium. Patient has history of gastric sleeve surgery done in January of 2025, here at [facility]. Related Data Home Medications ?Medication ?Instructions ?Recorded ?Confirmed pantoprazole 40 mg tablet,delayed 40 mg PO DAILY 03/18/25 06/06/25 release thiamine HCl (vitamin B1) 100 mg 100 mg PO DAILY 06/03/25 06/06/25 capsule vitamin A palmitate 3,000 mcg 3,000 mcg PO DAILY 06/03/25 06/06/25 (10,000 unit) capsule Previous Rx's ?Medication ?Instructions ?Recorded ferrous sulfate 325 mg (65 mg 325 mg PO BID 30 days #60 tabs 07/31/24 iron) tablet docusate sodium 100 mg capsule 100 mg PO DAILY PRN constipation 10/06/24 (Colace) 30 days #30 caps cholecalciferol (vitamin D3) 125 125 mcg PO DAILY #90 caps 03/17/25 mcg (5,000 unit) capsule clotrimazole 1 % topical cream 1 appl topical BID #45 grams 04/18/25 (Antifungal (clotrimazole)) ondansetron 4 mg disintegrating 4 mg PO Q8H PRN for 05/19/25 tablet nausea/vomiting #30 tabs Allergies Allergy/AdvReac Type Severity Reaction Status Date / Time Seasonal Allergies Allergy Intermediate Itchy Eyes Verified 07/14/25 15:06 hydrochlorothiazide AdvReac Intermediate Dizziness Verified 07/14/25 15:06 Review of Systems Review of Systems: Constitutional : No Weight loss, No Fever, No Chills, No Night Sweats, No Fatigue, No Malaise ENT/Mouth : No Hearing loss, No Ear Pain, No Nasal Congestion, No Sinus Pain, No Hoarseness, No sore throat, No Rhinorrhea, No Swallowing Difficulty Eyes: No Eye Pain, No Swelling, No Redness, No Foreign Body, No Discharge, No Vision Changes Cardiovascular : No Chest Pain, No SOB, No Dyspnea on Exertion, No Orthopnea, No Edema, complaining of palpitations Respiratory : No Cough, No Sputum, No Wheezing, No Smoke Exposure, No Dyspnea Gastrointestinal : Complaining of nausea/dry heaving, No Vomiting, No Diarrhea, No Constipation, No abdominal Pain, No Hematochezia, No Melena Genitourinary : no irregular bleeding, No Dysuria, No Urinary Frequency, No Hematuria, No Urinary Incontinence, No Urgency, No Flank Pain, No Urinary Flow Changes, No Hesitancy Musculoskeletal : No joint pain, No Myalgias, No Joint Swelling Skin : No Skin Lesions, No rash Neuro : No Weakness, No Numbness, No Paresthesias, No Loss of Consciousness, No Dizziness, No Headache Psych : No Anxiety/Panic, No Depression, No SI/HI/AH/VH, No Social Issues, Heme/Lymph: No Bruising, No Bleeding,No Lymphadenopathy Endocrine : No Polyuria, No Polydipsia, No Temperature Intolerance [facility] Past Medical History Medical History Annual physical exam Pre-op evaluation Class 2 obesity H. pylori infection BMI 39.0-39.9,adult Hand pain, left Right hand pain Polyarthralgia Acute allergic reaction Screening for diabetes mellitus (DM) Melasma Epigastric abdominal pain Esophagitis determined by endoscopy Well woman exam Dry cough Palpitations History of COVID-19 Corneal abrasion of right eye due to contact lens Hot flashes Headache DJD (degenerative joint disease) Anemia History of vitamin D deficiency NAFLD (nonalcoholic fatty liver disease) IBS (irritable bowel syndrome) Sleep apnea HTN (hypertension) Hypersomnia Nocturnal hypoxia Hiatal hernia GERD (gastroesophageal reflux disease) History of COVID-19 Anxiety and depression History of abnormal cervical Pap smear Obesity (BMI 30-39.9) Surgical History History of gastric surgery History of hernia repair History of laparoscopic appendectomy (01/13/25) H/O endoscopy Hx of colonoscopy History of esophagogastroduodenoscopy (EGD) History of surgery Family History Family History (Updated 06/06/25 @ 13:23 by Isa Poole) Father Diabetes Mother Hypertension Sister Cervical cancer Paternal Grandmother Uterine cancer Daughter Lymphatic malformation Paternal Grandmother Colon cancer Social History Social History (Updated 06/06/25 @ 13:22 by Isa Poole) Household Members: Family and Children Housing: House Are you a primary critical care nurse practitioner to a significant other at home: No Do you presently have visiting nurse or other home services: No Alcohol intake: current Alcohol intake frequency: does not drink Patient Tobacco Use Status: Never used Tobacco Smoked in Last 30 Days: No e-Cigarette/Vaping Use: Never Used Second Hand Smoke Exposure: Yes Use of substances other than those prescribed or required for medical reasons: No Advance Directives: No Advance Directives Information Provided: Yes Do you have a plan to hurt others: No Plan Patient : No service: No Current occupational status: employed 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 Oriented X3. No acute distress. Looks fatigued Eyes: Pupils equal, round and reactive to light. ENT: Pharynx normal. Neck: Normal inspection. Neck supple. No lymph nodes noted. No crepitus CVS: Normal heart rate and rhythm. Pulses normal. Normal S1 and S2 Respiratory: No respiratory distress. Breath sounds normal. No Wheezing. No rales Abdomen: Soft and nontender. No rigidity. No distention. Skin: Skin warm and dry. Patient looks pale Normal skin turgor. Extremities: No lower extremity edema. No Lacerations. No Rash Neuro: Oriented X 3. No motor deficit. No sensory deficit. Moving all extremities. No slurred speech. CN 2 through 12 grossly intact Psych: calm, cooperative, normal affect Vital Signs: Vital Signs - 24 hr 07/14/25 15:04 07/14/25 16:54 07/14/25 16:57 Temperature 98.5 F 98.2 F Pulse Rate 75 53 52 Respiratory Rate 17 14 Blood Pressure 141/92 H 127/74 122/75 Pulse Oximetry 99 100 Oxygen Delivery Method Room Air Room Air 07/14/25 16:58 07/14/25 17:02 07/14/25 21:00 Temperature Pulse Rate 72 91 59 Respiratory Rate Blood Pressure 140/82 H 152/92 H 114/72 Pulse Oximetry Oxygen Delivery Method 07/14/25 21:12 07/14/25 21:12 07/14/25 21:12 Temperature 98.3 F Pulse Rate 64 67 80 Respiratory Rate 11 L Blood Pressure 117/72 125/85 122/81 Pulse Oximetry 97 Oxygen Delivery Method Room Air BMI result Body Mass Index 26.3 Course Course Course Narrative: Rapid medical examination performed in triage by Pilar Arambula PA-C. Patient is a 40 year old assigned female at presenting to the emergency department with palpitations and feeling generally unwell. Detailed physical exam and review of systems are deferred to the magazine keeper. EKG, labs, imaging, swabs ordered. Patient placed back in the waiting room pending room availability and results. Medications Administered Discontinued Medications Generic Name Dose Route Start Last Admin Trade Name Freq PRN Reason Stop Dose Admin Sodium Chloride 1,000 mls @ 999 mls/hr 07/14/25 18:47 07/14/25 20:36 Ns IVCONT 07/14/25 19:47 Infused .Q1H1M ONE Infusion Ondansetron HCl 4 mg 07/14/25 18:47 07/14/25 19:04 Ondansetron Hcl 4 Mg/2 Ml Vial IVPUSH 07/14/25 18:48 4 mg ONCE ONE Administration Prochlorperazine Edisylate 10 mg 07/14/25 18:47 07/14/25 19:56 Prochlorperazine Edisylate 10 Mg/2 Ml Vial IVPUSH 07/14/25 18:48 Not Given ONCE ONE Medical Decision Making Medical Decision Making [facility] Narrative: My interpretation of labs, normal sinus rhythm, heart rate 65, no ST segment depression or elevation, no T-wave inversion, QTC 432 My interpretation of labs: No significant abnormality of patient's hematology and chemistry Urinalysis positive for UTI Initially, patient's orthostatics were positive, patient given IV fluids and Zofran. Patient overall feeling better. Differential Diagnosis Differential Diagnoses: The differential diagnosis associated with the presentation includes (UTI, orthostatic hypotension, anemia, pots) Admission/Observation Consideration of admission/observation: Escalation of care including admission/observation considered (Given patient's initial presentation and symptoms, observation was considered) Lab Data MDM Lab Attestation statement: I reviewed the patient's lab results. 07/14/25 16:16 07/14/25 16:16 Labs: Lab Results 07/14/25 07/14/25 07/14/25 Range/Units 16:16 17:14 19:06 WBC 6.2 (4.8-10.8) X10*3/uL RBC 4.29 (4.20-5.50) X10*6/uL Hgb 11.7 L (12.0-16.0) g/dl Hct 35.8 L (37.0-47.0) % MCV 83.4 (80.0-98.0) fL MCH 27.3 (27.0-33.0) pg MCHC 32.7 (31.0-35.0) g/dl RDW 19.5 H (11.0-16.0) % Plt Count 274 (160-400) X10*3/uL MPV 12.0 (9.4-12.3) fL Immature Gran % (Auto) 0.2 (0.0-0.4) % Neut % (Auto) 65.9 (45-73) % Lymph % (Auto) 26.0 (20-40) % Brooks % (Auto) 5.7 (2-11) % Eos % (Auto) 1.9 (0-4) % Baso % (Auto) 0.3 (0-2) % Lymph # (Auto) 1.6 (1.2-4.9) X10*3/uL Brooks # (Auto) 0.4 (0.1-1.2) X10*3/uL Eos # (Auto) 0.1 (0.0-0.4) X10*3/uL Baso # (Auto) 0.0 (0.0-0.2) X10*3/uL Abs Immat Gran (auto) 0.01 (0.00-0.03) X10*3/uL Absolute Neuts (auto) 4.1 (2.0-8.3) x10*3/uL Absolute Nucleated RBC 0.000 (0.0-0.012) X10*3/uL Nucleated RBC % (auto) 0.0 (0.0-0.2) /100WBC PT 11.8 (10.9-12.4) SEC INR 1.0 (0.9-1.1) D-Dimer High Sensitivty 160 NG/ML Sodium 143 (135-145) mmol/L Potassium 3.6 (3.3-5.1) mmol/L Chloride 108 (96-108) mmol/L Carbon Dioxide 26 (22-29) mmol/L Anion Gap 13 (12-20) BUN 10 (9-16) mg/dL Creatinine 0.64 (0.5-1.4) mg/dL Estim Creat Clear Calc 105.7 Estimated GFR > 60 Random Glucose 79 (60-115) mg/dL Calcium 9.1 (8.4-10.2) mg/dL Iron 51 (30-160) mcg/dL TIBC 231 (228-428) mcg/dL % Saturation 22 (15-50) % Unsat Iron Binding 180 ug/dL Total Bilirubin 0.3 (0.0-1.0) mg/dL AST 15 (5-31) U/L ALT < 6 (0-31) U/L Alkaline Phosphatase 68 (39-117) U/L Troponin I High Sens 3.5 (<3.5-17.0) ng/L Total Protein 6.6 (6.5-8.0) g/dL Albumin 4.1 (3.5-5.0) g/dL Lipase 10 (8-78) U/L TSH 0.64 (0.32-4.0) uIU/mL Beta HCG, Quant < 2 mIU/mL Urine Color Yellow Urine Appearance Cloudy Urine pH 6.5 (5.0-9.0) Ur Specific Logan 1.025 (1.005-1.025) Urine Protein Trace (Neg-Trace) mg/dL Urine Glucose (UA) Negative (Negative) mg/dL Urine Ketones >=160 (Negative) mg/dL Urine Blood Small (1+) H (Negative) Urine Nitrite Positive H (Negative) Ur Leukocyte Esterase Small (1+) H (Negative) Urine RBC 6-10 H (0-2) /HPF Urine WBC 21-50 H (0-5) /HPF Ur Squamous Epith Cells 3-5 (0-2) /HPF Urine Bacteria 4+ (None Seen) Hyaline Casts 0-2 (0-2) /LPF COVID-19 (MADIE) Negative (Negative) COVID-19 Clin Com See Note Influenza Type A (EMILEE) Negative (Negative) Influenza Type B (EMILEE) Negative (Negative) Influenza A & B Note See Note Independent Interpretation I performed an independent interpretation of an: Plain X-Ray Radiology Impression Discussion of test interpretation with radiology: I have reviewed the radiologist's reading. Radiologist Impression: The cardiac, hilar, and mediastinal contours are normal. The lungs are clear bilaterally. There is no pneumothorax or pleural effusion. There is no focal osseous or soft tissue abnormality. Surgical clips present in the epigastric region. XR/XR chest 2V IMPRESSION: Normal chest. Critical Care Time Critical Care Time Critical Care Time: Yes Total Critical Care Time: 35 Attestation: I have personally provided critical care time. Time includes review of lab data, radiology results, discussion with consultants, and monitoring for potential decompensation. Intervention performed as documented. Discharge Plan Discharge Clinical Impression: UTI (urinary tract infection), Palpitations Patient Disposition: Home, Self-Care Instructions: Heart Palpitations (ED), Urinary Tract Infection in Women (ED) Prescriptions: No Action ferrous sulfate 325 mg (65 mg iron) tablet 325 mg PO BID 30 Days Qty: 60 3RF docusate sodium [Colace] 100 mg capsule 100 mg PO DAILY PRN (Reason: constipation) 30 Days Qty: 30 0RF cholecalciferol (vitamin D3) 125 mcg (5,000 unit) capsule 125 mcg PO DAILY Qty: 90 0RF ondansetron 4 mg tablet,disintegrating 4 mg PO Q8H PRN (Reason: for nausea/vomiting) Qty: 30 1RF pantoprazole 40 mg tablet,delayed release (DR/EC) 40 mg PO DAILY vitamin A palmitate 3,000 mcg (10,000 unit) capsule 3,000 mcg PO DAILY thiamine HCl (vitamin B1) 100 mg capsule 100 mg PO DAILY clotrimazole [Antifungal (clotrimazole)] 1 % cream 1 appl topical BID Qty: 45 2RF Print Language: Korean
[2025-07-14 16:20] LABS: MANUAL DIFF FLAG NO
[2025-07-14 16:22] LABS: Hematocrit 35.8 % (37.0-47.0); Hemoglobin 11.7 g/dl (12.0-16.0); Imm Gran Abs Auto 0.01 X10*3/uL (0.00-0.03); Imm Gran Pct Auto 0.2 % (0.0-0.4); Lymphocytes Absolute Auto 1.6 X10*3/uL (1.2-4.9); Mean Corpuscular HGB Conc 32.7 g/dl (31.0-35.0); Mean Corpuscular Hemoglobin 27.3 pg (27.0-33.0); Mean Corpuscular Volume 83.4 fL (80.0-98.0); NRBC Abs Auto 0.000 X10*3/uL (0.0-0.012); NRBC Pct Auto 0.0 /100WBC (0.0-0.2); Platelet Count 274 X10*3/uL (160-400); Red Blood Count 4.29 X10*6/uL (4.20-5.50); White Blood Count 6.2 X10*3/uL (4.8-10.8)
[2025-07-14 16:27] LABS: INTERNATIONAL NORM RATIO 1.0 (0.9-1.1); Prothrombin Time 11.8 SEC (10.9-12.4)
[2025-07-14 16:37] LABS: Alanine Aminotransferase < 6 U/L (0-31); Albumin Level 4.1 g/dL (3.5-5.0); Alkaline Phosphatase 68 U/L (39-117); Anion Gap 13 (12-20); Aspartate Amino Transferase 15 U/L (5-31); Blood Urea Nitrogen 10 mg/dL (9-16); Calcium 9.1 mg/dL (8.4-10.2); Carbon Dioxide 26 mmol/L (22-29); Chloride 108 mmol/L (96-108); Creatinine Clr Calc Pharmacy 105.7; Estimated Glomerular Filt Rate > 60; Potassium 3.6 mmol/L (3.3-5.1); Sodium 143 mmol/L (135-145); Total Protein 6.6 g/dL (6.5-8.0)
[2025-07-14 16:40] LABS: Troponin-I High Sensitivity 3.5 ng/L (<3.5-17.0)
[2025-07-14 17:27] LABS: D Dimer High Sensitivity 160 NG/ML
[2025-07-14 17:33] LABS: Iron 51 mcg/dL (30-160); Lipase 10 U/L (8-78); Percent Iron Saturation 22 % (15-50); Total Iron Binding Capacity 231 mcg/dL (228-428); Unsaturated Iron Binding 180 ug/dL
[2025-07-14 19:14] LABS: Appearance Urine Cloudy; Glucose Urine UA Negative (Negative); PH 6.5 (5.0-9.0); Specific Gravity - Urine 1.025 (1.005-1.025); UMIC TRIGGER UACC YES
[2025-07-14 19:19] LABS: UACC Culture Trigger YES
[2025-07-14 19:26] LABS: COVID-19 Test Negative (Negative); IDNOW Serial# 58CA691E
[2025-07-14 19:29] LABS: IDNOW Serial# 55D5AD1C; Influenza B2 Negative (Negative)
--- NOTE | 2025-07-14 19:38 | PC.NURSE ---
pt does not want compazine at this time. reports no nausea after the zofran. resting comfortably with call goldamn w/in reach
--- NOTE | 2025-07-14 20:37 | PC.NURSE ---
pt requesting food., denies nausea. PO trial. then orthos per
== END 2025-07-14 21:56 | disposition home or self-care (01) ==
PROVIDERS: Physician Assistant Medical; Emergency Provider Emergency Medicine; PCP Physician Assistant
DX: N39.0 Urinary tract infection, site not specified (principal); I49.9 Cardiac arrhythmia, unspecified; R00.2 Palpitations; R11.0 Nausea; R10.2 Pelvic and perineal pain; Z03.818 Encounter for observation for suspected exposure to other biological agents ruled out; Z79.899 Other long term (current) drug therapy; Z98.84 Bariatric surgery status
CPT/HCPCS: 36415; 71046; 80053; 81001; 83540; 83690; 84443; 84484; 84702; 85025; 85379; 85610; 87086; 87502; 87635; 93005; 96361; 96374; 99284; 99285; J2405

== ENCOUNTER → 2025-07-14 15:11 | Outpatient (BNV) | payer OTHER, SELFPAY | PROVIDERS: PCP Physician Assistant; Visit Provider Radiology Diagnostic Radiology | DX: R00.2 Palpitations (principal) | CPT/HCPCS: 71046 ==

== ENCOUNTER → 2025-07-14 15:14 | Outpatient (BNV) | payer OTHER, SELFPAY | PROVIDERS: Emergency Provider Emergency Medicine; PCP Physician Assistant; Visit Provider Internal Medicine | DX: I49.9 Cardiac arrhythmia, unspecified (principal) | CPT/HCPCS: 93010 ==

== ENCOUNTER 2025-07-23 14:30 | Outpatient (RCR) | payer OTHER, SELFPAY ==
[2025-06-18 14:08] VITALS: BP 129/87; PULSE 64; RESP 16; TEMP 36.6; O2SAT 98
[2025-06-26 14:08] VITALS: BP 113/80; PULSE 80; RESP 18; TEMP 36.6
[2025-07-02 14:10] VITALS: BP 109/79; PULSE 64; RESP 16; TEMP 36.3; O2SAT 98
[2025-07-02] MEDS: 0.9 % Sodium Chloride Flush 10 ML SYRINGE 5 ML IVFLUSH (14:34)
[2025-07-08 13:04] VITALS: BP 126/82; PULSE 68; RESP 16; TEMP 36.4; O2SAT 100
[2025-07-16 13:32] VITALS: BP 125/84; PULSE 55; RESP 16; TEMP 36.5; O2SAT 98
[2025-07-23 14:28] VITALS: BP 119/85; PULSE 70; RESP 16; TEMP 36.9; O2SAT 99
== END 2025-07-23 15:01 | disposition home or self-care (01) ==
LOC: HO.INF 14:30
PROVIDERS: Visit Provider Internal Medicine
DX: D64.9 Anemia, unspecified (principal)
CPT/HCPCS: 96365; 96374; J1756

== ENCOUNTER 2025-08-22 14:17 | Outpatient (REF) | payer OTHER, SELFPAY ==
[2025-08-22 14:49] LABS: Hematocrit 39.6 % (37.0-47.0); Hemoglobin 12.8 g/dl (12.0-16.0); Mean Corpuscular HGB Conc 32.3 g/dl (31.0-35.0); Mean Corpuscular Hemoglobin 27.8 pg (27.0-33.0); Mean Corpuscular Volume 85.9 fL (80.0-98.0); NRBC Abs Auto 0.000 X10*3/uL (0.0-0.012); NRBC Pct Auto 0.0 /100WBC (0.0-0.2); Platelet Count 268 X10*3/uL (160-400); Red Blood Count 4.61 X10*6/uL (4.20-5.50); White Blood Count 7.7 X10*3/uL (4.8-10.8)
[2025-08-22 15:36] LABS: Ferritin 157 ng/mL (10-122)
== END 2025-08-22 14:18 | disposition home or self-care (01) ==
LOC: HO.LAB 14:17
PROVIDERS: Absent Provider Internal Medicine; PCP Physician Assistant; Visit Provider Physician Assistant Surgical
DX: D64.9 Anemia, unspecified (principal)
CPT/HCPCS: 36415; 82728; 85027

== ENCOUNTER 2025-09-11 07:45 | Outpatient (AMB) | payer OTHER, SELFPAY ==
--- NOTE | 2025-09-11 07:53 | MHC.OFFVIS ---
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 Complaining of irregular menstrual cycle Last Pap/HPV was negative in 04/11 [facility] Medical History Annual physical exam Pre-op evaluation Class 2 obesity H. pylori infection BMI 39.0-39.9,adult Hand pain, left Right hand pain Polyarthralgia Acute allergic reaction Screening for diabetes mellitus (DM) Melasma Epigastric abdominal pain Esophagitis determined by endoscopy Well woman exam Dry cough Palpitations History of COVID-19 Corneal abrasion of right eye due to contact lens Hot flashes Headache DJD (degenerative joint disease) Anemia History of vitamin D deficiency NAFLD (nonalcoholic fatty liver disease) IBS (irritable bowel syndrome) Sleep apnea HTN (hypertension) Hypersomnia Nocturnal hypoxia Hiatal hernia GERD (gastroesophageal reflux disease) History of COVID-19 Anxiety and depression History of abnormal cervical Pap smear Obesity (BMI 30-39.9) Surgical History History of gastric surgery History of hernia repair History of laparoscopic appendectomy (01/13/25) H/O endoscopy Hx of colonoscopy History of esophagogastroduodenoscopy (EGD) History of surgery Family History Father Diabetes Mother Hypertension Sister Cervical cancer Paternal Grandmother Uterine cancer Daughter Lymphatic malformation Paternal Grandmother Colon cancer Social History Household Members: Family and Children Housing: House Are you a primary primary care nurse practitioner to a significant other at home: No Do you presently have visiting nurse or other home services: No Alcohol intake: current Alcohol intake frequency: does not drink Patient Tobacco Use Status: Never used Tobacco e-Cigarette/Vaping Use: Never Used Second Hand Smoke Exposure: Yes service: No Current occupational status: employed 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: No Gender identity: Female Cognitive needs: No Hearing needs: No Vision needs: Yes (Glasses) Female Reproductive History Menstrual Age of Menarche: 11 Date of last menstrual period: 08/26/25 Date of last pap smear: 04/19/23 Review of Systems Const All systems reviewed & are unremarkable except as noted in HPI and below Card Reports as per HPI Resp Reports as per HPI GI Reports as per HPI and Reports no additional complaints Reports as per HPI Physical Exam Const General: cooperative, healthy appearing and comfortable Chest Chest palpation & inspection: normal inspection of the chest and normal palpation of entire chest wall Breast/axilla inspection: normal inspection of the breasts and normal inspection of the axillae Breast/axilla palpation: normal palpation of the breasts, normal palpation of the axillae and no axillary lymphadenopathy Resp Effort & Inspection: normal respiratory effort Auscultation: clear to auscultation bilaterally Percussion: percussion normal Cardio Palpation: normal PMI Rate: regular rate Rhythm: regular rhythm Heart sounds: no murmurs and no rubs Peripheral pulses: Peripheral pulses 2+ throughout GI Inspection: Yes normal to inspection Palpation (GI): Soft to palpation, nontender, no guarding, not rigid and No hepatosplenomegaly present Percussion: Yes normal to percussion Auscultation: normal bowel sounds Rectal Exam - Female: deferred General: Yes bladder normal to palpation External Female Exam: No lesion Speculum Exam - Vagina: normal appearance of the vagina, normal palpation, normal vaginal discharge and not erythematous Speculum Exam - Cervix: normal appearance of the cervix and normal palpation Bimanual exam- vagina & uterus: normal bimanual exam, normal palpation, uterine size normal, bladder normal to palpation, consistency normal and normal palpation Bimanual Exam- Adnexa, other: normal adnexae, no masses and no tenderness Assessment & Plan Assessment & Plan (1) Well woman exam: Code(s): Z01.419 - Encounter for gynecological examination (general) (routine) without abnormal findings Category: Medical Plan: Cotesting not indicated this year. Counseled the patient about the recommended dietary allowance of 1000 mg of Calcium & 600 IU of vitamin D. The patient was instructed to perform monthly self-breast exams and to schedule an annual exam in a year; All questions answered and the patient verbalized understanding. Instructed the patient to schedule annual exam in a year (2) Abnormal uterine bleeding (AUB): Code(s): N93.9 - Abnormal uterine and vaginal bleeding, unspecified Category: Medical Plan: GC and chlamydia taken CBC, TSH, HCG, and pelvic ultrasound ordered. Discussed with the patient the different causes of abnormal bleeding including thyroid disorders, uterine and ovarian pathology, endometrial hyperplasia, carcinoma and other potential causes. Discussed with the patient the work up including CBC (to r/o anemia), TSH, pelvic Ultrasound, endometrial biopsy to r/o endometrial pathology. All questions answered and the patient verbalized understanding. Instructed the patient to schedule an appointment for an endometrial biopsy in 2 weeks. Orders: Orders TSH reflex Free T4 Today N93.9 - Abnormal uterine and vaginal bleeding, unspecified US pelvic and transvaginal Today N93.9 - Abnormal uterine and vaginal bleeding, unspecified Complete Blood Count no Diff Today N93.9 - Abnormal uterine and vaginal bleeding, unspecified HCG Quantitative Today N93.9 - Abnormal uterine and vaginal bleeding, unspecified Coding Level of Care Code Est Pt Level 3 (71116) Est Pt Prev Care 18-39y(20921) Diagnoses Well woman exam Z01.419 Abnormal uterine bleeding (AUB) N93.9
[2025-09-11 07:54] VITALS: BP 110/64; BMI 24.5
== END 2025-09-11 08:20 | disposition home or self-care (01) ==
LOC: HO.HWS 07:45
PROVIDERS: PCP Physician Assistant; Visit Provider Obstetrics & Gynecology
DX: Z01.419 Encounter for gynecological examination (general) (routine) without abnormal findings (principal); N93.9 Abnormal uterine and vaginal bleeding, unspecified
CPT/HCPCS: 99213; 99395; 99459

== ENCOUNTER 2025-09-11 07:45 | Outpatient (REF) | payer OTHER, SELFPAY ==
[2025-09-11 17:47] LABS: CT PCR NOT DETECTED (Not Detect.); NG PCR NOT DETECTED (Not Detect.)
== END 2025-09-11 07:46 | disposition home or self-care (01) ==
LOC: HO.LNP 07:45
PROVIDERS: PCP Physician Assistant; Visit Provider Obstetrics & Gynecology
DX: Z01.419 Encounter for gynecological examination (general) (routine) without abnormal findings (principal); N93.9 Abnormal uterine and vaginal bleeding, unspecified; Z20.2 Contact with and (suspected) exposure to infections with a predominantly sexual mode of transmission
CPT/HCPCS: 87491; 87591

== ENCOUNTER → 2025-09-16 14:09 | Outpatient (REF) | payer OTHER, SELFPAY ==
--- NOTE | 2025-09-16 14:14 | ECG_ITS ---
Test Reason : PAPITATIONS Blood Pressure : */* mmHG Vent. Rate : 87 BPM Atrial Rate : 87 BPM P-R Int : 152 ms QRS Dur : 78 ms QT Int : 376 ms P-R-T Axes : 66 38 37 degrees QTcB Int : 452 ms Normal sinus rhythm Nonspecific ST abnormality Borderline ECG When compared with ECG of 14-Jul-2025 15:14, No significant change was found Referred By: Deidra Ortiz Electronically Signed By: LEAH RICHARDS
== END ==
LOC: HO.CARD 14:09
PROVIDERS: PCP Physician Assistant; Visit Provider Physician Assistant Surgical
DX: R00.2 Palpitations (principal)
CPT/HCPCS: 93005

== ENCOUNTER → 2025-09-16 14:14 | Outpatient (BNV) | payer OTHER, SELFPAY | PROVIDERS: PCP Physician Assistant; Visit Provider Internal Medicine | DX: R20.2 Paresthesia of skin (principal) | CPT/HCPCS: 93010 ==

== ENCOUNTER 2025-09-24 15:46 | Outpatient (AMB) | payer OTHER, SELFPAY ==
[2025-09-24 15:43] VITALS: BP 112/75; PULSE 76; TEMP 36.6; O2SAT 97; BMI 23.4
--- NOTE | 2025-09-24 15:43 | A.OFFVIS_ITS ---
VS Expanded 09/24/25 15:43 BP 112/75 Blood Pressure Location Rt brachial Blood Pressure Position Sitting Pulse 76 Pulse Source Pulse Oximeter Temp 97.8 F Pulse Oximetry 97 Height 5 ft 2.5 in Weight 130 lb BMI 23.4 Body Fat % 29.7 Body Fat Mass 38.6 Fat Free Mass 91.2 Visceral Fat Rating 4.0 Body Water % 50.3 Body Water Mass 65.2 Muscle Mass/Score 86.6 Basal Metabolic Rate/Score 1,254 Intake Visit Reasons: OV PO LSG 02/12/25 Allergies Seasonal Allergies Allergy (Intermediate, Verified 09/11/25 07:56) Itchy Eyes hydrochlorothiazide Adverse Reaction (Intermediate, Verified 09/11/25 07:56) Dizziness Medication List - Last Reconciled 09/27/25 by ELVIA Thompson calcium carbonate 600 mg PO DAILY cholecalciferol (vitamin D3) 125 mcg PO DAILY docusate sodium (Colace) 100 mg PO DAILY PRN 30 days ferrous sulfate 325 mg PO BID 30 days ondansetron 4 mg PO Q8H PRN pantoprazole 40 mg PO DAILY thiamine HCl (vitamin B1) 100 mg PO DAILY vitamin A palmitate 3,000 mcg PO DAILY HPI Comments Details: This?is a?40?yo F who is s/p LSG 02/12/2025. Presents for 6mo post op visit. Weight loss of 33lb since last OV in March 2025. She has now achieved a healthy weight/BMI.? No complaints of nausea, emesis, abdominal pain. She has IBS often resulting in constipation. She continues to take pantoprazole as her stomach feels unsettled if not taking it. Pt reports she has started experiencing episodes of tachycardia in increasing frequency. HR sometimes gets as high as 130-140 bpm even when she is not physically active; this can happen at rest. She also reports hair loss. Present meal plan includes: not strictly following a timed meal plan; will drink Ensure shakes, and eat small portions of meals focusing on protein first Exercise routine includes: has decreased her exercise due to palpitations and fatigue [facility] Medical History (Updated 09/24/25 @ 16:14 by ELVIA Thompson) Palpitations Annual physical exam Pre-op evaluation Class 2 obesity H. pylori infection BMI 39.0-39.9,adult Hand pain, left Right hand pain Polyarthralgia Acute allergic reaction Screening for diabetes mellitus (DM) Melasma Epigastric abdominal pain Esophagitis determined by endoscopy Well woman exam Dry cough History of COVID-19 Corneal abrasion of right eye due to contact lens Hot flashes Headache DJD (degenerative joint disease) Anemia History of vitamin D deficiency NAFLD (nonalcoholic fatty liver disease) IBS (irritable bowel syndrome) Sleep apnea HTN (hypertension) Hypersomnia Nocturnal hypoxia Hiatal hernia GERD (gastroesophageal reflux disease) History of COVID-19 Anxiety and depression History of abnormal cervical Pap smear Obesity (BMI 30-39.9) Surgical History History of gastric surgery History of hernia repair History of laparoscopic appendectomy (01/13/25) H/O endoscopy Hx of colonoscopy History of esophagogastroduodenoscopy (EGD) History of surgery Family History Father Diabetes Mother Hypertension Sister Cervical cancer Paternal Grandmother Uterine cancer Daughter Lymphatic malformation Paternal Grandmother Colon cancer Social History Household Members: Family and Children Housing: House Are you a primary healthcare representative to a significant other at home: No Do you presently have visiting nurse or other home services: No Alcohol intake: current Alcohol intake frequency: does not drink Patient Tobacco Use Status: Never used Tobacco e-Cigarette/Vaping Use: Never Used Second Hand Smoke Exposure: Yes service: No Current occupational status: employed 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: No Gender identity: Female Cognitive needs: No Hearing needs: No Vision needs: Yes (Glasses) Female Reproductive History Menstrual Age of Menarche: 11 Physical Exam Vital Signs: Last Vital Signs Temp 97.8 F 09/24/25 15:43 Pulse 76 09/24/25 15:43 BP 112/75 09/24/25 15:43 Pulse Ox 97 09/24/25 15:43 BMI result Body Mass Index 23.4 Assessment & Plan Assessment & Plan (1) Palpitations: Code(s): R00.2 - Palpitations Category: Medical (2) S/P laparoscopic sleeve gastrectomy: Code(s): Z98.84 - Bariatric surgery status Category: Surgical (3) Anemia: Code(s): D64.9 - Anemia, unspecified Category: Medical Plan Referral to cardiology for complaint of palpitations and tachycardia. She previously had EKG done, will go for labs including lytes/Mg/Phos. We discussed derm referral for hair loss but she declines at this time. We discussed nutrition and a possible referral to packaging materials inspector if she has difficulty maintaining weight. We discussed protein goal of 65g/day for weight maintenance. RTC 6mo for annual. Orders: Orders Phosphorus 09/21/25 Z98.84 - Bariatric surgery status Magnesium 09/21/25 Z98.84 - Bariatric surgery status Calcium, Ionized 09/24/25 Z98.84 - Bariatric surgery status Referrals Cardiology Referral R00.2 - Palpitations
== END 2025-09-25 08:52 | disposition home or self-care (01) ==
LOC: HO.HBS 15:47
PROVIDERS: PCP Physician Assistant; Visit Provider Physician Assistant Surgical
DX: R00.2 Palpitations (principal); Z98.84 Bariatric surgery status; D64.9 Anemia, unspecified
CPT/HCPCS: 99214

== ENCOUNTER 2025-09-29 14:44 | Outpatient (AMB) | payer OTHER, SELFPAY ==
[2025-09-29 15:10] VITALS: BMI 24.5
--- NOTE | 2025-09-29 15:10 | MHC.OFFVIS ---
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 pylori infection BMI 39.0-39.9,adult Hand pain, left Right hand pain Polyarthralgia Acute allergic reaction Screening for diabetes mellitus (DM) Melasma Epigastric abdominal pain Esophagitis determined by endoscopy Well woman exam Dry cough History of COVID-19 Corneal abrasion of right eye due to contact lens Hot flashes Headache DJD (degenerative joint disease) Anemia History of vitamin D deficiency NAFLD (nonalcoholic fatty liver disease) IBS (irritable bowel syndrome) Sleep apnea HTN (hypertension) Hypersomnia Nocturnal hypoxia Hiatal hernia GERD (gastroesophageal reflux disease) History of COVID-19 Anxiety and depression History of abnormal cervical Pap smear Obesity (BMI 30-39.9) Surgical History History of gastric surgery History of hernia repair History of laparoscopic appendectomy (01/13/25) H/O endoscopy Hx of colonoscopy History of esophagogastroduodenoscopy (EGD) History of surgery Family History Father Diabetes Mother Hypertension Sister Cervical cancer Paternal Grandmother Uterine cancer Daughter Lymphatic malformation Paternal Grandmother Colon cancer Social History Household Members: Family and Children Housing: House Are you a primary personal care attendant to a significant other at home: No Do you presently have visiting nurse or other home services: No Alcohol intake: current Alcohol intake frequency: does not drink Patient Tobacco Use Status: Never used Tobacco e-Cigarette/Vaping Use: Never Used Second Hand Smoke Exposure: Yes service: No Current occupational status: employed 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: No Gender identity: Female Cognitive needs: No Hearing needs: No Vision needs: Yes (Glasses) Female Reproductive History Menstrual Age of Menarche: 11 Review of Systems Const All systems reviewed & are unremarkable except as noted in HPI and below Reports as per HPI and Reports no additional complaints GI Reports no additional complaints Reports no additional complaints Physical Exam Vital Signs: BMI result Body Mass Index 24.5 Office Procedures Endometrial Biopsy Details: The patient was counseled regarding the indication and benefits of endometrial sampling to rule out endometrial pathology including not limited to endometrial hyperplasia or endometrial cancer and others; The alternatives (Either do nothing vs. hysteroscopy D&C) & the risks were discussed with the patient including but not limited: pain, uterine perforation, bleeding, infection, possible injury to bladder, bowel, ureter, possible need for blood transfusion with all its possible risks. The patient verbalized understanding all questions answered and signed consent. Urine test done in the office was negative The patient was placed into the dorsal lithotomy position; a speculum was inserted in the vagina. Using aseptic technique for the procedure, the cervix was cleansed with Betadine. The anterior lip of the cervix was grasped with a single tooth tenaculum. The uterus was sounded to 7 cm with a 4 mm Pipelle was used. Tissues samples were obtained and placed in formalin, in a patient labeled container and sent to the pathology department. At the end of the procedure, there was minimal bleeding noted The patient tolerated the procedure well and was discharged in good condition with the following instructions: Nothing in the vagina until the bleeding stops. No sex until the bleeding stops, to call if any of the following occurs: fever (>100.4), flu-like symptoms, abdominal pain, heavy bleeding, four smelling vaginal discharge. The patient was instructed to schedule a Follow up appointment in 2 weeks to discuss pathology results of the biopsy and treatment options. This note was generated with a voice recognition program. Some errors may have been overlooked during the review of this note. Sometimes these errors may affect the content or meaning of a given sentence. [id number] Biopsy Results AMB Test Urine AMB Test Urine Negative Last Edit by Keily Nick CMA on 09/29/25 15:11 Assessment & Plan Assessment & Plan (1) Abnormal uterine bleeding (AUB): Code(s): N93.9 - Abnormal uterine and vaginal bleeding, unspecified Category: Medical Plan: EMB done, see procedure note Orders: Orders AMB Endometrial Biopsy Today N93.9 - Abnormal uterine and vaginal bleeding, unspecified AMB HCG Urine Test Today Z32.02 - Encounter for test, result negative Coding Level of Care Code Procedure Only Diagnoses Abnormal uterine bleeding (AUB) N93.9 CPT Codes Endometrial Biopsy - CPT: 02654-Goepkidiayd Biopsy ([id number])
== END 2025-09-29 15:34 | disposition home or self-care (01) ==
LOC: HO.HWS 14:44
PROVIDERS: PCP Physician Assistant; Visit Provider Obstetrics & Gynecology
DX: N93.9 Abnormal uterine and vaginal bleeding, unspecified (principal); Z32.02 Encounter for pregnancy test, result negative
CPT/HCPCS: 58100

== ENCOUNTER 2025-09-29 14:44 | Outpatient (REF) | payer OTHER, SELFPAY | END 2025-09-29 14:45 | disposition home or self-care (01) | LOC: HO.LNP 14:44 | PROVIDERS: PCP Physician Assistant; Visit Provider Obstetrics & Gynecology | DX: N93.9 Abnormal uterine and vaginal bleeding, unspecified (principal); Z32.02 Encounter for pregnancy test, result negative | CPT/HCPCS: 58100; 81025; 88305 ==

== ENCOUNTER 2025-10-07 08:20 | Outpatient (REF) | payer OTHER, SELFPAY ==
--- NOTE | ~2025-10-07 | XR_ITS ---
EXAMINATION: X-ray lumbar spine CLINICAL INFORMATION: Low back pain COMPARISON: None TECHNIQUE: 5 views lumbar spine FINDINGS: Vertebral body heights are maintained. No evidence of acute fracture or spondylolisthesis. No suspicious bony lesions. Borderline L5-S1 disc space narrowing. Mild facet degeneration in the lower lumbar spine.SI joints are intact. Essure devices project over the pelvis.. Surgical clips in left upper abdomen. XR/XR lumbar spine 4V min IMPRESSION: 1. No evidence of acute osseous abnormality. 2. Mild spondylosis as above.. Electronically signed by: Slade Cunningham MD 10/07/2025 01:50 PM EST
[2025-10-07 09:34] LABS: MANUAL DIFF FLAG NO
[2025-10-07 09:43] LABS: Hematocrit 41.5 % (37.0-47.0); Hemoglobin 13.4 g/dl (12.0-16.0); Imm Gran Abs Auto 0.01 X10*3/uL (0.00-0.03); Imm Gran Pct Auto 0.2 % (0.0-0.4); Lymphocytes Absolute Auto 1.2 X10*3/uL (1.2-4.9); Mean Corpuscular HGB Conc 32.3 g/dl (31.0-35.0); Mean Corpuscular Hemoglobin 28.8 pg (27.0-33.0); Mean Corpuscular Volume 89.2 fL (80.0-98.0); NRBC Abs Auto 0.000 X10*3/uL (0.0-0.012); NRBC Pct Auto 0.0 /100WBC (0.0-0.2); Platelet Count 256 X10*3/uL (160-400); Red Blood Count 4.65 X10*6/uL (4.20-5.50); White Blood Count 5.4 X10*3/uL (4.8-10.8)
[2025-10-07 10:11] LABS: Alanine Aminotransferase 11 U/L (0-31); Albumin Level 4.5 g/dL (3.5-5.0); Alkaline Phosphatase 82 U/L (39-117); Anion Gap 10 (12-20); Aspartate Amino Transferase 14 U/L (5-31); Blood Urea Nitrogen 13 mg/dL (9-16); Calcium 9.2 mg/dL (8.4-10.2); Carbon Dioxide 27 mmol/L (22-29); Chloride 110 mmol/L (96-108); Estimated Glomerular Filt Rate > 60; Magnesium 2.2 mg/dL (1.6-2.6); Potassium 3.7 mmol/L (3.3-5.1); Sodium 143 mmol/L (135-145); Total Protein 7.0 g/dL (6.5-8.0)
[2025-10-07 11:30] LABS: Folate 4.2 ng/mL (> or = 4.0); Vitamin B12 385 pg/mL (200-900)
[2025-10-08 16:08] LABS: Calcium, Ionized 5.1 mg/dL (4.7-5.5)
== END 2025-10-07 08:21 | disposition home or self-care (01) ==
LOC: HO.LAB 08:20
PROVIDERS: Physician Assistant Surgical; Absent Provider Physician Assistant Surgical; PCP Physician Assistant; Referring Provider Obstetrics & Gynecology; Visit Provider Physician Assistant
DX: R00.2 Palpitations (principal); N93.9 Abnormal uterine and vaginal bleeding, unspecified; E55.9 Vitamin D deficiency, unspecified; E50.9 Vitamin A deficiency, unspecified; E51.9 Thiamine deficiency, unspecified; D50.8 Other iron deficiency anemias; M54.50 Low back pain, unspecified; G89.29 Other chronic pain; Z98.84 Bariatric surgery status; Z79.899 Other long term (current) drug therapy
CPT/HCPCS: 36415; 72110; 80053; 82306; 82330; 82607; 82746; 83735; 84100; 84425; 84443; 84590; 84630; 84702; 85025

== ENCOUNTER 2025-10-07 08:20 | Outpatient (AMB) | payer OTHER, SELFPAY ==
--- NOTE | 2025-10-07 08:25 | MHC.PC.OV ---
Vital Signs 10/07/25 08:26 Height 5 ft 2 in Weight 132 lb BMI 24.1 BP 130/68 Blood Pressure Location Lt brachial Position Sitting Pulse 51 Pulse Source Pulse Oximeter Temp 97.3 F Temp Source Temporal Artery Scan Pulse Oximetry (%) 99 Oxygen Delivery Method Room Air Intake Visit Reasons: 6 mo follow up Intake Note: Patient is here to follow up on DJD, HTN, IBS, GERD. 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 Accompanied by: Self / Same As Patient Allergies Seasonal Allergies Allergy (Intermediate, Verified 10/07/25 08:33) Itchy Eyes hydrochlorothiazide Adverse Reaction (Intermediate, Verified 10/07/25 08:33) Dizziness Medication List - Last Reconciled 10/07/25 by Shantanu Costello PA-C calcium carbonate 600 mg PO DAILY cholecalciferol (vitamin D3) 125 mcg PO DAILY docusate sodium (Colace) 100 mg PO DAILY PRN 30 days ferrous sulfate 325 mg PO BID 30 days ondansetron 4 mg PO Q8H PRN pantoprazole 40 mg PO DAILY thiamine HCl (vitamin B1) 100 mg PO DAILY vitamin A palmitate 3,000 mcg PO DAILY Tobacco use date assessed: 10/07/25 Dental Screening Dental Screen Date: 01/01/25 HPI 6 mo follow up HPI Details Patient is a 40-year-old female here today for a follow-up visit Patient has a past medical history significant for obesity, GERD, generalized anxiety disorder. Status post gastric sleeve: Patient is status post gastric sleeve and has been able to lose significant panel weight. She continues to follow the [facility]ariat[facility] program. Since her surgery she reports really not feeling too well and having more consistent heart palpitations. She reports having heart rates up to 140s even waking her up from sleep. She has underwent a EKG in August [address]-T abnormalities though no change since previous EKG. PLAN: Will plan to follow up with the Cardiology and try a 5 day Holter monitor to evaluate for anymore significant arrhythmia .. Low back pain: She also reports having more bone pain since her bariatric surgery, reporting most of the pain is in her low back. She is not interested in physical therapy though is interested in getting a back x-ray .. Microcytic anemia: Followed by Hematology and has underwent iron infusions and ferritin levels and CBC have improved. .. Hypertension: Patient's blood pressure acceptable today in office. Since bariatric surgery she has been off of antihypertensive medication has been able to maintain control her blood pressure. She does report she did have a couple of episodes of hypertension that came with headaches. Otherwise blood pressures have been pretty stable home. .. Anxiety: Patient's DANIELA-7 score positive for anxiety which has been existing condition for her. She has been off of sertraline as she felt she was taking too many medication. She feels stable from a mental health point of view without medication. [facility] Medical History (Updated 10/07/25 @ 10:01 by Shantanu Costello PA-C) Palpitations Annual physical exam Pre-op evaluation Class 2 obesity H. pylori infection BMI 39.0-39.9,adult Hand pain, left Right hand pain Polyarthralgia Acute allergic reaction Screening for diabetes mellitus (DM) Melasma Epigastric abdominal pain Esophagitis determined by endoscopy Well woman exam Dry cough History of COVID-19 Corneal abrasion of right eye due to contact lens Hot flashes Headache DJD (degenerative joint disease) Anemia History of vitamin D deficiency NAFLD (nonalcoholic fatty liver disease) IBS (irritable bowel syndrome) Sleep apnea HTN (hypertension) Hypersomnia Nocturnal hypoxia Hiatal hernia GERD (gastroesophageal reflux disease) History of COVID-19 Anxiety and depression History of abnormal cervical Pap smear Obesity (BMI 30-39.9) Surgical History History of gastric surgery History of hernia repair History of laparoscopic appendectomy (01/13/25) H/O endoscopy Hx of colonoscopy History of esophagogastroduodenoscopy (EGD) History of surgery Family History Father Diabetes Mother Hypertension Sister Cervical cancer Paternal Grandmother Uterine cancer Daughter Lymphatic malformation Paternal Grandmother Colon cancer Social History Household Members: Family and Children Housing: House Are you a primary career and transition teacher to a significant other at home: No Do you presently have visiting nurse or other home services: No Alcohol intake: current Alcohol intake frequency: does not drink Patient Tobacco Use Status: Never used Tobacco e-Cigarette/Vaping Use: Never Used Second Hand Smoke Exposure: Yes service: No Current occupational status: employed 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: No Gender identity: Female Cognitive needs: No Hearing needs: No Vision needs: Yes (Glasses) Female Reproductive History Menstrual Age of Menarche: 11 Questionnaire Thrive Questionnaire Date Thrive assessed: 04/02/25 I am a: Patient What is your living situation today?: I have a steady place to live Within the past 12 months, did the food you bought not last and you didn't have the money to get more?: Never true Within the past 12 months, did you worry whether your food would run out before you got money to buy more?: Sometimes True Do you have trouble paying for medicines?: No Do you have trouble getting transportation to medical appointments?: No Do you have trouble paying your heating and electricity bill?: No Do you have trouble taking care of your child, family member or friend?: No Do you have trouble with day-to-day activities such as bathing, preparing meals, shopping, managing finances, etc.?: No Are you currently unemployed and looking for a job?: No Are you interested in more education?: No Please select the resources that you would like help with: None Currently or been in a relationship where the following occur: No concerns reported THRIVE Score: 1 DANIELA-7 AMB Questionnaire DANIELA-7 Date DANIELA - 7 assessed: 04/02/25 Source: Developed by Drs. Murtaza Krueger, Ana Cameron, Matthew Rivas and colleagues, with an educational vaishali from [employer]. Review of Systems Const Denies headache(s) Eyes Denies loss of vision ENT Denies vertigo, Denies dizziness, Denies headache(s) and Denies sore throat Card Denies chest pain, Reports rapid heart rate, Denies leg edema, Denies lightheadedness and Reports palpitations Resp Denies cough, Denies hemoptysis and Denies wheezing GI Denies abdominal pain, Denies melena, Denies constipation, Denies diarrhea and Denies vomiting Denies urinary frequency, Denies dysuria and Denies urinary urgency Musc Reports back pain, Reports arthralgias, Denies joint swelling, Denies numbness and Denies tingling Neuro Denies Abnormal speech present, Denies behavioral changes, Denies vertigo, Denies dizziness, Denies headache(s), Denies loss of vision, Denies memory loss, Denies numbness and Denies tingling Psych Denies anxiety, Denies behavioral changes, Denies depression, Denies memory loss and Denies panic attacks Endo Reports palpitations Leandro/Lymph Denies easy bleeding and Denies easy bruising Aller/Immun Denies wheezing Physical exam (Primary Care) Vital Signs: Last Vital Signs Temp 97.3 F 10/07/25 08:26 Pulse 51 10/07/25 08:26 BP 130/68 10/07/25 08:26 Pulse Ox 99 10/07/25 08:26 Oxygen Delivery Method Room Air 10/07/25 08:26 BMI result Body Mass Index 24.1 Tobacco/Smoking Status: Tobacco use Status Tobacco use date assessed 10/07/25 10/07/25 08:31 Patient Tobacco Use Status Never used Tobacco 10/07/25 08:31 Tobacco use type 09/11/25 08:56 e-Cigarette/Vaping Use Never Used 10/07/25 08:31 Thrive Assessment: Date of Thrive Assessment Date Thrive assessed 04/02/25 10/07/25 08:31 Currently or been in a relationship where the following occur: No concerns reported Const General: healthy appearing, no acute distress, alert and awake Nutritional Appearance: well nourished Orientation/consciousness: oriented to person, oriented to place and oriented to time HENMT Ears: TM's normal bilaterally General nose exam: Normal nasal mucous membranes and turbinates present Eyes Conjunctivae: conjunctivae normal Sclerae: sclerae normal Pupils: Equal, round and reactive pupils present Neck Neck: Yes no lymphadenopathy and Yes no JVD Thyroid: Thyroid normal Carotids: no bruits Resp Effort & Inspection: normal respiratory effort and not tachypneic Auscultation: no crackles, no rales, no rhonchi and no wheezes Cardio Rate: regular rate Rhythm: regular rhythm Heart sounds: no murmurs and normal S1 and S2 GI Palpation (GI): Soft to palpation, nontender, no hepatomegaly and no splenomegaly Auscultation: normal bowel sounds Skin General skin exam: no rashes or lesions noted and dry skin Neuro General: oriented to person, oriented to place and oriented to time Cranial nerves: Yes Equal, round and reactive pupils present Speech: No Abnormal speech present Gait exam (Neuro): Normal gait present Motor exam (neuro): no tremor noted Extrem Right upper extremity: full ROM Left upper extremity: full ROM Right lower extremity: full ROM; no edema Left lower extremity: full ROM; no edema Psych Mental Status: mental status grossly normal Speech and movement: Normal speech and movement present Affect: normal affect Attitude: cooperative Thought process: Normal thought process present Coding Level of Care Code Est Pt Level 4 (25884) Diagnoses Palpitations R00.2 Chronic midline low back pain without sciatica M54.50; G89.29 Back pain laterality: midline Chronicity: chronic Sciatica presence: without sciatica Other iron deficiency anemia D50.8 Anemia type: iron deficiency Iron deficiency anemia type: other iron deficiency Assessment & Plan Assessment & Plan (1) Palpitations: Code(s): R00.2 - Palpitations Category: Medical Plan: For the patient's heart palpitations, a Holter monitor will be ordered to investigate for any underlying cardiac arrhythmia. Treatment with beta-blockers such as metoprolol was mentioned as a potential future option. She has been referred to Cardiology in his awaiting to be scheduled. (2) Low back pain: Code(s): M54.50 - Low back pain, unspecified Category: Medical Qualifiers: Back pain laterality: midline Chronicity: chronic Sciatica presence: without sciatica Qualified Code(s): M54.50 - Low back pain, unspecified; G89.29 - Other chronic pain Plan: Patient reporting worsening low back pain, will get x-ray of low back to evaluate for any significant arthritis. We did discuss the need to perhaps do physical therapy though patient declines at this time reporting she may not have time to do physical therapy. (3) Anemia: Code(s): D64.9 - Anemia, unspecified Category: Medical Qualifiers: Anemia type: iron deficiency Iron deficiency anemia type: other iron deficiency Qualified Code(s): D50.8 - Other iron deficiency anemias Plan: Patient followed by Hematology, has underwent iron infusions which did help raise her CBC count and ferritin level. She still reports fatigue and bone pain for an unclear reason. Will continue to evaluate Orders: Orders ECG 5 day holter monitor Today R00.2 - Palpitations XR lumbar spine 4V min Today G89.29 - Other chronic pain, M54.50 - Low back pain, unspecified
[2025-10-07 08:26] VITALS: BP 130/68; PULSE 51; TEMP 36.3; O2SAT 99; BMI 24.1
== END 2025-10-07 08:49 | disposition home or self-care (01) ==
LOC: HO.HMCH 08:21
PROVIDERS: PCP Physician Assistant; Visit Provider Physician Assistant
DX: R00.2 Palpitations (principal); M54.50 Low back pain, unspecified; G89.29 Other chronic pain; D50.8 Other iron deficiency anemias

== ENCOUNTER → 2025-10-07 09:35 | Outpatient (BNV) | payer OTHER, SELFPAY | PROVIDERS: Absent Provider Physician Assistant Surgical; PCP Physician Assistant; Referring Provider Obstetrics & Gynecology; Visit Provider Radiology Diagnostic Ultrasound | DX: M47.817 Spondylosis without myelopathy or radiculopathy, lumbosacral region (principal) | CPT/HCPCS: 72110 ==

== ENCOUNTER 2025-10-10 14:41 | Outpatient (REF) | payer OTHER, SELFPAY ==
--- NOTE | ~2025-10-10 | US_ITS ---
EXAMINATION: US PELVIS CLINICAL INFORMATION: N93.9. Abnormal uterine and vaginal bleeding. COMPARISON: Correlated to CT noncontrast dated January 13, 2025. TECHNIQUE: Ultrasound of the pelvis is performed using both transabdominal and transvaginal transducers along with Doppler. Transvaginal imaging is performed due to inadequate visualization transabdominally. FINDINGS: Uterus: The uterus is retroverted flexion and measures 8 x 5 x 6 cm. There is a 1.1 cm heterogeneous mixed isointense hypoechoic lesion in the fundus of the uterus. The double wall endometrial thickness is 13 mm. Adnexa: The ovaries are identified with flow on color Doppler interrogation. There is a 3.0 cm anechoic lesion without septations or nodular components were flow on color Doppler interrogation centered in the right adnexa.. Scattered follicles in the left ovary. No free fluid in the cul-de-sac. Right ovary measures 5 x 2 x 3 cm. Volume: 12 cc. Left ovary measures 3 x 1 x 2 cm. Volume: 4 cc US/US pelvic and transvaginal IMPRESSION: 3 cm cyst, right ovary. No ovarian torsion. 1.4 cm uterine fibroid, fundus. Electronically signed by: Ramón Valente MD 10/10/2025 03:38 PM EST
== END 2025-10-10 14:42 | disposition home or self-care (01) ==
LOC: HO.US 14:41
PROVIDERS: PCP Physician Assistant; Visit Provider Obstetrics & Gynecology
DX: N93.9 Abnormal uterine and vaginal bleeding, unspecified (principal)
CPT/HCPCS: 76830; 76856

== ENCOUNTER → 2025-10-10 14:44 | Outpatient (BNV) | payer OTHER, SELFPAY | PROVIDERS: PCP Physician Assistant; Visit Provider Radiology Diagnostic Radiology | DX: N83.201 Unspecified ovarian cyst, right side (principal); D25.9 Leiomyoma of uterus, unspecified; N93.9 Abnormal uterine and vaginal bleeding, unspecified | CPT/HCPCS: 76830; 76856 ==

== ENCOUNTER 2025-10-14 10:52 | Outpatient (AMB) | payer OTHER, SELFPAY ==
--- NOTE | 2025-10-14 10:52 | MHC.OFFVIS ---
Intake Visit Reasons: emb follow up Allergies Seasonal Allergies Allergy (Intermediate, Verified 10/07/25 08:33) Itchy Eyes hydrochlorothiazide Adverse Reaction (Intermediate, Verified 10/07/25 08:33) Dizziness HPI Comments Details: The patient is presenting for follow-up to discuss the results of her abnormal uterine bleeding workup and options of treatment. The following workup was done.: H&H= 13.4/41.5 TSH, hCG, GC and chlamydia were negative. Endometrial biopsy pathology showed the following: Disordered proliferative endometrium with focal breakdown; no atypia or hyperplasia identified Co testing was done in 04/11 was negative. Pelvic ultrasound showed the following: Uterus: The uterus is retroverted flexion and measures 8 x 5 x 6 cm. There is a 1.1 cm heterogeneous mixed isointense hypoechoic lesion in the fundus of the uterus. The double wall endometrial thickness is 13 mm. Adnexa: The ovaries are identified with flow on color Doppler interrogation. There is a 3.0 cm anechoic lesion without septations or nodular components were flow on color Doppler interrogation centered in the right adnexa.. Scattered follicles in the left ovary. No free fluid in the cul-de-sac. Right ovary measures 5 x 2 x 3 cm. Volume: 12 cc. Left ovary measures 3 x 1 x 2 cm. Volume: 4 cc [facility] Medical History (Updated 10/14/25 @ 11:11 by Solis Coates MD) Palpitations Annual physical exam Pre-op evaluation Class 2 obesity H. pylori infection BMI 39.0-39.9,adult Hand pain, left Right hand pain Polyarthralgia Acute allergic reaction Screening for diabetes mellitus (DM) Melasma Epigastric abdominal pain Esophagitis determined by endoscopy Well woman exam Dry cough History of COVID-19 Corneal abrasion of right eye due to contact lens Hot flashes Headache DJD (degenerative joint disease) Anemia History of vitamin D deficiency NAFLD (nonalcoholic fatty liver disease) IBS (irritable bowel syndrome) Sleep apnea HTN (hypertension) Hypersomnia Nocturnal hypoxia Hiatal hernia GERD (gastroesophageal reflux disease) History of COVID-19 Anxiety and depression History of abnormal cervical Pap smear Obesity (BMI 30-39.9) Surgical History History of gastric surgery History of hernia repair History of laparoscopic appendectomy (01/13/25) H/O endoscopy Hx of colonoscopy History of esophagogastroduodenoscopy (EGD) History of surgery Family History Father Diabetes Mother Hypertension Sister Cervical cancer Paternal Grandmother Uterine cancer Daughter Lymphatic malformation Paternal Grandmother Colon cancer Social History Household Members: Family and Children Housing: House Are you a primary associate director career services to a significant other at home: No Do you presently have visiting nurse or other home services: No Alcohol intake: current Alcohol intake frequency: does not drink Patient Tobacco Use Status: Never used Tobacco e-Cigarette/Vaping Use: Never Used Second Hand Smoke Exposure: Yes service: No Current occupational status: employed 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 Location of provider rendering services: practice address Location of patient: address on file Patient Identification confirmed using: Name, : Yes Telehealth method: video Patient verbally consented to treatment: Yes Patient verbally consented to billing insurance company: Yes Patient informed of any privacy concerns related to visit: Yes Minutes spent on Phone/Video with Pt.: 7 Assessment & Plan Assessment & Plan (1) Abnormal uterine bleeding (AUB): Comment: h/o Essure Code(s): N93.9 - Abnormal uterine and vaginal bleeding, unspecified Category: Medical Plan: Discussed with the patient the results of the work up done and options of treatment including but not limited to BCP's, cyclic Progesterone, Mirena IUD, endometrial ablation and hysterectomy. All pros, cons, risks and benefits of each option were discussed with the patient and the patient decided to go ahead with cyclic Provera, so a more detailed discussion re: Progesterone treatment including mechanism of action, benefits (regular menses, endometrial protection form unopposed estrogen and reduction in the risk of endometrial hyperplasia and/or cancer ...), risks (Thrombosis, mood changes, weight gain, breast soreness, ? increased breast ca, others). Instructions were given to use a back- up method for contraception since this is not a method control, take the medication 1 tablet daily starting day 15-24 and to schedule a 3 months follow-up appointment; patient verbalized understanding and agreed with the plan. (2) Uterine myoma: Code(s): D25.9 - Leiomyoma of uterus, unspecified Category: Medical Plan: Discussed with the patient the findings on pelvic ultrasound & the risk of myosarcoma; in addition reviewed with the patient that malignancy and pre malignancy cannot be ruled out without hysterectomy for pathological evaluation ; furthermore, explained to the patient the limitation of pelvic ultrasound and endometrial biopsy in the setting. Discussed with the patient the options of treatment including expectant management versus hysterectomy; the pros and cons, risks benefits of each approach were discussed with the patient including the fact that in cases of myosarcoma, surgical treatment can lead to early diagnosis and positively affects the prognosis; after further discussion, the patient decided to proceed with expectant management. Will repeat pelvic ultrasound periodically. Instructions given to patient to call in case any of the following occurs: pressure symptoms, abnormal uterine bleeding, pelvic pain; and to schedule a six-months pelvic ultrasound (order placed) and a follow-up appointment . All questions answered, the patient verbalized understanding and agreed with the plan . I spent a total of 20 minutes reviewing the chart, talking to the patient via video and documenting in the medical record. Orders: Orders US pelvic and transvaginal 6 Months D25.9 - Leiomyoma of uterus, unspecified Medications: New medroxyprogesterone (Provera) start Provera 1 tablet daily from day 15-24 cyclically every months, day 1 being 1st day of menses 10 mg PO DAILY 30 tabs 0RF 90 days Coding Level of Care Code Tele Est Pt Level 3 (93132) Diagnoses Abnormal uterine bleeding (AUB) N93.9 Uterine myoma D25.9
== END 2025-10-14 11:41 | disposition home or self-care (01) ==
LOC: HO.HWS 10:52
PROVIDERS: Visit Provider Obstetrics & Gynecology
DX: N93.9 Abnormal uterine and vaginal bleeding, unspecified (principal); D25.9 Leiomyoma of uterus, unspecified
CPT/HCPCS: 99213

== ENCOUNTER → 2025-10-20 08:40 | Outpatient (REF) | payer OTHER, SELFPAY | LOC: HO.CARD 08:40 | PROVIDERS: Visit Provider Physician Assistant | DX: R00.2 Palpitations (principal) | CPT/HCPCS: 93242 ==

== ENCOUNTER → 2025-10-20 08:45 | Outpatient (BNV) | payer OTHER, SELFPAY | PROVIDERS: Visit Provider Internal Medicine Cardiovascular Disease | DX: R00.2 Palpitations (principal) | CPT/HCPCS: 93244 ==